=== PATIENT | male | born 1975 | race Caucasian/White ===

== ENCOUNTER 2021-02-28 06:24 | Emergency (ER) | payer OTHER, SELFPAY ==
--- NOTE | ~2021-02-28 | XR_ITS ---
EXAMINATION: XR chest 2V DATE: 02/28/2021 07:48 INDICATION: Chest pain. Shortness of breath. TECHNIQUE: Frontal and lateral views of the chest were obtained. COMPARISON: Chest 2 views 01/07/2018 FINDINGS: The chest demonstrates clear lungs without pneumonia, pleural effusion, or pneumothorax. Th e heart size is normal. IMPRESSION: 1. No acute cardiopulmonary disease. Reviewed, dictated and finalized at location A.
[2021-02-28 06:21] VITALS: PULSE 88; RESP 22; O2SAT 97
[2021-02-28 06:28] VITALS: BP 208/101; PULSE 86; RESP 17; O2SAT 96
--- NOTE | 2021-02-28 07:16 | ECG_ITS ---
Measurements Intervals [place] Rate: 77 P: 35 ID: [id number] QRS: 20 QRSD: 92 T: 35 QT: 348 QTc: 396 Interpretive Statements SINUS RHYTHM ST ELEVATION IN DIFFUSE LEADS- PROBABLY EARLY REPOLARIZATION BORDERLINE ECG Electronically Signed On 02-28-2021 7:19:01 CDT by Johny Scott D.O.
[2021-02-28 07:17] VITALS: BP 177/87; PULSE 73; RESP 14; O2SAT 99
[2021-02-28 07:37] LABS: Basophils Absolute Auto 0.1 K/mm3 (0.0-0.1); Basophils Percent Auto 0.7 % (0.2-1.2); Eosinophils Absolute Auto 0.2 K/mm3 (0-0.3); Eosinophils Percent Auto 2.5 % (0-4.4); Hematocrit 46.6 % (42.0-52.0); Hemoglobin 17.5 g/dL (14.0-18.0); Immature Granulocyte Absolute 0.05 K/mm3 (0.00-0.031); Immature Granulocyte Percent A 0.7 % (0-0.5); Lymphocytes Absolute Auto 1.37 K/mm3 (0.9-3.2); Lymphocytes Percent Auto 20.2 % (18.3-44.2); Mean Corpuscular HGB Conc 37.6 g/dl (32-36); Mean Corpuscular Volume 82.5 fl (80-100); Mean Platelet Volume 12.7 fl (7.4-10.4); Monocytes Absolute Auto 0.4 K/mm3 (0.1-0.6); Monocytes Percent Auto 5.7 % (2.6-8.5); Neutrophils Absolute Auto 4.8 K/mm3 (1.3-6.7); Neutrophils Percent Auto 70.2 % (45.5-73.1); Platelet Count Result 113 k/mm3 (150-375); Red Blood Count 5.65 M/mm3 (4.6-6.20); Red Cell Distribution Width 12.1 % (11.5-14.5); White Blood Count 6.8 K/mm3 (4.5-10.0)
[2021-02-28 07:45] LABS: INR 0.9; Prothrombin Time 12.4 Seconds (11.1-14.7)
[2021-02-28 07:46] LABS: Partial Thromboplastin Time 32.9 SECONDS (22.3-36.8)
[2021-02-28 07:58] LABS: Troponin I 0.017 ng/mL (0.000-0.034)
[2021-02-28 08:10] VITALS: BP 149/91; PULSE 77; RESP 16; O2SAT 98
--- NOTE | 2021-02-28 08:29 | ED.GENADULT ---
HPI - General Adult General Chief complaint: Extremity Problem,Nontraumatic Stated complaint: shoulder pain Time Seen by Provider: 02/28/21 07:05 History of Present Illness HPI narrative: Patient is a 45-year-old male who presents ER with chest pain and left arm pain. Patient woke from sleep with central chest pain he describes as pressure. It was associated with pain going down his left arm. His blood pressure was also in the 200s. Called 911. In route patient received nitro spray which she reports alleviated his pain. Patient has history of diabetes and hypertension and is a smoker. No previous coronary disease. Related Data Allergies Allergy/AdvReac Type Severity Reaction Status Date / Time acetaminophen Allergy Unknown Itching Verified 01/07/18 10:38 oxycodone Allergy Unknown Itching Verified 01/07/18 10:38 Review of Systems Review of Systems: All systems reviewed & are unremarkable except as noted in HPI and below Constitutional: Constitutional: Denies chills, Denies fever(s) and Denies weakness ENT: Denies nasal congestion and Denies sore throat Cardiovascular: Cardiovascular: Reports chest pain, Denies rapid heart rate and Reports radiating jaw, neck or arm pain Respiratory: Respiratory: Denies cough, Denies dyspnea and Denies wheezing Gastrointestinal: Gastrointestinal: Denies abdominal pain, Reports nausea and Denies vomiting PMFSH Past Medical History Medical History (Updated 02/28/21 @ 09:26 by Karri Hough MD) Diabetes Hypercholesterolemia Hypertension Surgical History Surgical History (Updated 02/28/21 @ 08:31 by Karri Hough MD) History of rotator cuff surgery Social History Social History (Updated 02/28/21 @ 08:31 by Karri Hough MD) Smoking status: Current every day smoker Tobacco type: cigarettes Exam Narrative: Exam Narrative: GENERAL: Well-appearing, well-nourished, and in no acute distress. HEAD: Normocephalic, atraumatic. CHEST: Clear to auscultation. No respiratory distress. HEART: Regular rate and rhythm. Normal peripheral pulses. ABDOMEN: Soft, nontender, nondistended. EXTREMITIES: Normal range of motion. No edema. SKIN: Warm, dry, no rash. NEURO: Alert and oriented x3. PSYCH: Normal mood and affect. Course Course Emergency Course: Patient has had multiple blood draws hemolyzed. He has no chest pain and he has become frustrated. He has decided he wants to leave AGAINST MEDICAL ADVICE and understands that he would be risking as well as permanent disability and worsening of condition should he do so. Family was present during this conversation. Vital Signs Vital signs: Vital Signs Pulse Rate 88 02/28/21 06:21 Respiratory Rate 22 H 02/28/21 06:21 Pulse Oximetry 97 02/28/21 06:21 Pulse Rate 81 02/28/21 09:10 Respiratory Rate 20 02/28/21 09:10 Blood Pressure 146/86 H 02/28/21 09:10 Pulse Oximetry 100 02/28/21 09:10 Medical Decision Making Vital Signs Vital Signs: Vital Signs Pulse Rate 88 02/28/21 06:21 Respiratory Rate 22 H 02/28/21 06:21 Pulse Oximetry 97 02/28/21 06:21 Pulse Rate 81 02/28/21 09:10 Respiratory Rate 20 02/28/21 09:10 Blood Pressure 146/86 H 02/28/21 09:10 Pulse Oximetry 100 02/28/21 09:10 Lab Data Result diagrams: 02/28/21 07:29 02/28/21 08:54 Labs: Lab Results 02/28/21 02/28/21 02/28/21 Range/Units 07:29 07:29 08:02 WBC 6.8 (4.5-10.0) K/mm3 RBC 5.65 (4.6-6.20) M/mm3 Hgb 17.5 (14.0-18.0) g/dL Hct 46.6 (42.0-52.0) % MCV 82.5 (80-100) fl MCH 31.0 (26-34) pg MCHC 37.6 H (32-36) g/dl RDW 12.1 (11.5-14.5) % Plt Count 113 L (150-375) k/mm3 MPV 12.7 H (7.4-10.4) fl Immature Gran % (Auto) 0.7 H (0-0.5) % Neut % (Auto) 70.2 (45.5-73.1) % Lymph % (Auto) 20.2 (18.3-44.2) % [place] % (Auto) 5.7 (2.6-8.5) % Eos % (Auto) 2.5 (0-4.4) % Baso % (Auto) 0.7 (0.2-
[2021-02-28 09:10] VITALS: BP 146/86; PULSE 81; RESP 20; O2SAT 100
--- NOTE | 2021-02-28 09:28 | PC.NURSE ---
Lab came to Pt. room to draw blood due to multiple hemolyzed specimens. Pt. refused third blood draw for lab work. Pt. wants to sign out against medical advice. ERP aware and will go talk to the patient.
[2021-02-28 09:29] VITALS: BP 135/94; PULSE 80; RESP 20; O2SAT 97
== END 2021-02-28 09:33 | disposition left against medical advice (07) ==
PROVIDERS: Emergency Provider Emergency Medicine; PCP Family Medicine
DX: R07.9 Chest pain, unspecified (principal); E11.9 Type 2 diabetes mellitus without complications; E78.00 Pure hypercholesterolemia, unspecified; I10 Essential (primary) hypertension; F17.210 Nicotine dependence, cigarettes, uncomplicated; R94.31 Abnormal electrocardiogram [ECG] [EKG]
CPT/HCPCS: 36415; 71046; 84484; 85025; 85610; 85730; 93005; 99284

== ENCOUNTER 2021-03-08 15:23 | Outpatient (CLI) | payer OTHER, SELFPAY ==
--- NOTE | 2021-03-08 | ECG_ITS ---
Measurements Intervals [place] Rate: 72 P: 23 [place]: 206 QRS: 16 QRSD: 96 T: 28 QT: 379 QTc: 416 Interpretive Statements SINUS RHYTHM EARLY PRECORDIAL R/S TRANSITION BORDERLINE ECG Electronically Signed On 03-08-2021 16:56:55 CDT by Johny Scott D.O.
== END 2021-03-08 15:24 | disposition home or self-care (01) ==
LOC: ANHCARD 15:25
PROVIDERS: PCP Physician Assistant; Visit Provider Physician Assistant
DX: R07.89 Other chest pain (principal)
CPT/HCPCS: 93005

== ENCOUNTER 2021-05-11 19:36 | Emergency (ER) | payer OTHER, SELFPAY ==
[2021-05-11] VITALS (8 sets, daily range): BP systolic 133–145; BP diastolic 60–96; PULSE 76–104; RESP 11–31; TEMP 36.9–37.4; O2SAT 90–100
--- NOTE | ~2021-05-11 | XR_ITS ---
XR chest 2V DATE: 05/11/2021 20:08 INDICATION: Shortness of breath, palpitations. Smoker. History of hypertension. TECHNIQUE: PA and lateral views COMPARISON: 02/28/2021 PA and lateral chest FINDINGS: Normal heart size. No hilar or mediastinal enlargement. No pulmonary infiltrate or consolid ation, pleural effusion or pulmonary vascular congestion or pneumothorax. Mild dextro scoliosis of the thoracic spine. IMPRESSION: No active cardiopulmonary disease Reviewed, dictated and finalized at location A.
[2021-05-11 20:36] LABS: Basophils Absolute Auto 0.1 K/mm3 (0.0-0.1); Basophils Percent Auto 0.7 % (0.2-1.2); Eosinophils Absolute Auto 0.3 K/mm3 (0-0.3); Eosinophils Percent Auto 3.7 % (0-4.4); Hematocrit 47.2 % (42.0-52.0); Hemoglobin 16.4 g/dL (14.0-18.0); Immature Granulocyte Absolute 0.01 K/mm3 (0.00-0.031); Immature Granulocyte Percent A 0.1 % (0-0.5); Lymphocytes Absolute Auto 1.44 K/mm3 (0.9-3.2); Lymphocytes Percent Auto 19.8 % (18.3-44.2); Mean Corpuscular HGB Conc 34.7 g/dl (32-36); Mean Corpuscular Hemoglobin 29.5 pg (26-34); Mean Platelet Volume 12.3 fl (7.4-10.4); Monocytes Absolute Auto 0.7 K/mm3 (0.1-0.6); Monocytes Percent Auto 9.6 % (2.6-8.5); Neutrophils Absolute Auto 4.8 K/mm3 (1.3-6.7); Neutrophils Percent Auto 66.1 % (45.5-73.1); Platelet Count Result 112 k/mm3 (150-375); Red Blood Count 5.55 M/mm3 (4.6-6.20); White Blood Count 7.3 K/mm3 (4.5-10.0)
[2021-05-11 20:45] LABS: Anion Gap 11 mmol/L (8-16); Blood Urea Nitrogen 14 mg/dL (9-20); Calcium 9.1 mg/dL (8.4-10.2); Carbon Dioxide 26 mmol/L (22-30); Chloride 101 mmol/L (98-107); Estimated CRCL calculation 158 ml/min; Estimated Glomerular Filt Rate > 60; Glucose 163 mg/dL (75-110); INR 0.9; Potassium 3.6 mmol/L (3.4-5.0); Prothrombin Time 12.9 Seconds (11.1-14.7); Sodium 138 mmol/L (137-145)
[2021-05-11 20:46] LABS: Partial Thromboplastin Time 24.2 SECONDS (22.3-36.8)
[2021-05-11 20:57] LABS: Troponin I < 0.012 ng/mL (0.000-0.034)
--- NOTE | 2021-05-11 22:08 | ECG_ITS ---
Measurements Intervals [place] Rate: 85 P: 36 [place]: 225 QRS: 17 QRSD: 95 T: 38 QT: 343 QTc: 409 Interpretive Statements SINUS RHYTHM WITH FIRST DEGREE AV BLOCK ABNORMAL ECG Electronically Signed On 05-12-2021 7:32:36 CDT by Johny Scott D.O.
[2021-05-11 23:22] LABS: Troponin I < 0.012 ng/mL (0.000-0.034)
--- NOTE | 2021-05-11 23:56 | ED.CHESTPAIN ---
HPI - Chest Pain General Chief Complaint: Chest Pain Stated Complaint: chest pain x 45, cardiac history-hang Time Seen by Provider: 05/11/21 22:44 Source: patient and family Mode of arrival: ambulatory Limitations: no limitations History of Present Illness HPI narrative: 45-year-old with history of hypertension, hypercholesteremia, diabetes here with complaints of midsternal chest pain that started few hours ago. Patient states that he has been having cold and cough symptoms for past few days. He states that his heart was pacing. He denies any shortness of breath or fever or chills at this time. complaint: chest discomfort Onset (ago): hour(s) (2) Timing of current episode: now resolved Onset: during rest Pain location: substernal Pain radiation: none Severity: moderate Treatment prior to arrival: none Risk Factors Coronary artery disease risk factors: diabetes, hyperlipidemia and hypertension Thoracic aortic dissection risk factors: none Related Data Allergies Allergy/AdvReac Type Severity Reaction Status Date / Time acetaminophen Allergy Unknown Itching Verified 01/07/18 10:38 oxycodone Allergy Unknown Itching Verified 01/07/18 10:38 Review of Systems Review of Systems: All systems reviewed & are unremarkable except as noted in HPI and below Constitutional: Constitutional: Reports no additional constitutional complaints Eyes: Eyes: Reports no additional eye complaints ENT: Reports system reviewed and no additional complaints, except as documented Cardiovascular: Cardiovascular: Reports as per HPI Respiratory: Respiratory: Reports as per HPI Gastrointestinal: Gastrointestinal: Reports no additional gastrointestinal complaints Genitourinary: Genitourinary: Reports no additional male genitourinary complaints Musculoskeletal: Musculoskeletal: Reports no additional musculoskeletal complaints PMFSH Past Medical History Medical History Diabetes Hypercholesterolemia Hypertension Surgical History Surgical History History of rotator cuff surgery Social History Social History Smoking status: Current every day smoker Tobacco type: cigarettes Gender identity (if verbalized by the patient): Male Exam Narrative: Exam Narrative: GENERAL: Well-appearing, well-nourished, and in no acute distress. HEAD: Normocephalic, atraumatic. EYES: PERRLA and EOMI.. NECK: Supple. CHEST: Clear to auscultation. No respiratory distress. HEART: Regular rate and rhythm. No murmur heard. Normal peripheral pulses. ABDOMEN: Soft, nontender, nondistended, normal active bowel sounds. EXTREMITIES: Normal range of motion. No edema. SKIN: Warm, dry, no rash. NEURO: No focal deficits. Alert and oriented x3. PSYCH: Normal mood and affect. Course Course Emergency Course: Patient has a normal sinus rhythm with a heart rate between 80s and 90s. He states that he is feeling his heart beating too fast I was monitoring his heart rate while he was having the symptoms his heart rate was in the 80s to 90s. I discussed labs, chest x-ray findings with the patient and family. This time his pain is more likely noncardiac. Advised him to continue his medication. Follow-up with his primary doctor. Vital Signs Vital signs: Vital Signs Temperature 36.9 C 05/11/21 20:16 Pulse Rate 95 05/11/21 20:16 Respiratory Rate 14 05/11/21 20:16 Blood Pressure 145/82 H 05/11/21 20:16 Pulse Oximetry 98 05/11/21 20:16 Temperature 37.4 C 05/11/21 21:59 Pulse Rate 95 05/11/21 23:45 Respiratory Rate 17 05/11/21 23:45 Blood Pressure 135/96 H 05/11/21 23:32 Pulse Oximetry 99 05/11/21 23:32 MDM - Chest Pain Lab Data Result diagrams: 05/11/21 20:25 05/11/21 20:25 Labs: Lab Results 05/11/21 05/11/21 05/11/21 Range/Units 20:25 20
[2021-05-12 00:16] VITALS: BP 138/89; PULSE 92; RESP 16; O2SAT 99
== END 2021-05-12 00:16 | disposition home or self-care (01) ==
PROVIDERS: Emergency Medicine; Emergency Provider Family Medicine; PCP Physician Assistant
DX: R07.89 Other chest pain (principal); I10 Essential (primary) hypertension; E78.00 Pure hypercholesterolemia, unspecified; E11.9 Type 2 diabetes mellitus without complications; F17.210 Nicotine dependence, cigarettes, uncomplicated; I44.0 Atrioventricular block, first degree
CPT/HCPCS: 36415; 71046; 80048; 84484; 85025; 85610; 85730; 93005; 99284

== ENCOUNTER 2021-07-03 08:54 | Emergency (ER) | payer OTHER, SELFPAY ==
[2021-07-03 09:09] VITALS: BP 149/93; PULSE 75; RESP 20; TEMP 36.7; O2SAT 98
--- NOTE | 2021-07-03 10:05 | ED.BACK ---
HPI - Back Pain/Injury General Chief Complaint: Back Pain/Injury Stated Complaint: Back Pain Time Seen by Provider: 07/03/21 09:52 Source: patient and RN notes reviewed Mode of arrival: ambulatory Limitations: no limitations History of Present Illness HPI Narrative: Patient presents today complaining of left lower back pain and left lower abdomen pain. States he felt a pull in his left lower abdomen and groin when he lifted a picnic table yesterday afternoon. As the day went on and into last night this pain radiated into his left back. He currently rates his pain 810 and has been taking ibuprofen without relief. Denies numbness or tingling in the legs, feet, or genitals. Denies any loss of bowel or bladder control. MD elicited complaint: back pain and back injury Related Data Home Medications Medication Instructions Recorded Confirmed amlodipine 07/03/21 aspirin 07/03/21 carvedilol 07/03/21 glipizide mg PO 07/03/21 hydrochlorothiazide 07/03/21 hydrochlorothiazide 07/03/21 metformin mg PO 07/03/21 Allergies Allergy/AdvReac Type Severity Reaction Status Date / Time acetaminophen Allergy Unknown Itching Verified 01/07/18 10:38 oxycodone Allergy Unknown Itching Verified 01/07/18 10:38 Review of Systems Review of Systems: CONSTITUTIONAL: Denies body aches, fever, chills, or sweats. EYES: Denies visual changes, redness, or discharge. ENT: Denies rhinorrhea, congestion, sore throat, or otalgia. CARDIOVASCULAR: Denies chest pain, palpitations, or edema. RESPIRATORY: Denies cough or dyspnea. GASTROINTESTINAL: Denies abdominal pain, nausea, vomiting, or diarrhea. GENITOURINARY: Denies dysuria or hematuria. SKIN: Denies rash, itching, or wounds. MUSCULOSKELETAL: Denies joint pain, or myalgia. + Back pain NEUROLOGIC: Denies headache, numbness, tingling, or weakness. PSYCH: Denies depression or anxiety. [facility] Past Medical History Medical History Diabetes Hypercholesterolemia Hypertension Surgical History Surgical History History of rotator cuff surgery Social History Social History Smoking status: Current every day smoker Tobacco type: cigarettes Gender identity (if verbalized by the patient): Male Comments At time of signature, I have reviewed and agree with nursing past medical, surgical, social and family history unless otherwise noted. Please see nursing chart for further information. There is no relevant family history pertinent to the presenting complaint Exam Narrative: GENERAL: Well-appearing, well-nourished, and in no acute distress. HEAD: Normocephalic, atraumatic. EYES: EOMI. No redness or drainage. Conjunctivae normal. ENT: Mucous membranes pink and moist. NECK: Normal AROM. CHEST: No respiratory distress. ABDOMEN: Soft, nondistended, normal active bowel sounds. Mild tenderness to the left lower quadrant that extends laterally. MUSCULOSKELETAL: No bony tenderness to the thoracic or lumbar spine. Patient localizes his back pain to the left lower lumbar, but this area is nontender to palpation. Distal sensation intact. Capillary refill normal. Pedal pulses normal. Posterior pulse equal and strong. EXTREMITIES: Normal range of motion. No edema. SKIN: Warm, dry, no rash. Capillary refill normal. Normal skin turgor. NEURO: No focal deficits. Alert and oriented x3. Gait steady. PSYCH: Normal affect. No signs of depression or anxiety. Course Vital Signs Vital signs: Vital Signs Temperature 98.1 F 07/03/21 09:09 Pulse Rate 75 07/03/21 09:09 Respiratory Rate 20 07/03/21 09:09 Blood Pressure 149/93 H 07/03/21 09:09 Pulse Oximetry 98 07/03/21 09:09 Temperature 98.1 F 07/03/21 09:09 Pulse Rate 75 07/03/21 09:09 Respiratory Rate 20 07/03/21 09:09 Blood Pressure
== END 2021-07-03 10:34 | disposition home or self-care (01) ==
PROVIDERS: Emergency Provider Nurse Practitioner; PCP Physician Assistant
DX: S39.012A Strain of muscle, fascia and tendon of lower back, initial encounter (principal); S39.011A Strain of muscle, fascia and tendon of abdomen, initial encounter; X50.0XXA Overexertion from strenuous movement or load, initial encounter; E11.9 Type 2 diabetes mellitus without complications; E78.00 Pure hypercholesterolemia, unspecified; I10 Essential (primary) hypertension; F17.210 Nicotine dependence, cigarettes, uncomplicated
CPT/HCPCS: 99213; G0463

== ENCOUNTER 2022-03-22 13:26 | Emergency (ER) | payer OTHER, SELFPAY ==
[2022-03-22 13:34] VITALS: BP 157/95; PULSE 93; RESP 16; TEMP 38; O2SAT 99
--- NOTE | 2022-03-22 13:34 | ED.ABDPAIN ---
HPI - Abdominal Pain General Chief Complaint: Abdominal Pain Stated Complaint: abd pain Time Seen by Provider: 03/22/22 13:37 Source: patient and RN notes reviewed Mode of arrival: ambulatory Limitations: no limitations History of Present Illness HPI narrative: 46-year-old male presented for complaint of multiple concerns including generalized abdominal pain, constipation, nausea, decreased appetite x2 weeks. He states he has occasional dizziness, sweating, fatigue, chest pain, palpitations. Pain is intermittent, sharp, stabbing. He states the pain was so severe last night and was associated with hard stomach his family advised him to call 911 but he declined stating he usually signed out AMA and didn't want to go. LBM 6 days. He took an enema last night and a laxative today without results. Endorses history of diabetes, hypertension, and dilated aorta, he states his PCP started him on Farxiga about 2 weeks ago, which he has attributed the decreased appetite and nausea. Patient smokes 1.5 PPD, occasional alcohol. He is not boosted for COVID, not vaccinated for flu. Related Data Home Medications Medication Instructions Recorded Confirmed amlodipine 07/03/21 aspirin 07/03/21 carvedilol 07/03/21 hydrochlorothiazide 07/03/21 metformin mg PO 07/03/21 dapagliflozin [Farxiga] mg 03/22/22 Allergies Allergy/AdvReac Type Severity Reaction Status Date / Time acetaminophen Allergy Unknown Itching Verified 03/22/22 13:30 oxycodone Allergy Unknown Itching Verified 03/22/22 13:30 Review of Systems Review of Systems: CONSTITUTIONAL: Denies body aches, fever, chills EYES: Denies visual changes ENT: Denies rhinorrhea, congestion CARDIOVASCULAR: endorses chest pain, palpitations RESPIRATORY: Denies cough GASTROINTESTINAL: Endorses abdominal pain, nausea, Denies hematochezia, melena, hematemesis, vomiting, diarrhea. GENITOURINARY: Denies dysuria, hematuria, or CVA tenderness. SKIN: Denies rash, itching, or wounds. MUSCULOSKELETAL: Denies back pain, joint pain, or myalgia. NEUROLOGIC: Denies headache, numbness, tingling, or weakness. PSYCH: Denies mood change All systems reviewed & are unremarkable except as noted in HPI and below PMFSH Past Medical History Medical History Diabetes Hypercholesterolemia Hypertension Surgical History Surgical History History of rotator cuff surgery Social History Social History Smoking status: Current every day smoker Tobacco type: cigarettes Gender identity (if verbalized by the patient): Male Comments At time of signature, I have reviewed and agree with nursing past medical, surgical, social and family history unless otherwise noted. Please see nursing chart for further information. There is no relevant family history pertinent to the presenting complaint Exam Narrative: GENERAL: ill-appearing, non-toxic, no acute distress. Appears older than stated age HEAD: Normocephalic, atraumatic. EYES: EOMI. Conjunctivae normal. ENT: Mucous membranes pink and moist. NECK: Normal AROM. Supple. No lymphadenopathy. CHEST: No respiratory distress. Clear to auscultation. HEART: Regular rate and rhythm. No murmur appreciated. Normal peripheral pulses. ABDOMEN: Tender abdomen generalized; No guarding, rebound tenderness, asymmetry; abd soft, nondistended, normal active bowel sounds. MUSCULOSKELETAL: No bony tenderness. EXTREMITIES: Normal range of motion. No edema. SKIN: Warm, dry, no rash. Capillary refill normal. Normal skin turgor. NEURO: No focal deficits. Alert and oriented x3. Gait steady. PSYCH: flat affect. Course Course Emergency Course: Patient is aware of diagnosis, understands and agrees to treatment plan. Anticipatory guidance given. Portions of this record may have been created with
[2022-03-22 13:43] VITALS: BP 157/95; PULSE 93; RESP 16; TEMP 38; O2SAT 99
--- NOTE | 2022-03-22 13:45 | ECG_ITS ---
Measurements Intervals [place] Rate: 93 P: 45 [place]: 184 QRS: 29 QRSD: 98 T: 44 QT: 340 QTc: 424 Interpretive Statements SINUS RHYTHM COMPARED TO ECG 05/11/2021 22:07:38 NO SIGNIFICANT CHANGES Electronically Signed On 03-22-2022 20:10:27 CDT by Sophia Enrique M.D.
== END 2022-03-22 13:58 | disposition short-term general hospital (02) ==
PROVIDERS: Emergency Provider Nurse Practitioner Family
DX: R10.84 Generalized abdominal pain (principal); F17.210 Nicotine dependence, cigarettes, uncomplicated
CPT/HCPCS: 93005; 99213; G0463

== ENCOUNTER 2022-05-01 21:47 | Emergency (ER) | payer OTHER, SELFPAY ==
[2022-05-01] VITALS (17 sets, daily range): BP systolic 135–164; BP diastolic 68–84; PULSE 58–94; RESP 12–22; TEMP 36.6; O2SAT 94–100
[2022-05-01 22:00] LABS: Basophils Percent Auto 0.1 % (0.2-1.2); Hematocrit 40.5 % (42.0-52.0); Hemoglobin 14.3 g/dL (14.0-18.0); Immature Granulocyte Absolute 0.16 K/mm3 (0.00-0.031); Immature Granulocyte Percent A 1.5 % (0-0.5); Immature Platelet Fraction Pct 9.4 % (0.9-11.2); Lymphocytes Percent Auto 7.5 % (18.3-44.2); Mean Corpuscular HGB Conc 35.3 g/dl (32-36); Mean Corpuscular Hemoglobin 29.2 pg (26-34); Mean Corpuscular Volume 82.7 fl (80-100); Mean Platelet Volume 12.1 fl (7.4-10.4); Monocytes Absolute Auto 0.5 K/mm3 (0.1-0.6); Monocytes Percent Auto 4.5 % (2.6-8.5); Neutrophils Absolute Auto 9.3 K/mm3 (1.3-6.7); Neutrophils Percent Auto 86.4 % (45.5-73.1); Platelet Count Result 136 k/mm3 (150-375); Red Cell Distribution Width 12.4 % (11.5-14.5); White Blood Count 10.7 K/mm3 (4.5-10.0)
[2022-05-01] MEDS: SODIUM CHLORIDE 0.9% IV 1,000 ML 999 ML IV CONT ×2 (22:09→23:44)
--- NOTE | 2022-05-01 22:14 | ED.RECABL ---
HPI - Recheck/Abnormal Lab/Rx General Chief Complaint: Recheck/Abnormal Lab/Rx Stated Complaint: AMS, ELEVATED GLUCOSE Time Seen by Provider: 05/01/22 21:58 Source: patient History of Present Illness HPI narrative: Patient presents with elevated sugars. Patient was recently admitted to [place] and discharged a few days ago. Patient reports has not been feeling well since that time. He was admitted for ulcerative colitis and was discharged home on some medications to include prednisone. Since his discharge again he has been feeling unwell. Today he is feeling lightheaded and he was lowered to the ground. Family took a blood sugar and her glucometer read high so they called EMS and patient was transported for further evaluation. EMS reports her glucometer also read high. Patient reports in general he does not not feel well he denies any focal areas of pain denies any nausea vomiting diarrhea. Related Data Home Medications Medication Instructions Recorded Confirmed amlodipine 5 mg tablet 5 mg PO DAILY 07/03/21 03/22/22 aspirin 81 mg tablet,delayed 81 mg PO DAILY 07/03/21 03/22/22 release carvedilol 12.5 mg tablet 12.5 mg PO DAILY 07/03/21 03/22/22 hydrochlorothiazide 12.5 mg capsule 12.5 mg PO DAILY 07/03/21 03/22/22 metformin 500 mg tablet,extended 500 mg PO BID 07/03/21 03/22/22 release 24 hr dapagliflozin 10 mg tablet 10 mg PO DAILY 03/22/22 03/22/22 (Farxiga) Allergies Allergy/AdvReac Type Severity Reaction Status Date / Time acetaminophen Allergy Unknown Itching Verified 03/22/22 13:30 oxycodone Allergy Unknown Itching Verified 03/22/22 13:30 Review of Systems Review of Systems: CONSTITUTIONAL: Denies fever, chills, or sweats. EYES: Denies visual changes, redness, or discharge. ENT: Denies rhinorrhea, congestion, sore throat, or otalgia. CARDIOVASCULAR: Denies chest pain, palpitations, or edema. RESPIRATORY: Denies cough or dyspnea. GASTROINTESTINAL: Denies abdominal pain, nausea, vomiting, or diarrhea. GENITOURINARY: Denies dysuria or hematuria. SKIN: Denies rash or itching. MUSCULOSKELETAL: Denies back pain, joint pain, or myalgia. NEUROLOGIC: Denies headache, numbness, dizziness, or focal weakness. PSYCHIATRIC: Denies anxiety or depression. All systems reviewed & are unremarkable except as noted in HPI and below PMFSH Past Medical History Medical History Diabetes Hypercholesterolemia Hypertension Surgical History Surgical History History of rotator cuff surgery Social History Social History Smoking status: Current every day smoker Tobacco type: cigarettes Gender identity (if verbalized by the patient): Male Exam Narrative: GENERAL: Well-appearing, well-nourished, and in no acute distress. HEAD: Normocephalic, atraumatic. EYES: PERRLA and EOMI. ENT: Nares clear, no rhinorrhea or epistaxis. Mucous membranes moist. NECK: Supple. No masses. No JVD CHEST: Clear to auscultation. No respiratory distress. No wheezes rales or rhonchi HEART: Regular rate and rhythm. No murmur heard. Normal peripheral pulses. ABDOMEN: Soft, nontender, nondistended, normal active bowel sounds. EXTREMITIES: Normal range of motion. No edema. SKIN: Warm, dry, no rash. NEURO: No focal deficits. Alert and oriented x3. PSYCH: Normal mood and affect. Course Reevaluation(s) Reevaluation #1: Patient is feeling much improved and would like to go home. Date: 05/01/22 Time: 23:36 Reevaluation #2: Patient continues report feeling improved and would like to be discharged as his sugar is improving. I did advise the patient I would like to continue to reduce his sugar while he is here in the emergency room he declined and feels like he manages his symptoms at home now and he has follow-up with his primary care doctor tomorrow. Date: 05/02/22 Time: 00
[2022-05-01 22:26] LABS: Appearance Urine Clear (Clear); Bilirubin Urine Negative (Negative); Blood Urine Negative (Negative); Color Urine Yellow (Yellow); Glucose Urine UA 3+ mg/dL (Negative); Ketones Urine 2+ mg/dL (Negative); Leukocyte Esterase Ur Negative LEU/UL (Negative); Nitrate Urine Negative (Negative); Protein Urine Negative (Negative); Specific Grav Ur 1.015 (1.001-1.035); Urobilinogen Urine 0.2 mg/dL (<2.0); pH Urine 6.5 (5.0-9.0)
[2022-05-01 22:30] LABS: WBC Urine 0-3 /hpf
[2022-05-01 22:34] LABS: Alanine Aminotransferase 20 U/L (6-50); Alkaline Phosphatase 132 U/L (38-126); Anion Gap 5 mmol/L (8-16); Aspartate Amino Transferase 17 U/L (17-59); Bilirubin,Total 0.5 mg/dL (0.2-1.3); Blood Urea Nitrogen 18 mg/dL (9-20); Carbon Dioxide 23 mmol/L (22-30); Chloride 97 mmol/L (98-107); Estimated CRCL calculation 162 ml/min; Estimated Glomerular Filt Rate > 60; Glucose 583 mg/dL (65-110); Magnesium 1.9 mg/dL (1.6-2.3); Phosphorus 3.4 mg/dL (2.5-4.5); Potassium 4.2 mmol/L (3.4-5.0); Sodium 125 mmol/L (137-145)
[2022-05-01 22:35] LABS: Add Urine Microscopic? YES
[2022-05-01 22:35] LABS: Beta-Hydroxybutyrate/Acetoacetate 0.97 mmol/L (0.02-0.27)
[2022-05-01] MEDS: INSULIN HUMAN REGULAR (*BKC) 100 UNITS/ML 11 UNITS IV PUSH (23:35)
[2022-05-01 23:39] LABS: Glucose Point of Care 455 mg/dl (65-105)
[2022-05-02] VITALS: O2SAT 97
[2022-05-02 00:02] VITALS: BP 147/66; O2SAT 97
[2022-05-02 00:15] VITALS: O2SAT 98
[2022-05-02 00:16] VITALS: BP 147/68
[2022-05-02 00:32] VITALS: BP 137/63
[2022-05-02 00:41] LABS: Glucose Point of Care 349 mg/dl (65-105)
== END 2022-05-02 01:13 | disposition home or self-care (01) ==
PROVIDERS: Emergency Provider Emergency Medicine; PCP Physician Assistant
DX: E11.65 Type 2 diabetes mellitus with hyperglycemia (principal); I10 Essential (primary) hypertension; E78.5 Hyperlipidemia, unspecified; Z79.84 Long term (current) use of oral hypoglycemic drugs
CPT/HCPCS: 36415; 80053; 81001; 82010; 82948; 83735; 84100; 85025; 85055; 96361; 96374; 99284; J1815; J7030

== ENCOUNTER 2022-11-10 14:28 | Outpatient (CLI) | payer BC, SELFPAY ==
[2022-11-10 14:46] LABS: Hematocrit 43.2 % (40.0-54.0); Hemoglobin 15.1 g/dL (14.0-18.0); Immature Platelet Fraction Pct 7.3 % (1.0-7.0); Mean Corpuscular Hemoglobin 28.8 pg (27.0-31.0); Mean Corpuscular Volume 82.4 fL (78.0-102.0); Mean Platelet Volume 11.6 fl (8.7-11.0); Platelet Count Result 115 K/mm3 (150-420); Red Blood Count 5.24 M/mm3 (4.70-6.10); Red Cell Distribution Width 12.5 % (11.6-14.4); White Blood Count 4.7 K/mm3 (4.8-10.8)
[2022-11-10 15:31] LABS: Alanine Aminotransferase 19 U/L (16-63); Albumin Level 3.5 g/dL (3.4-5.0); Alkaline Phosphatase 68 U/L (46-116); Anion Gap 8 mmol/L (8-16); Aspartate Amino Transferase 14 U/L (15-37); Bilirubin,Total 0.3 mg/dL (0.00-1.00); Blood Urea Nitrogen 13 mg/dL (7-18); Calcium 8.3 mg/dL (8.5-10.1); Carbon Dioxide 29 mmol/L (21-32); Chloride 107 mmol/L (98-108); Estimated Glomerular Filt Rate > 60; Glucose 187 mg/dL (70-99); Osmolality Calculated 303 mOsm/kg (285-295); Potassium 3.8 mmol/L (3.5-5.1); Sodium 144 mmol/L (136-145); Total Protein 6.5 g/dL (6.4-8.2)
[2022-11-10 15:32] LABS: CRP < 0.5 mg/dL (0.0-0.9)
[2022-11-10 15:59] LABS: Erythrocyte Sedimentation Rate 5 mm/hr (0-15)
== END 2022-11-10 14:29 | disposition home or self-care (01) ==
PROVIDERS: Visit Provider Internal Medicine Gastroenterology
DX: K51.90 Ulcerative colitis, unspecified, without complications (principal)
CPT/HCPCS: 36415; 80053; 85027; 85055; 85652; 86140

== ENCOUNTER 2023-05-17 15:30 | Outpatient (RCR) | payer BC, SELFPAY | END 2023-07-02 10:28 | disposition home or self-care (01) | LOC: ANHDMC 15:30 | PROVIDERS: PCP Physician Assistant; Visit Provider Physician Assistant | DX: E11.65 Type 2 diabetes mellitus with hyperglycemia (principal); Z71.89 Other specified counseling | CPT/HCPCS: G0108 ==

== ENCOUNTER 2023-05-29 09:01 | Emergency (ER) | payer OTHER, SELFPAY ==
[2023-05-29 09:01] VITALS: BP 189/96; PULSE 84; RESP 16; TEMP 36.7; O2SAT 98
[2023-05-29 09:12] VITALS: BP 189/96; PULSE 84; RESP 16; TEMP 36.7; O2SAT 98
--- NOTE | 2023-05-29 09:21 | ED.SKABFB ---
HPI - Skin/Abscess/Foreign Bdy General Chief complaint: Skin/Abscess/Foreign Body Stated complaint: wound on stomach Time Seen by Provider: 05/29/23 09:13 Source: patient Mode of arrival: ambulatory Limitations: no limitations History of Present Illness HPI narrative: this is 47-year-old male that with a history of diabetes that has an insulin pump that he uses on his right lower abdomen has an area of of erythema of about 4cm in diameter with no drainage it is warm and tender to touch no fever chills no shortness of breath. complaint: other Onset (ago): day(s) Severity: mild Related Data Home Medications Medication Instructions Recorded Confirmed aspirin 81 mg tablet,delayed 81 mg PO DAILY 07/03/21 05/29/23 release insulin glargine 100 unit/mL (3 20 unit subcut DAILY 07/07/22 05/29/23 mL) subcutaneous pen (Lantus Solostar U-100 Insulin) carvedilol 12.5 mg tablet 12.5 mg PO BID 08/17/22 05/29/23 insulin lispro 100 unit/mL 1 sliding scale dose subcut 08/17/22 05/29/23 subcutaneous pen USEASDIRECTD amlodipine 10 mg tablet 10 mg PO DAILY 11/09/22 05/29/23 losartan 25 mg tablet 25 mg PO DAILY 11/09/22 05/29/23 furosemide 20 mg tablet 20 mg PO DAILY 05/29/23 05/29/23 metformin 500 mg tablet,extended 500 mg PO BID 05/29/23 05/29/23 release 24 hr Allergies Allergy/AdvReac Type Severity Reaction Status Date / Time acetaminophen Allergy Unknown Itching Verified 05/29/23 09:10 oxycodone Allergy Unknown Itching Verified 05/29/23 09:10 Review of Systems Review of Systems: All systems reviewed & are unremarkable except as noted in HPI and below PMFSH Past Medical History Medical History Diabetes Hypercholesterolemia Hypertension Pancreatitis Ulcerative colitis Surgical History Surgical History History of rotator cuff surgery Social History Social History Smoking status: Current every day smoker Tobacco type: cigarettes Gender identity (if verbalized by the patient): Male Exam Const: General: healthy appearing Nutritional Appearance: well nourished Orientation/consciousness: patient oriented x3 Eyes: Conjunctivae: conjunctivae normal Neck: Neck: normal visual inspection Chest: Chest palpation & inspection: normal inspection of the chest Resp: Effort & Inspection: normal respiratory effort Auscultation: clear to auscultation bilaterally Cardio: Rate: regular rate Rhythm: regular rhythm GI: Auscultation: normal bowel sounds Skin: Wounds: wounds noted Other: Area of erythema warm and tender to touch 4cm in diameter right lower abdominal area Neuro: General: patient oriented x3 Extrem: General: normal to inspection Psych: Mental Status: mental status grossly normal Affect: normal affect Course Course Emergency Course: patient has a warm red area consistent with cellulitis probably from his insulin pump with no fever chills, patient has a blood pressure of 189/96 is currently on losartan 25mg daily and advised patient to increase his losartan to50mg daily. Will give the patient a dose of IM 1g ceftriaxone and will send antibiotics to his pharmacy. Vital Signs Vital signs: Vital Signs Temperature 36.7 C 05/29/23 09:01 Pulse Rate 84 05/29/23 09:01 Respiratory Rate 16 05/29/23 09:01 Blood Pressure 189/96 H 05/29/23 09:01 Pulse Oximetry 98 05/29/23 09:01 Oxygen Delivery Room Air 05/29/23 09:01 Temperature 36.7 C 05/29/23 09:12 Pulse Rate 84 05/29/23 09:12 Respiratory Rate 16 05/29/23 09:12 Blood Pressure 189/96 H 05/29/23 09:12 Pulse Oximetry 98 05/29/23 09:12 Oxygen Delivery Room Air 05/29/23 09:12 Critical Care Time Critical Care Time Critical Care Time: No Discharge Plan Discharge Clinical Impression: Cellulitis Patient Disposition:
[2023-05-29] MEDS: cefTRIAXone 1 GM, LIDOCAINE HCL 1% LOCAL INJ 2.1 ML IM (09:26)
== END 2023-05-29 09:32 | disposition home or self-care (01) ==
PROVIDERS: Emergency Provider Emergency Medicine; PCP Physician Assistant
DX: L03.311 Cellulitis of abdominal wall (principal); E11.9 Type 2 diabetes mellitus without complications; I10 Essential (primary) hypertension; F17.210 Nicotine dependence, cigarettes, uncomplicated; Z79.4 Long term (current) use of insulin; Z79.82 Long term (current) use of aspirin
CPT/HCPCS: 96372; 99283; J0696

== ENCOUNTER 2023-06-09 15:13 | Outpatient (CLI) | payer OTHER, SELFPAY ==
[2023-06-09 15:50] LABS: Hematocrit 42.4 % (40.0-54.0); Mean Corpuscular HGB Conc 35.4 g/dL (32.0-36.0); Mean Corpuscular Hemoglobin 29.6 pg (27.0-31.0); Mean Corpuscular Volume 83.8 fL (78.0-102.0); Mean Platelet Volume 12.2 fl (8.7-11.0); Platelet Count Result 123 K/mm3 (150-420); Red Blood Count 5.06 M/mm3 (4.70-6.10); Red Cell Distribution Width 12.6 % (11.6-14.4); White Blood Count 6.2 K/mm3 (4.8-10.8)
[2023-06-09 16:20] LABS: Alanine Aminotransferase 28 U/L (16-63); Albumin Level 3.7 g/dL (3.4-5.0); Alkaline Phosphatase 60 U/L (46-116); Anion Gap 10 mmol/L (8-16); Aspartate Amino Transferase 20 U/L (15-37); Bilirubin,Total 0.6 mg/dL (0.00-1.00); Blood Urea Nitrogen 13 mg/dL (7-18); Calcium 8.5 mg/dL (8.5-10.1); Carbon Dioxide 27 mmol/L (21-32); Chloride 104 mmol/L (98-108); Estimated Glomerular Filt Rate > 60; Glucose 208 mg/dL (70-99); Osmolality Calculated 298 mOsm/kg (285-295); Potassium 3.7 mmol/L (3.5-5.1); Sodium 141 mmol/L (136-145); Total Protein 6.8 g/dL (6.4-8.2)
[2023-06-09 16:57] LABS: CRP < 0.5 mg/dL (0.0-0.9)
[2023-06-09 17:00] LABS: Erythrocyte Sedimentation Rate 6 mm/hr (0-15)
== END 2023-06-09 15:14 | disposition home or self-care (01) ==
LOC: CHSLAB 15:17
PROVIDERS: Visit Provider Internal Medicine Gastroenterology
DX: K51.90 Ulcerative colitis, unspecified, without complications (principal)
CPT/HCPCS: 36415; 80053; 85027; 85652; 86140

== ENCOUNTER 2023-06-12 17:57 | Outpatient (CLI) | payer OTHER, SELFPAY ==
[2023-06-19 21:47] LABS: Calprotectin, Stool 94 mcg/g
== END 2023-06-12 17:58 | disposition home or self-care (01) ==
PROVIDERS: Visit Provider Internal Medicine Gastroenterology
DX: K51.90 Ulcerative colitis, unspecified, without complications (principal)
CPT/HCPCS: 83993

== ENCOUNTER 2023-06-13 07:12 | Outpatient (CLI) | payer OTHER, SELFPAY ==
[2023-06-13 08:14] LABS: Cholesterol 97 mg/dL (0-200); HDL Direct 43 mg/dL (40-60); LDL Cholesterol Calculated 23 mg/dL (<130); Triglycerides 153 mg/dL (0-150)
== END 2023-06-13 07:13 | disposition home or self-care (01) ==
LOC: CHSLAB 07:14
PROVIDERS: PCP Physician Assistant; Visit Provider Internal Medicine Cardiovascular Disease
DX: E11.69 Type 2 diabetes mellitus with other specified complication (principal); E78.5 Hyperlipidemia, unspecified
CPT/HCPCS: 36415; 80061

== ENCOUNTER 2023-06-26 07:35 | Outpatient (CLI) | payer OTHER, SELFPAY ==
[2023-06-26 08:04] LABS: Creatinine Urine 49.92 mg/dL (40-278); MALB Creatinine Ratio 37.2 mg/g (0-30); Microalbumin Urine Random 18.6 mg/L
[2023-06-26 09:27] LABS: Alanine Aminotransferase 33 U/L (16-63); Albumin Level 3.5 g/dL (3.4-5.0); Alkaline Phosphatase 85 U/L (46-116); Anion Gap 9 mmol/L (8-16); Aspartate Amino Transferase 14 U/L (15-37); Bilirubin,Total 0.6 mg/dL (0.00-1.00); Blood Urea Nitrogen 11 mg/dL (7-18); Carbon Dioxide 29 mmol/L (21-32); Chloride 101 mmol/L (98-108); Cholesterol 142 mg/dL (0-200); Estimated Glomerular Filt Rate > 60; Free T4 Free Thyroxine 0.96 ng/dL (0.76-1.46); Glucose 356 mg/dL (70-99); HDL Direct 35 mg/dL (40-60); LDL Cholesterol Calculated 11 mg/dL (<130); Osmolality Calculated 301 mOsm/kg (285-295); Potassium 4.2 mmol/L (3.5-5.1); Sodium 139 mmol/L (136-145); Total Protein 6.6 g/dL (6.4-8.2); Triglycerides 482 mg/dL (0-150); Vitamin B12 383 pg/mL (193-986)
[2023-06-26 10:35] LABS: LDL Cholesterol Direct 49 mg/dL (0-130)
[2023-06-28 18:03] LABS: Vitamin D 25 Hydroxy 19 ng/mL (30-100)
[2023-06-29 13:00] LABS: Glutamic acid decarboxylase AA <5 IU/mL (<5)
[2023-06-30 10:53] LABS: C-Peptide 1.91 ng/mL (0.80-3.85)
[2023-07-11 18:35] LABS: Islet Cell Antibody Screen NEGATIVE (NEGATIVE)
== END 2023-06-26 07:36 | disposition home or self-care (01) ==
LOC: CHSLAB 07:36
PROVIDERS: PCP Physician Assistant; Visit Provider Nurse Practitioner Family
DX: E11.9 Type 2 diabetes mellitus without complications (principal)
CPT/HCPCS: 36415; 80053; 80061; 82043; 82306; 82607; 83721; 84439; 84443; 84681; 86341

== ENCOUNTER 2023-07-17 15:33 | Outpatient (RCR) | payer OTHER, SELFPAY | END 2023-10-01 10:47 | disposition home or self-care (01) | LOC: ANHDMC 15:33 | PROVIDERS: PCP Physician Assistant; Visit Provider Physician Assistant | DX: E11.65 Type 2 diabetes mellitus with hyperglycemia (principal); Z71.89 Other specified counseling | CPT/HCPCS: G0108 ==

== ENCOUNTER 2023-08-20 01:00 | Day surgery (SDC) | payer OTHER, SELFPAY ==
[2023-08-02 15:05] VITALS: BMI 37.1
[2023-08-20 08:13] VITALS: BP 149/86; PULSE 64; RESP 20; TEMP 36.6; O2SAT 99
[2023-08-20] MEDS: LACTATED RINGERS 1,000 ML 150 ML IV CONT (08:23)
[2023-08-20 08:27] LABS: Glucose Point of Care 183 mg/dl (65-105)
--- NOTE | 2023-08-20 08:58 | PM.HPGS ---
History of Present Illness History of Present Illness Consent: Risks, benefits, and alternatives have been discussed and questions answered. Patient agrees to proceed with procedure. Chief complaint: Ulcerative colitis Narrative: Conor Aaron Sr. is a 47 year old male diagnosed with severe ulcerative [place] [address] Nuno then had flare-up in March 2022, used humira since 07/2022 but briefly because could not afford it, currently only on mesalamine. He thinks that is doing fairly well. Last colonoscopy 1 year ago Review of Systems Constitutional: Constitutional: Denies headache(s) and Denies weakness Eyes: Eyes: Denies blurry vision ENT: Reports Normal hearing present, Denies headache(s) and Denies neck pain Cardiovascular: Cardiovascular: Denies chest pain and Denies dyspnea Respiratory: Respiratory: Denies dyspnea Gastrointestinal: Gastrointestinal: Reports no additional gastrointestinal complaints Genitourinary: Genitourinary: Denies dysuria Musculoskeletal: Musculoskeletal: Denies neck pain Integumentary/Breasts: Skin/Breast: Denies dry skin Neurologic: Reports Normal hearing present, Denies headache(s) and Denies weakness Psychiatric: Psychiatric: Denies anxiety Endocrine: Endocrine: Denies change in body appearance Hematologic/Lymphatic: Hematologic/Lymphatic: Denies easy bleeding Allergic/Immunologic: Allergic/Immunologic: Denies urticaria PMFSH Past Medical History Medical History (Updated 07/23/23 @ 10:26 by Kaykay Bill APRN) Dilatation of aorta Hypercholesterolemia Hypertension Pancreatitis Thrombocytopenia Type 2 diabetes mellitus Ulcerative colitis Surgical History Surgical History History of rotator cuff surgery Family History Family History Mother Colon polyp Diabetes mellitus Hypertension Father Pancreatic cancer Social History Social History Smoking packs per day: 1 Smoking cigarettes per day: 20.0 Years smoked: 30 Smoking pack-years: 30.00 Smoking status: Current every day smoker Tobacco type: cigarettes Alcohol intake: current Drinks per week: 6 Alcohol use details: socially Substance use: current Substance use type: marijuana Last use: 2X monthly Lack of Transportation: No Lack of Food: Never True Current Housing: I Have Housing Concerned About Future Housing: No Difficulty Paying Gas/Electric Bills: No Difficulty Paying for Meds: YES Currently Unemployed: No Education: High School Diploma/GED Difficulty w/ Childcare or Family Care: No Living arrangements: with family Gender identity (if verbalized by the patient): Male Spiritual care concerns: No Meds Home Medications and Allergies Home Medications Medication Instructions Recorded Confirmed Type aspirin 81 mg tablet,delayed 81 mg PO DAILY 07/03/21 08/02/23 History release carvedilol 12.5 mg tablet 12.5 mg PO BID 08/17/22 08/02/23 History amlodipine 10 mg tablet 10 mg PO DAILY 11/09/22 08/02/23 History mesalamine 400 mg capsule (with 400 mg PO QID 1 month #120 ea 11/14/22 08/02/23 Rx delayed release tablets inside) furosemide 20 mg tablet 20 mg PO DAILY 05/29/23 08/02/23 History metformin 500 mg tablet,extended 500 mg PO BID 05/29/23 08/02/23 History release 24 hr evolocumab 420 mg/3.5 mL 420 mg (3.5 mL) subcut MONTHLY 06/20/23 08/02/23 Rx subcutaneous wearable injector #3.5 mL (Repatha Pushtronex) insulin aspart U-100 100 unit/mL 140 unit (1.4 mL) continuous 06/20/23 08/02/23 Rx subcutaneous solution (Novolog subcutaneous infusion DAILY #130 mL U-100 Insulin aspart) insulin pump cart,automated,BT #50 ea 06/20/23 07/23/23 Rx (Omnipod 5 G6 Pods (Gen 5) subcutaneous cartridge) losartan 25 mg tablet 100 mg PO DAILY 06/20/23 08/02/23 Histor
--- NOTE | 2023-08-20 09:00 | WPDANESEPPF ---
Anes - Initial Pre Proc Eval Procedure: Operation Date: 08/20/23 09:30 Proposed Procedures p Colonoscopy - Ian River MD Date/Time: 08/20/23 09:00 Surgeon: Ian River MD Pre Op Diagnosis: Ulcerative colitis Patient Data Age: 47 Gender: M Height: 1.85 m Weight: 122.3 kg Last Vital Signs Temp 97.9 F 08/20/23 08:13 Pulse 64 08/20/23 08:13 Resp 20 08/20/23 08:13 BP 149/86 H 08/20/23 08:13 Pulse Ox 99 08/20/23 08:13 O2 Del Method Room Air 08/20/23 08:13 Allergies Allergy/AdvReac Type Severity Reaction Status Date / Time fish oil Allergy Mild Vomiting Verified 08/20/23 08:10 [id number]-[id number] Reductase Allergy Mild Vomiting Verified 08/20/23 08:10 Inhibitor acetaminophen [From Percocet] AdvReac Unknown Itching Verified 08/20/23 08:10 oxycodone [From Percocet] AdvReac Unknown Itching Verified 08/20/23 08:10 Home Medications Medication Instructions Recorded Confirmed Type aspirin 81 mg tablet,delayed 81 mg PO DAILY 07/03/21 08/02/23 History release carvedilol 12.5 mg tablet 12.5 mg PO BID 08/17/22 08/02/23 History amlodipine 10 mg tablet 10 mg PO DAILY 11/09/22 08/02/23 History mesalamine 400 mg capsule (with 400 mg PO QID 1 month #120 ea 11/14/22 08/02/23 Rx delayed release tablets inside) furosemide 20 mg tablet 20 mg PO DAILY 05/29/23 08/02/23 History metformin 500 mg tablet,extended 500 mg PO BID 05/29/23 08/02/23 History release 24 hr evolocumab 420 mg/3.5 mL 420 mg (3.5 mL) subcut MONTHLY 06/20/23 08/02/23 Rx subcutaneous wearable injector #3.5 mL (Repatha Pushtronex) insulin aspart U-100 100 unit/mL 140 unit (1.4 mL) continuous 06/20/23 08/02/23 Rx subcutaneous solution (Novolog subcutaneous infusion DAILY #130 mL U-100 Insulin aspart) insulin pump cart,automated,BT #50 ea 06/20/23 07/23/23 Rx (Omnipod 5 G6 Pods (Gen 5) subcutaneous cartridge) losartan 25 mg tablet 100 mg PO DAILY 06/20/23 08/02/23 History blood-glucose sensor (Dexcom G6 #9 ea 06/26/23 07/23/23 Rx Sensor device) blood-glucose transmitter (Dexcom #1 ea 06/26/23 07/23/23 Rx G6 Transmitter device) dapagliflozin propanediol 10 mg 10 mg PO QAM 90 days #90 tabs 07/23/23 08/02/23 Rx tablet (Farxiga) ergocalciferol (vitamin D2) 1,250 1,250 mcg PO WEEKLY 14 weeks #14 07/23/23 08/02/23 Rx mcg (50,000 unit) capsule (Drisdol) caps hydralazine 50 mg tablet 50 mg PO TID 07/23/23 08/02/23 History Laboratory Tests 08/20/23 08:22 POC Capillary Glucose 183 H mg/dl (65-105) Patient hx anesthesia problems: none Family hx anesthesia problems: none Results Review: All pre-operative results and documents have been reviewed as part of the pre-operative evaluation. [facility] Past Medical History Medical History (Updated 07/23/23 @ 10:26 by Kaykay Bill APRN) Dilatation of aorta Hypercholesterolemia Hypertension Pancreatitis Thrombocytopenia Type 2 diabetes mellitus Ulcerative colitis Surgical History Surgical History History of rotator cuff surgery Family History Family History Mother Colon polyp Diabetes mellitus Hypertension Father Pancreatic cancer Social History Social History Smoking packs per day: 1 Smoking cigarettes per day: 20.0 Years smoked: 30 Smoking pack-years: 30.00 Smoking status: Current every day smoker Tobacco type: cigarettes Alcohol intake: current Drinks per week: 6 Alcohol use details: socially Substance use: current Substance use type: marijuana Last use: 2X monthly Lack of Transportation: No Lack of Food: Never True Current Housing: I Have Housing Concerned About Future Housing: No Difficulty Paying Gas/Electric Bills: No Difficulty Paying for Meds: YES Currently Unempl
[2023-08-20 09:24] VITALS: BP 118/75; PULSE 76; RESP 16; O2SAT 100
[2023-08-20 09:34] VITALS: BP 115/73; PULSE 66; RESP 16; O2SAT 98
[2023-08-20 09:44] VITALS: BP 129/83; PULSE 68; RESP 14; O2SAT 97
== END 2023-08-20 09:52 | disposition home or self-care (01) ==
PROVIDERS: PCP Physician Assistant; Visit Provider Internal Medicine Gastroenterology
PROC: 0DJD8ZZ Inspection of Lower Intestinal Tract, Via Natural or Artificial Opening Endoscopic (ICD-10-PCS; CPT 45378; principal; 2023-08-20 09:30)
DX: K51.00 Ulcerative (chronic) pancolitis without complications (principal); D69.6 Thrombocytopenia, unspecified; I10 Essential (primary) hypertension; E11.9 Type 2 diabetes mellitus without complications; E78.00 Pure hypercholesterolemia, unspecified; F17.210 Nicotine dependence, cigarettes, uncomplicated; F12.90 Cannabis use, unspecified, uncomplicated; E66.9 Obesity, unspecified; Z68.35 Body mass index [BMI] 35.0-35.9, adult; Z79.4 Long term (current) use of insulin; Z79.84 Long term (current) use of oral hypoglycemic drugs; Z79.82 Long term (current) use of aspirin
CPT/HCPCS: 45380; 82948; 88305; J2704; J7120

== ENCOUNTER 2023-09-25 17:35 | Emergency (ER) | payer OTHER, SELFPAY ==
[2023-09-25] VITALS (12 sets, daily range): BP systolic 124–174; BP diastolic 78–88; PULSE 70–85; RESP 18–20; TEMP 36.3–36.8; O2SAT 97–100
--- NOTE | ~2023-09-25 | CT_ITS ---
EXAMINATION: CTA chest DATE: 09/25/2023 19:02 CDT INDICATION: Chest pain TECHNIQUE: Computed tomographic angiography (CTA) of the chest was performed with 100 mL Omnipaque-35 0 intravenous contrast. The dose-length product was 1034.40 mGy-cm. Maximum intensity projection 3D-r econstructions of the aorta and other arteries were constructed by the technologist on a separate wor kstation. Automated exposure control and iterative reconstruction technique were employed. COMPARISON: None. FINDINGS: There is mediastinal lymphadenopathy. 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 Multiple ill-defi betty masses of the thyroid gland are noted. Heart size normal. No evidence for aortic aneurysm or diss ection. No significant pleural or pericardial effusion. Fatty infiltration of the liver. No endobronc hial lesions. No focal airspace consolidation. No pneumothorax. No focal airspace disease. No suspici ous pulmonary nodules or masses. Moderate thoracic spondylosis. IMPRESSION: 1. No significant vascular abnormality. 2: Mediastinal lymphadenopathy, likely reactive. 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 Consider follow-up thyroid ultr asound on a nonemergent basis. Reviewed, dictated and finalized at location A. IMPRESSION: 1. No significant vascular abnormality. 2: Mediastinal lymphadenopathy, likely reactive. 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 Consider follow-up thyroid ultrasound on a nonemergent basis.
--- NOTE | ~2023-09-25 | XR_ITS ---
EXAMINATION: XR chest 2V 09/25/2023 18:01 INDICATION: Chest pain PROCEDURE: 2 view chest COMPARISON: 05/11/2021 FINDINGS: The lungs are clear. The cardiomediastinal silhouette is within normal limits. There are no pleural effusions. There is no pneumothorax suspected. IMPRESSION: 1: NO ACUTE CARDIOPULMONARY DISEASE. Reviewed, dictated and finalized at location A.
--- NOTE | 2023-09-25 17:38 | ECG_ITS ---
Measurements Intervals [place] Rate: 67 P: 26 MS: 205 QRS: 27 QRSD: 96 T: 37 QT: 373 QTc: 396 Interpretive Statements SINUS RHYTHM CONSIDER V1 LEAD MISPLACEMENT BASELINE ARTIFACT- V1-V3 ATYPICAL ECG COMPARED TO ECG 03/22/2022 13:51:59 NO SIGNIFICANT CHANGES Electronically Signed On 09-26-2023 8:13:18 CDT by Johny Scott D.O.
--- NOTE | 2023-09-25 17:43 | ED.CHESTPAIN ---
HPI - Chest Pain General Chief Complaint: Chest Pain Stated Complaint: CHEST PAIN Time Seen by Provider: 09/25/23 17:38 Source: patient Mode of arrival: ambulatory Limitations: no limitations History of Present Illness HPI narrative: patient is a 47-year-old male with left-sided chest pain today. The pain was 4/10 and sharp. The pain is reproducible by touching on the chest and moving his left arm. Patient has known ascending and descending aneurysms of the aorta. He said his aneurysms are 4-5 cm. 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 The pain has subsided to a 1 or 2/10 without intervention. He had an event of AFib back in 2013 that lasted 12 hours and resolved on its own. He was on blood thinners but that has stopped after 1 year back in 2013. MD complaint: chest pain Pertinent past history: known aortic aneurysm Onset (ago): hour(s) (2) Timing of current episode: episodic Prior episodes: Yes Onset: during rest and during exertion Pain location: substernal and left chest Pain radiation: left arm Severity: mild Pain scale (0-10): 2 Quality: tightness and sharp Relieving factors: nothing Exacerbating factors: palpation and movement Treatment prior to arrival: none Risk Factors Coronary artery disease risk factors: diabetes, smoking history, hyperlipidemia and hypertension Thoracic aortic dissection risk factors: history of thoracic aortic aneurysm Related Data Home Medications Medication Instructions Recorded Confirmed aspirin 81 mg tablet,delayed 81 mg PO DAILY 07/03/21 09/25/23 release carvedilol 12.5 mg tablet 12.5 mg PO BID 08/17/22 09/25/23 amlodipine 10 mg tablet 10 mg PO DAILY 11/09/22 09/25/23 furosemide 20 mg tablet 20 mg PO DAILY 05/29/23 09/25/23 metformin 500 mg tablet,extended 500 mg PO BID 05/29/23 09/25/23 release 24 hr losartan 25 mg tablet 100 mg PO DAILY 06/20/23 09/25/23 hydralazine 50 mg tablet 50 mg PO TID 07/23/23 09/25/23 Allergies Allergy/AdvReac Type Severity Reaction Status Date / Time fish oil Allergy Mild Vomiting Verified 09/25/23 17:50 Gjtzhza-JDU-JmO Reductase Allergy Mild Vomiting Verified 09/25/23 17:50 Inhibitor acetaminophen [From Percocet] AdvReac Unknown Itching Verified 09/25/23 17:50 oxycodone [From Percocet] AdvReac Unknown Itching Verified 09/25/23 17:50 Review of Systems Review of Systems: All systems reviewed & are unremarkable except as noted in HPI and below Constitutional: Constitutional: Reports no additional constitutional complaints Eyes: Eyes: Reports no additional eye complaints ENT: Reports system reviewed and no additional complaints, except as documented Cardiovascular: Cardiovascular: Reports no additional cardiovascular complaints Respiratory: Respiratory: Reports no additional respiratory complaints Gastrointestinal: Gastrointestinal: Reports no additional gastrointestinal complaints Genitourinary: Genitourinary: Reports no additional male genitourinary complaints Musculoskeletal: Musculoskeletal: Reports no additional musculoskeletal complaints Integumentary/Breasts: Skin/Breast: Reports system reviewed and no additional complaints, except as docu Neurologic: Reports system reviewed and no additional complaints, except as documented Psychiatric: Psychiatric: Reports no additional psychiatric complaints Endocrine: Endocrine: Reports no additional endocrine complaints Hematologic/Lymphatic: Hematologic/Lymphatic: Reports no additional hematologic/lymphatic complaints Allergic/Immunologic: Allergic/Immunologic: Reports no additional allergic/immunologic complaints [facility] Past Medical History Medical History Dilatation of aorta Hypercholesterolemia Hypertension Pancreatitis Thrombocytopenia Type 2 diabetes mellitus Ulcerative colitis Surgical History Surgical History History of rotator cuff surgery Family History Family Histo
[2023-09-25 17:50] LABS: Basophils Absolute Auto 0.04 K/mm3 (0.00-0.10); Basophils Percent Auto 0.6 % (0.0-1.0); Eosinophils Absolute Auto 0.29 K/mm3 (0.02-0.50); Eosinophils Percent Auto 4.4 % (1.0-6.0); Hematocrit 44.1 % (40.0-54.0); Immature Granulocyte Absolute 0.02 K/mm3 (0.00-0.00); Immature Granulocyte Percent A 0.3 % (0.0-0.0); Lymphocytes Absolute Auto 1.75 K/mm3 (1.10-4.50); Lymphocytes Percent Auto 26.5 % (18.0-42.0); Mean Corpuscular Hemoglobin 28.6 pg (27.0-31.0); Mean Corpuscular Volume 84.2 fL (78.0-102.0); Mean Platelet Volume 12.1 fl (8.7-11.0); Monocytes Absolute Auto 0.55 K/mm3 (0.10-0.90); Monocytes Percent Auto 8.3 % (2.0-11.0); Neutrophils Percent Auto 59.9 % (50.0-70.0); Platelet Count Result 122 K/mm3 (150-420); Red Blood Count 5.24 M/mm3 (4.70-6.10); Red Cell Distribution Width 12.9 % (11.6-14.4); White Blood Count 6.6 K/mm3 (4.8-10.8)
[2023-09-25 18:05] LABS: D Dimer 0.19 mg/L (0.19-0.50); INR 0.9; Partial Thromboplastin Time 26.9 SEC (23.90-30.70); Prothrombin Time 10.4 Seconds (9.50-12.10)
[2023-09-25 18:12] LABS: Alanine Aminotransferase 23 U/L (16-63); Albumin Level 3.2 g/dL (3.4-5.0); Alkaline Phosphatase 69 U/L (46-116); Anion Gap 9 mmol/L (8-16); Aspartate Amino Transferase 13 U/L (15-37); Bilirubin,Total 0.3 mg/dL (0.00-1.00); Blood Urea Nitrogen 17 mg/dL (7-18); Calcium 8.6 mg/dL (8.5-10.1); Carbon Dioxide 27 mmol/L (21-32); Chloride 103 mmol/L (98-108); Estimated CRCL calculation 122 ml/min; Estimated Glomerular Filt Rate > 60; Glucose 191 mg/dL (70-99); Lipase 12 U/L (16-77); NT Pro B Type Natriuretic Pept 27 pg/mL (0-125); Osmolality Calculated 294 mOsm/kg (285-295); Potassium 3.9 mmol/L (3.5-5.1); Sodium 139 mmol/L (136-145); Total Protein 6.4 g/dL (6.4-8.2); Troponin I 5.3 ng/L (0.00-60.4)
--- NOTE | 2023-09-25 18:45 | PC.NURSE ---
PT HAS RETURNED FROM CT. EX AT BEDSIDE. PT IS TALKING ON CELL PHONE WITHOUT DISTRESS. PT REPORTS HE IS PAIN FREE AT THIS TIME. PT DENIES ANY NEEDS OR COMPLAINTS. WILL CONTINUE TO MONITOR. NAD NOTED.
[2023-09-25 18:50] LABS: Amphetamine Screen Urine Negative (Negative); Barbiturate Screen Urine Negative (Negative); Benzodiazepines Screen Urine Negative (Negative); Cannabinoid Screen Urine Negative (Negative); Cocaine Screen Urine Negative (Negative); Methadone Screen Urine Negative (Negative); Opiate Screen Urine Negative (Negative); Phencyclidine Screen Urine Negative (Negative)
[2023-09-25 21:05] LABS: Troponin I 6.2 ng/L (0.00-60.4)
== END 2023-09-25 21:41 | disposition home or self-care (01) ==
PROVIDERS: Emergency Provider Emergency Medicine; PCP Physician Assistant
DX: R07.89 Other chest pain (principal); I71.21 Aneurysm of the ascending aorta, without rupture; I10 Essential (primary) hypertension; E78.5 Hyperlipidemia, unspecified; E11.9 Type 2 diabetes mellitus without complications; F17.210 Nicotine dependence, cigarettes, uncomplicated; Z79.899 Other long term (current) drug therapy; Z79.82 Long term (current) use of aspirin; Z79.84 Long term (current) use of oral hypoglycemic drugs
CPT/HCPCS: 36415; 71046; 71275; 80053; 80307; 83690; 83880; 84484; 85025; 85380; 85610; 85730; 93005; 99283; Q9967

== ENCOUNTER 2023-10-03 12:14 | Outpatient (CLI) | payer SELFPAY ==
--- NOTE | ~2023-10-03 | US_ITS ---
EXAMINATION: US thyroid DATE: 10/03/2023 13:13 INDICATION: Nontoxic goiter. TECHNIQUE: Multiple ultrasound images of the thyroid were obtained. COMPARISON: Chest CT 09/25/23 FINDINGS: The right thyroid lobe measures 5.2 x 2.9 x 2.9 cm. The left thyroid lobe measures 5.3 x 2.5 x 2.7 c m. The thyroid demonstrates heterogeneous echogenicity. Vascularity is normal. In the left thyroid l obe, there is a 3.4 cm solid, hypoechoic, taller than wide nodule with ill-defined margin without ech ogenic foci (TI-RADS TR5). In the right thyroid lobe, there is a 2.7 cm solid, hypoechoic, wider than tall nodule with ill-defined margin without echogenic foci (TR4). IMPRESSION: 1. Multinodular goiter. Ultrasound-guided fine-needle aspiration of 2 nodules is recommended. Reviewed, dictated and finalized at location E. E INSTALLER FOREMAN IMPRESSION: 1. Multinodular goiter. Ultrasound-guided fine-needle aspiration of 2 nodules i s recommended.
== END 2023-10-03 12:15 | disposition home or self-care (01) ==
PROVIDERS: PCP Physician Assistant; Visit Provider Physician Assistant
DX: E04.2 Nontoxic multinodular goiter (principal)
CPT/HCPCS: 76536

== ENCOUNTER 2023-10-15 09:05 | Outpatient (CLI) | payer OTHER, SELFPAY ==
[2023-10-15 10:01] LABS: Free T3 2.48 pg/mL (2.18-3.98)
== END 2023-10-15 09:06 | disposition home or self-care (01) ==
LOC: CHSLAB 09:06
PROVIDERS: PCP Physician Assistant; Visit Provider Physician Assistant
DX: E04.9 Nontoxic goiter, unspecified (principal)
CPT/HCPCS: 36415; 84481

== ENCOUNTER 2023-11-05 10:29 | Outpatient (CLI) | payer SELFPAY ==
[2023-11-05 11:02] LABS: Hematocrit 46.4 % (40.0-54.0); Hemoglobin 16.1 g/dL (14.0-18.0)
[2023-11-05 11:18] LABS: Creatinine Urine 38.46 mg/dL (40-278); MALB Creatinine Ratio 33.8 mg/g (0-30); Microalbumin Urine Random < 13.0 mg/L
[2023-11-05 12:03] LABS: Erythrocyte Sedimentation Rate 7 mm/hr (0-15)
[2023-11-05 12:04] LABS: Alanine Aminotransferase 31 U/L (16-63); Albumin Level 3.8 g/dL (3.4-5.0); Alkaline Phosphatase 61 U/L (46-116); Anion Gap 7 mmol/L (8-16); Aspartate Amino Transferase 15 U/L (15-37); Bilirubin,Total 0.6 mg/dL (0.00-1.00); Blood Urea Nitrogen 15 mg/dL (7-18); Calcium 8.3 mg/dL (8.5-10.1); Carbon Dioxide 27 mmol/L (21-32); Chloride 101 mmol/L (98-108); Cholesterol 76 mg/dL (0-200); Estimated Glomerular Filt Rate > 60; Ferritin 98 ng/mL (26-388); Folic Acid 17.5 ng/mL (8.6->20); Free T4 Free Thyroxine 1.25 ng/dL (0.76-1.46); Glucose 178 mg/dL (70-99); HDL Direct 50 mg/dL (40-60); Iron 75 ug/dL (65-175); LDL Cholesterol Calculated 3 mg/dL (<130); Magnesium 1.9 mg/dL (1.8-2.4); Osmolality Calculated 284 mOsm/kg (285-295); Percent Iron Saturation 24 % (12-57); Potassium 4.1 mmol/L (3.5-5.1); Sodium 135 mmol/L (136-145); Thyroid Stimulating Hormone 0.64 uIU/mL (0.36-3.74); Total Protein 6.7 g/dL (6.4-8.2); Triglycerides 116 mg/dL (0-150); Vitamin B12 398 pg/mL (193-986)
[2023-11-08 03:45] LABS: Beta-Gamma Tocopherol 1.8 mg/L (<=4.3)
[2023-11-09 12:27] LABS: Vitamin D 25 Hydroxy 36 ng/mL (30-100)
== END 2023-11-05 10:30 | disposition home or self-care (01) ==
LOC: CHSLAB 10:32
PROVIDERS: Nurse Practitioner Family; PCP Physician Assistant; Visit Provider Internal Medicine Pulmonary Disease
DX: E55.9 Vitamin D deficiency, unspecified (principal); Z71.3 Dietary counseling and surveillance; E11.9 Type 2 diabetes mellitus without complications; E04.1 Nontoxic single thyroid nodule; G47.61 Periodic limb movement disorder
CPT/HCPCS: 36415; 80053; 80061; 82043; 82306; 82607; 82728; 82746; 83540; 83550; 83735; 84439; 84443; 84446; 85014; 85018; 85652

== ENCOUNTER 2023-12-14 12:22 | Outpatient (CLI) | payer OTHER, SELFPAY ==
--- NOTE | ~2023-12-14 | US_ITS ---
EXAMINATION: US FNA w image guidance, US FNA additional DATE: 12/14/2023 14:09 (accession [id number]), 12/14/2023 14:05 (accession [id number]) INDICATION: Bilateral thyroid nodules TECHNIQUE: A time-out was performed to verify the patient's name, date of , and procedure to be performed . The procedure and its benefits and risks were discussed with the patient. Risks specifically discus sed included bleeding and infection. The patient understood the risks and agreed to proceed. The neck was prepped and draped in the usual sterile manner. Attention was first turned to the left thyroid n odule. 3 mL 1% lidocaine was used for local anesthesia. 6 passes were made with a 25G needle into th e lesion. Appropriate needle location was documented with continuous sonographic guidance. Attention was then turned to the right thyroid nodule. An additional 3 mL 1% lidocaine was used for local anes thesia. 6 passes were made with a 25G needle into the lesion. Appropriate needle location was documen cristiano with continuous sonographic guidance. Sterile bandages were applied to both biopsy sites. There were no immediate complications. FINDINGS: Grayscale ultrasound images demonstrate biopsy needles advanced into a taller than wide 4.8 x 4.4 x 2 .9 cm solid left thyroid mass. Subsequent images demonstrate biopsy needles advanced into a 2.8 x 2.0 x 2.1 cm solid right thyroid mass. IMPRESSION: 1. Successful ultrasound-guided fine needle aspiration of the 4.8 cm solid TI RADS 5 left thyroid ma ss. 2. Successful ultrasound-guided fine-needle aspiration of the 2.8 cm TI RADS 4 solid right thyroid ma ss.. Reviewed, dictated and finalized at location A. RDS CONSULTANT IMPRESSION: 1. Successful ultrasound-guided fine needle aspiration of the 4.8 cm solid TI RADS 5 left thyroid mass. 2. Successful ultrasound-guided fine-needle aspiration of the 2.8 cm TI RADS 4 solid right thyroid mass..
== END 2023-12-14 12:23 | disposition home or self-care (01) ==
PROVIDERS: PCP Physician Assistant; Visit Provider Nurse Practitioner Family
DX: E04.2 Nontoxic multinodular goiter (principal)
CPT/HCPCS: 10005; 10006; 88172; 88173; 88305

== ENCOUNTER 2024-02-01 08:49 | Outpatient (NON) | payer OTHER, SELFPAY | END 2024-02-01 08:50 | disposition home or self-care (01) | PROVIDERS: Visit Provider Family Medicine | DX: D18.01 Hemangioma of skin and subcutaneous tissue (principal) | CPT/HCPCS: 88305 ==

== ENCOUNTER 2024-02-19 23:50 | Emergency (ER) | payer OTHER, SELFPAY ==
[2024-02-19 23:50] VITALS: BP 148/73; PULSE 95; RESP 16; TEMP 36.7; O2SAT 99
--- NOTE | 2024-02-19 23:58 | ECG_ITS ---
Measurements Intervals [place] Rate: 89 P: 21 MN: 193 QRS: 49 QRSD: 109 T: 72 QT: 379 QTc: 461 Interpretive Statements SINUS RHYTHM ANTERIOR INFARCT, AGE INDETERMINATE BORDERLINE ST-T WAVE ABNORMALITY- ANTEROLAT/HIGH LAT LEADS BASELINE ARTIFACT- II, III, AVR, AVF ABNORMAL ECG COMPARED TO ECG 09/25/2023 17:39:17 NO SIGNIFICANT CHANGES Electronically Signed On 02-20-2024 6:43:51 CDT by Johny Scott D.O.
[2024-02-20] VITALS (13 sets, daily range): BP systolic 104–161; BP diastolic 53–86; PULSE 78–97; RESP 14–24; O2SAT 95–99
[2024-02-20 00:02] LABS: Glucose Point of Care 79 mg/dl (65-105)
--- NOTE | 2024-02-20 00:17 | ED.PSYCH ---
HPI - Psych General Chief Complaint: Psychiatric Symptoms Stated Complaint: Suicidal ideations Time Seen by Provider: 02/19/24 23:58 Source: patient and EMS Mode of arrival: ambulatory Limitations: no limitations History of Present Illness HPI Narrative: Patient is a 48-year-old male with suicidal attempt this evening by taking short acting insulin with roughly 50 units but claims 200 units. Unclear situation of units of insulin taken. Patient was suicidal due to a relationship problem this evening. He left a suicide note. His intent was to from overdose of insulin. MD complaint: suicidal ideation and feels depressed Onset (ago): hour(s) (2) Duration: constant History of same: No Relieving factors: none Exacerbating factors: alcohol and other ( Relationship issues) Context: recent alcohol abuse Associated psychiatric symptoms: depression and suicidal ideation Associated symptoms: denies other symptoms Treatments prior to arrival: none If self harm: admits thoughts of self harm, has plan, has acted on plan and intentional overdose Related Data Home Medications Medication Instructions Recorded Confirmed aspirin 81 mg tablet,delayed 81 mg PO DAILY 07/03/21 02/20/24 release carvedilol 12.5 mg tablet 25 mg PO BID 08/17/22 02/20/24 amlodipine 10 mg tablet 10 mg PO DAILY 11/09/22 02/20/24 furosemide 20 mg tablet 20 mg PO DAILY 05/29/23 02/20/24 hydralazine 50 mg tablet 50 mg PO TID 07/23/23 02/20/24 Allergies Allergy/AdvReac Type Severity Reaction Status Date / Time fish oil Allergy Mild Vomiting Verified 01/31/24 07:28 [id number] Reductase Allergy Mild Vomiting Verified 01/31/24 07:28 Inhibitor acetaminophen [From Percocet] AdvReac Unknown Itching Verified 01/31/24 07:28 oxycodone [From Percocet] AdvReac Unknown Itching Verified 01/31/24 07:28 Review of Systems Review of Systems: All systems reviewed & are unremarkable except as noted in HPI and below Constitutional: Constitutional: Reports no additional constitutional complaints Eyes: Eyes: Reports no additional eye complaints ENT: Reports system reviewed and no additional complaints, except as documented Cardiovascular: Cardiovascular: Reports no additional cardiovascular complaints Respiratory: Respiratory: Reports no additional respiratory complaints Gastrointestinal: Gastrointestinal: Reports no additional gastrointestinal complaints Genitourinary: Genitourinary: Reports no additional male genitourinary complaints Musculoskeletal: Musculoskeletal: Reports no additional musculoskeletal complaints Integumentary/Breasts: Skin/Breast: Reports system reviewed and no additional complaints, except as docu Neurologic: Reports system reviewed and no additional complaints, except as documented Psychiatric: Psychiatric: Reports no additional psychiatric complaints Endocrine: Endocrine: Reports no additional endocrine complaints Hematologic/Lymphatic: Hematologic/Lymphatic: Reports no additional hematologic/lymphatic complaints Allergic/Immunologic: Allergic/Immunologic: Reports no additional allergic/immunologic complaints PMFSH Past Medical History Medical History Hypercholesterolemia Hypertension Pancreatitis Thrombocytopenia Type 2 diabetes mellitus Ulcerative colitis Surgical History Surgical History History of rotator cuff surgery Family History Family History Mother Colon polyp Diabetes mellitus Hypertension Father Pancreatic cancer Social History Social History Smoking packs per day: 1 Smoking cigarettes per day: 20.0 Years smoked: 30 Smoking pack-years: 30.00 Smoking status: Current every day smoker Tobacco type: cigarettes Alcohol intake: current Drinks per week: 6 Alcohol use deta
[2024-02-20 00:33] LABS: Basophils Absolute Auto 0.05 K/mm3 (0.00-0.10); Basophils Percent Auto 0.6 % (0.0-1.0); Eosinophils Absolute Auto 0.13 K/mm3 (0.02-0.50); Eosinophils Percent Auto 1.6 % (1.0-6.0); Hemoglobin 16.9 g/dL (14.0-18.0); Immature Granulocyte Absolute 0.02 K/mm3 (0.00-0.00); Immature Granulocyte Percent A 0.2 % (0.0-0.0); Lymphocytes Absolute Auto 1.41 K/mm3 (1.10-4.50); Lymphocytes Percent Auto 17.3 % (18.0-42.0); Mean Corpuscular HGB Conc 33.8 g/dL (32-36); Mean Corpuscular Hemoglobin 28.6 pg (27.0-31.0); Mean Corpuscular Volume 84.7 fL (78.0-102.0); Mean Platelet Volume 11.9 fl (8.7-11.0); Monocytes Absolute Auto 0.58 K/mm3 (0.10-0.90); Monocytes Percent Auto 7.1 % (2.0-11.0); Neutrophils Absolute Auto 5.96 K/mm3 (1.70-7.20); Neutrophils Percent Auto 73.2 % (50.0-70.0); Platelet Count Result 119 K/mm3 (150-420); Red Cell Distribution Width 12.4 % (11.6-14.4); White Blood Count 8.2 K/mm3 (4.8-10.8)
[2024-02-20] MEDS: DEXTROSE 10% 250 ML 50 ML IV CONT (00:34)
[2024-02-20 00:41] LABS: Acetone Negative (Negative)
[2024-02-20 00:52] LABS: Anion Gap 11 mmol/L (4-12); Aspartate Amino Transferase 5 U/L (15-37); Bilirubin,Total 0.4 mg/dL (0.00-1.00); Blood Urea Nitrogen 14 mg/dL (7-18); Calcium 8.9 mg/dL (8.5-10.1); Carbon Dioxide 27 mmol/L (21-32); Chloride 101 mmol/L (98-108); Estimated CRCL calculation 147 ml/min; Estimated Glomerular Filt Rate > 60; Glucose 71 mg/dL (70-99); Osmolality Calculated 286 mOsm/kg (285-295); Potassium 2.8 mmol/L (3.5-5.1); Sodium 139 mmol/L (136-145)
--- NOTE | 2024-02-20 00:52 | PC.NURSE ---
Addendum entered by Jarek Morrow RN 02/20/24 01:40: Pt home medications also placed in belongings bag Original Note: Upon arrival to the ED, pt changed and belongings secured. Pt refuses shirt and socks and is changed into hospital scrub pants. Belongings placed in locked room. Belongings include merlos slippers, cargo pants, black leather trimmer, flannel shirt, and black wallet.
[2024-02-20 00:53] LABS: Alanine Aminotransferase 17 U/L (16-63); Albumin Level 3.9 g/dL (3.4-5.0); Alkaline Phosphatase 61 U/L (46-116); Total Protein 7.3 g/dL (6.4-8.2)
[2024-02-20 00:54] LABS: Acetaminophen 0 ug/mL (10-30); Ethanol 154 mg/dL (0-6); Salicylate 0.9 mg/dL (2.8-20.0)
--- NOTE | 2024-02-20 00:56 | PC.NURSE ---
Pt presented to ED with a handwritten note stating I do not consent to a CPR DNR and was signed by the patient. Let it be noted that the pt is intoxicated, therefore MD unable to honor this as a valid advanced directive at this time.
--- NOTE | 2024-02-20 00:59 | PC.NURSE ---
0054 aware of pt blood sugar of [address] orders for glucagon
[2024-02-20 01:02] LABS: Glucose Point of Care 59 mg/dl (65-105)
[2024-02-20] MEDS: GLUCAGON FOR INJ 1 MG VIAL IV PUSH (01:03)
[2024-02-20] MEDS: POTASSIUM CHLORIDE 20 MEQ ER TABLET 40 MEQ PO (01:03)
--- NOTE | 2024-02-20 01:15 | PC.NURSE ---
Pt reporting to this RN that he took close to 200 units of his novalog
[2024-02-20 01:17] LABS: Glucose Point of Care 83 mg/dl (65-105)
[2024-02-20 01:18] LABS: Thyroid Stimulating Hormone 0.89 uIU/mL (0.36-3.74)
--- NOTE | 2024-02-20 01:39 | PC.NURSE ---
Pt tolerating PO well. Pt has eaten three bags of chips, one turkey sandwich, one cup of pudding, one cup of apple sauce, and one cup of cottage cheese and one regular coke without difficulty.
[2024-02-20 01:43] LABS: Appearance Urine Clear (Clear); Bilirubin Urine Negative (Negative); Blood Urine Negative (Negative); Color Urine Light Yellow (Yellow); Glucose Urine UA Negative (Negative); Ketones Urine Negative (Negative); Leukocyte Esterase Ur Negative LEU/UL (Negative); Nitrate Urine Negative (Negative); Protein Urine Negative (Negative); Specific Grav Ur <= 1.005 (1.010-1.020); Urobilinogen Urine 0.2 mg/dL (0.2-1.0)
[2024-02-20 01:46] LABS: Add Urine Microscopic? NO
[2024-02-20 01:57] LABS: Amphetamine Screen Urine Negative (Negative); Barbiturate Screen Urine Negative (Negative); Benzodiazepines Screen Urine Negative (Negative); Cannabinoid Screen Urine Negative (Negative); Cocaine Screen Urine Negative (Negative); Methadone Screen Urine Negative (Negative); Opiate Screen Urine Negative (Negative); Phencyclidine Screen Urine Negative (Negative)
--- NOTE | 2024-02-20 02:07 | PC.NURSE ---
Poison Control Center called and made aware of pt case. Spoke with Chris who states that the patient is past the peak of his Novalog, and that he will continue to experience effects for a total of 6 hours since injection. She recommends continued monitoring with regular accucheck as we try and ween the patient off of D10 in a couple of hours (depending on his blood glucose). She also recommends continued food as long as pt is able to tolerate PO.
[2024-02-20 02:35] LABS: Glucose Point of Care 193 mg/dl (65-105)
[2024-02-20 02:35] LABS: Glucose Point of Care 113 mg/dl (65-105)
--- NOTE | 2024-02-20 02:36 | PC.NURSE ---
Dr. Bowman aware of most recent accucheck of 193. Verbal orders received to drop his D10 to 25 ml/hr starting now.
[2024-02-20 03:34] LABS: Glucose Point of Care 132 mg/dl (65-105)
[2024-02-20 04:23] LABS: Glucose Point of Care 137 mg/dl (65-105)
== END 2024-02-20 04:31 | disposition short-term general hospital (02) ==
PROVIDERS: Emergency Provider Emergency Medicine
DX: T38.3X2A Poisoning by insulin and oral hypoglycemic [antidiabetic] drugs, intentional self-harm, initial encounter (principal); T14.91XA Suicide attempt, initial encounter; F10.929 Alcohol use, unspecified with intoxication, unspecified; D69.6 Thrombocytopenia, unspecified; E87.6 Hypokalemia; I10 Essential (primary) hypertension; E78.00 Pure hypercholesterolemia, unspecified; K51.90 Ulcerative colitis, unspecified, without complications; F17.210 Nicotine dependence, cigarettes, uncomplicated; F12.90 Cannabis use, unspecified, uncomplicated; Z79.82 Long term (current) use of aspirin; Z79.4 Long term (current) use of insulin; Z79.84 Long term (current) use of oral hypoglycemic drugs; Z79.899 Other long term (current) drug therapy
CPT/HCPCS: 80053; 80307; 81003; 82010; 82948; 84443; 84484; 85025; 93005; 96365; 96366; 96374; 99285; A9270; J1610

== ENCOUNTER 2024-02-20 05:19 | Observation (INO) | payer OTHER, SELFPAY ==
[2024-02-20] VITALS (13 sets, daily range): BP systolic 125–160; BP diastolic 69–90; PULSE 83–106; RESP 14–20; TEMP 36.4–36.8; O2SAT 97–99; BMI 33.1
--- NOTE | 2024-02-20 05:15 | ADMGEN ---
0515 This patient, Conor Aaron , was admitted to Intensive Care Unit-4. Patient/family oriented to hospital policies and general routines including ID bracelet, bed and alarms, visiting hours, pain management, procedures, bathroom and other care routines, personal items, smoking policy, room service/diet, and visiting hours. Information on how to activate the Rapid Response Team has been discussed. Patient/Family are encouraged to report perceived risks to care and to ask questions if they do not understand what they are told or what they should do.
--- NOTE | 2024-02-20 05:28 | PM.IMHP ---
H&P: HPI History of Present Illness Date/Time: 02/20/24 05:28 Chief Complaint: Intentional insulin overdose Narrative: 48-year-old male with past medical history of essential hypertension, insulin-dependent diabetes mellitus, hyperlipidemia, vitamin-D deficiency, obstructive sleep apnea noncompliant with CPAP and ulcerative colitis who presented to the ER at [facility] via EMS due to intentional insulin overdose. The patient reports that he and his girlfriend had been having some issues for the last several weeks. Last night he suddenly decided that he would just end it all by taking somewhere between 50 units and 160 units of NovoLog. He left a suicide note as he intended to from his insulin overdose. He denies having a prior history of anxiety, depression or suicidal ideation. He denies any attempt to hurt anyone else. He has never been hospitalized for depression. He reports that he has been compliant with all of his other medications. He did not have any associated nausea or vomiting. When he arrived to [facility] he was hypoglycemic with glucose of 59. He received IM glucagon and was placed on a D10 infusion. After couple of hours patient's glucoses were persistently above 150 in the patient's D10 was decreased to 25 mL an hour. On arrival to our facility patient's glucose was 150. At the outside ER the patient's potassium was noted to be 2.8. He received 40 mEq of potassium supplementation. While in the ER the outside hospital patient consumed 3 bags of chips a turkey sandwich 1 couple putting 1 cup of applesauce a cup of cottage cheese and regular Coke. He did not have any GI distress with eating. The patient is not very forthcoming with further details regarding his recent decisions. He arrived to the ER with a hand written note stating ?I do not consent to CPR DNR.? The patient was actively intoxicated on arrival to outside ER and his friend stated that he had drank an entire bottle of apple crown Brilliant. Patient alcohol level at the outside hospital was 154 had just after midnight. Review of his chart demonstrated patient had a recent hemoglobin A1c of 6.5%. Review of Systems Review of Systems: 12 systems were reviewed with pertinent positives and negatives per HPI. Except as documented in the HPI, all other systems were reviewed and are negative. He reports some mild erectile dysfunction. He denies any peripheral neuropathy, retinopathy or kidney disease. He is obese and does have obstructive sleep apnea but does not use a CPAP. [facility] Past Medical History Medical History (Updated 02/20/24 @ 06:26 by Erica Ricks DO) Dilatation of aorta Hypercholesterolemia Hypertension Pancreatitis Thrombocytopenia Chronic Type 2 diabetes mellitus Patient had islet cell antibody testing June 2023 that was negative, he had C-peptide that were within normal limits consistent with history of type 2 diabetes Ulcerative colitis Vitamin D deficiency Surgical History Surgical History (Updated 02/20/24 @ 06:10 by Erica Ricks DO) History of rotator cuff surgery Bilateral Family History Family History (Updated 02/20/24 @ 06:11 by Erica Ricks DO) Mother Colon polyp Diabetes mellitus Hypertension Father Pancreatic cancer at age 61 Sibling Obesity Pre-diabetes Social History Social History (Updated 02/20/24 @ 06:12 by Erica Ricks DO) Social History: Patient lives with his mother and sister. 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 He drinks 6-8 shots of [place] Brilliant Apple every weekend. He smokes marijuana on the weekends. He smoked up to 2 packs of cigarettes per day before cutting back and eventually quitting November 2023. He smoked for 30 years prior to quitting. Code status: Full code Surrogate decision maker: Mother Smoking packs per day: 1 Smoking cigarettes per day: 20.0 Years smoked: 30 Smoking pack-years:
[2024-02-20 05:32] LABS: Glucose Point of Care 150 mg/dl (65-105)
--- NOTE | 2024-02-20 05:39 | PC.NURSE ---
0538: Called placed to patients' mother, Ruthie, per patient request. Patient would like to staff to inform mother that he has arrived at [facility]. Mother did not bean picker the phone. RN left message for her to call ICU.
[2024-02-20 06:02] LABS: Anion Gap 8 mmol/L (4-12); Blood Urea Nitrogen 15 mg/dL (9-20); Calcium 9.1 mg/dL (8.4-10.2); Carbon Dioxide 26 mmol/L (22-30); Chloride 105 mmol/L (98-107); Estimated CRCL calculation 173 ml/min; Estimated Glomerular Filt Rate > 60; Glucose 156 mg/dL (65-110); Magnesium 2.2 mg/dL (1.6-2.3); Phosphorus 2.6 mg/dL (2.5-4.5); Potassium 3.5 mmol/L (3.4-5.0); Sodium 139 mmol/L (137-145)
--- NOTE | 2024-02-20 06:31 | PC.NURSE ---
Update given to poison control. Case closed per Chris. Case # [id number]
[2024-02-20 07:18] LABS: MRSA (PCR) NOT DETECTED (NOT DETECTE)
[2024-02-20 07:48] LABS: Glucose Point of Care 201 mg/dl (65-105)
--- NOTE | 2024-02-20 07:59 | WPDCNINT ---
Assessment and Plan Assessment and plan (1) Intentional overdose of insulin: Code(s): T38.3X2A - Poisoning by insulin and oral hypoglycemic [antidiabetic] drugs, intentional self-harm, initial encounter Status: Acute Assessment and Plan: 02/18: [place] [facility] [place] [facility] was intentional insulin overdose, NovoLog, 50-200 units, unclear about the amount he he injected. He had a suicide note and intent to himself. -at the outside hospital patient was given glucagon and statin D10 infusion with improvement in his blood sugars -patient was transferred to [facility] ICU for further management, upon arrival to the [facility] ICU D10 was discontinued has a blood sugars were greater than 100. Poison Control was notified, they stated that he has passed his half life of his short-acting insulin, needs to be observed for 6 hours. -currently off D10 infusion since the time he arrived to the ICU -blood sugar this morning 201 -will start Accu-Cheks q.4 hours, if blood sugars remained stable and elevated will add sliding scale insulin (2) Suicidal behavior: Qualifiers: Attempted self-injury: with attempted self-injury Qualified Code(s): T14.91XA - Suicide attempt, initial encounter Code(s): R45.89 - Other symptoms and signs involving emotional state Status: Acute Assessment and Plan: Patient presents with short-acting insulin overdose to relationship problem, he and his girlfriend having some issues for the last several weeks. Left a suicide note has intent to from insulin overdose. -will continue suicide precautions -will have care coordination and crisis management evaluate the patient -patient is currently medically stable (3) Hypertension: Code(s): I10 - Essential (primary) hypertension Status: Acute Assessment and Plan: Blood pressures have been stable, continue hydralazine, carvedilol and amlodipine (4) Hyperlipidemia LDL goal <70: Code(s): E78.5 - Hyperlipidemia, unspecified Status: Acute Assessment and Plan: Patient is on Repatha as he is intolerant to statins for primary care note in the chart (5) Type 2 diabetes mellitus: Code(s): E11.9 - Type 2 diabetes mellitus without complications Status: Acute Assessment and Plan: Patient is on metformin, NovoLog at home -continue Accu-Cheks for now, the blood sugars are high will start sliding scale insulin and metformin (6) Thrombocytopenia: Code(s): D69.6 - Thrombocytopenia, unspecified Status: Acute Assessment and Plan: Chronic thrombocytopenia (7) Acute hypokalemia: Code(s): E87.6 - Hypokalemia Status: Acute Assessment and Plan: Hypokalemia is resolved, likely related to insulin overdose Plan DVT prophylaxis: Lovenox Stress ulcer prophylaxis: Not indicated Nutrition: Diabetic diet Code Status: Full code Critical Care Time Spent: 44 minutes Due to a high probability of clinically significant, life threatening deterioration, the patient required my highest level of preparedness to intervene emergently and I personally spent this critical care time directly and personally managing the patient. This critical care time included obtaining a history; examining the patient; pulse oximetry; ordering and review of studies; arranging urgent treatment with development of a management plan; evaluation of patient's response to treatment; frequent reassessment; and discussions with other providers. It was exclusive of separately billable procedures and treating other patients and teaching time. Please see Assessment and Plan section and the rest of the note for further information on patient assessment and treatment This dictation may have been done utilizing a voice recognition system. Attempts have been made to correct errors. However, there may be uncorrected grammatical, spelling, and recognitions errors pr
[2024-02-20] MEDS: hydrALAZINE HCL 50 MG TABLET PO ×3 (08:09→17:02)
[2024-02-20] MEDS: ASPIRIN 81 MG ENTERIC TABLET PO (08:09)
[2024-02-20] MEDS: amLODIPine BESYLATE 5 MG TABLET 10 MG PO (08:10)
[2024-02-20] MEDS: carvediloL 12.5 MG TABLET 25 MG PO ×2 (08:10→20:19)
[2024-02-20] MEDS: ENOXAPARIN 40 MG/0.4 ML SYRINGE SUB-Q (08:10)
[2024-02-20 11:02] LABS: SARS-CoV-2 RNA PCR Negative (Negative)
[2024-02-20 11:46] LABS: Glucose Point of Care 288 mg/dl (65-105)
[2024-02-20] MEDS: INSULIN ASPART (*BKC) 100 UNITS/ML SUB-Q ×2 (12:08→17:02)
[2024-02-20 12:13] LABS: Ethanol < 10 mg/dL (<10)
[2024-02-20 16:58] LABS: Glucose Point of Care 255 mg/dl (65-105)
--- NOTE | 2024-02-20 18:02 | PC.NURSE ---
Crisis intervention arrived to talk with the patient at bedside.
--- NOTE | 2024-02-20 19:40 | PC.NURSE ---
1915: Patient belongings, including cell phone, sent home with patients' mother per his request. 1938: RAFAEL Camp from [facility] called to inform this RN their adult psychiatric unit is currently full. They will call back with an update on 02/19.
--- NOTE | 2024-02-20 19:51 | PM.IMPN ---
Progress Note: A&P Assessment and Plan (1) Intentional overdose of insulin: Code(s): T38.3X2A - Poisoning by insulin and oral hypoglycemic [antidiabetic] drugs, intentional self-harm, initial encounter Status: Acute (2) Suicide attempt: Code(s): T14.91XA - Suicide attempt, initial encounter Status: Acute (3) Diabetes mellitus type 1: Qualifiers: Diabetes mellitus complication status: with other specified complication Qualified Code(s): E10.69 - Type 1 diabetes mellitus with other specified complication Code(s): E10.9 - Type 1 diabetes mellitus without complications Status: Acute (4) Suicidal behavior: Qualifiers: Attempted self-injury: with attempted self-injury Qualified Code(s): T14.91XA - Suicide attempt, initial encounter Code(s): R45.89 - Other symptoms and signs involving emotional state Status: Acute (5) Acute hypokalemia: Code(s): E87.6 - Hypokalemia Status: Acute (6) Hypertension: Code(s): I10 - Essential (primary) hypertension Status: Acute Time Spent With Patient Time: Patient admitted in ICU for hypoglycemia call by intentional insulin overdose with suicidal attempt Patient evaluated and cleared by clean up supervisor after discharge 3 management Patient's blood sugar and potassium levels are in the bed I patient is stable from medical standpoint to be discharged Crisis intervention for evaluation regarding inpatient psych evaluation Crisis intervention accepted the patient to inpatient psych I entered inpatient certification for involuntary psych admission DC planning to inpatient psych facility in a.m. when accepted ? Patient seen and examined at bedside during my morning rounds ? Collaborated with patient's nurse at the bedside in detail and addressed all concerns ? Labs, electrolytes, radiology, investigations and test results reviewed ? Consult/Nursing/Ancilliary notes on the chart reviewed and appreciated ? Spoke with patient/family at the bedside and answered all the questions that they had Repeat labs in a.m. Electrolyte replacement as per protocol. Patient will be monitored very closely on the floor. Further recommendations as per the hospital course. Subjective Date/time seen: 02/20/24 19:51 Interval history: Patient admitted with attempted suicide with insulin overdose. Medically stabilized and transferred out of ICU. Patient non-suicidal at this time. Ordered crisis intervention. Inpatient certification filled for involuntary admission to inpatient psych facility Review of Systems Review of Systems: 14 systems were reviewed with pertinent positives and negatives per HPI. Except as documented in the HPI/progress notes, all other systems were reviewed and are negative. All systems reviewed & are unremarkable except as noted in HPI and below Exam Narrative: PHYSICAL EXAMINATION: Vital signs: Please see the chart General physical exam: Obese patient sitting at bedside, alert awake oriented x3, pleasant and cooperative with the exam Head/eyes: Atraumatic, EOMI, PERRLA ENT: Moist mucous membranes, nasal passages clear Neck: Supple, full range of motion, trachea midline CVS: S1 + S2, regular rate and rhythm, no murmurs Respiratory: Bilaterally fair air entry in both lung serrano, mild B/L crackles, symmetric chest expansion, no distress Abdomen: Soft, non-tender, bowel sounds +ve, no organomegaly Extremities: No clubbing, no cyanosis, no edema, no calf tenderness Musculoskeletal: Moves all, adequate range of motion, no muscle spasms Skin: Warm, dry, no jaundice, no cyanosis Neurological: Awake, alert, oriented x 3, cranial nerves II-XII intact, no focal neurological deficits Psychiatric: Normal mood, non suicidal Objective Data Vital Signs Vital Signs: Vital Signs - 24 hr 02/20/24 05:43 02/20/24 05:48 02/20/24 05:55 Temperature 36.4 C Pulse Rate 91 Respiratory Rate 20 Blood P
--- NOTE | 2024-02-20 19:57 | PC.NURSE ---
1955: Linda from [facility] called to inform us they are out of network for the patients' insurance. If the patient were to go there it would have to be self paid at $1500/day. RN discussed with patient and he declined to do so.
[2024-02-20] MEDS: IBUPROFEN 400 MG TABLET PO (20:18)
[2024-02-20] MEDS: POTASSIUM CHLORIDE 20 MEQ ER TABLET 40 MEQ PO (20:28)
[2024-02-20 20:57] LABS: Glucose Point of Care 215 mg/dl (65-105)
--- NOTE | 2024-02-20 22:37 | PC.NURSE ---
2237: Jeanette from [facility] in [place] called to obtain more information on patient. Jeanette stated she will be calling back this evening to let us know if he was accepted.
--- NOTE | 2024-02-20 23:18 | PC.NURSE ---
2303: Jeanette at [facility] called to inform RN that patient has been accepted at their facility. Jeanette asked RN if the patient was going voluntary. RN stated the social group worker told her he was but there was involuntary paperwork if it became necessary. RN asked Jeanette to hold and looked through the patients' paper chart to ensure consent was there. RN did not find a consent. RN asked Jeanette if she could call her back. Jeanette said yes and provided the following number [phone]. 2316: RN called the number on patients' crisis paperwork [phone]) and spoke with Cherelle at [facility]. Cherelle said she could likely fax us a voluntary consent form. RN asked Cherelle if we were legally qualified to fill out the paperwork. Cherelle stated she was going to talk to a coworker and call this RN back.
--- NOTE | 2024-02-20 23:42 | PC.NURSE ---
2342: Lakisha Everett from [facility] called to clarify the paperwork issue regarding the patients' missing voluntary paperwork. After discussing, Lakisha stated she was going to contact her superior and call back.
--- NOTE | 2024-02-20 23:52 | PC.NURSE ---
Patients' nicotine pouches locked in patient cabinet. Patient aware.
--- NOTE | 2024-02-21 01:38 | PC.NURSE ---
0037: Umm from [facility] transfer center called RN for update. RN informed her that we were still awaiting a call from [facility] regarding the situation. Umm can be contacted at .
--- NOTE | 2024-02-21 01:41 | PC.NURSE ---
0135: While checking the tube station an Application for Voluntary Admission was found. Cynthia Zhu RN called the ED and asked if it came from them. The ED transmitter engineer in charge, Cherelle,stated that Lakisha parnell [facility] called them and asked her to send the form up to us so they could work on placement in the morning. Lakisha did not contact ICU staff regarding this situation.
--- NOTE | 2024-02-21 02:11 | PC.NURSE ---
0208 received follow-up call from Umm from [facility] transfer center, updated caller of plan to work on voluntary placement in the am of 02/21/24 once the application for voluntary admission is completed.
[2024-02-21 03:55] LABS: Basophils Percent Auto 0.8 % (0.2-1.2); Eosinophils Absolute Auto 0.1 K/mm3 (0-0.3); Eosinophils Percent Auto 2.7 % (0-4.4); Hematocrit 43.8 % (42.0-52.0); Hemoglobin 14.8 g/dL (14.0-18.0); Immature Granulocyte Absolute 0.01 K/mm3 (0.00-0.031); Immature Granulocyte Percent A 0.2 % (0-0.5); Immature Platelet Fraction Pct 10.4 % (0.9-11.2); Lymphocytes Absolute Auto 1.42 K/mm3 (0.9-3.2); Lymphocytes Percent Auto 26.9 % (18.3-44.2); Mean Corpuscular HGB Conc 33.8 g/dl (32-36); Mean Corpuscular Hemoglobin 29.3 pg (26-34); Mean Corpuscular Volume 86.7 fl (80-100); Mean Platelet Volume 12.3 fl (7.4-10.4); Monocytes Absolute Auto 0.4 K/mm3 (0.1-0.6); Neutrophils Absolute Auto 3.3 K/mm3 (1.3-6.7); Neutrophils Percent Auto 61.4 % (45.5-73.1); Platelet Count Result 89 k/mm3 (150-375); Red Blood Count 5.05 M/mm3 (4.6-6.20); Red Cell Distribution Width 12.9 % (11.5-14.5); White Blood Count 5.3 K/mm3 (4.5-10.0)
[2024-02-21 04:00] VITALS: BP 142/86; PULSE 61; PULSE 84; RESP 15; TEMP 36.6; O2SAT 98
[2024-02-21 04:07] LABS: Anion Gap 4 mmol/L (4-12); Blood Urea Nitrogen 15 mg/dL (9-20); Calcium 8.6 mg/dL (8.4-10.2); Carbon Dioxide 25 mmol/L (22-30); Chloride 107 mmol/L (98-107); Estimated CRCL calculation 174 ml/min; Estimated Glomerular Filt Rate > 60; Glucose 216 mg/dL (65-110); Potassium 4.1 mmol/L (3.4-5.0); Sodium 136 mmol/L (137-145)
[2024-02-21 08:00] VITALS: BP 130/74; PULSE 70; PULSE 81; RESP 18; TEMP 36.6; O2SAT 94
[2024-02-21 08:01] LABS: Glucose Point of Care 248 mg/dl (65-105)
[2024-02-21] MEDS: hydrALAZINE HCL 50 MG TABLET PO (08:43)
[2024-02-21 08:44] VITALS: PULSE 66
[2024-02-21] MEDS: amLODIPine BESYLATE 5 MG TABLET 10 MG PO (08:44)
[2024-02-21] MEDS: carvediloL 12.5 MG TABLET 25 MG PO (08:44)
[2024-02-21] MEDS: ASPIRIN 81 MG ENTERIC TABLET PO (08:44)
[2024-02-21] MEDS: ENOXAPARIN 40 MG/0.4 ML SYRINGE SUB-Q (08:45)
[2024-02-21] MEDS: INSULIN ASPART (*BKC) 100 UNITS/ML SUB-Q ×2 (08:45→11:58)
--- NOTE | 2024-02-21 10:10 | PC.NURSE ---
spoke with [facility], they have a bed for the pt, bed 1022, case management is aware and will begin voluntary paperwork, fax to [phone] attn millie, pt has no needs at this time, sitter by bedside
[2024-02-21 11:46] LABS: Glucose Point of Care 283 mg/dl (65-105)
--- NOTE | 2024-02-21 11:55 | PC.NURSE ---
spoke with mother of pt, she is aware of pt transfer to [facility] and bed number, [facility] has asked that we not send the pt's nicotine patches from home with him, mother requests that we throw them away
[2024-02-21 12:00] VITALS: PULSE 75
--- NOTE | 2024-02-21 13:33 | PM.TDS ---
Transfer Discharge Sum: Prov Provider Date of admission: 02/20/24 05:19 Primary care physician: Olivier Boyce DO Admitting clinician: Erica Ricks DO Attending physician on admission: Erica Ricks Consults: Dr. Erica Ricks Attending physician on discharge: Omari Pearson Discharging clinician: Omari Pearson Anticipated date of transfer: 02/21/24 Receiving physician/facility: Dr. Castorena ... [facility] ... [facility] ... [facility]. DS: Admitting Diagnosis Discharge Date 02/21/2024: Admitting Diagnosis (1) Intentional overdose of insulin: ?Code(s): T38.3X2A - Poisoning by insulin and oral hypoglycemic [antidiabetic] drugs, intentional self-harm, initial encounter ?Status:?Acute (2) Suicidal behavior: ?Qualifiers: ?Attempted self-injury:?with attempted self-injury? 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 Status: Acute (3) Acute hypokalemia: Code(s): E87.6 - Hypokalemia Status: Acute (4) Thyroid nodule: Code(s): E04.1 - Nontoxic single thyroid nodule Status: Acute (5) Hypertension: Code(s): I10 - Essential (primary) hypertension Status: Acute (6) Hyperlipidemia LDL goal <70: Code(s): E78.5 - Hyperlipidemia, unspecified Status: Acute (7) Dietary counseling and surveillance: Code(s): Z71.3 - Dietary counseling and surveillance Status: Acute (8) Type 2 diabetes mellitus: Code(s): E11.9 - Type 2 diabetes mellitus without complications Status: Acute (9) Thrombocytopenia: Code(s): D69.6 - Thrombocytopenia, unspecified Status: Acute (10) Ulcerative colitis: Code(s): K51.90 - Ulcerative colitis, unspecified, without complications Status: Acute Transfer Discharge Sum: Med Medications Active and Home Medications: Home Medications aspirin 81 mg tablet,delayed release 81 mg PO DAILY 07/03/21 [History Confirmed 02/20/24] carvedilol 12.5 mg tablet 25 mg PO BID 08/17/22 [History Confirmed 02/20/24] amlodipine 10 mg tablet 10 mg PO DAILY 11/09/22 [History Confirmed 02/20/24] furosemide 20 mg tablet 20 mg PO DAILY 05/29/23 [History Confirmed 02/20/24] insulin aspart U-100 100 unit/mL subcutaneous solution (Novolog U-100 Insulin aspart) 140 unit (1.4 mL) continuous subcutaneous infusion DAILY #130 mL 06/20/23 [Rx Confirmed 02/20/24] blood-glucose sensor (Dexcom G6 Sensor device) #9 ea 06/26/23 [Rx Confirmed 02/20/24] blood-glucose transmitter (Dexcom G6 Transmitter device) #1 ea 06/26/23 [Rx Confirmed 02/20/24] hydralazine 50 mg tablet 50 mg PO TID 07/23/23 [History Confirmed 02/20/24] insulin pump cart,automated,BT (Omnipod 5 G6 Pods (Gen 5) subcutaneous cartridge) #50 ea 10/29/23 [Rx Confirmed 02/20/24] pen needle, diabetic 32 gauge x 5/32 (BD Ultra-Fine Ambika Pen Needle) #100 ea 11/06/23 [Rx Confirmed 02/20/24] metformin 500 mg tablet,extended release 24 hr
--- NOTE | 2024-02-21 13:44 | PC.NURSE ---
pt tranfered to [facility], transfered via w/c with Sabiha at this time.
== END 2024-02-21 13:40 | disposition short-term general hospital (02) ==
PROVIDERS: Internal Medicine; Admitting Provider Internal Medicine; PCP Family Medicine; Visit Provider Family Medicine
DX: T38.3X2A Poisoning by insulin and oral hypoglycemic [antidiabetic] drugs, intentional self-harm, initial encounter (principal); T14.91XA Suicide attempt, initial encounter; Y92.9 Unspecified place or not applicable; I10 Essential (primary) hypertension; E11.9 Type 2 diabetes mellitus without complications; E87.6 Hypokalemia; E78.5 Hyperlipidemia, unspecified; E55.9 Vitamin D deficiency, unspecified; D69.6 Thrombocytopenia, unspecified; G47.33 Obstructive sleep apnea (adult) (pediatric); Z11.52 Encounter for screening for COVID-19; K51.90 Ulcerative colitis, unspecified, without complications; Z66 Do not resuscitate; Z87.891 Personal history of nicotine dependence; F10.929 Alcohol use, unspecified with intoxication, unspecified; Y90.0 Blood alcohol level of less than 20 mg/100 ml; F12.90 Cannabis use, unspecified, uncomplicated; Z79.82 Long term (current) use of aspirin; Z79.4 Long term (current) use of insulin; Z79.84 Long term (current) use of oral hypoglycemic drugs; Z96.41 Presence of insulin pump (external) (internal); Z79.899 Other long term (current) drug therapy
CPT/HCPCS: 36415; 80048; 80307; 82948; 83735; 84100; 85025; 85055; 87635; 87641; 96372; A9270; G0378; J1650; J1815

== ENCOUNTER 2024-03-24 09:25 | Emergency (ER) | payer OTHER, SELFPAY ==
--- NOTE | ~2024-03-24 | XR_ITS ---
XR shoulder LT min 2V 03/24/2024 10:02 Indication: Status post recent fall. Left shoulder pain with limited range of motion. Procedure: 4 views left shoulder Comparison: No prior studies for comparison. Findings: There are changes of left clavicular osteotomy. There are also changes of humeral head repa ir with 2 screws. Mild osteoarthritis of the glenohumeral joint. No acute fracture or traumatic malal ignment. No soft tissue abnormality. Impression: 1: No acute fracture. Reviewed, dictated and finalized at location B. Impression: 1: No acute fracture.
[2024-03-24 09:25] VITALS: BP 175/95; PULSE 75; RESP 18; TEMP 36.3; O2SAT 98
--- NOTE | 2024-03-24 09:36 | ED.UPPEXIN ---
HPI - Extremity Injury (Upper) General Chief Complaint: Extremity Injury, Upper Stated Complaint: fall, left arm and shoulder pain Time Seen by Provider: 03/24/24 09:33 History of Present Illness HPI narrative: Pt was pushing a large garbage can and it caught a lip on the curb and he lost his balance and fell on an outstretched left hand. Pt complains of pain in left shoulder and clavicle. Pt denies LOC or other injury. Related Data Home Medications Medication Instructions Recorded Confirmed aspirin 81 mg tablet,delayed 81 mg PO DAILY 07/03/21 03/24/24 release carvedilol 12.5 mg tablet 25 mg PO BID 08/17/22 03/24/24 hydralazine 50 mg tablet 50 mg PO TID 07/23/23 03/24/24 mesalamine 400 mg capsule (with 400 mg PO QID 03/24/24 03/24/24 delayed release tablets inside) Allergies Allergy/AdvReac Type Severity Reaction Status Date / Time fish oil Allergy Mild Vomiting Verified 03/24/24 09:38 [id number]-USY-[id number] Reductase Allergy Mild Vomiting Verified 03/24/24 09:38 Inhibitor oxycodone [From Percocet] AdvReac Unknown Itching Verified 03/24/24 09:38 Review of Systems Review of Systems: All systems reviewed & are unremarkable except as noted in HPI and below PMFSH Past Medical History Medical History (Updated 03/24/24 @ 10:19 by Real Leblanc III, DO) Dilatation of aorta Hypercholesterolemia Hypertension Pancreatitis Thrombocytopenia Chronic Type 2 diabetes mellitus Patient had islet cell antibody testing June 2023 that was negative, he had C-peptide that were within normal limits consistent with history of type 2 diabetes Ulcerative colitis Vitamin D deficiency Surgical History Surgical History (Updated 02/20/24 @ 06:10 by Erica Ricks DO) History of rotator cuff surgery Bilateral Family History Family History (Updated 02/20/24 @ 06:11 by Erica Ricks DO) Mother Colon polyp Diabetes mellitus Hypertension Father Pancreatic cancer at age 61 Sibling Obesity Pre-diabetes Social History Social History (Updated 02/20/24 @ 06:12 by Erica Ricks DO) Social History: Patient lives with his mother and sister. 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 He drinks 6-8 shots of [place] [employer] [employer] every weekend. He smokes marijuana on the weekends. He smoked up to 2 packs of cigarettes per day before cutting back and eventually quitting November 2023. He smoked for 30 years prior to quitting. Code status: Full code Surrogate decision maker: Mother Smoking packs per day: 1 Smoking cigarettes per day: 20.0 Years smoked: 30 Smoking pack-years: 30.00 Smoking status: Former smoker Tobacco type: cigarettes Alcohol intake: current Drinks per week: 6 Alcohol use details: socially Substance use: current Substance use type: marijuana Last use: 2X monthly Lack of Transportation: No Lack of Food: Never True Current Housing: I Have Housing Concerned About Future Housing: No Difficulty Paying Gas/Electric Bills: No Difficulty Paying for Meds: YES Currently Unemployed: No Education: High School Diploma/GED Difficulty w/ Childcare or Family Care: No Living arrangements: with family Gender identity (if verbalized by the patient): Male Spiritual care concerns: No Exam Const: General: healthy appearing Nutritional Appearance: well nourished Orientation/consciousness: patient oriented x3 Limitations: no limitations Neck: Neck: normal visual inspection, no lymphadenopathy and no meningeal signs Chest: Chest palpation & inspection: normal inspection of the chest Resp: Effort & Inspection: normal respiratory effort Auscultation: clear to auscultation bilaterally Cardio: Rate: regular rate Rhythm: regular rhythm GI: GI Palp: Yes Soft to palpation Auscultation: normal bowel sounds Skin: General skin exam: normal color Rashes: no rashes Wounds: no wounds Neuro: General: patient
[2024-03-24] MEDS: KETOROLAC 30 MG/ML VIAL (*BKC) IM (10:00)
== END 2024-03-24 10:30 | disposition home or self-care (01) ==
PROVIDERS: Emergency Provider Emergency Medicine; PCP Family Medicine
DX: S43.402A Unspecified sprain of left shoulder joint, initial encounter (principal); W19.XXXA Unspecified fall, initial encounter; E78.00 Pure hypercholesterolemia, unspecified; I10 Essential (primary) hypertension; E11.9 Type 2 diabetes mellitus without complications; E55.9 Vitamin D deficiency, unspecified; Z87.891 Personal history of nicotine dependence
CPT/HCPCS: 73030; 96372; 99283; A4565; J1885

== ENCOUNTER 2024-04-07 13:06 | Outpatient (RCR) | payer OTHER, SELFPAY ==
[2024-04-07 13:03] VITALS: BP_SYST 145
--- NOTE | 2024-04-07 14:10 | OPREHPOC ---
Outpatient Therapy Plan of Care This is a Multidisciplinary Plan of Care that may contain components documented by all disciplines (PT, OT, and ST.) PT Problem 1 PT Problem #1 Knowledge Deficit PT Goal 1 Goal patient to demonstrate independence with HEP Target Visit 6 PT Problem 2 PT Problem #2 Pain PT Goal 1 Goal 1. Patient to report highest pain at 2/10 2. Patient to report ability to sleep with no disturbance due to L shoulder pain Target Visit 12 PT Problem 3 PT Problem #3 Impaired Range of Motion PT Goal 1 Goal 1. Patient to demonstrate 160 deg of passive L shoulder flexion 2. Patient to demonstrate 90 deg of active R shoulder flexion Target Visit 10 PT Goal 2 Goal 1. Patient to demonstrate 160 deg of active R shoulder flexion 2. Patient to demonstrate 80 deg of R shoulder ER Target Visit 12 PT Problem 4 PT Problem #4 Impaired Strength PT Goal 1 Goal Patient to demonstrate 5/5 strength of the L shoulder to return to work duties at PLOF Target Visit 12 PT Problem 5 PT Problem #5 Impaired Functional Mobil PT Goal 1 Goal 1. Patient to demonstrate less than 20% impairment on QuickDash 2. Patient to demonstrate ability to press 15# overhead 3. Patient to demonstrate ability to lift 30# from floor to shoulder Target Visit 12
--- NOTE | 2024-04-07 14:10 | PTOPEVAL1 ---
Assessment and note entered by Magda Proctor DPT Evaluation Information Assessment Status Evaluation Diagnosis L shoulder pain Onset 03/24/24 Subjective Information Patient reports he tripped and fell over a concrete pad and reached out to catch himself with the L arm and had instant pain that radiated down to the hand. He reports he reported injury to a public policy manager and went to the ER. x-rays were negative and he is getting an MRI on 04/09/24. since fall he has been in a sling. he has restrictions of no lifting over 5#, no climbing and in sling. 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 he is working light duty currently. he reports full duty requires lifting/ pushing/pulling of 50#. currently he is having pain with dressing, bathing, sleeping. Reported Pain Level Pain Score 2: Self Report Assessment PT Clinical Summary Mr. Aaron is a 48 year old male who presents to PT with L shoulder pain s/p fall at work. He demonstrate decreased active ROM, decreased L shoulder strength with increased pain limiting his ability to reach over head, dress, bathe, lift, push/pull and carry. He would benefit from skilled PT to address impairments and return to OF. Plan of Care Interventions Electrical Stimulation,Hot Pack/Cold Pack,Manual Therapy,Neuro Re-education,Patient/Caregiver Educati,Therapeutic Activities,Therapeutic Exercise PT Services Indicated Yes Treatment Frequency and 2x weekly for 12 visits Duration These treatments will address the objective and functional deficits as defined above. The patient will be advanced safely and appropriately in order for the patient to progress towards his/her prior level of function. Additional exercises will be introduced and as well as a comprehensive home exercise program upon discharge, if needed, ?to ensure carryover of functional gains achieved in the clinic. This treatment plan has been reviewed and agreement upon by the patient.
--- NOTE | 2024-04-17 16:36 | PCPTNOTE ---
On 04/17/24, the license pending LADLE POURER, [Aleyda Sifuentes], provided care and completed [employer] documentation on this patient. I have reviewed the student's documentation and agree with the findings.
--- NOTE | 2024-04-22 17:19 | PCPTNOTE ---
I reviewed the License Pending Therapist's documentation and agree with the findings.
--- NOTE | 2024-04-24 16:53 | PCPTNOTE ---
I reviewed the License Pending Therapist's documentation and agree with the findings.
--- NOTE | 2024-04-28 16:37 | PCPTNOTE ---
On 04/28/24, the license pending LIBRARIAN ASSISTANT, [Aleyda Sifuentes], provided care and completed [facility] documentation on this patient. I have reviewed the license pending LIBRARIAN ASSISTANT's documentation and agree with the findings.
--- NOTE | 2024-04-30 17:06 | PCPTNOTE ---
I reviewed the License Pending Therapist's documentation and agree with the findings.
--- NOTE | 2024-05-05 17:20 | PCPTNOTE ---
On 05/05/24, the student, LOCO Hillman, provided care and completed [facility] documentation on this patient. I have reviewed the student's documentation and agree with the findings. Dylan Oglesby, MPT
--- NOTE | 2024-05-09 14:39 | PCPTNOTE ---
on 05/07/24, license pending RESTORATIVE ART EMBALMER Aleyda Sifuentes performed treatment and documentation on this patient. I am signing to state agreement with her findings.
--- NOTE | 2024-05-09 14:40 | OPREHPOC ---
Outpatient Therapy Plan of Care This is a Multidisciplinary Plan of Care that may contain components documented by all disciplines (PT, OT, and ST.) PT Problem 1 PT Problem #1 Knowledge Deficit PT Goal 1 Goal patient to demonstrate independence with HEP Target Visit 6 Progress Met PT Problem 2 PT Problem #2 Pain PT Goal 1 Goal 1. Patient to report highest pain at 2/10 2. Patient to report ability to sleep with no disturbance due to L shoulder pain Target Visit 12 Progress Not Met PT Problem 3 PT Problem #3 Impaired Range of Motion PT Goal 1 Goal 1. Patient to demonstrate 160 deg of passive L shoulder flexion 2. Patient to demonstrate 90 deg of active R shoulder flexion Target Visit 10 Progress Not Met PT Goal 2 Goal 1. Patient to demonstrate 160 deg of active R shoulder flexion 2. Patient to demonstrate 80 deg of R shoulder ER Target Visit 12 Progress Not Met PT Problem 4 PT Problem #4 Impaired Strength PT Goal 1 Goal Patient to demonstrate 5/5 strength of the L shoulder to return to work duties at PLOF Target Visit 12 Progress Not Met PT Problem 5 PT Problem #5 Impaired Functional Mobil PT Goal 1 Goal 1. Patient to demonstrate less than 20% impairment on QuickDash 2. Patient to demonstrate ability to press 15# overhead 3. Patient to demonstrate ability to lift 30# from floor to shoulder Target Visit 12 Progress Not Met
--- NOTE | 2024-05-09 14:40 | PTOPPROGNS ---
Assessment and note entered by JT File, PT Evaluation Information Assessment Status Progress Diagnosis L shoulder pain Onset 03/24/24 Subjective Information patient reports his L shoulder hurts a lot still . he reports it pops all throughout the day. he is still wearing a sling through the day due to his pain. Assessment PT Clinical Summary mr. zavala presents to skilled PT for his 10th skilled PT visit today. he presents with continued significant pain in the L shoulder. he also continues to lack adequate active and passive L shoulder rom. he has met goal for HEP performance, but no other goals yet as of this date. continued skilled PT is indicated to improve his objective/ functional deficits and achieve goals to return to his prior level functional activity performance/ quality of life. an MRI would be beneficial to rule out surgical needs for the L shoulder. Plan of Care Interventions Electrical Stimulation,Hot Pack/Cold Pack,Manual Therapy,Neuro Re-education,Patient/Caregiver Educati,Therapeutic Activities,Therapeutic Exercise PT Services Indicated Yes Treatment Frequency and continue skilled PT per initial evaluation/POC for Duration 2 more visits These treatments will address the objective and functional deficits as defined above. The patient will be advanced safely and appropriately in order for the patient to progress towards his/her prior level of function. Additional exercises will be introduced and as well as a comprehensive home exercise program upon discharge, if needed, ?to ensure carryover of functional gains achieved in the clinic. This treatment plan has been reviewed and agreement upon by the patient.
--- NOTE | 2024-07-22 08:22 | PCPTNOTE ---
patient discharged due to lack of progress and recommendation for follow up testing
== END 2024-05-07 15:45 | disposition home or self-care (01) ==
LOC: CHSPT 13:06
PROVIDERS: PCP Family Medicine; Visit Provider Family Medicine
DX: M75.102 Unspecified rotator cuff tear or rupture of left shoulder, not specified as traumatic (principal)
CPT/HCPCS: 97014; 97110; 97161; G0283

== ENCOUNTER 2024-04-09 10:46 | Outpatient (CLI) | payer OTHER, SELFPAY ==
[2024-04-09 11:26] LABS: Hematocrit 46.1 % (40.0-54.0); Hemoglobin 16.1 g/dL (14.0-18.0); Mean Corpuscular HGB Conc 34.9 g/dL (32-36); Mean Corpuscular Hemoglobin 29.1 pg (27.0-31.0); Mean Corpuscular Volume 83.4 fL (78.0-102.0); Platelet Count Result 119 K/mm3 (150-420); Red Blood Count 5.53 M/mm3 (4.70-6.10); Red Cell Distribution Width 12.4 % (11.6-14.4); White Blood Count 7.9 K/mm3 (4.8-10.8)
[2024-04-09 11:57] LABS: Alanine Aminotransferase 18 U/L (16-63); Albumin Level 3.7 g/dL (3.4-5.0); Alkaline Phosphatase 81 U/L (46-116); Anion Gap 10 mmol/L (4-12); Aspartate Amino Transferase 16 U/L (15-37); Bilirubin,Total 0.6 mg/dL (0.00-1.00); Blood Urea Nitrogen 18 mg/dL (7-18); Calcium 8.7 mg/dL (8.5-10.1); Carbon Dioxide 27 mmol/L (21-32); Chloride 102 mmol/L (98-108); Estimated Glomerular Filt Rate > 60; Glucose 264 mg/dL (70-99); Osmolality Calculated 298 mOsm/kg (285-295); Potassium 4.1 mmol/L (3.5-5.1); Sodium 139 mmol/L (136-145); Total Protein 6.6 g/dL (6.4-8.2)
[2024-04-09 12:01] LABS: CRP < 0.5 mg/dL (0.0-0.9)
[2024-04-09 13:39] LABS: Erythrocyte Sedimentation Rate 6 mm/hr (0-15)
== END 2024-04-09 10:47 | disposition home or self-care (01) ==
PROVIDERS: PCP Family Medicine; Visit Provider Internal Medicine Gastroenterology
DX: D69.6 Thrombocytopenia, unspecified (principal); K51.90 Ulcerative colitis, unspecified, without complications
CPT/HCPCS: 36415; 80053; 85027; 85652; 86140

== ENCOUNTER 2024-05-27 09:31 | Outpatient (CLI) | payer OTHER, SELFPAY ==
[2024-06-04 01:09] LABS: Calprotectin, Stool 197 mcg/g
== END 2024-05-27 09:32 | disposition home or self-care (01) ==
PROVIDERS: PCP Family Medicine; Visit Provider Internal Medicine Gastroenterology
DX: D69.6 Thrombocytopenia, unspecified (principal); K51.90 Ulcerative colitis, unspecified, without complications
CPT/HCPCS: 83993

== ENCOUNTER 2024-06-10 08:51 | Outpatient (CLI) | payer OTHER, SELFPAY ==
--- NOTE | ~2024-06-10 | XR_ITS ---
EXAMINATION: XR lg joint inject/asp w image DATE: 06/10/2024 09:56 INDICATION: Unspecified disorder of synovium and tendon TECHNIQUE: A time-out was performed to verify the patient's name, date of , and procedure to b e performed. The procedure including the risks, benefits, and alternatives was discussed with the pat ient. Risks discussed included bleeding and infection. The patient understood the risks and agreed to proceed. The skin overlying the left glenohumeral joint was prepped and draped in usual sterile fas hion. Anesthetic was administered with 1% lidocaine subcutaneously. A 22 G needle was advanced unde r fluoroscopic guidance into the joint. Injection of 1 mL of Omnipaque 240 confirmed intra-articular position of the needle. Subsequently, injectate consisting of 3 mL of a 2:1 mixture of 0.5% bupivac luisa: 80 mg/mL Depo-Medrol for a total dosage of 80 mg Depo-Medrol was instilled. Washout of contrast was seen confirming intra-articular administration. The needle was removed and the entry site was cl eaned and dressed. There were no immediate complications. Fluoroscopy exposure time was 0.1 minutes. The total number of images was 2. FINDINGS: Real-time fluoroscopy demonstrates the needle in the left glenohumeral joint. Patient's latia n prior to procedure:03/05. Patient's pain following the procedure: 12/05. IMPRESSION: 1. Successful left glenohumeral joint injection of local anesthetic and steroid with decrease in the patient's presenting pain. Reviewed, dictated and finalized at location A.
== END 2024-06-10 08:52 | disposition home or self-care (01) ==
PROVIDERS: PCP Family Medicine; Visit Provider Orthopaedic Surgery
DX: M67.912 Unspecified disorder of synovium and tendon, left shoulder (principal); M75.102 Unspecified rotator cuff tear or rupture of left shoulder, not specified as traumatic
CPT/HCPCS: 20610; 77002; J1010; Q9966

== ENCOUNTER 2024-06-17 13:47 | Outpatient (CLI) | payer OTHER, SELFPAY ==
[2024-06-18 12:07] LABS: Hepatitis B Surface Antibody NON-REACTIVE (NON-REACTIVE); Hepatitis B Surface Antigen NON-REACTIVE (NON-REACTIVE)
[2024-06-18 13:23] LABS: Hepatitis B Core Ab Total NON-REACTIVE (NON-REACTIVE)
[2024-06-19 12:37] LABS: NIL 0.01 IU/mL; Quantiferon TB Plus, 1T NEGATIVE (NEGATIVE)
== END 2024-06-17 13:48 | disposition home or self-care (01) ==
LOC: CHSLAB 13:48
PROVIDERS: PCP Family Medicine; Visit Provider Internal Medicine Gastroenterology
DX: K51.90 Ulcerative colitis, unspecified, without complications (principal)
CPT/HCPCS: 36415; 86480; 86704; 86706; 87340

== ENCOUNTER 2024-07-10 13:00 | Outpatient (CLI) | payer OTHER, SELFPAY ==
[2024-07-10 13:25] LABS: Basophils Absolute Auto 0.05 K/mm3 (0.00-0.10); Eosinophils Absolute Auto 0.34 K/mm3 (0.02-0.50); Eosinophils Percent Auto 7.1 % (1.0-6.0); Hematocrit 44.1 % (40.0-54.0); Hemoglobin 15.3 g/dL (14.0-18.0); Immature Granulocyte Absolute 0.01 K/mm3 (0.00-0.00); Immature Granulocyte Percent A 0.2 % (0.0-0.0); Immature Platelet Fraction Pct 6.7 % (1.0-7.0); Mean Corpuscular HGB Conc 34.7 g/dL (32-36); Mean Corpuscular Hemoglobin 29.6 pg (27.0-31.0); Mean Corpuscular Volume 85.3 fL (78.0-102.0); Mean Platelet Volume 11.5 fl (8.7-11.0); Monocytes Absolute Auto 0.34 K/mm3 (0.10-0.90); Monocytes Percent Auto 7.1 % (2.0-11.0); Neutrophils Absolute Auto 2.68 K/mm3 (1.70-7.20); Neutrophils Percent Auto 55.6 % (50.0-70.0); Platelet Count Result 106 K/mm3 (150-420); Red Blood Count 5.17 M/mm3 (4.70-6.10); Red Cell Distribution Width 12.3 % (11.6-14.4); White Blood Count 4.8 K/mm3 (4.8-10.8)
[2024-07-10 14:25] LABS: Alanine Aminotransferase 27 U/L (16-63); Albumin Level 3.5 g/dL (3.4-5.0); Alkaline Phosphatase 77 U/L (46-116); Anion Gap 8 mmol/L (4-12); Aspartate Amino Transferase 12 U/L (15-37); Bilirubin,Total 0.4 mg/dL (0.00-1.00); Blood Urea Nitrogen 13 mg/dL (7-18); Calcium 8.5 mg/dL (8.5-10.1); Carbon Dioxide 27 mmol/L (21-32); Chloride 100 mmol/L (98-108); Estimated Glomerular Filt Rate > 60; Ferritin 106 ng/mL (26-388); Folic Acid 15.9 ng/mL (8.6->20); Glucose 309 mg/dL (70-99); Iron 95 ug/dL (65-175); Osmolality Calculated 292 mOsm/kg (285-295); Percent Iron Saturation 33 % (12-57); Potassium 4.1 mmol/L (3.5-5.1); Sodium 135 mmol/L (136-145); Total Protein 6.4 g/dL (6.4-8.2); Vitamin B12 478 pg/mL (193-986)
[2024-07-14 12:44] LABS: Methylmalonic Acid 154 nmol/L (55-335)
[2024-07-17 11:45] LABS: Reference Lab Test Name PLT AB DIRECT IGG
== END 2024-07-10 13:01 | disposition home or self-care (01) ==
LOC: CHSLAB 13:02
PROVIDERS: PCP Family Medicine; Visit Provider Internal Medicine Hematology & Oncology
DX: D64.9 Anemia, unspecified (principal)
CPT/HCPCS: 36415; 80053; 82607; 82728; 82746; 83540; 83550; 83921; 84238; 85025; 85055; 86023

== ENCOUNTER 2024-07-22 12:20 | Emergency (ER) | payer OTHER, SELFPAY ==
[2024-07-22 12:20] VITALS: BP 157/104; PULSE 83; RESP 18; TEMP 37.1; O2SAT 98
--- NOTE | 2024-07-22 12:23 | ED.ALLEREA ---
HPI - Allergic Reaction General Chief complaint: Allergic Reaction Stated complaint: multiple stings Time Seen by Provider: 07/22/24 12:22 Source: patient Mode of arrival: ambulatory Limitations: no limitations History of Present Illness HPI narrative: Patient is a 48-year-old male with multiple wasp stings around his body and more so on the right side of the body including his face. This happened 3 hours ago. He is having slight swelling of his right eyelid region and his right ear. Mouth area is normal. MD complaint: allergic reaction Onset (ago): hour(s) (3) Exposure: insect bite (wasps) Symptoms: rash, itching and facial swelling Severity: moderate Treatment prior to arrival: other (allergy tablet 10mg dose (claritin generic?)) Previous Allergic Reaction History: none Related Data Home Medications Medication Instructions Recorded Confirmed hydralazine 50 mg tablet 50 mg PO TID 07/23/23 07/22/24 mesalamine 400 mg capsule (with 400 mg PO QID 07/09/24 07/22/24 delayed release tablets inside) Allergies Allergy/AdvReac Type Severity Reaction Status Date / Time fish oil Allergy Mild Vomiting Verified 07/22/24 12:25 Criisoi-BPC-WuF Reductase Allergy Mild Vomiting Verified 07/22/24 12:25 Inhibitor oxycodone [From Percocet] AdvReac Unknown Itching Verified 07/22/24 12:25 Review of Systems Review of Systems: All systems reviewed & are unremarkable except as noted in HPI and below Constitutional: Constitutional: Reports no additional constitutional complaints Eyes: Eyes: Reports no additional eye complaints ENT: Reports system reviewed and no additional complaints, except as documented Cardiovascular: Cardiovascular: Reports no additional cardiovascular complaints Respiratory: Respiratory: Reports no additional respiratory complaints Gastrointestinal: Gastrointestinal: Reports no additional gastrointestinal complaints Genitourinary: Genitourinary: Reports no additional male genitourinary complaints Musculoskeletal: Musculoskeletal: Reports no additional musculoskeletal complaints Integumentary/Breasts: Skin/Breast: Reports system reviewed and no additional complaints, except as docu Neurologic: Reports system reviewed and no additional complaints, except as documented Psychiatric: Psychiatric: Reports no additional psychiatric complaints Endocrine: Endocrine: Reports no additional endocrine complaints Hematologic/Lymphatic: Hematologic/Lymphatic: Reports no additional hematologic/lymphatic complaints Allergic/Immunologic: Allergic/Immunologic: Reports no additional allergic/immunologic complaints [facility] Past Medical History Medical History Depression Dilatation of aorta Hypercholesterolemia Hypertension Pancreatitis Thrombocytopenia Chronic Type 2 diabetes mellitus Patient had islet cell antibody testing June 2023 that was negative, he had C-peptide that were within normal limits consistent with history of type 2 diabetes Ulcerative colitis Vitamin D deficiency Surgical History Surgical History History of rotator cuff surgery Bilateral Family History Family History Mother Colon polyp Diabetes mellitus Hypertension Father Pancreatic cancer at age 61 Sibling Obesity Pre-diabetes Social History Social History Social History: Patient lives with his mother and sister. 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 He drinks 6-8 shots of [place] Apple every weekend. He smokes marijuana on the weekends. He smoked up to 2 packs of cigarettes per day before cutting back and eventually quitting November 2023. He smoked for 30 years prior to quitting. Code status: Full code Surrogate decision maker: Mother
[2024-07-22 12:31] VITALS: BP 165/94
[2024-07-22] MEDS: diphenhydrAMINE HCl INJ 50 MG/ML VIAL IM (12:33)
[2024-07-22] MEDS: methylPREDNISolone SOD SUCC 125 MG VIAL IM (12:33)
[2024-07-22 13:20] VITALS: BP 145/90; PULSE 72; RESP 18; O2SAT 99
== END 2024-07-22 13:20 | disposition home or self-care (01) ==
LOC: CHSED 13:14
PROVIDERS: Emergency Provider Emergency Medicine; PCP Family Medicine
DX: T63.461A Toxic effect of venom of wasps, accidental (unintentional), initial encounter (principal); T78.40XA Allergy, unspecified, initial encounter; I10 Essential (primary) hypertension; E11.9 Type 2 diabetes mellitus without complications; Z87.891 Personal history of nicotine dependence; Z79.899 Other long term (current) drug therapy
CPT/HCPCS: 96372; 99284; J1200; J2919

== ENCOUNTER 2024-07-25 07:59 | Outpatient (CLI) | payer OTHER, SELFPAY ==
--- NOTE | ~2024-07-25 | US_ITS ---
Abdominal Sonogram: Real-time sonographic imaging of the abdomen was performed. Clinical History: Secondary thrombocytopenia Findings: The liver appears normal with no evidence of mass lesion or bile duct dilatation. Main por bushra vein demonstrates normal direction of flow. The spleen is normal in size without evidence of foca l lesion. The gallbladder is well distended, and appears normal with no evidence of gallstone or wal l thickening. The common bile duct measures 4 mm. The visualized pancreas, aorta, and IVC are unrema rkable. The right kidney measures 12.8 cm in length and the left kidney measures 13.3 cm. There is no hydronephrosis or renal calculus. Impression: Unremarkable abdominal ultrasound. Reviewed, dictated and finalized at location . Impression: Unremarkable abdominal ultrasound.
== END 2024-07-25 08:00 | disposition home or self-care (01) ==
LOC: ANHIMG 08:04
PROVIDERS: PCP Family Medicine; Visit Provider Internal Medicine Hematology & Oncology
DX: D69.59 Other secondary thrombocytopenia (principal)
CPT/HCPCS: 76700

== ENCOUNTER 2024-08-29 10:22 | Outpatient (CLI) | payer OTHER, SELFPAY ==
[2024-08-29 10:50] LABS: Basophils Absolute Auto 0.05 K/mm3 (0.00-0.10); Basophils Percent Auto 0.9 % (0.0-1.0); Eosinophils Absolute Auto 0.24 K/mm3 (0.02-0.50); Eosinophils Percent Auto 4.4 % (1.0-6.0); Hematocrit 46.5 % (40.0-54.0); Hemoglobin 16.5 g/dL (14.0-18.0); Immature Granulocyte Absolute 0.01 K/mm3 (0.00-0.00); Immature Granulocyte Percent A 0.2 % (0.0-0.0); Immature Platelet Fraction Pct 7.6 % (1.0-7.0); Lymphocytes Absolute Auto 1.32 K/mm3 (1.10-4.50); Mean Corpuscular HGB Conc 35.5 g/dL (32-36); Mean Corpuscular Hemoglobin 29.7 pg (27.0-31.0); Mean Corpuscular Volume 83.8 fL (78.0-102.0); Mean Platelet Volume 11.8 fl (8.7-11.0); Monocytes Absolute Auto 0.41 K/mm3 (0.10-0.90); Monocytes Percent Auto 7.4 % (2.0-11.0); Neutrophils Absolute Auto 3.48 K/mm3 (1.70-7.20); Neutrophils Percent Auto 63.1 % (50.0-70.0); Platelet Count Result 122 K/mm3 (150-420); Red Blood Count 5.55 M/mm3 (4.70-6.10); Red Cell Distribution Width 12.5 % (11.6-14.4); White Blood Count 5.5 K/mm3 (4.8-10.8)
[2024-08-29 11:17] LABS: Alanine Aminotransferase 26 U/L (16-63); Albumin Level 3.8 g/dL (3.4-5.0); Alkaline Phosphatase 81 U/L (46-116); Anion Gap 6 mmol/L (4-12); Aspartate Amino Transferase 14 U/L (15-37); Bilirubin,Total 0.6 mg/dL (0.00-1.00); Blood Urea Nitrogen 16 mg/dL (7-18); Calcium 8.9 mg/dL (8.5-10.1); Carbon Dioxide 29 mmol/L (21-32); Chloride 101 mmol/L (98-108); Estimated Glomerular Filt Rate > 60; Glucose 293 mg/dL (70-99); Osmolality Calculated 294 mOsm/kg (285-295); Potassium 4.4 mmol/L (3.5-5.1); Sodium 136 mmol/L (136-145); Total Protein 6.7 g/dL (6.4-8.2)
== END 2024-08-29 10:23 | disposition home or self-care (01) ==
PROVIDERS: PCP Family Medicine; Visit Provider Family Medicine
DX: I10 Essential (primary) hypertension (principal)
CPT/HCPCS: 36415; 80053; 85025; 85055

== ENCOUNTER 2024-12-16 13:09 | Outpatient (CLI) | payer OTHER, SELFPAY ==
--- NOTE | ~2024-12-16 | CT_ITS ---
EXAMINATION: CT sinus wo con DATE: 12/16/2024 13:26 INDICATION: Chronic sinusitis, unspecified. TECHNIQUE: Computed tomography (CT) of the paranasal sinuses was performed without intravenous contra st. Iterative reconstruction technique was employed. The dose-length product was 272.65 mGy-cm. COMPARISON: None FINDINGS: There is mild mucosal thickening in the frontal recesses, ethmoid sinuses, maxillary sinuse s, and left sphenoid sinus. There is rightward deviation of the nasal septum. There is charleen bullosa involving the bilateral middle turbinates. There are bilateral Aubree cells. The ostiomeatal units a re patent. IMPRESSION: 1. Mild mucosal thickening in the paranasal sinuses. 2. Rightward deviation of the nasal septum. Reviewed, dictated and finalized at location B. [employer]ACH[employer]
--- OUTSIDE RECORDS SUMMARY | 2024-12-18 18:27 | XMS_ITS | Data Portability ---
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 Name Role Phone RAMA RIVERO Home Health Rn LIZZY VICENTE Primary Care Provider KAVON ESPINOZA Referring Provider Assessment Encounter Date Assessment Date Assessment LastModified by Organization Details LastModified Time 09/13/2023 09/13/2023 Assessment: Moderate OSAHS, AHI = 23 PLMD Hypoventilation Plan: The following were reviewed and explained to the patient: primary care/referral note [facility] home sleep study 08/16/23 AHI = 23 General information on sleep disordered breathing, evaluation of sleep disordered breathing, treatment with PAP therapy, and living with PAP therapy were covered. PSG is medically necessary to determine the management of sleep apnea. We discussed with the patient the impact of weight on: Sleep disordered breathing Hypertension Hyperlipidemia DM STU We discussed with the patient the benefit of PAP therapy on: Rhinitis Sleep disordered breathing Atrial fibrillation Hypertension DM STU Educated the patient on sleep hygiene measures. Relaxing rituals to rest easy, understanding foods with positive and negative impact on sleep, creating a peaceful sleep environment, timing of exercise, using herbal sleep aids, and practicing sleep-friendly meditation were covered. To determine how much sleep is needed, the patient will assess where he falls on the spectrum, examine what lifestyle factors such as work schedules and stress are affecting the quality and quantity of sleep. In general, adults need 7-9 hours of sleep. Educated the patient regarding foods that promote sleep. These include but are not limited to cherries, bananas, toast, oatmeal, and warm milk. Educated the patient regarding foods and drinks to avoid before bedtime. These include but are not limited to aged cheese, chocolate, spicy foods, tomato-based sauces, soy, ginseng tea and processed meat. Advocated influenza vaccination annually and pneumonia vaccination JANES. Advocated weight loss through diet and exercise. Patient's ideal body weight according to height and gender is up to 200 lbs. Encouraged patient to adjust caloric intake to maintain/achieve ideal body weight, emphasizing on fruits, vegetables, whole grains, and fat-free or low-fat products. These include lean meats, poultry, fish, beans, eggs, and nuts and foods that are low in saturated fats, trans-fats, cholesterol, salt (sodium), and glycemic index. Stressed the importance of regular exercise up to the patient's capacity limits. In this case, we recommend 20 min daily walking, 2 days a week of resistance training. Patient to monitor BP daily and bring records to PCP for further management. Follow-up: 1 week after titration sleep study Not available 09/13/2023 09:56:10 11/05/2023 11/05/2023 Assessment: Moderate OSAHS, AHI = 23 PLMD Plan: The following were reviewed and explained to the patient: [facility] home sleep study 08/16/23 AHI = [address] [facility] titration sleep study 10/05/23 ResMed medium AirFit F20 full face mask @ 15 cmH2O, PLMI = 12 Non-pharmacologic therapy options for periodic limb movement disorder include avoidance of aggravating drugs and substances, mental alerting activities, short daily hemodialysis for patients in renal failure, exercise, leg massage, stretching calf muscles, use of a weighted blanket and applied heat. Patient will cut down on alcohol consumption, nicotine use and caffeine intake. We will check BUN, Creatinine, Vitamin E, Vitamin B12, RBC folate, Iron, TIBC, Ferritin, ESR, Magnesium, Hgb and Hct levels. Educated the patient on problems and solutions associated with positive airway pressure (PAP) use. Difficulty tolerating pressure, mask leaks, intolerance of interface, nasal congestion, claustrophobic response, dry mouth, and unintentional mask removal during sleep were covered. Patient has some difficulty tolerating pressure. Patient is advised to practice wearing PAP daily while awake, lower pressure with or without sleeping on sides, activate PAP ramp feature, have blower checked to make sure pressure is set as prescribed and return to sleep center for consideration of auto-adjusting PAP therapy. Patient will dial down on heated humidification to reduce condensation. Patient will use hose cover or tubing wrap if problem persists. Prescription for tubing wrap or hose cover given. ResMed Air Sense 11 auto set unit with heated humidifier, supplies, ResMed medium AirFit F20 full face mask @ 15 cmH2O ordered. Further titration will be based on clinical response. Provided the patient with a list of local home care stores where positive airway pressure (PAP) units, accoutrement, and services are available. Home care store selection is based on patient's insurance carrier. Patient will setup an appointment with [facility] for supplies and pressure adjustments. A major predictor of success with use of PAP is follow-up with both the respiratory supplier and the treating physician. The respiratory supplier optimally will follow-up within two weeks after starting use while the treating physician optimally will follow-up within 90 days after starting therapy to assess adherence and effectiveness of treatment. The download results can show the treating physician information about adherence to treatment, residual AHI while on treatment and presence of large mask leakage. This information is especially helpful if the patient has residual sleepiness despite treatment. General information on sleep disordered breathing, evaluation of sleep disordered breathing, treatment with PAP therapy, and living with PAP therapy were covered. We discussed with the patient the impact of weight on: Sleep disordered breathing Hypertension Hyperlipidemia DM STU We discussed with the patient the benefit of PAP therapy on: Rhinitis Sleep disordered breathing Atrial fibrillation Hypertension DM STU Educated the patient on sleep hygiene measures. Relaxing rituals to rest easy, understanding foods with positive and negative impact on sleep, creating a peaceful sleep environment, timing of exercise, using herbal sleep aids, and practicing sleep-friendly meditation were covered. To determine how much sleep is needed, the patient will assess where he falls on the spectrum, examine what lifestyle factors such as work schedules and stress are affecting the quality and quantity of sleep. In general, adults need 7-9 hours of sleep. Educated the patient regarding foods that promote sleep. These include but are not limited to cherries, bananas, toast, oatmeal, and warm milk. Educated the patient regarding foods and drinks to avoid before bedtime. These include but are not limited to aged cheese, chocolate, spicy foods, tomato-based sauces, soy, ginseng tea and processed meat. Advocated influenza vaccination annually and pneumonia vaccination JANES. Advocated weight loss through diet and exercise. Patient's ideal body weight according to height and gender is up to 200 lbs. Encouraged patient to adjust caloric intake to maintain/achieve ideal body weight, emphasizing on fruits, vegetables, whole grains, and fat-free or low-fat products. These include lean meats, poultry, fish, beans, eggs, and nuts and foods that are low in saturated fats, trans-fats, cholesterol, salt (sodium), and glycemic index. Stressed the importance of regular exercise up to the patient's capacity limits. In this case, we recommend 20 min daily walking, 2 days a week of resistance training. Patient to monitor BP daily and bring records to PCP for further management. Follow-up: 3 weeks Not available 11/05/2023 09:50:22 Plan of Treatment Reminders Order Date Submit Date Provider Last Modified By Organization Details Last Modified Time Details Appointments None recorded. Lab cortisol, am, serum 2022 023 Ma[facility], [address] [place], [address], 3 11:57:34 dexamethaso ne, serum 2022 023 Maile [facility], [address] [place], [address], 3 11:57:34 lipid panel, serum 2022 023 NATO [facility]ile [facility], [address] [place], [address], 3 11:11:05 TSH + free T4, serum 2022 023 [email or web address] [facility], [address] [place], [address], 3 11:57:34 HbA1c (hemoglobin A1c), blood 2022 023 [email or web address] Maile [facility], [address] [place], [address], 3 11:57:33 CMP, serum or plasma 2022 023 [facility], [address] [place], [address], 3 11:11:04 microalbumi n/creatinin e, mass ratio, urine 2022 023 Ma[facility], [address] [place], [address], 3 11:57:34 C-peptide, serum 2022 023 [facility], [address] [place], [address], 3 08:14:55 iron + TIBC + ferritin, serum 2022 023 [email or web address] 25 [facility], [address] [place], [address], 4 14:28:02 folate, RBC 2022 023 [email or web address] 25 [facility], [address] [place], [address], 4 14:28:02 vitamin B12, serum 2022 023 [email or web address] 25 [facility], [address] [place], [address], 4 14:28:02 ESR (erythrocyt e sedimentati on rate), blood 2022 023 [email or web address] 25 [facility], [address] [place], [address], 4 14:28:02 hemoglobin + hematocrit, blood 2022 023 [email or web address] 25 [facility], [address] [place], [address], 4 14:28:02 bun (blood urea nitrogen), serum or plasma [address] [facility], [address] [place], [address], 4 14:28:02 creatinine, serum or plasma [address] [facility], [address] [place], [address], 4 14:28:03 magnesium, serum or plasma [address] [facility], [address] [place], [address], 4 14:28:03 vitamin E, serum 2022 023 [facility], [address] [place], [address], 3 10:36:41 Referral None recorded. Procedures None recorded. Surgeries None recorded. Imaging polysomnogr am, titration study - no auth required 2022 023 [facility], [address] [place], [address], 3 11:56:23 Medication Orders dexamethaso ne 1 mg tablet 2022 023 [email or web address] [facility], [facility] [address] [place], [id number], 3 18:21:19 metformin ER 500 mg tablet,exte nded release 24 hr 2022 023 [facility], [address] [place], [place], [id number], 3 11:55:02 Patient TargetsNo targets recorded. Patient InstructionsNo instructions recorded. Reason for Referral None Reported. Results Created Date Observation Date Name Description Value Unit Range Abnormal Flag Note LastModifiedBy Organization Detail LastModifiedTime 09/12/2008/16/2023 home sleep study No observ ation record ed. BARCODE Not Available 2022 19:05:49 10/23/2010/05/2023 polys omnog wilfredo, titra tion study No observ ation record ed. BARCODE [facility] [place] [address] [place], [address], 10/23/2023 11:56:23 Result Notes None recorded. Problems Name Problem SNOMED Code Status Onset Date Resolution Date Notes Provider Name and Address Organization Details Recorded Time Disorder of rotator cuff 207358101 Active Not Available [facility] 3 16:27:13 Latent autoimmune diabetes mellitus in adult 237514767 Active 2021 Not Available [facility] 3 16:27:13 Essential hypertension 79579150 Active 2021 Not Available [facility] 3 16:27:14 Dyslipidemia 524522046 Active 2022 Melvi Pierson MD [address], [place], [address] , [facility] 3 11:52:59 Obstructive sleep apnea syndrome 57060224 Active 2022 Lamberto Mei MD [address], [place], [address] , [facility] 3 09:37:08 Periodic limb movement disorder 182678488 Active 2022 Lamberto Mei MD [address], [place], [address] , [facility] 3 09:20:39 Notes:Medical History: Nicot ine use Rhinitis Obesity with mod OSAHS, AHI = 23, 08/16/23, on CPAP c/o IVRC Paroxysmal atrial fibrillation 2013 Hypertension Hyperlipidemia T2DM STU PLMD Tinea cruris Procedure History: Right rotator cuff surgery 2018 Left rotator cuff surgery 2019 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 Procedures Surgical History Date Name Laterality Status Provider Name and Address Organization Details Recorded Time Rotator cuff surgery completed Not Available [facility] 01/24/2023 16:26:42 Imaging Results Imaging Date Name Status LastModified by Organiz ation Details LastModified Time 08/16/2023 home sleep study completed BARCODE Information not available 09/12/2023 19:05:49 10/05/2023 polysomnogram, titration study completed BARCODE [facility] [place] [address] [place], [address], 10/23/2023 11:56:23 Procedure Notes None recorded. Medical Equipment None Reported. Allergies Allergen ID Allergen Name Allergen Category Reaction Reaction Severity Criticality Documentation Date Start Date Code Code System Note Provider Name and Address Organization Details Recorded Time 10064 acetamino phen / oxycodone medicatio n itching Not available Not available 09/11/2023 32328 3 RxNorm Lamberto Mei MD [address] [facility] [address], [place], [address] , [facility] [employer] 18:23:59 Medications Name Sig Start Date Stop Date Status Note LastModified by Organization Details LastModified Time losartan 50 mg tablet TAKE 2 TABLETS BY MOUTH ONCE DAILY active Not Available Not Available No t Available BD Alcohol Swabs 09/11 completed Not Available Not Available Not Available carvedilol 25 mg tablet TAKE 1 TABLET BY MOUTH TWICE DAILY WITH MEALS active Not Available Not Available No t Available glipizide ER 10 mg tablet, extended release 24 hr TAKE 2 TABLETS BY MOUTH ONCE DAILY WITH BREAKFAST 06/15 completed Not Available Not Available Not Available prednisone 20 mg tablet TAKE 2 TABLETS BY MOUTH ONCE DAULY FOR 7 DAYS, THEN TAKE 1.5 TABLETS ONCE DAILY FOR 7 DAYS AND THEN TAKE 1 TABLET ONCE DAILY FOR 7 DAYS AND THEN TAKE HALF TABLET BY MOUTH ONCE DAILY FOR 30 DAYS 10/16 completed Not Available Not Available Not Available metronidazo le 250 mg tablet TAKE 1 TABLET BY MOUTH THREE TIMES DAILY FOR 10 DAYS 02/12 completed Not Available Not Available Not Available Lantus U-100 Insulin 100 unit/mL subcutaneou s solution Inject 30 units twice a day by subcutane ous route. 03/19 completed Not Available Not Available Not Available amlodipine 5 mg tablet TAKE 1 TABLET BY MOUTH ONCE DAILY 09/11 completed Not Available Not Available Not Available ciprofloxac in 500 mg tablet TAKE 1 TABLET BY MOUTH TWICE DAILY FOR 10 DAYS 10/16 completed Not Available Not Available Not Available sulfamethox azole 800 mg-trimetho prim 160 mg tablet TK 2 TS PO BID 06/15 completed Not Available Not Available Not Available hydrocodone 10 mg-acetamin ophen 325 mg tablet TAKE 1 TABLET BY MOUTH EVERY 6 HOURS NEEDED 10/16 completed Not Available Not Available Not Available aspirin 81 mg tablet,khai yed release TAKE 1 TABLET BY MOUTH ONCE DAILY active Not Available Not Available No t Available tramadol 50 mg tablet TK 1 T PO Q 4 TO 6 H PRN P 06/15 completed Not Available Not Available Not Available triamcinolo ne acetonide 0.1 % topical cream 06/15 completed Not Available Not Available Not Available simvastatin 40 mg tablet 06/15 completed Not Available Not Available Not Available insulin syringe U-100 with needle 0.5 mL 30 gauge x 04/10 completed Not Available Not Available Not Available dexamethaso ne 1 mg tablet take dexa tablet at 10 pm night before 8 am cortisol 09/11 completed Not Available Not Available Not Available amlodipine 10 mg tablet TAKE 1 TABLET BY MOUTH ONCE DAILY active Not Available Not Available No t Available hydrocodone 7.5 mg-acetamin ophen 325 mg tablet 10/16 completed Not Available Not Available Not Available metformin 1,000 mg tablet TAKE 1 TABLET BY MOUTH TWICE DAILY 02/12 completed Not Available Not Available Not Available losartan 25 mg tablet Take 1 tablet every day by oral route for 90 days. 02/12 completed Not Available Not Available Not Available metoprolol tartrate 50 mg tablet 06/15 completed Not Available Not Available Not Available hydrochloro thiazide 12.5 mg capsule TAKE 1 CAPSULE BY MOUTH ONCE DAILY IN THE MORNING 10/16 completed Not Available Not Available Not Available folic acid 1 mg tablet TAKE 1 TABLET BY MOUTH ONCE DAILY 02/12 completed Not Available Not Available Not Available furosemide 20 mg tablet active Not Available Not Available Not Available Novolog U-100 Insulin aspart 100 unit/mL subcutaneou s solution INJECT UP TO 140 UNITS UNDER THE SKIN EVERY DAY TO be used with omnipod active Not Available Not Available No t Available budesonide DR - ER 3 mg capsule,del ayed,extend ed release TAKE 3 CAPSULES BY MOUTH ONCE DAILY 02/12 completed Not Available Not Available Not Available morphine 15 mg immediate release tablet TAKE 1 TABLET BY MOUTH EVERY 6 HOURS NEEDED - MAX 3 TABS PER DAY 02/12 completed Not Available Not Available Not Available losartan 100 mg tablet TAKE 1 TABLET BY MOUTH ONCE DAILY 10/16 completed Not Available Not Available Not Available metformin ER 500 mg tablet,exte nded release 24 hr TAKE 1 TABLET BY MOUTH TWICE DAILY WITH MORNING MEAL AND WITH EVENING MEAL active Not Available Not Available No t Available clotrimazol e 1 % topical cream 06/15 completed Not Available Not Available Not Available naproxen 500 mg tablet TK 1 T PO BID PRN 06/15 completed Not Available Not Available Not Available amoxicillin 500 mg-rashmi m clavulanate 125 mg tablet 02/12 completed Not Available Not Available Not Available olmesartan 40 mg tablet TAKE 1 TABLET BY MOUTH ONCE DAILY NEED APPOINTME NT FOR REFILLS 10/16 completed Not Available Not Available Not Available insulin lispro (U-100) 100 unit/mL subcutaneou s pen INJECT UP TO 30 UNITS SUBCUTANE OUSLY WITH MEALS THREE TIMES DAILY 03/19 completed Not Available Not Available Not Available metaxalone 800 mg tablet TK 1 T PO TID PRN 06/15 completed Not Available Not Available Not Available Novolog FlexPen U-100 Insulin aspart 100 unit/mL (3 mL) subcutaneou s INJECT UP TO 30 UNITS THREE TIMES DAILY WITH MEALS active Not Available Not Available No t Available mesalamine ER 500 mg capsule,ext ended release TAKE 2 CAPSULES BY MOUTH 4 TIMES DAILY 10/16 completed Not Available Not Available Not Available hydrochloro thiazide 12.5 mg tablet TAKE 1 TABLET BY MOUTH ONCE DAILY active Not Available Not Available No t Available Humira Pen Crohn's-Ulc Colitis-Hid Sup Starter 40 mg/0.8 mL subcut kit USE ON DAY ONE OF TREATMENT USE 160 MG INJECTION , ON DAY 15 USE 80 MG INJECTION , THEN USE 40 MG EVERY 2 WEEKS FOLLOWING 02/12 completed Not Available Not Available Not Available Lantus Solostar U-100 Insulin 100 unit/mL (3 mL) subcutaneou s pen Inject 30 units twice a day by subcutane ous route as directed for 30 days. active Not Available Not Available No t Available Truetest Test Strips 06/15 completed Not Available Not Available Not Available Trueresult Blood Glucose System kit 06/15 completed Not Available Not Available Not Available mesalamine 800 mg tablet,khai yed release Take 2 tablets 3 times a day by oral route. 10/16 completed Not Available Not Available Not Available TRUEplus Lancets 33 gauge 06/15 completed Not Available Not Available Not Available Farxiga 10 mg tablet TAKE 1 TABLET BY MOUTH ONCE DAILY 10/16 completed Not Available Not Available Not Available Trulicity 0.75 mg/0.5 mL subcutaneou s pen injector INJECT 1 SUBCUTANE OUSLY ONCE A WEEK 10/16 completed Not Available Not Available Not Available mesalamine 400 mg capsule (with delayed release tablets inside) TAKE 1 CAPSULE BY MOUTH 4 TIMES DAILY active Not Available Not Available No t Available Repatha Pushtronex 420 mg/3.5 mL subcutaneou s wearable injector INJECT 420 MG UNDER THE SKIN EVERY 30 DAYS active Not Available Not Available No t Available Dexcom G6 Sensor device USE DIRECTED. CHANGE EVERY 10 DAYS 09/11 completed Not Available Not Available Not Available Dexcom G6 Associate Partner USE DIRECTED 09/11 completed Not Available Not Available Not Available Dexcom G6 Transmitter device USE DIRECTED CHANGE EVERY 90 DAYS 09/11 completed Not Available Not Available Not Available Omnipod 5 G6 Pods (Gen 5) subcutaneou s cartridge CHANGE POD EVERY 2 DAYS 09/11 completed Not Available Not Available Not Available Omnipod 5 G6 Intro Kit (Gen 5) subcutaneou s cartridge with controller USE DIRECTED PER POD CHANGE OF EVERY 2 DAYS 09/11 completed Not Available Not Available Not Available Vitals Date Recorded Body mass index (BMI) Body height Oxygen saturation Oxygen saturation in Arterial blood by Pulse oximetry Heart rate Body temperature Body weight Systolic blood pressure Diastolic blood pressure Provider Name and Address Organization Details Last Updated DateTime 2 32.6 kg/m2 185.42 cm 98 % 98 % 80 /min 97.9 [degF] 042705. 03 g 160 mm[Hg] 95 mm[Hg] Not Available [facility] 3 16:26:47 Date Recorded Body height Body mass index (BMI) Body weight Body temperature Heart rate Systolic blood pressure Diastolic blood pressure Provider Name and Address Organization Details Last Updated DateTime 3 185.42 cm 35.1 kg/m2 445012. 57 g 97.6 [degF] 87 /min 140 mm[Hg] 86 mm[Hg] Haley Hodges CMA [facility] 3 11:39:42 Date Recorded Body height Body temperature Provider Marizol alberto and Address Organization Details Last Updated DateTime 04/05/2023 185.42 cm 97.6 [degF] SELAM Cruz [employer] 04/05/2023 15:38:25 Date Recorded Body height Body mass index (BMI) Body weight Body temperature Heart rate Oxygen saturation Oxygen saturation in Arterial blood by Pulse oximetry Provider Name and Address Organization Details Last Updated DateTime 3 185.42 cm 36.7 kg/m2 707545. 68 g 97.3 [degF] 69 /min 98 % 98 % Joyce Huff RN [facility] 3 09:38:56 Date Recorded Heart rate Respiratory rate Systolic blood pressure Diastolic blood pressure Provider Name and Address Organization Details Last Updated DateTime 09/13/2023 69 /min 15 /min 132 mm[Hg] 88 mm[Hg] Lamberto velazquez MD [address] [place] [address], [address] , [place] [employer] [facility] [employer] 09/13/2023 09:41:57 Date Recorded Body height Body mass index (BMI) Body weight Body temperature Heart rate Oxygen saturation Oxygen saturation in Arterial blood by Pulse oximetry Systolic blood pressure Diastolic blood pressure Provider Name and Address Organization Details Last Updated DateTime 3 185.42 cm 36.8 kg/m2 371764. 27 g 98.3 [degF] 78 /min 97 % 97 % 126 mm[Hg] 84 mm[Hg] Heidi Gutierrez MA [employer] 09:37:52 Date Recorded Heart rate Respiratory rate Provider Marizol dominguez and Address Organization Details Last Updated DateTime 11/05/2023 78 /min 15 /min Lamberto Mei MD [address] [facility] [address], [place], [address], [place] [facility] [employer] 11/05/2023 10:00:33 Social History Question Answer Notes LastModified by Organizat ion Details LastModified Time Tobacco Smoking Status Current Every Day Smoker Not Available [facility] 01/24/2023 16:26:37 What Is Your Level Of Alcohol Consumption? Occasional [id number] Information not available 01/24/2023 What Is Your Level Of Caffeine Consumption? Moderate [id number] Information not available 01/24/2023 Are You Currently Employed? Yes [id number] Information not available 09/13/2023 Do You Have An Electrostatic Air Filter? 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 No [email or web address] Information not available 09/13/2023 What Is Your Relationship Status? [id number] Information not available 01/24/2023 Do You Have Smoke And Carbon Monoxide Detectors In Your Home? Yes [email or web address] Information not available 09/13/2023 At What Age Did You Start Smoking Tobacco? 20 [id number] Information not available 01/24/2023 Are You Passively Exposed To Smoke? Yes [email or web address] Information no t available 09/13/2023 How Much Tobacco Do You Smoke? 1 PPD [id number] Information not available 01/24/2023 Do You Use Any Illicit Or Recreational Drugs? No [id number] Information not available 01/24/2023 Sex: Male Functional Status None recorded. Mental Status None recorded. Family History Relationship Description Onset Age of this Age Resolved Age Notes LastModified by Organization Details LastModified Time Mother Diabetes mellitus [id number] Not available 01/24/2023 16:26:43 Daughter Diabetes mellitus [id number] Not available 01/24/2023 16:26:43 Son Diabetes mellitus [id number] Not available 01/24/2023 16:26:43 Maternal Grandmother Congestive heart failure [email or web address] Not available 2022 09:48:41 Paternal Grandfather Malignant tumor of lung [email or web address] Not available 2022 09:48:57 Father Malignant tumor of pancreas [email or web address] Not available 2022 09:49:24 Medical History Condition Response HEART DISEASE/HEART PROBLEMS Y DIABETES, TYPE Y EYE PROBLEMS Y GI PROBLEMS Y HAVE YOU BEEN HOSPITALIZED OR SEEN IN [facility] ER IN THE PAST YEAR ? Y HYPERTENSION Y Past Encounters Encounter ID Performer Location Encounter Start Date Encounter Closed Date Diagnosis/Indication Diagnosis SNOMED-CT Code Diagnosis ICD10 Code Diagnosis Note [id number] _NATO_M IGRATION_ DEFAULT_1 _1 , 06/15/2022 00:00:00 06/15/2022 15:55:00 [id number] _NATO_M IGRATION_ DEFAULT_1 _1 , 07/13/2022 00:00:00 07/13/2022 11:20:17 [id number] [facility] [address] [place] [address] 10/16/2022 00:00:00 10/16/2022 10:13:16 [id number] Melvi Pierson MD [facility] [place] [facility] [address] [place] [id number] 02/12/2023 11:32:29 02/12/2023 12:45:07 Latent autoimmune diabetes mellitus in adult [id number] E13.9 a1c 9% - will provide a sample of tresiba as he has run out of lantus for now- advised to start at 40 units once daily at bedtime and patient advised to titrate up by 6 units every 4 days until fasting glucose is running 90-120 mg/dL consistent ly. He was advised to follow a 1:5 carb ratio for his meals if she is eating a starchy carb diet in addition to correction of 2U:50>150 mg/dl on premeal FS prior to meals. He has hx of pancreatit is and feels the farxiga threw him into pancreatit is last march 2022- no GLP1 agonist therapy should be used- did not tolerate trulicity Will trial on low dose metformin ER 500 mg twice daily with meals. Will send for cpeptide to assess endogenous insulin function. We have reached out to omnipod to discuss pump start-this is to be scheduled. Dyslipidemia 027733404 E 78.5 Continue on statin therapy. Weight gain [id number] R63. 5 Will send for low dose dexa suppressio n testing to screen for hypercorti solic state. Spent up to 28 minutes preparing to see the patient (eg, review of tests), obtaining and/or reviewing separately obtained history, performing a medically appropriat e examinatio n and evaluation , counseling and educating the patient, ordering medication s, tests, along with documentin g clinical informatio n in the electronic health record, independen tly interpreti ng results and communicat ing results to the patient. RTC in 3 months. Patient was provided a handwritte n lab order which contains our fax number. If he chooses to go outside of the [facility] system to obtain labwork he was advised to provide our fax number and my informatio n to the lab he will be obtaining labwork from in order to have his labs properly forwarded over for me to review so there is no loss of follow up due to use of outside network. He was also advised to contact our clinic informing us that he has completed his labwork so we are aware we will need to reach out to the appropriat e laboratory to request his results be forwarded to us so I might have the ability to review and make further medical decision making in his case. He voiced understand ing. [id number] Melvi Pierson MD [facility] [address] [place] [address] 04/05/2023 15:30:59 04/05/2023 16:13:16 Latent autoimmune diabetes mellitus in adult 601768920 E13.9 Continue on low dose metformin ER 500 mg twice daily with meals. Will change insulin pump to sleep wake cycle.incr ease to 12 am to 630 am at 1.8 u/hr630 am to 10 pm at 1.6 u/hr10 pm to midnight at 1.8 u/hr Drop carb ratio down to 1:5 and correction of 50 mg/dL F/U in April - patient aware to reach out if any further concerns or patterns of dysregulat ion. [id number] Lamberto Mei MD [facility] [address] [place] [phone] 09/13/2023 09:18:26 09/13/2023 10:11:52 Obstructive sleep apnea syndrome [id number] G47.33 G47.30 G47.61 G47.36 [id number] Lamberto Mei MD [facility] [address] [address] 11/05/2023 09:08:00 11/06/2023 09:07:35 Periodic limb movement disorder [id number] G47.61 D50.8 E83.42 Obstructiv e sleep apnea syndrome [id number] G47.33 Health Concerns Section Related Observation LastModified by Organization Detai ls LastModified Time None Recorded Concern Status LastModified by Organization Details LastModified Time None Recorded Advance Directives Directive None Recorded Payers Encounter Date Sequence Insurance Name Policy Number Policy Payton Covered Member ID Payton Member ID Guarantor Name 02/12/2023 1 [place] [id number] Conor Aaron [id number] Conor Aaron Sr 04/05/2023 1 [employer] [id number] Conor Aaron [id number] Conor Aaron Sr 09/13/2023 1 [employer] (PPO) Conor Aaron [id number] Conor Aaron Sr 11/05/2023 1 [employer] (PPO) Conor Aaron [id number] Conor Aaron Sr Notes Date Note Type Note Provider Name and Address Organization Details Recorded Time 02/12/2023 text/html 47 yo male comes in for follow up in management of poorly controlled CINTIA IB (A1C of 9.3%) and dyslipidemia. To note he has weight gain. last seen in Sep at that time we had patient split lantus to 28 units in a.m. and 35 units in p.m. and titrate by 3 units every 3 days to maintain FBG 90-130. We had him continue lispro with meals 4 units or 1:15 carb ratio with meals plus correction 2u:50>150. he did trial trulicity and did not tolerate well. He is currently taking novolog 30 units before all meals-he is not taking lantus due to high costs. patient has his omnipod system at home and waiting to get this placed. He felt even when taking the lantus which he was taking 28 units in morning and 34 units at bedtime - felt it didn't help. sugars are running over 200 mg/DL consistentlydenies hypoglycemia He was sick last March 2022 he lost 90 pounds and was dx with pancreatitis at that time and colitis. He is not able to tolerate GLP1 agonist therapies. He had to go on steroids for nursing home for management of colitis. labs from 12/13/22:microalbumin 117 ug/mg Melvi Pierson MD [address], [place], [phone], [employer] [facility] 02/12/2023 12:43:26 04/05/2023 text/html 47 yo comes in t sasha for insulin pump adjustment in management of poorly controlled CINTIA. he is on omnipod 5 and at one set setting with evidence of postprandial hyperglycemia and truer pinion and wheel hyperglycemia. Current settings:1:10 carb ratio1.6 u/hr with correction of 50 Melvi Pierson MD [address], [place], [address], [employer] [place] 04/05/2023 22:15:09 09/13/2023 text/html Primary care/Ref erring provider: DELIA Mijares; Etienne Pfeiffer MD During the [facility] home sleep study on 08/16/23, AHI = 23. At home, the patient sleeps from 9 pm to 6 am and wakes up with an alarm. Snoring: heavy, since .Snorting: yesChoking: noCoughing: noGasping: yesGagging: yesSighing: yesWitnessed apnea: yesTwitching or jerking of leg(s), arm(s), body, head: yesTeeth grinding: noTeeth clenching: noSleeptalking: yesSleepwalking: noSleep crying: noBedwetting: noTongue/lip/gum/cheek biting: noSleeping with open mouth: yesSleep paralysis: noHypnagogic hallucinations: noHypnopompic hallucinations: noVivid dreams: noDifficulty with sleep onset: noDifficulty with sleep maintenance: yesSleep interruptions: nocturia x 6Patient wakes up with: fatigue, xerostomia, disorientation, cognitive impairmentDaytime cataplexy: noMorning hypersomnolence: yesAfternoon hypersomnolence: yesCaffeine sources in diet: coffee 16 oz per day Associated medical and psychiatric conditions:Congestive heart failure: noCoronary artery disease: noMyocardial infarction: noHypertension: yesStroke: noBronchial asthma: noChronic obstructive pulmonary disease: noDepression: noBipolar disorder: noAnxiety: noPanic disorder: noPosttraumatic stress disorder: noAttention deficit and hyperactivity disorder: noObsessive Compulsive disorder: noSchizophrenia: noSchizoaffective disorder: noPersonality disorder: noChronic analgesic use: noChronic sedative/hypnotic use: no EPWORTH SLEEPINESS SCALE (ESS) CHANCE OF DOZING SCORE0 = would never doze1 = slight chance of dozing2 = moderate chance of dozing3 = high chance of dozing SITUATION AND CHANCE OF DOZINGSitting and reading - 2Watching television - 2Sitting inactive in a public place (e.g. a theater or meeting) - 3As a passenger in a car for an hour without a break - 3Lying down to rest in the afternoon when circumstances permit - 2Sitting and talking to someone - 1Sitting quietly after lunch without alcohol - 2In a car, while stopped for a few minutes in the traffic - 2TOTAL SCORE 17Subjectively, patient has a high chance of dozing. Lamberto Mei MD [address] [place] [address], [phone], [facility] [employer] [facility] [employer] 09/13/2023 10:02:20 11/05/2023 text/html Primary care/Ref erring provider: DELIA Mijares; Etienne Pfeiffer MD During the [facility] home sleep study on 08/16/23, AHI = 23. During the [facility] titration sleep study on 10/05/23, PLMI = 12. The patient uses a ResMed AirSense 11 autoset unit with heated humidification. The patient does not need the ramp to start low and go up slowly on the pressure. There is no xerostomia in a.m. There is no hose/mask condensation with water. The patient wears a [employer]Med medium AirFit F20 full face mask without chin strap. There is no claustrophobia, no nostril/nose bridge irritation, no facial rash, no facial numbness, no nosebleeding. The patient feels more refreshed upon waking and daytime alertness is improved. Energy levels are sustained for the remainder of the day. At home, the patient sleeps from 9 pm to 6 am and wakes up with an alarm. Snoring: heavy, since .Snorting: yesChoking: noCoughing: noGasping: yesGagging: yesSighing: yesWitnessed apnea: yesTwitching or jerking of leg(s), arm(s), body, head: yesTeeth grinding: noTeeth clenching: noSleeptalking: yesSleepwalking: noSleep crying: noBedwetting: noTongue/lip/gum/cheek biting: noSleeping with open mouth: yesSleep paralysis: noHypnagogic hallucinations: noHypnopompic hallucinations: noVivid dreams: noDifficulty with sleep onset: noDifficulty with sleep maintenance: yesSleep interruptions: nocturia x 6Patient wakes up with: fatigue, xerostomia, disorientation, cognitive impairmentDaytime cataplexy: noMorning hypersomnolence: yesAfternoon hypersomnolence: yesCaffeine sources in diet: coffee 16 oz per day Associated medical and psychiatric conditions:Congestive heart failure: noCoronary artery disease: noMyocardial infarction: noHypertension: yesStroke: noBronchial asthma: noChronic obstructive pulmonary disease: noDepression: noBipolar disorder: noAnxiety: noPanic disorder: noPosttraumatic stress disorder: noAttention deficit and hyperactivity disorder: noObsessive Compulsive disorder: noSchizophrenia: noSchizoaffective disorder: noPersonality disorder: noChronic analgesic use: noChronic sedative/hypnotic use: no EPWORTH SLEEPINESS SCALE (ESS) CHANCE OF DOZING SCORE0 = would never doze1 = slight chance of dozing2 = moderate chance of dozing3 = high chance of dozing SITUATION AND CHANCE OF DOZINGSitting and reading - 2Watching television - 2Sitting inactive in a public place (e.g. a theater or meeting) - 2As a passenger in a car for an hour without a break - 3Lying down to rest in the afternoon when circumstances permit - 2Sitting and talking to someone - 2Sitting quietly after lunch without alcohol - 2In a car, while stopped for a few minutes in the traffic - 3TOTAL SCORE 18Subjectively, patient has a high chance of dozing. Lamberto Mei MD [address] [place] [address], [place], [address], [facility] [employer] 11/05/2023 10:02:29
== END 2024-12-16 13:10 | disposition home or self-care (01) ==
LOC: CHSIMG 13:09
PROVIDERS: PCP Family Medicine; Visit Provider Family Medicine
DX: J32.9 Chronic sinusitis, unspecified (principal); J34.2 Deviated nasal septum
CPT/HCPCS: 70486

== ENCOUNTER 2025-01-06 15:00 | Outpatient (RCR) | payer OTHER, SELFPAY ==
--- NOTE | 2025-01-06 15:45 | OPREHPOC ---
Outpatient Therapy Plan of Care This is a Multidisciplinary Plan of Care that may contain components documented by all disciplines (PT, OT, and ST.) PT Problem 1 PT Problem #1 Knowledge Deficit PT Goal 1 Goal / Goal Update 1. independent and compliant with HEP Target Visit 6 PT Problem 2 PT Problem #2 Pain PT Goal 1 Goal / Goal Update 1. no pain in the L shoulder in the last week Target Visit 12 PT Problem 3 PT Problem #3 Impaired Strength PT Goal 1 Goal / Goal Update 1. 5/5 L elbow strength 2. 5/5 L shoulder strength Target Visit 12 PT Problem 4 PT Problem #4 Impaired Functional Mobility PT Goal 1 Goal / Goal Update 1. quick dash to display 10% or less functional deficits 2. patient to lift 50lbs from floor to waist with no pain 3. patient to carry 30lb DB's in each hand for 200ft with no increased pain Target Visit 12
--- NOTE | 2025-01-06 15:45 | PTOPEVAL1 ---
Assessment and note entered by JT File, PT Evaluation Information Assessment Status Evaluation Diagnosis L biceps repair, L RTC tendonitis, L biceps tendonitis ICD-10 Condition Codes (PT) Pain in left shoulder M25.512,Encounter for other orthopedic aftercare Z47.89 Onset 09/01/24 Subjective Information patient has a biceps repair on 09/01/24 to the L shoulder. he was in therapy for rehab afterwards, but paused to have any MRI of the L shoulder in fear of a possible re-tear. he has confirmation now that it was just inflammation that was causing his continued pain in the L shoulder. he had an injection to the L shoulder last week. the shoulder feels better now, but he was told to return to PT. he reports it is still weak, and lifting weights is difficult. 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 patient reports the most weight he will have to lift on any given day at work is 100lbs in a team lift. Reported Pain Level Pain Score 2: Self Report Assessment PT Clinical Summary mr. zavala is a 49 yo man how presents to skilled PT for rehab from an injury at work, and then a re-injury to the L shoulder during rehab. he is cleared to progress strengthening with a 5lb restriction at this time. continued skilled PT is indicated to improve his objective/functional deficits to return to his prior level work performance and quality. Plan of Care Interventions Electrical Stimulation,Hot Pack/Cold Pack,Manual Therapy,Neuro Re-education,Patient/Caregiver Education,Therapeutic Activities,Therapeutic Exercise PT Services Indicated Yes Treatment Frequency and 3x weekly for 12 visits Duration These treatments will address the objective and functional deficits as defined above. The patient will be advanced safely and appropriately in order for the patient to progress towards his/her prior level of function. Additional exercises will be introduced and as well as a comprehensive home exercise program upon discharge, if needed, ?to ensure carryover of functional gains achieved in the clinic. This treatment plan has been reviewed and agreement upon by the patient.
--- NOTE | 2025-01-12 16:42 | PCPTNOTE ---
I reviewed the License Pending Therapist's documentation and agree with the findings.
--- NOTE | 2025-01-30 15:47 | PCPTNOTE ---
No call no show. Called and left voicemail for pt.
--- NOTE | 2025-02-03 15:03 | OPREHPOC ---
Outpatient Therapy Plan of Care This is a Multidisciplinary Plan of Care that may contain components documented by all disciplines (PT, OT, and ST.) PT Problem 1 PT Problem #1 Knowledge Deficit PT Goal 1 Goal / Goal Update 1. independent and compliant with HEP Target Visit 6 Progress Met PT Problem 2 PT Problem #2 Pain PT Goal 1 Goal / Goal Update 1. no pain in the L shoulder in the last week Target Visit 12 Progress Met PT Problem 3 PT Problem #3 Impaired Strength PT Goal 1 Goal / Goal Update 1. 5/5 L elbow strength -met 2. 5/5 L shoulder strength -met on 2, partially met on other 2 (4+/5 flexion and abduction) Target Visit 12 Progress Partially Met PT Problem 4 PT Problem #4 Impaired Functional Mobility PT Goal 1 Goal / Goal Update 1. quick dash to display 10% or less functional deficits -progress towards (15.9%) 2. patient to lift 50lbs from floor to waist with no pain -met 3. patient to carry 30lb DB's in each hand for 200ft with no increased pain -met Target Visit 12 Progress Partially Met
--- NOTE | 2025-02-03 15:04 | PTOPDC ---
Assessment and note entered by Anaid Collins, PT Evaluation Information Assessment Status Progress Diagnosis L biceps repair, L RTC tendonitis, L biceps tendonitis ICD-10 Condition Codes (PT) Pain in left shoulder M25.512,Encounter for other orthopedic aftercare Z47.89 Onset 09/01/24 Subjective Information Conor reports his left shoulder is doing well. He does not have pain except occasional soreness and has been able to perform daily and job tasks without difficulty. He had an exam with another surgeon today for a second opinion and that doctor said his shoulder is fine. He will see the surgeon who performed his surgery on 02/12/25 and Conor anticipates being released. Reported Pain Level Pain Score 0: Self Report Assessment PT Clinical Summary Conor Aaron has completed 30 skilled PT visits since undergoing left shoulder surgery on 09/01/24 . He is reporting no limitations with the left shoulder and he has been able to perform all daily and job tasks without pain. He objectively demonstrates improved left shoulder strength, improved left shoulder ROM, and improved functional abilities. He met 4 out of 6 PT goals and made adequate progress on the remaining 2 goals. He will be discharged to an independent home exercise program. Plan of Care PT Services Indicated No
== END 2025-02-03 15:42 | disposition home or self-care (01) ==
LOC: CHSPT 15:00
DX: M75.102 Unspecified rotator cuff tear or rupture of left shoulder, not specified as traumatic (principal); M75.22 Bicipital tendinitis, left shoulder; M75.52 Bursitis of left shoulder; M75.82 Other shoulder lesions, left shoulder
CPT/HCPCS: 97110; 97112; 97140; 97150; 97161; 97530; 97750

== ENCOUNTER 2025-04-10 14:57 | Outpatient (CLI) | payer OTHER, SELFPAY ==
--- OUTSIDE RECORDS SUMMARY | 2025-04-10 15:13 | XMS_ITS | Clinical Summary ---
[facility] Address [address] [place] [address] Care Team Providers Care Structural Iron Erector Name Role Phone Unavailable Primary Care Provider Unavailabl e Allergies Active Allergy Reactions Criticality Noted Date Comments Parmelia Perlata Itching Low 07/10/2024 Rzvinvy-Ufu-Srx Reductase Inhibitors Nausea and Vomiting High 05/04/2021 Unclassified Drug Itching Low 07/10/2024 Perlaacet Medications amLODIPine (NORVASC) 10 mg tablet Take 10 mg by mouth daily. 4 Active carvediloL (COREG) 25 mg tablet Take 25 mg by mouth. Active insulin aspart U-100 (NovoLOG Flexpen U-100 Insulin) 100 unit/mL pen syringe Inject 0-12 Units by subcutaneous injection. 3 Active mesalamine (DELZICOL) 400 mg capsule (with del rel tablets) Take 400 mg by mouth 4 times daily. 3 Active hydrALAZINE (APRESOLINE) 50 mg tablet Take 50 mg by mouth 4 times daily. Active metFORMIN (GLUCOPHAGE XR) 500 mg Extended Release 24 hour tablet Take 500 mg by mouth daily. Active Active Problems No known active problems Encounters Date Type Department Care Team Description 03/10/2025 External Device Data [facility] ABSTRACTION Provider, Abstract 02/04/2025 External Device Data [facility] ABSTRACTION Provider, Abstract 02/03/2025 External Device Data [facility] ABSTRACTION Provider, Abstract 01/31/2025 External Device Data [facility] ABSTRACTION Provider, Abstract 01/31/2025 External Device Data [facility] ABSTRACTION Provider, Abstract 01/20/2025 External Device Data [facility] ABSTRACTION Provider, Abstract from Last 3 Months Family History Medical History Relation Name Comments Diabetes Child 1 Diabetes Child 2 Diabetes Child 3 Pancreatic Cancer Father Brain Cancer Maternal Grandfather Diabetes Mother No Known Problems Sister Relation Name Status Comments Child 1 Alive Child 2 Alive Child 3 Alive Father Maternal Grandfather Mother Sister Social History Tobacco Use Types Packs/Day Years Used Date Smoking Tobacco: Former Cigarettes 2 25 Q uit: 12/27/2023 Alcohol Use Standard Drinks/Week Comments Yes 0 (1 standard drink = 0.6 oz pur e alcohol) socially Sex and Gender Information Value Date Recorded Sex Assigned at Not on file Legal Sex Male 11:33 AM CDT Gender Identity Not on file Sexual Orientation Not on file Last Filed Vital Signs Vital Sign Reading Time Taken Comments Blood Pressure 139/78 07/10/2024 10:40 AM CDT Pulse 79 07/10/2024 10:40 AM CDT Temperature 36.8 C (98.2 F) 07/10/2024 10:40 AM CDT Respiratory Rate 16 07/10/2024 10:40 AM CDT Oxygen Saturation 97% 07/10/2024 10:40 AM CDT Inhaled Oxygen Concentration - - Weight 113.9 kg (251 lb) 07/10/2024 10:40 AM CDT Height 185.4 cm (6' 1 ) 07/10/2024 10:40 AM CDT Body Mass Index 33.12 07/10/2024 10:40 AM CDT Plan of Treatment Health Maintenance Due Date Last Done Comments DIABETES ANNUAL FOOT EXAM 1995 DIABETES ANNUAL RETINAL EXAM 1995 DIABETES MICROALBUMIN ANNUAL SCREEN 1995 LDL CHOLESTEROL ANNUAL 1995 HEPATITIS B VACCINES (1 of 3 - 19+ 3-dose series) 1996 COLORECTAL SCREENING 2022 Colorectal Cancer Screening 2022 FIT-DNA Q 3 years 2022 FIT/FOBT Q 1 year 2022 Flex Sig/CT Colonography Q 5 years 2022 INFLUENZA VACCINE (#1) 2024 DTAP/TDAP/TD VACCINES (3 - Td or Tdap) 06/28/2024, 06/28/2014 COVID-19 Vaccine ( - 2023- season) 07/27/202412/2020, 12/29/2020 DIABETES HBA1C Q 6 MONTHS 08/24/2024 02/22/2024 Abdominal Aortic Aneurysm (AAA) Screening Completed 07/25/2024 Procedures Procedure Name Priority Date/Time Associated Diagnosis Comments US ABDOMEN COMPLETE Routine 07/25/2024 1:09 PM CDT from Last 3 Months or Most Recently Relevant to Health Maintenance Results * US ABDOMEN COMPLETE (07/25/2024 1:09 PM CDT) Anatomical Region Laterality Modality Abdomen Ultrasound us Darío Dickerson MD US ORDERABLES Final Result from Last 3 Months or Most Recently Relevant to Health Maintenance Insurance [employer]
--- OUTSIDE RECORDS SUMMARY | 2025-04-10 15:13 | XMS_ITS | CONTINUITY OF CARE DOCUMENT ---
Author Name kwame, kwame Address Unknown Organization [facility] Address [address] [place] [address] Phone [phone] Care Team Providers Care Hot Packer Name Role Phone Etienne Pfeiffer MD Unavailable [phone] AC FLORES Unavailable MARGARITA ARTI DAVIDSH Unavailable [phone] PROBLEMS Condition Status Date Provider Notes Diabetes mellitus active Velasquez Efren Obesity active Velasquez Efren Tobacco abuse active Velasquez Efren Snoring active Velasquez Efren Hyperlipidemia active Velasquez Efren Hypertension active Velasquez Efren Aortic root dilatation active Velasquez Rojas ri Hx of atrial fibrillation (Afib) active Frantz Hinojosainari Cardiology examination active Velasquez Rojas ri ENCOUNTERS Date Type Provider Location Encounter Diag nosis 08/13 - 08/15 In-person encounter Office Visit Etienne Pfeiffer MD [facility] Office 08/15 - 08/15 In-person encounter Office Visit Etienne Pfeiffer MD [place] [facility] 07/16 - 07/16 In-person encounter Office Visit Etienne Pfeiffer MD [place] [facility] Cardiology examinationHx of atrial fibri llation (Afib)Aortic root dilatationHypertensionHyperlipidemiaSnoringTobacco abuseObesityDiabetes mellitus VITAL SIGNS Date Observation Value Provider Body Mass Index (Ratio) 33.77 kg/m2 Henrry yoder Emani blood pressure, cuff size regular Cesar damon Shearer blood pressure, diastolic 84 mm[Hg] Cesar damon Shearer blood pressure, systolic 136 mm[Hg] Luis sotomayor Shearer oxygen saturation, oximetry 97 % Stacey Shearer pulse rate 80 /min Stacey Shearer weight E&M 249 [lb_av] Stacey [place] respiratory rate E&M 12 /min Stacey [place] height E&M 72 [in_i] Stacey [place] Body Mass Index (Ratio) 37.70 kg/m2 Sandra es Efren blood pressure, cuff size large [facility] blood pressure, diastolic 83 mm[Hg] Nj et blood pressure, systolic 152 mm[Hg] [facility] pulse rate 70 /min Yadiel respiratory rate E&M 12 /min Yadiel oxygen saturation, oximetry 96 % Yadiel weight E&M 278 [lb_av] Yadiel height E&M 72 [in_i] [facility] Body Mass Index (Ratio) 38.24 kg/m2 Sandra es Efren respiratory rate E&M 17 /min Carmen lopez blood pressure, diastolic 93 mm[Hg] Bela Faustin blood pressure, systolic 165 mm[Hg] Catrina Faustin pulse rate 82 /min Carmen Faustin oxygen saturation, oximetry 98 % Carmen Faustin weight E&M 282 [lb_av] Carmen Faustin height E&M 72 [in_i] Carmen Faustin blood pressure, cuff size regular Bela Faustin ALLERGIES Allergy Name Onset Date Reaction Criticality Status STATINS nausea nausea High Criticality activ e HISTORY OF MEDICATION USE Medication Status Instructions Dates Provider Indications Com ments hydralazine 50 mg tablet active TRANSFERRED: 10/29/24 -READ RX NOTE (ALT-N)- TAKE ONE TABLET BY MOUTH THREE TIMES A DAY 3 Brittany Lenard hydralazine 50 mg tablet completed Take 1 tablet by mouth three times a day 3 - 3 Brittany Weinberg Farxiga 10 mg tablet completed TAKE 1 TABLET BY MOUTH ONCE A DAY - 8 Stacey [place] hydralazine 50 mg tablet completed Take 1 tablet by mouth three times a day 1 - 8 Stacey Shearer Omnipod 5 G6 Intro Kit (Gen 5) cartridge completed USE DIRECTED PER POD CHANGE OF EVERY 2 DAYS - 8 Stacey Shearer Novolog U-100 Insulin aspart 100 unit/mL solution active INJECT UP TO 140 UNITS UNDER THE SKIN EVERY DAY TO be used with omnipod Etienne Pfeiffer MD metformin 500 mg tablet active Take 1 tablet by mouth twice a day one tablet daily Etienne Pfeiffer MD aspirin 81 mg tablet,delayed release (DR/EC) completed TAKE 1 TABLET BY MOUTH ONCE DAILY - 8 Stacey Shearer mesalamine 400 mg capsule (with del rel tablets) active TAKE 1 CAPSULE BY MOUTH 4 TIMES DAILY Etienne Pfeiffer MD furosemide 20 mg tablet completed TAKE 1 TABLET BY MOUTH DAILY - 8 Stacey Shearer amlodipine 10 mg tablet active TAKE 1 TABLET BY MOUTH ONCE DAILY Etienne Pfeiffer MD losartan 50 mg tablet active TAKE 1 TABLET BY MOUTH TWICE DAILY Etienne Pfeiffer MD carvedilol 25 mg tablet active TAKE 1 TABLET BY MOUTH TWICE A DAY Etienne Pfeiffer MD Repathroland Pushtronex 420 mg/3.5 mL wearable injector completed INJECT 420 MG UNDER THE SKIN EVERY 30 DAYS - 8 Stacey Shearer SOCIAL HISTORY Date Observation Value Provider number of grandchildren Etienne Joaquin drug use, illicit, d rug of choice marijuana Juliano Joaquin drug use yes Juliano Joaquin alcohol use no Juliano Joaquin smoking history, tot al pack/day 1.5 Juliano Joaquin cigarette use yes Juliano Joaquin smoking status Current every da y smoker Juliano Joaquin drug use, illicit, d rug of choice marijuana Anaid Ventimiglia [facility] drug use yes Anaid Ventimig anyi [facility] alcohol use no Anaid Ventimig anyi [facility] smoking status Current every da y smoker Anaid Ventimiglia [facility] social history reviewed E&M revi ewed - no changes required Etienne Pfeiffer MD smoking history, tot al pack/day 1.5 Carmen Faustin cigarette use yes Carmen Faustin smoking status Current every da y smoker Carmen Ramin INSURANCE PROVIDERS Payer name Policy type / Coverage type [place] [employer] party ID [employer] 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 Anaid Ventimiglia [facility] [id number],S,cessation enc ouraged. Anaid Ventimiglia [facility] [id number],S,H e follows with endo. now on [place] will monitor Anaid Ventimiglia [facility] [id number],S,Planned for I Hs Anaid Ventimiglia [facility] [id number],C,R emains on Repatha. LDL 23 on last labs W ill monitor H is updated medication list for this problem includes: Repatha Pushtronex 420 Mg/3.5 Ml Wearable Injector (Evolocumab) ..... Inject 420 mg under the skin every 30 days Anaid Ventimiglia [facility] [id number],C,A scending aorta moderately dilated at 4.8 cm will monitor closely E ncouraged blood pressure control. Tobacco cessation and weight loss Anaidian Rodriguez [facility] [id number],S,B P 152/83 R eports controlled at home W ill arrange RPM G oal is BP <130/80 H is updated medication list for this problem includes: Hydralazine 50 Mg Tablet (Hydralazine) ..... Take 1 tablet by mouth three times a day Aspirin 81 Mg Tablet,delayed Release (dr/ec) (Aspirin) ..... Take 1 tablet by mouth once daily Furosemide 20 Mg Tablet (Furosemide) ..... Take 1 tablet by mouth daily Amlodipine 10 Mg Tablet (Amlodipine) ..... Take 1 tablet by mouth once daily Losartan 50 Mg Tablet (Losartan) ..... Take 1 tablet by mouth twice daily Carvedilol 25 Mg Tablet (Carvedilol) ..... Take 1 tablet by mouth twice a day Anaidian Contrerasmihir [facility] [id number],S, H is updated medication list for this problem includes: Repatha Pushtronex 420 Mg/3.5 Ml Wearable Injector (Evolocumab) ..... Inject 420 mg under the skin every 30 days O rders: 9 9205 HIGH 60-74 min (CPT-89217) S lee Study Home (CPT-34524) C omplete Echo (CPT-90878) R enal Artery Duplex (CPT-97388) Etienne Pfeiffer MD [id number],S,P t has hx of dilated ascending aorta, HTN, multiple risk factors, no CP or SOB, we will add hydralazine 50mg three times a day, obtain echo, renal artery duplex, home sleep study. Pt advised to stop smoking. His updated medication list for this problem includes: Novolog U-100 Insulin Aspart 100 Unit/ml Solution (Insulin aspart u-100) ..... Inject up to 140 units under the skin every day to be used with omnipod Metformin 500 Mg Tablet (Metformin) ..... Take 1 tablet by mouth twice a day one tablet daily Aspirin 81 Mg Tablet,delayed Release (dr/ec) (Aspirin) ..... Take 1 tablet by mouth once daily Losartan 50 Mg Tablet (Losartan) ..... Take 1 tablet by mouth twice daily Etienne Pfeiffer MD [id number],S,P t has hx of dilated ascending aorta, HTN, multiple risk factors, no CP or SOB, we will add hydralazine 50mg three times a day, obtain echo, renal artery duplex, home sleep study. Pt advised to stop smoking Etienne Pfeiffer MD [id number],S,T he Patient was reencouraged to stop smoking. Etienne Pfeiffer MD [id number],S, B P today: 165/93 His updated medication list for this problem includes: Hydralazine 50 Mg Tablet (Hydralazine) ..... Take 1 tablet by mouth three times a day Aspirin 81 Mg Tablet,delayed Release (dr/ec) (Aspirin) ..... Take 1 tablet by mouth once daily Furosemide 20 Mg Tablet (Furosemide) ..... Take 1 tablet by mouth daily Amlodipine 10 Mg Tablet (Amlodipine) ..... Take 1 tablet by mouth once daily Losartan 50 Mg Tablet (Losartan) ..... Take 1 tablet by mouth twice daily Carvedilol 25 Mg Tablet (Carvedilol) ..... Take 1 tablet by mouth twice a day Etienne Pfeiffer MD [id number],S,Will obtain h ome sleep test Etienne Pfeiffer MD Cardiology: Echo jefry wed no significant changes. Reviewed echo today. Juliano Joaquin Cardiology:The Patie nt was reencouraged to stop smoking. Juliano Joaquin Cardiology:BP is sta ble, continue current meds. B P today: 136/84 P rior BP: 152/83 (08/15/2023) The following medications were removed from the medication list: Hydralazine 50 Mg Tablet (Hydralazine) ..... Take 1 tablet by mouth three times a day Aspirin 81 Mg Tablet,delayed Release (dr/ec) (Aspirin) ..... Take 1 tablet by mouth once daily Furosemide 20 Mg Tablet (Furosemide) ..... Take 1 tablet by mouth daily His updated medication list for this problem includes: Amlodipine 10 Mg Tablet (Amlodipine) ..... Take 1 tablet by mouth once daily Losartan 50 Mg Tablet (Losartan) ..... Take 1 tablet by mouth twice daily Carvedilol 25 Mg Tablet (Carvedilol) ..... Take 1 tablet by mouth twice a day Juliano Joaquin Cardiology:weight loss encourage d. Anaid Rodriguez [facility] Cardiology:cessation encouraged. [facility]aid [facility] Cardiology:He follow s with endo. [facility] will monitor Anaid Rodriguez [facility] Cardiology:Planned for [facility] Abby watkins [facility] Cardiology:Remains o n Repatha. LDL 23 on last labs W ill monitor H is updated medication list for this problem includes: Repatha Pushtronex 420 Mg/3.5 Ml Wearable Injector (Evolocumab) ..... Inject 420 mg under the skin every 30 days [facility] Cardiology:Ascending aorta moderately dilated at 4.8 cm will monitor closely E ncouraged blood pressure control. Tobacco cessation and weight loss [facility] Cardiology:BP 152/83 R eports controlled at home W ill arrange RPM G oal is BP <130/80 H is updated medication list for this problem includes: Hydralazine 50 Mg Tablet (Hydralazine) ..... Take 1 tablet by mouth three times a day Aspirin 81 Mg Tablet,delayed Release (dr/ec) (Aspirin) ..... Take 1 tablet by mouth once daily Furosemide 20 Mg Tablet (Furosemide) ..... Take 1 tablet by mouth daily Amlodipine 10 Mg Tablet (Amlodipine) ..... Take 1 tablet by mouth once daily Losartan 50 Mg Tablet (Losartan) ..... Take 1 tablet by mouth twice daily Carvedilol 25 Mg Tablet (Carvedilol) ..... Take 1 tablet by mouth twice a day [place] Benmihir [facility] Cardiology: H is updated medication list for this problem includes: Repatha Pushtronex 420 Mg/3.5 Ml Wearable Injector (Evolocumab) ..... Inject 420 mg under the skin every 30 days Orders: 9 9205 HIGH 60-74 min (CPT-71108) S leep Study Home (CPT-48851) C omplete Echo (CPT-77194) R enal Artery Duplex (CPT-50096) Etienne Pfeiffer MD Cardiology:Pt has hx of dilated ascending aorta, HTN, multiple risk factors, no CP or SOB, we will add hydralazine 50mg three times a day, obtain echo, renal artery duplex, home sleep study. Pt advised to stop smoking. His updated medication list for this problem includes: Novolog U-100 Insulin Aspart 100 Unit/ml Solution (Insulin aspart u-100) ..... Inject up to 140 units under the skin every day to be used with omnipod Metformin 500 Mg Tablet (Metformin) ..... Take 1 tablet by mouth twice a day one tablet daily Aspirin 81 Mg Tablet,delayed Release (dr/ec) (Aspirin) ..... Take 1 tablet by mouth once daily Losartan 50 Mg Tablet (Losartan) ..... Take 1 tablet by mouth twice daily Etienne Pfeiffer MD Cardiology:Pt has hx of dilated ascending aorta, HTN, multiple risk factors, no CP or SOB, we will add hydralazine 50mg three times a day, obtain echo, renal artery duplex, home sleep study. Pt advised to stop smoking Etienne Pfeiffer MD Cardiology:The Patie nt was reencouraged to stop smoking. Etienne Pfeiffer MD Cardiology: B P today: 165/93 His updated medication list for this problem includes: Hydralazine 50 Mg Tablet (Hydralazine) ..... Take 1 tablet by mouth three times a day Aspirin 81 Mg Tablet,delayed Release (dr/ec) (Aspirin) ..... Take 1 tablet by mouth once daily Furosemide 20 Mg Tablet (Furosemide) ..... Take 1 tablet by mouth daily Amlodipine 10 Mg Tablet (Amlodipine) ..... Take 1 tablet by mouth once daily Losartan 50 Mg Tablet (Losartan) ..... Take 1 tablet by mouth twice daily Carvedilol 25 Mg Tablet (Carvedilol) ..... Take 1 tablet by mouth twice a day Etienne Pfeiffer MD Cardiology:Will obtain home slee p test Etienne Pfeiffer MD Date Name Complete Echo RPM (remote patient monitoring) Complete Echo Renal Artery Duplex Complete Echo Sleep Study Home HISTORY OF PROCEDURES Procedure Date Procedure Name Provider Procedure Notes S tatus Complex e/m visit add on Etienne Pfeiffer MD completed EKG Etienne Pfeiffer MD completed EKG Etienne Pfeiffer MD completed
--- OUTSIDE RECORDS SUMMARY | 2025-04-10 15:14 | XMS_ITS | Clinical Summary ---
Author Organization [email or web address] Address [address] [place] [address] Care Team Providers Care Ground Services Instructor Name Role Phone Unavailable Primary Care Provider Unavailabl e Source Comments [email or web address],non-owned Affiliates and Associated Physician Practices is amultiple site organization consisting of ambulatory clinics and hospital sitesin [place], [place], [place] and [place]. This disclosure is being madepursuant to the Care Everywhere program and may not contain all information available regarding this patient. Last updated 18.[email or web address] Allergies Active Allergy Reactions Criticality Noted Date Comments Oxycodone-Acetaminophen Itching Low 07/02/2017 Rktqjd-Aeqab-Csiqbw-Fa-Fishoil Vomiting Medium 02/20 Hmg-Coa-R Inhibitors Vomiting 02/21/2024 Medications * This document contains information received from the source organization and may not represent a complete record from that organization. * Be aware that medications may not be up to date on this document. Alwaysverify current medications with the patient. carvedilol (COREG) 25 MG tabletIndicati ons:Hypertensi on Take 25 mg by mouth 2 times daily with morning and evening meal Active aspirin EC (ECOTRIN) 81 MG tabletIndicati ons:Thromboemb olic Disease Take 81 mg by mouth once daily Active insulin glargine (Lantus/Semgle e) 100 units/mL penIndications :Type 2 Diabetes Mellitus Inject 20 (twenty) Units subcutaneously at bedtime 15 mL 1 2 Active budesonide (ENTOCORT EC) 3 MG capsuleIndicat ions:Ulcerativ e Colitis Take 3 (three) capsules by mouth once daily 90 capsule 2 Active metFORMIN ER 24hr (GLUCOPHAGE XR) 500 MG tabletIndicati ons:Type 2 Diabetes Mellitus Take 500 mg by mouth 2 times daily 1 Active amLODIPine (Norvasc) 10 MG tabletIndicati ons:Hypertensi on Take 1 (one) tablet by mouth once daily Active losartan (Cozaar) 50 MG tabletIndicati ons:Hypertensi on Take 1 (one) tablet by mouth 2 times daily Active furosemide (Lasix) 20 MG tabletIndicati ons:Hypertensi on Take 1 (one) tablet by mouth once daily Active vitamin D, ergocalciferol , (Drisdol) 1.25 MG (48164 UT) capsuleIndicat ions:Vitamin D Deficiency Take 1 (one) capsule by mouth every 30 days Active mesalamine CR (Pentasa) 500 MG capsuleIndicat ions:Ulcerativ e Colitis Take 1 (one) capsule by mouth 4 times daily for 30 days Reasons: Ulcerated Colon 120 capsule 4 Active escitalopram (Lexapro) 10 MG tabletIndicati ons:Major Depressive Disorder Take 1 (one) tablet by mouth once daily for 30 days Reasons: Major Depressive Disorder 30 tablet 4 Active insulin aspart (NovoLOG) penIndications :Type 2 Diabetes Mellitus Inject 0 (zero) Units to 12 (twelve) Units subcutaneously 3 times daily with meals for 30 days Reasons: Type 2 Diabetes 10.8 mL 4 Active Active Problems Problem Noted Date Diagnosed Date Severe episode of recurrent major depressive disorder, without psychotic features 02/23/2024 Suicidal ideation 02/21/2024 Diabetic acidosis without coma 06/04/2022 Ulcerative colitis with complication 06/04/2022 Chronic pancreatitis 04/26/2022 Abdominal pain, generalized 04/26/2022 Hypokalemia 04/26/2022 Pancolitis 04/26/2022 Weight loss 04/26/2022 Hyperglycemia 04/26/2022 Acute pancreatitis 03/25/2022 Abdominal pain, epigastric 03/25/2022 Nausea without vomiting 03/25/2022 DM (diabetes mellitus), type 2 03/25/2022 Thrombocytopenia, secondary 03/25/2022 HTN (hypertension) 03/25/2022 Aortic aneurysm 03/25/2022 Immunizations Immunization Administration Dates Next Due Covkari Fabiana primary monovalent 12+ yr 0.5mL ,12/29/2020 DTaP VACCINE IM (6wk-6yrs) 06/28/2014 PNEUMOCOCCAL PPV VACCINE 12/17/2019 TDAP, HISTORIC VACCINE 06/28/2014 Family History Medical History Relation Name Comments Cancer - Pancreatic Father Diabetes - Type 2 Mother Hypertension Mother Diabetes - Type 2 Other Relation Name Status Comments Father Mother Other Social History Tobacco Use Types Packs/Day Years Used Date Smoking Tobacco: Former Cigarettes 1.5 20 Tobacco Cessation:Counseling Given: Not Answered Comments:Zyn can a day 3 mg pouches Alcohol Use Standard Drinks/Week Comments Yes 0 (1 standard drink = 0.6 oz pur e alcohol) 6-7 cocktails few times a year AUDIT-C Answer Date Recorded Q1: How often do you have a drink containing alc ohol? 2-4 times a month 02/21/2024 Q2: How many drinks containi ng alcohol do you have on a typical day when you are drinking? 5 or 6 02/21/2024 Q3: How often do you have si x or more drinks on one occasion? Weekly 02/21/2024 Overall Financial Resource Strain (CARDIA) Answe r Date Recorded How hard is it for you to pa y for the very basics like food, housing, medical care, and heating? Somewhat hard 02/21/2024 [facility] [place] of Occupat ional Health - Occupational Stress Questionnaire Answer Date Recorded Do you feel stress - tense, restless, nervous, or anxious, or unable to sleep at night because your mind is troubled all the time - these days? To some extent 02/21/2024 Hunger Vital Sign Answer Date Recorded Within the past 12 months, y ou worried that your food would run out before you got the money to buy more. Sometimes true Within the past 12 months, t he food you bought just didn't last and you didn't have money to get more. Sometimes true PRAPARE - Transportation Answer Date Re corded In the past 12 months, has l ack of transportation kept you from medical appointments or from getting medications? No 01/25 In the past 12 months, has l ack of transportation kept you from meetings, work, or from getting things needed for daily living? No 02/21/2024 Housing Stability Vital Sign Answer Ronak e Recorded In the last 12 months, was t here a time when you were not able to pay the mortgage or rent on time? Yes 02/21/2024 In the last 12 months, how many places have you lived? 1 02/21/2024 In the last 12 months, was t here a time when you did not have a steady place to sleep or slept in a mcc (including now)? No 02/21/2024 Sex and Gender Information Value Date Recorded Sex Assigned at Not on file Legal Sex Male 12:01 PM CDT Gender Identity Not on file Sexual Orientation Not on file Last Filed Vital Signs Vital Sign Reading Time Taken Comments Blood Pressure 121/75 02/24/2024 7:26 PM CDT Pulse 65 02/24/2024 7:26 PM CDT Temperature 36.7 C (98.1 F) 02/24/2024 7:26 PM CDT Respiratory Rate 16 02/24/2024 7:26 PM CDT Oxygen Saturation 99% 02/24/2024 7:26 PM CDT Inhaled Oxygen Concentration - - Weight 110 kg (242 lb 8.1 oz) 02/21/2024 3:19 PM CDT Height 185.4 cm (6' 0.99 ) 02/21/2024 3:19 PM CD T Body Mass Index 32 02/21/2024 3:19 PM CDT Plan of Treatment Health Maintenance Due Date Last Done Comments COLOGUARD (AGES 45-75) - COLON CA SCREENING 1977 COLON MONITORING 1977 COLONOSCOPY - COLON CA SCREENING 1977 CT COLONOGRAPHY - COLON CA SCREENING 1977 Colorectal Cancer Screening 1977 FIT - COLON CA SCREENING 1977 FLEX SIG - COLON CA SCREENING 1977 HIV SCREENING 1992 HEPATITIS C SCREENING 10/08/1995 HEPATITIS B VACCINE (1 of 3 - 19+ 3-dose series) 1996 DIABETES-STATIN 2017 PNEUMOCOCCAL VACCINE (2 of 2 - PCV) 12/17/2020 12/17/2019 DIABETES RETINOPATHY SCREENING 03/25/2022 DIABETES-FOOT EXAM WITH MONOFILAMENT 03/25/2022 DTAP/TDAP/TD VACCINES (3 - Td or Tdap) 06/28/2024 06/28/2014, 06/28/2014 COVID-19 VACCINE (3 - season) 2024 01/25/2021, 12/29/2020 DIABETES-HGB A1C 08/24/2024 02/22/2024, 08/2022, 03/26/2022 DEPRESSION SCREENING 11/26/2024 DIABETES - URINE PROTEIN SCREENING 11/26/2024 DIABETES-SERUM CREATININE 02/24/20252023, 02/24/2024, 02/23/2024, Additional history exists INFLUENZA VACCINE (Season Ended) 2025 ZOSTER VACCINE (1 of 2) 2027 HIB VACCINE Aged Out No longer eligi ble based on patient's age to complete this topic HPV VACCINE Aged Out No longer eligi ble based on patient's age to complete this topic MENINGOCOCCAL (Group B) VACCINE SHARED DECISION-MAKING Aged Out No longer eligible based on patient's age to complete this topic MENINGOCOCCAL GROUPS A/C/Y/W VACCINE Aged Out No longer eligible based on patient's age to complete this topic Procedures Procedure Name Priority Date/Time Associated Diagnosis Comments BASIC METABOLIC PANEL (CALCIUM TOTAL) AM Draw 02/25/2024 6:15 AM CDT HEMOGLOBIN A1C Routine 02/22/2024 6:10 AM CDT from Last 3 Months or Most Recently Relevant to Health Maintenance Results * (ABNORMAL) BASIC METABOLIC PANEL (CALCIUM TOTAL) (02/25/2024 6:15 AM CDT) [facility] Glucose 209(H) 70 - 125 mg/dL 02/25/2024 6:37 AM CDT [facility] Sodium 139 136 - 145 mmol/L 02/25/2024 6:37 AM CDT [facility] Potassium 3.7 3.4 - 5.1 mmol/L 02/25/2024 6:37 AM CDT [facility] Chloride 106 98 - 107 mmol/L 02/25/2024 6:37 AM CDT [facility] CO2 27 22 - 29 mmol/L 02/25/2024 6:37 AM CDT [facility] Calcium 8.83 8.4 - 10.2 mg/dL 02/25/2024 6:37 AM CDT [facility] Anion Gap 6 6 - 16 mmol/L 02/25/2024 6:37 AM CDT [facility] BUN 11.6 8.4 - 25.7 mg/dL 02/25/2024 6:37 AM CDT [facility] Creatinine 0.58(L) 0.72 - 1.25 mg/dL 02/25/2024 6:37 AM CDT [facility] eGFR >90 >90 mL/min/1.7 3m2 02/25/2024 6:37 AM CDT [facility] Comment:The GFR result was c alculated using the updated CKD-EPI Creatinine Equation (2020). Blood BLOOD SPECIMEN / Unknown Lab Venipuncture / Unknown 02/25/2024 6:15 AM CDT 02/25/2024 6:15 AM CDT Chi Le SOCIAL WORKER-CERTIFIED ADAPTED PHYSICAL EDUCATOR LAB - CHEMISTRY OR DERABLES Final Result Performing Organization Address City/State/[facility] Co de Phone Number [facility] [address] * (ABNORMAL) HEMOGLOBIN A1C (02/22/2024 6:10 AM CDT) [facility] Hemoglobin A1c 7.0(H) 4.2 - 5.6 % 02/22/2024 7:19 AM CDT [facility] Estimated Average Glucose 154 mg/dL 02/22/2024 7:19 AM CDT [facility] Blood BLOOD SPECIMEN / Unknown Lab Venipuncture / Unknown 02/22/2024 6:10 AM CDT 02/22/2024 6:17 AM CDT Narrative [facility] - 02/22/2024 7:19 AM CDT HbA1c Interpretation: Normal: < 5.7% Pre-diabetes: 5.7-6.4% Diabetes: Equal to or greater than 6.5% Test results diagnostic of diabetes should be repeated for confirmation. Treatment target values recommended by ADA and other clinical organizations should be used to evaluate metabolic control in patients. This test should not replace glucose testing for patients with Type 1 diabetes, pediatric patients, or women. Falsely low HbA1c results may be observed in patients with clinical conditions that shorten erythrocyte life span or decrease mean erythrocyte age such as the presence of unstable hemoglobin variants, elevated hemoglobin F level or other causes of hemolytic anemia. HbA1c may not accurately reflect glycemic control when clinical conditions that affect erythrocyte survival are present. Severe Iron deficiency anemia may yield falsely high results. Hemoglobin A1c assay should not be used to diagnose or monitor diabetes in patients with malignancy, recent blood transfusion, chronic kidney or liver disease. This method may yield falsely low results when hemoglobin (HbF) exceeds 5% in the specimen. The [employer] Alinity assay for the measurement of HbA1c is a National Glycohemoglobin Standardization Program (NGSP) certified method. Chi Le SOCIAL WORKER-[facility] - CHEMISTRY OR DERABLES Final Result Performing Organization Address City/State/[facility] Co de Phone Number [facility] [address] from Last 3 Months or Most Recently Relevant to Health Maintenance Insurance MEDICAID - [place] [employer]IVATE [employer] MD AMI [id number] Advance Directives * Full Code (Latest Code Status on File) Date Activated Date Inactivated Comments 02/21/2024 3:16 PM 02/25/2024 4:30 PM * Full Code Date Activated Date Inactivated Comments 06/04/2022 4:03 AM 06/06/2022 1:46 PM * Full Code Date Activated Date Inactivated Comments 04/26/2022 9:37 AM 04/28/2022 11:58 AM * Full Code Date Activated Date Inactivated Comments 03/25/2022 2:52 AM 03/27/2022 2:31 PM
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
--- NOTE | 2025-04-10 15:17 | ECG_ITS ---
Test Date: 2025-04-10 15:30:04 Measurements Intervals Dresher Rate: 79 P: 61 MD: 191 QRS: 56 QRSD: 97 T: 59 QT: 375 QTc: 431 Interpretive Statements SINUS RHYTHM SEPTAL MYOCARDIAL INFARCTION , OF INDETERMINATE AGE [40+ ms Q WAVE IN V1/V2] ABNORMAL ECG No previous ECG available for comparison Electronically Signed On 04-11-2025 07:53:14 CDT by Otto Peng M.D.
--- OUTSIDE RECORDS SUMMARY | 2025-04-10 15:17 | XMS_ITS | Continuity of Care Document ---
Author Organization [facility] Address [address] [place] [address] Phone Care Team Providers Care Log Rafter Name Role Phone Bob North MD Unavailable Unavailable Procedures Procedure Date INITIAL HOSPITAL CARE LVL 2 SUBSEQUENT HOSPITAL VISIT, EXPANDED INITIAL INPT/OBS HOSPITAL CARE LVL 2 May INPATIENT CONSULT, LEVEL 3 Advance Directives Directive Yes / No Effective Date File Name No Information Encounters Encounter Description Practice Location Reason(s) For Visit Diagnoses Date Provider Providers Copied on Encounter INITIAL HOSPITAL CARE LVL 2 [facility], [address], [place], [place], [id number], [place] tel:[phone] [facility] No Information Mary Anne Rojas. [address] [place], [place], [id number], [place]. tel:[phone] Referring Provider: Joshua Richardson, [address] , [place], [address]. tel:[phone] Family History Family Member Type Diagnosis Age At Onset No Information Payers Payer name Insurance type Covered green party ID Authoriza tion(s) [employer] [id number] Social History Type Description Quantity Date Captured Comments Sex Male Smoking Status No Information Chief Complaint And Reason For Visit No Information Reason For Referral Reason For Referral No Information History Of Present Illness Encounter Date Complaint History Of Prese nt Illness No Information Functional Status Date Functional Assessmen t No Information Instructions Date Instruction Additional Infor mation No Information Assessments Type Assessment Date No Information Patient Care Teams Name Effective Dates (start - stop) Status Members No Information
--- OUTSIDE RECORDS SUMMARY | 2025-04-10 15:17 | XMS_ITS | Clinical Summary ---
Author Organization [facility] Address [address] [place] [address] Care Team Providers Care [employer] Sales Representative Name Role Phone Olivier Boyce DO Primary Care Provider Allergies Active Allergy Reactions Criticality Noted Date Comments [place]-3 Fatty Acids Nausea & Vomiting Low 4 Oxycodone Itching Low 09/01/2024 Ldhmuxo-Lvj-Wqu Reductase Inhibitors Nausea & Vomiting High 05/04/2021 Medications carvediloL (COREG) 25 mg tabletIndication s:Hypertension associated with diabetes (HCC) Take 1 tablet (25 mg total) by mouth 2 (two) times a day with meals 60 tablet 11 1 Active Additional Information Patient taking differently:25 mg oral 2 times daily with meals (bkfst, dinner),Indications: hypertension, Informant: Self, Reported on 08/15/2024 metFORMIN XR (GLUCOPHAGE XR) 500 mg 24 hr tabletIndication s:type 2 diabetes mellitus Take 1 tablet (500 mg total) by mouth 2 (two) times a day 1 Active NovoLOG 100 unit/mL (3 mL) pen for injectionIndicat ions:type 2 diabetes mellitus Inject 20-30 Units under the skin 3 (three) times a day with meals SLIDING SCALE - counts carbs and blood sugar 3 Active mesalamine (DELZICOL) 400 mg capsule (with del rel tablets)Indicati ons:Ulcerative Colitis Take 1 capsule (400 mg total) by mouth 4 (four) times a day 3 Active amLODIPine (NORVASC) 10 mg tablet TAKE ONE TABLET BY MOUTH DAILY 30 tablet 11 4 Active Additional Information Patient taking differently:10 mg oralEvery morning, Indications: hypertension, Informant: Self, Reported on 08/15/2024 hydrALAZINE (APRESOLINE) 50 mg tabletIndication s:hypertension Take 1 tablet (50 mg total) by mouth 2 (two) times a day Active HYDROcodone-acet aminophen (NORCO) 5-325 mg per tabletIndication s:Biceps tendinitis of left upper extremity Take 1 tablet by mouth every 12 (twelve) hours 20 tablet 4 Active meloxicam (MOBIC) 15 mg tabletIndication s:Left shoulder pain, unspecified chronicity Take 1 tablet (15 mg total) by mouth daily 30 tablet 5 Active Active Problems Problem Noted Date Diagnosed Date Encounter for preoperative assessment 09/01/2024 Tear of left rotator cuff 08/13/2024 Biceps tendinitis of left upper extremity 2023 RAJAN (obstructive sleep apnea) 05/04/2021 Thoracic aortic aneurysm without rupture 021 History of atrial fibrillation 03/10/2021 Atypical chest pain 03/10/2021 Tobacco abuse 03/10/2021 Hyperlipidemia associated with type 2 diabetes m ellitus 03/10/2021 Hypertension associated with diabetes 03/10/2021 Resolved Problems Problem Noted Date Diagnosed Date Resolved Date Snoring 03/10/2021 05/04/2021 Encounters Date Type Department Care Team Description 02/12/2025 9:10 AM CDT Office Visit [facility] Orthopaedic Surgery [address] [place] [address] Carlos Hart MD Biceps tendinitis of left shoulder (Primary Dx) from Last 3 Months Surgical History Surgery Date Site/Laterality Comments ROTATOR CUFF REPAIR 11/26/2011 - 11/25/2012 Left ROTATOR CUFF REPAIR 11/26/2010 - 11/25/2011 Right COLONOSCOPY Multiple-- Last 2022 Medical History Medical History Date Comments Hx Other Medical Arrhythmias a. fib Hypertension Dxd Adiposity Obesity Diabetes mellitus (HCC) Ulcerative colitis (HCC) UC dxd 2018-- Currently treated with mesalamine with minor flare X 1 monthly, Last major flare 2021 Sleep apnea Not using CPAP m achine Obesity Family History Medical History Relation Name Comments Pancreatic cancer Father Diabetes Mother Hypertension Mother Hypertension; Anesthesia problems Neg Hx Relation Name Status Comments Father (Age 63) Mother Alive Social History Tobacco Use Types Packs/Day Years Used Date Smoking Tobacco: Former Cigarettes 0.5 14.1 1 995 - 12/2023 Passive Smoke Exposure: Past Smokeless Tobacco: Never Tobacco Cessation:Counseling Given: Not Answered Alcohol Use Standard Drinks/Week Comments No 0 (1 standard drink = 0.6 oz pur e alcohol) AUDIT-C Answer Date Recorded Q1: How often do you have a drink containing alc ohol? 2-4 times a month 09/01/2024 Q2: How many drinks containi ng alcohol do you have on a typical day when you are drinking? 3 or 4 09/01/2024 Q3: How often do you have si x or more drinks on one occasion? Never 09/01/2024 Personal Safety Answer Date Recorded Have you ever been in or are you currently in a harmful physical or emotional relationship or is someone making you feel afraid or unsafe? Denies 09/01/2024 Sex and Gender Information Value Date Recorded Sex Assigned at Not on file Legal Sex Male 2:36 AM [employer] Gender Identity Not on file Sexual Orientation Not on file Obstetrics History Last Filed Vital Signs Vital Sign Reading Time Taken Comments Blood Pressure 132/77 09/01/2024 12:30 PM CDT Pulse 71 09/01/2024 12:30 PM CDT Temperature 36.7 C (98.1 F) 09/01/2024 11:48 AM CDT Respiratory Rate 12 09/01/2024 12:30 PM CDT Oxygen Saturation 95% 09/01/2024 12:30 PM CDT Inhaled Oxygen Concentration - - Weight 113.4 kg (250 lb) 08/15/2024 4:15 PM CDT Height 185.4 cm (6' 1 ) 08/15/2024 4:15 PM CDT Body Mass Index 32.98 08/15/2024 4:15 PM CDT Plan of Treatment Health Maintenance Due Date Last Done Comments Albumin Creatinine Ratio, Urine 1977 Colon Cancer Screening-Colonoscopy 1977 Depression Screening 1977 Hepatitis C Screening 1977 Dilated Eye Exam 1977 Foot Exam 1977 Hepatitis B Screening 1995 Regular Well Visit/Exam 18-64 1995 Pneumococcal vaccine <65 (2 of 2 - PCV) 12/17/2020 12/17/2019 eGFR 03/11/2022 03/11/2021 Lipid Panel 06/13/2024 06/13/2023, 02/26, 05/04/2021 DTaP/Tdap/Td Vaccine (3 - Td or Tdap) 06/28/202401/2014, 06/28/2014 Covid-19 Vaccine ( - season) 07/27/202412/2020, 12/29/2020 Hemoglobin A1C 08/24/2024 02/22/2024, 05/26, 03/26/2022 Influenza Vaccine (Season Ended) 2025 Medical Devices Implanted Type Area Assistant Professor Of Drama Device Identifier Shelf Expiration Date Model / Serial / Lot [employer] Fiberloop 3.2mm Drill Pin Needle Shoehorn Cannula Kit Suture [id number]-2290 - [id number] Implanted:Qty : 1 on 09/01/2024 by Carlos Hart MD at [facility] Left: Shoulder [employer] [id number] 04/25/2029 AR-2290 / / [id number] Procedures Procedure Name Priority Date/Time Associated Diagnosis Comments LIPID PANEL Routine 06/13/2023 Hyperlipidemia associated with type 2 diabetes mellitus (HCC) EGFR Routine 03/11/2021 1:20 PM CDT Hyperlipidemia associated with type 2 diabetes mellitus (HCC) Atypical chest pain from Last 3 Months or Most Recently Relevant to Health Maintenance Results * Lipid panel (06/13/2023) SCRIBED Cholesterol, Total 97 <200 EXTERNAL LAB SCRIBED HDL 43 >40 EXTERNAL LAB SCRIBED LDL 23 <100 EXTERNAL LAB SCRIBED Triglycerides 153 <150 EXTERNAL LAB Blood 06/13/2023 us Otto Peng MD LAB BLOOD ORDERABLES Janina l Result EXTERNAL LAB * eGFR (03/11/2021 1:20 PM CDT) eGFR 129 mL/min/1.7 3 m2 MARIO OLMEDO Comment: Interpretive Data Reference Interval Normal >/= 90 mL/min/1.73m2 Mildly decreased* 60 - 89 mL/min/1.73m2 Mildly to moderately decreased 45 - 59 mL/min/1.73m2 Moderately to severely decreased 30 - 44 mL/min/1.73m2 Severely decreased 15 - 29 mL/min/1.73m2 Kidney Failure < 15 mL/min/1.73m2 *Relative to young adult level Estimated glomerular filtration rate is determined by the CKD-EPI equation recommended by the National Kidney Foundation (KDIGO 2012 Clinical Practice Guideline for the Evaluation and Management of Chronic Kidney Disease. Kidney Intnl Suppl Nov 2012;3:1). The CKD-EPI equation should not be used for patients with unstable renal function and has not been validated in children and those over 70. Current interpretive data was last reviewed 2020 Blood specimen (specimen) 03/11/2021 1:20 PM CDT 03/11/2021 1:20 PM CDT Otto Peng MD LAB BLOOD ORDERABLES Janina l Result Performing Organization Address City[facility] Co de Phone Number MARIO [phone] [place] [address] from Last 3 Months or Most Recently Relevant to Health Maintenance Insurance [employer] Care Teams [employer] Sales Representative Relationship Specialty Start Date End Date Olivier Boyce DO [address] [place] [address] PCP - General Family Medicine 08/07/24
--- OUTSIDE RECORDS SUMMARY | 2025-04-10 15:17 | XMS_ITS | Data Portability ---
Author Organization ABHI Vicki HERRERA Address [address] [facility] [place] [address] Care Team Providers Care Apprentice Electrician Name Role Phone FRANKLIN CHILEL Orthopedic Surgeon MAILE CASEY Primary Care Provider Assessment Encounter Date Assessment Date Assessment LastModified by Organization Details LastModified Time 03/28/2023 03/28/2023 Patient examined and evaluated. Discussed etiology of condition. Discussed surgical and conservative treatment with patient in detail. DIABETIC FOOT EXAM AND DISCUSSION Discussed diabetic footcare and shoegear with patient in detail. Discussed lotion to tops and bottom of feet. Avoiding webspaces. Keeping webspaces clean and dry. Discussed wearing hard sole shoes even when in the house. Discussed wearing socks. Discussed diabetic neuropathy causes. Discussed the importance of glycemic control with the patient in great detail. ONYCHOMYCOSIS Nails 1-5 b/l debrided in length and thickness by 25% without incident. Patient states that the nails were painful prior to debridement admits relief now. Patient states that they are unable to trim nails on own Discussed vinegar/ water soaks for toenail fungus. Vics to nails. Discuss oral as well as topical medications Discussed nail removal in the future with phenol Follow-up with patient in 9 weeks for nails. Sooner should any issues arise [id number] [email or web address] Not available 03/28/2023 16:49:32 Plan of Treatment Reminders Order Date Submit Date Provider Last Modified By Organization Details Last Modified Time Details Appointments None recorded . Lab HbA1c (hemoglo bin A1c), blood 2022 023 In-Office Order, Internal Use Only DO Not Attach Compendium DO Not Attach Compendium, Do Not Delete/merge, [id number] 09:51:02 HbA1c (hemoglo bin A1c), blood 2022 023 In-Office Order, Internal Use Only DO Not Attach Compendium DO Not Attach Compendium, Do Not Delete/merge, [id number] 09:01:46 BNP (B-type natriure tic peptide) , serum or plasma 2022 023 [facility], [address], [address], [place], [address], 3 20:10:01 lipid panel, serum 2022 023 [facility], [address], [address], [place], [address], 3 19:08:51 TSH + free T4, serum 2022 023 [facility], [address], [address], [place], [address], 3 20:10:02 cortisol , am, serum 2022 023 [facility], [address], [address], [place], [address], 3 20:10:00 dexameth asone, serum 2022 023 [facility], [address], [address], [place], [address], 3 20:10:03 HbA1c (hemoglo bin A1c), blood 2022 023 [facility], [address], [address], [place], [address], 3 20:10:04 CMP, serum or plasma 2022 023 [facility], [address], [address], [place], [address], 3 19:08:51 microalb umin/cre atinine, mass ratio, urine 2022 023 [facility], [address], [place], [address], 3 20:10:01 C-peptid e, serum 2022 023 [facility], [address], [place], [address], 3 20:10:04 HbA1c (hemoglo bin A1c), blood 2022 023 In-Office Order, Internal Use Only DO Not Attach Compendium DO Not Attach Compendium, Do Not Delete/merge, [id number] 3 09:22:46 HbA1c (hemoglo bin A1c), blood 2022 023 In-Office Order, Internal Use Only DO Not Attach Compendium DO Not Attach Compendium, Do Not Delete/merge, [id number] 3 09:33:45 CMP, serum or plasma 2022 023 [facility], [address], [address], [place], [address], 3 20:08:18 lipid panel, serum 2022 023 [facility], [address], [address], [place], [address], 3 20:08:18 microalb umin/cre atinine, mass ratio, urine 2022 023 [facility], [address] [facility], [address], [place], [address], 3 10:37:10 Referral sleep medicine referral 2022 023 [facility], [address] [place], [address], 4 15:06:[address] referral 2022 023 josé [email or web address] Sonia [facility], [address] [place], [address], 3 12:05:13 Procedures None recorded . Surgeries None recorded . Imaging None recorded . Medication Orders furosemi de 20 mg tablet 2022 023 [facility], [address] [place], [address], 3 09:53:06 hydrochl orothiaz adilene 12.5 mg tablet 2022 023 [email or web address], [address] [place], [address], 3 11:51:54 Patient TargetsNo targets recorded. Patient Instructions Encounter Date Encounter Id Patient Instructions Last Modified By Organization Details Last Modified Time 12/13/2022 [id number] A healthy lifestyle: care instructions Not available 12/13/2022 09:33:45 Quitting Tobacco: Care Instructions Not available 12/13/2022 09:33:45 diabetic eye exam* [email or web address] Not available 03/05/2023 09:40:03 03/08/2023 [id number] A healthy lifestyle: care instructions Not available 03/23/2023 14:43:14 Quitting Tobacco: Care Instructions Not available 03/08/2023 09:25:15 IRVIN Roach Discussed with REBECCA Pham Not available 03/08/2023 09:27:30 06/07/2023 [id number] A healthy lifestyle: care instructions [email or web address] Not available 06/07/2023 09:01:45 Quitting Tobacco: Care Instructions [email or web address] Not available 06/07/2023 09:01:45 IRVIN Wolf Discussed with REBECCA Pham Not available 06/07/2023 09:16:01 09/11/2023 [id number] Quitting Tobacco: Care Instructions brent Not available 09/11/2023 09:51:02 A healthy lifestyle: care instructions [email or web address] Not available 09/11/2023 09:51:02 Sanjuana BRYAN Discussed with Ama [email or web address] Not available 09/11/2023 09:50:31 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 for Referral 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 Referring Physician: Maile [facility], Encounter Date: 12/13/2022 Sleep Medicine Referral for Obstructive sleep apnea syndrome Referring Physician: [facility], Encounter Date: 09/11/2023 Results Created Date Observation Date Name Description Value Unit Range Abnormal Flag Note LastModifiedBy Organization Detail LastModifiedTime 12/13/1912/13/2022 LIPID PANEL cholesterol, total 183.6 mg/dL 140.0- 200.0 Not Available [facility] [address] [place], [address], 12/13/2022 20:08:17 12/13/1912/13/2022 LIPID PANEL triglyceride s 97 mg/dL <=150 Not Available [facility] [address] [place], [address], 12/13/2022 20:08:17 12/13/19 23 12/13/2022 LIPID PANEL HDL cholesterol 49.7 mg/dL 40.0-1 00.0 Not Available [facility] [address] [place] [address], [address], 12/13/2022 20:08:17 12/13/19 23 12/13/2022 LIPID PANEL VLDL cholesterol schuyler 19.40 mg/dL 5.00-4 0.00 Not Available [facility] [address] [place], [address], 12/13/2022 20:08:17 12/13/19 23 12/13/2022 LIPID PANEL LDL chol calc (rust) 116.2 Not Available [facility] [address] [place] [address], [address], 12/13/2022 20:08:17 12/13/19 23 12/13/2022 COMP. METAB OLIC PANEL (14) glucose 294 mg/dL 65-99 above high normal ANION GP 13.0 mmol/ L N OSMOL 287.0 mOsM/ L N REFER ENCE RANGE : 275.0 -301. 0 Not Available [facility] [address] [place] [address], [address], 12/13/2022 20:08:18 12/13/19 23 12/13/2022 COMP. METAB OLIC PANEL (14) BUN 13 mg/dL 8-26 Not Available [facility] [address] [place], [address], 12/13/2022 20:08:18 12/13/19 23 12/13/2022 COMP. METAB OLIC PANEL (14) creatinine 0.60 mg/dL 0.50-1 .40 Not Available [facility] [address] [place], [address], 12/13/2022 20:08:18 12/13/19 23 12/13/2022 COMP. METAB OLIC PANEL (14) eGFR 121 mL/mi n/1.7 3 >=60 Not Available [facility] [address] [place] [address], [address], 12/13/2022 20:08:18 12/13/19 23 12/13/2022 COMP. METAB OLIC PANEL (14) BUN/creatini ne ratio 21.7 Not Available [facility] [address] [place], [address], 12/13/2022 20:08:18 12/13/19 23 12/13/2022 COMP. METAB OLIC PANEL (14) sodium 138.0 mmol/ L 136.0- 144.0 Not Available [facility] [address] [place], [address], 12/13/2022 20:08:18 12/13/19 23 12/13/2022 COMP. METAB OLIC PANEL (14) potassium 4.4 mmol/ L 3.5-5. 3 Not Available [facility] [address] [place], [address], 12/13/2022 20:08:18 12/13/19 23 12/13/2022 COMP. METAB OLIC PANEL (14) chloride 102 mmol/ l 101-11 1 Not Available [facility] [address] [place], [address], 12/13/2022 20:08:18 12/13/19 23 12/13/2022 COMP. METAB OLIC PANEL (14) carbon dioxide, total 27.7 mmol/ L 21.0-3 2.0 Not Available [facility] [address] [place], [address], 12/13/2022 20:08:18 12/13/19 23 12/13/2022 COMP. METAB OLIC PANEL (14) calcium 9.6 mg/dL 8.2-10 .0 Not Available [facility] [address] [place], [address], 12/13/2022 20:08:18 12/13/19 23 12/13/2022 COMP. METAB OLIC PANEL (14) protein, total 7.0 g/dL 6.7-8. 2 Not Available [facility] [address] [place], [address], 12/13/2022 20:08:18 12/13/19 23 12/13/2022 COMP. METAB OLIC PANEL (14) albumin 4.5 g/dL 3.5-5. 5 Not Available [facility] [address] [place], [address], 12/13/2022 20:08:18 12/13/19 23 12/13/2022 COMP. METAB OLIC PANEL (14) globulin, total 2.5 g/dL 1.5-4. 5 Not Available [facility] [address] [place] [address], [address], 12/13/2022 20:08:18 12/13/19 23 12/13/2022 COMP. METAB OLIC PANEL (14) A/G ratio 1.8 Not Available [facility] [address] [place], [address], 12/13/2022 20:08:18 12/13/19 23 12/13/2022 COMP. METAB OLIC PANEL (14) bilirubin, total 0.8 mg/dL 0.0-1. 2 Not Available [facility] [address] [place], [address], 12/13/2022 20:08:18 12/13/19 23 12/13/2022 COMP. METAB OLIC PANEL (14) alkaline phosphatase 80.6 IU/L 42.0-1 21.0 Not Available [facility] [address] [place], [address], 12/13/2022 20:08:18 12/13/19 23 12/13/2022 COMP. METAB OLIC PANEL (14) AST (SGOT) 14.0 U/L 10.0-4 2.0 Not Available [facility] [address] [place], [address], 12/13/2022 20:08:18 12/13/19 23 12/13/2022 COMP. METAB OLIC PANEL (14) ALT (SGPT) 13.7 U/L 10.0-6 0.0 Not Available [facility] [address] [place], [address], 12/13/2022 20:08:18 12/13/19 23 12/14/2022 ALBUM IN/CR EAT RATIO , RANDO M UR creatinine, urine 42.4 mg/dL notest ab. Not Available [facility] ([facility]) [address] [place], [address], 12/14/2022 10:37:10 12/13/19 23 12/14/2022 ALBUM IN/CR EAT RATIO , RANDO M UR albumin, urine 49.8 ug/mL notest ab. Not Available [facility] ([facility]) [address] [place], [address], 12/14/2022 10:37:10 12/13/19 23 12/14/2022 ALBUM IN/CR EAT RATIO , RANDO M UR alb/creat ratio 117 mg/g_ creat 0-29 above high normal Pauly l: 0 - 29 Moder ately incre ased: 30 - 300 Sever jonh incre ased: >300 Not Available [facility] ([facility]) [address] [place], [address], 12/14/2022 10:37:10 12/13/19 23 12/13/2022 HbA1c (hemo globi n A1c), blood HbA1c 8.7 % Not Available In-Office Order Internal Use Only DO Not Attach Compendium DO Not Attach Compendium, Do Not Delete/merge, [id number] 12/13/2022 09:05:57 03/08/20 23 03/09/2023 LIPID PANEL cholesterol, total 98.7 mg/dL 140.0- 200.0 below low normal Not Available [facility] [address] [place], [address], 03/09/2023 19:08:50 03/08/20 23 03/09/2023 LIPID PANEL triglyceride s 122 mg/dL <=150 Not Available [facility] [address] [place], [address], 03/09/2023 19:08:50 03/08/20 23 03/09/2023 LIPID PANEL HDL cholesterol 55.1 mg/dL 40.0-1 00.0 Not Available [facility] [address] [place], [address], 03/09/2023 19:08:50 03/08/20 23 03/09/2023 LIPID PANEL VLDL cholesterol schuyler 24.40 mg/dL 5.00-4 0.00 Not Available [facility] [address] [place], [address], 03/09/2023 19:08:50 03/08/20 23 03/09/2023 LIPID PANEL LDL chol calc (rust) 22.1 Not Available [facility] [address] [place], [address], 03/09/2023 19:08:50 03/08/20 23 03/09/2023 COMP. METAB OLIC PANEL (14) glucose 300 mg/dL 65-99 above high normal ANION GP 25.0 mmol/ L N OSMOL 288.0 mOsM/ L N REFER ENCE RANGE : 275.0 -301. 0 Not Available [facility] [address] [place], [address], 03/09/2023 19:08:51 03/08/2003/09/2023 COMP. METAB OLIC PANEL (14) BUN 16 mg/dL 8-26 Not Available [facility] [address] [place], [address], 03/09/2023 19:08:51 03/08/20 23 03/09/2023 COMP. METAB OLIC PANEL (14) creatinine 0.66 mg/dL 0.50-1 .40 Not Available [facility] [address] [place], [address], 03/09/2023 19:08:51 03/08/20 23 03/09/2023 COMP. METAB OLIC PANEL (14) eGFR 118 mL/mi n/1.7 3 >=60 Not Available [facility] [address] [place] [address], [address], 03/09/2023 19:08:51 03/08/20 23 03/09/2023 COMP. METAB OLIC PANEL (14) BUN/creatini ne ratio 24.0 Not Available [facility] [address] [place], [address], 03/09/2023 19:08:51 03/08/20 23 03/09/2023 COMP. METAB OLIC PANEL (14) sodium 138.0 mmol/ L 136.0- 144.0 Not Available [facility] [address] [place], [address], 03/09/2023 19:08:51 03/08/20 23 03/09/2023 COMP. METAB OLIC PANEL (14) potassium 4.7 mmol/ L 3.5-5. 3 Not Available [facility] [address] [place] [address], [address], 03/09/2023 19:08:51 03/08/20 23 03/09/2023 COMP. METAB OLIC PANEL (14) chloride 99 mmol/ l 101-11 1 below low normal Not Available [facility] [address] [place] [address], [address], 03/09/2023 19:08:51 03/08/20 23 03/09/2023 COMP. METAB OLIC PANEL (14) carbon dioxide, total 17.5 mmol/ L 21.0-3 2.0 below low normal Not Available [facility] [address] [place], [address], 03/09/2023 19:08:51 03/08/20 23 03/09/2023 COMP. METAB OLIC PANEL (14) calcium 9.5 mg/dL 8.2-10 .0 Not Available [facility] [address] [place], [address], 03/09/2023 19:08:51 03/08/20 23 03/09/2023 COMP. METAB OLIC PANEL (14) protein, total 6.5 g/dL 6.7-8. 2 below low normal Not Available [facility] [address] [place], [address], 03/09/2023 19:08:51 03/08/20 23 03/09/2023 COMP. METAB OLIC PANEL (14) albumin 4.4 g/dL 3.5-5. 5 Not Available [facility] [address] [place], [address], 03/09/2023 19:08:51 03/08/20 23 03/09/2023 COMP. METAB OLIC PANEL (14) globulin, total 2.1 g/dL 1.5-4. 5 Not Available [facility] [address] [place], [address], 03/09/2023 19:08:51 03/08/20 23 03/09/2023 COMP. METAB OLIC PANEL (14) A/G ratio 2.0 Not Available [facility] [address] [place], [address], 03/09/2023 19:08:51 03/08/20 23 03/09/2023 COMP. METAB OLIC PANEL (14) bilirubin, total 0.6 mg/dL 0.0-1. 2 Not Available [facility] [address] [place], [address], 03/09/2023 19:08:51 03/08/20 23 03/09/2023 COMP. METAB OLIC PANEL (14) alkaline phosphatase 77.4 IU/L 42.0-1 21.0 Not Available [facility] [address] [place], [address], 03/09/2023 19:08:51 03/08/20 23 03/09/2023 COMP. METAB OLIC PANEL (14) AST (SGOT) 15.4 U/L 10.0-4 2.0 Not Available [facility] [address] [place], [address], 03/09/2023 19:08:51 03/08/20 23 03/09/2023 COMP. METAB OLIC PANEL (14) ALT (SGPT) 15.3 U/L 10.0-6 0.0 Not Available [facility] [address] [place], [address], 03/09/2023 19:08:51 03/08/20 23 03/09/2023 CORTI AMANDEEP - AM cortisol - AM 1.2 ug/dL 6.2-19 .4 below low normal Not Available [facility] ([facility]) [address] [place], [address], 03/15/2023 20:10:00 03/08/20 23 03/09/2023 ALBUM IN/CR EAT RATIO , RANDO M UR creatinine, urine 42.2 mg/dL notest ab. Not Available [facility] ([facility]) [address] [place], [address], 03/15/2023 20:10:01 03/08/20 23 03/09/2023 ALBUM IN/CR EAT RATIO , RANDO M UR albumin, urine 12.5 ug/mL notest ab. Not Available [facility] ([facility]) [address] [place], [address], 03/15/2023 20:10:01 03/08/20 23 03/09/2023 ALBUM IN/CR EAT RATIO , RANDO M UR alb/creat ratio 30 mg/g_ creat 0-29 above high normal Pauly l: 0 - 29 Moder ately incre ased: 30 - 300 Sever jonh incre ased: >300 Not Available [facility] ([facility]) [address] [facility], [place], [address], 03/15/2023 20:10:01 03/08/20 23 03/09/2023 B-TYP E NATRI URETI C PEPTI DE B-type natriuretic peptide 8.1 pg/mL 0.0-10 0.0 Sieme ns [facility] XP metho dolog y Not Available [facility] ([facility]) [address] [facility], [place], [address], 03/15/2023 20:10:01 03/08/20 23 03/09/2023 TSH+F REE T4 TSH 0.390 uIU/m L 0.450- 4.500 below low normal Not Available [facility] ([facility]) [address] [facility], [place], [address], 03/15/2023 20:10:02 03/08/2003/09/2023 TSH+F REE T4 T4,free(dire ct) 1.38 NG/dL 0.82-1 .77 Not Available [facility] ([facility]) [address] [place], [address], 03/15/2023 20:10:02 03/08/20 23 03/15/2023 DEXAM ETHAS ONE, SERUM dexamethason e, serum 265 NG/dL This test was devel oped and its perfo rmanc e miguel cteri stics deter mined by [facility]. It has not been clear ed or appro kayden by the Food and Drug Admin istra tion. Refer ence Range : Adult s basel ine: <30 8:00 AM follo wing 1 mg dexam ethas one previ ous eveni n - 295 8:00 AM follo wing 8 mg dexam ethas one (4 x 2 mg doses ) previ ous day: 1600 - 2850 Not Available [facility] ([facility]) [address] [facility], [place], [address], 03/15/2023 20:10:03 03/08/20 23 03/09/2023 HEMOG LOBIN A1C hemoglobin A1C 8.8 % 4.8-5. 6 above high normal Predi abete s: 5.7 - 6.4 Diabe ling: >6.4 Glyce michelle contr ol for adult s with diabe ling: <7.0 Not Available [facility] ([facility]) [address] [facility], [place], [address], 03/15/2023 20:10:04 03/08/20 23 03/09/2023 C-PEP TIDE, SERUM C-peptide, serum 1.1 NG/mL 1.1-4. 4 C-Pep tide refer ence inter devin is for fasti ng patie nts. Not Available [facility] ([facility]) [address] [facility], [place], [address], 03/15/2023 20:10:04 03/08/20 23 03/09/2023 DIABE LING PATIE NT EDUCA TION pdf . Not Available [facility] ([facility]) [address] [facility], [place], [address], 03/15/2023 20:10:03 03/08/20 23 03/08/2023 HbA1c (hemo globi n A1c), blood HbA1c 8.6% Not Available In-Office Order Internal Use Only DO Not Attach Compendium DO Not Attach Compendium, Do Not Delete/merge, [id number] 03/08/2023 09:17:05 06/07/20 23 06/07/2023 HbA1c (hemo globi n A1c), blood HbA1c 7.9% Not Available In-Office Order Internal Use Only DO Not Attach Compendium DO Not Attach Compendium, Do Not Delete/merge, [id number] 06/07/2023 09:01:36 09/11/20 23 09/11/2023 HbA1c (hemo globi n A1c), blood HbA1c 7.0% Not Available In-Office Order Internal Use Only DO Not Attach Compendium DO Not Attach Compendium, Do Not Delete/merge, [id number] 09/11/2023 09:50:18 02/22/20 24 02/22/2024 Hemog lobin A1c/H emogl obin. total in Blood hemoglobin A1C/hemoglob in.total in blood 7 % low: 4.2%hi gh: 5.6% high Hemog lobin A1c 7.0 (H) 4.2 - 5.6 % 02/21 7:19 AM CDT [facility] Not Available Not Available 03/09/2025 11:59:18 02/22/20 24 02/22/2024 Hemog lobin A1c/H emogl obin. total in Blood glucose mean value [mass/volume ] in blood estimated from glycated hemoglobin 154 mg/dL Estim ated [place] ge Gluco se 154 mg/dL 02/21 7:19 AM CDT [facility] Not Available Not Available 03/09/2025 11:59:18 02/22/20 24 02/22/2024 Hemog lobin A1c/H emogl obin. total in Blood Unknown Analyte HbA1c Interp retati on: Normal : < 5.7% Pre-di abetes : 5.7-6. 4% Diabet es: Equal to or greate r than 6.5% Test result s diagno stic of diabet es should be repeat ed for confir mation . Treatm ent target values recomm ended by ADA and other clinic al organi zation s should be used to evalua te metabo lic contro l in patien ts. This test should not replac e glucos e testin g for patien ts with Type 1 diabet es, pediat bert patien ts, or pregna nt women. Falsel y low HbA1c result s may be observ ed in patien ts with clinic al condit ions that shorte n erythr ocyte life span or decrea se mean erythr ocyte age such as the presen ce of unstab le hemogl obin varian ts, elevat ed hemogl obin F level or other causes of hemoly tic anemia . HbA1c may not accura tely reflec t glycem ic contro l when clinic al condit ions that affect erythr ocyte surviv al are presen t. Severe Iron defici ency anemia may yield falsel y high result s. Hemogl obin A1c assay should not be used to diagno se or monito r diabet es in patien ts with malign litzy, recent blood transf usion, chroni c kidney or liver diseas e. This method may yield falsel y low result s when hemogl obin (HbF) exceed s 5% in the specim en. The [employer] y assay for the measur ement of HbA1c is a Nation al Glycoh emoglo bin Standa rdizat ion Progra m (NGSP) certif ied method . HbA1c Inter preta tion: Pauly l: < 5.7% Pre-d iabet es: 5.7-6 .4% Diabe ling: Equal to or great er than 6.5% Test resul ts diagn ostic of diabe ling shoul d be repea cristiano for confi rmati on. Treat ment targe t value s recom ellen d by ADA and other clini schuyler organ izati ons shoul d be used to evalu ate metab olic contr ol in patie nts. This test shoul d not repla ce gluco se testi ng for patie nts with Type 1 diabe ling, pedia tric patie nts, or pregn ant women . False ly low HbA1c resul ts may be obser kayden in patie nts with clini schuyler condi tions that short en eryth rocyt e life span or decre ase mean eryth rocyt e age such as the prese nce of unsta ble hemog lobin varia nts, eleva cristiano hemog lobin F level or other cause s of hemol ytic anemi a. HbA1c may not accur ately refle ct glyce michelle contr ol when clini schuyler condi tions that affec t eryth rocyt e survi devin are prese nt. Sever e Iron defic iency anemi a may yield false ly high resul ts. Hemog lobin A1c assay shoul d not be used to diagn ose or monit or diabe ling in patie nts with malig weston , recen t blood trans fusio n, chron ic kidne y or liver disea se. This metho d may yield false ly low resul ts when hemog lobin (HbF) excee ds 5% in the speci men. The Abbot t Nohemi ty assay for the measu remen t of HbA1c is a Lindy spain Glyco hemog lobin Stand danial ation Progr am (NGSP ) certi fied metho d. Not Available Not Available 03/09/2025 11:59:18 02/22/20 24 02/22/2024 Hemog lobin A1c/H emogl obin. total in Blood interpretati on and review of laboratory results Abnorm al Not Available Not Available 11:59:18 02/25/20 24 02/25/2024 Basic metab olic 1999 panel - Serum or Plasm a glucose [mass/volume ] in serum or plasma 209 mg/dL low: 70mg/d Lhigh: 125mg/ dL high Gluco se 209 (H) 70 - 125 mg/dL 02/24 6:37 AM CDT [facility] Not Available Not Available 03/09/2025 11:59:18 02/25/20 24 02/25/2024 Basic metab olic 1999 panel - Serum or Plasm a sodium [moles/volum e] in serum or plasma 139 mmol/ L low: 136mmo l/Lhig h: 145mmo l/L Sodiu m 139 136 - 145 mmol/ L 02/24 6:37 AM CDT [facility] Not Available Not Available 03/09/2025 11:59:18 02/25/20 24 02/25/2024 Basic metab olic 1999 panel - Serum or Plasm a potassium [moles/volum e] in serum or plasma 3.7 mmol/ L low: 3.4mmo l/Lhig h: 5.1mmo l/L Potas sium 3.7 3.4 - 5.1 mmol/ L 02/24 6:37 AM CDT [facility] Not Available Not Available 03/09/2025 11:59:18 02/25/20 24 02/25/2024 Basic metab olic 2000 panel - Serum or Plasm a chloride [moles/volum e] in serum or plasma 106 mmol/ L low: 98mmol /Lhigh : 107mmo l/L Chlor adilene 106 98 - 107 mmol/ L 02/24 6:37 AM CDT [facility] Not Available Not Available 03/09/2025 11:59:18 02/25/20 24 02/25/2024 Basic metab olic 1999 panel - Serum or Plasm a carbon dioxide, total [moles/volum e] in serum or plasma 27 mmol/ L low: 22mmol /Lhigh : 29mmol /L CO2 27 22 - 29 mmol/ L 02/24 6:37 AM CDT [facility] Not Available Not Available 03/09/2025 11:59:18 02/25/20 24 02/25/2024 Basic metab olic 1999 panel - Serum or Plasm a calcium [mass/volume ] in serum or plasma 8.83 mg/dL low: 8.4mg/ dLhigh : 10.2mg /dL Calci um 8.83 8.4 - 10.2 mg/dL 02/24 6:37 AM CDT [facility] Not Available Not Available 03/09/2025 11:59:18 02/25/20 24 02/25/2024 Basic SheZoom olic 1999 panel - Serum or Plasm a anion gap in blood by calculation 6 mmol/ L low: 6mmol/ Lhigh: 16mmol /L Anion Gap 6 6 - 16 mmol/ L 02/24 6:37 AM CDT [facility] Not Available Not Available 03/09/2025 11:59:18 02/25/20 24 02/25/2024 Basic metab olic 1999 panel - Serum or Plasm a urea nitrogen [mass/volume ] in serum or plasma 11.6 mg/dL low: 8.4mg/ dLhigh : 25.7mg /dL BUN 11.6 8.4 - 25.7 mg/dL 02/24 6:37 AM CDT [facility] Not Available Not Available 03/09/2025 11:59:18 02/25/20 24 02/25/2024 Basic SheZoom olic 1999 panel - Serum or Plasm a creatinine [mass/volume ] in serum or plasma 0.58 mg/dL low: 0.72mg /dLhig h: 1.25mg /dL low Creat inine 0.58 (L) 0.72 - 1.25 mg/dL 02/24 6:37 AM CDT [facility] Not Available Not Available 03/09/2025 11:59:18 02/25/20 24 02/25/2024 Basic metab olic 2000 panel - Serum or Plasm a glomerular filtration rate [volume rate/area] in serum, plasma or blood by creatinine-b ased formula (CKD-epi)/1. 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 Apprentice Electrician Name Role Phone Olivier Boyce DO Primary Care Provider Encounters Date Type Department Care Team Description 02/12/2025 9:10 AM CDT Office Visit [facility] Orthopaedic Surgery [address] [place] [address] Carlos Hart MD Biceps tendinitis of left shoulder (Primary Dx) from Last 3 Months Allergies Active Allergy Reactions Criticality Noted Date Comments Ang[place]-3 Fatty Acids Nausea & Vomiting Low 4 Oxycodone Itching Low 09/01/2024 Cadqdsa-Puf-Lka Reductase Inhibitors Nausea & Vomiting High 05/04/2021 [...] Diagnosed Date Resolved Date Snoring 03/10/2021 05/04/2021 Social History Tobacco Use Types Packs/Day Years [...] on file 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 Gender Identity Not on file Sexual Orientation [...] 08/15/2024 4:15 PM CDT Plan of Treatment Not on file Medical Devices Implanted Type Area Kick Boxer Device Identifier Shelf Expiration Date Model / Serial / Lot [employer] Fiberloop 3.2mm Drill Pin Needle Shoehorn Cannula Kit Suture Ar-2290 - [id number] Implanted:Qty : 1 on 09/01/2024 by Carlos Hart MD at [facility] Left: Shoulder [employer] [id number] 04/25/2029 AR-2290 / / [id number] Procedures Procedure Name Priority Date/Time Associated Diagnosis [...] 1:20 PM CDT 03/11/2021 1:20 PM CDT us Otto Peng MD LAB BLOOD ORDERAB[place] [address] [address] Department [place] [address] from Last 3 Months or Most Recently Relevant to Health Maintenance Insurance [employer]ENSATION GENERIC Care Teams 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
[2025-04-10 15:30] LABS: Hematocrit 45.3 % (40.0-54.0); Hemoglobin 15.9 g/dL (14.0-18.0)
[2025-04-10 15:45] LABS: INR 0.9; Partial Thromboplastin Time 25.2 Sec (23.9-30.70); Prothrombin Time 10.2 Seconds (9.50-12.1)
[2025-04-10 15:50] LABS: Anion Gap 6 mmol/L (4-12); Blood Urea Nitrogen 19 mg/dL (9-20); Calcium 8.7 mg/dL (8.4-10.2); Carbon Dioxide 27 mmol/L (22-30); Chloride 104 mmol/L (98-107); Estimated Glomerular Filt Rate > 60; Glucose 237 mg/dL (65-110); Osmolality Calculated 294 mOsm/kg (285-295); Potassium 4.2 mmol/L (3.4-5.0); Sodium 137 mmol/L (137-145)
== END 2025-04-10 14:58 | disposition home or self-care (01) ==
PROVIDERS: PCP Family Medicine; Visit Provider Anesthesiology
DX: Z01.818 Encounter for other preprocedural examination (principal); E11.9 Type 2 diabetes mellitus without complications; D69.6 Thrombocytopenia, unspecified; I10 Essential (primary) hypertension; E78.5 Hyperlipidemia, unspecified; I21.9 Acute myocardial infarction, unspecified; R94.31 Abnormal electrocardiogram [ECG] [EKG]
CPT/HCPCS: 36415; 80048; 85014; 85018; 85610; 85730; 93005

== ENCOUNTER 2025-04-13 00:36 | Day surgery (SDC) | payer OTHER, SELFPAY ==
[2025-04-10 14:09] VITALS: BMI 32.3
--- NOTE | 2025-04-10 14:23 | PC.NURSE ---
Report to the Outpatient Waiting Room, entrance under the green pavilion located off [facility], at time ___0645am____ on date ___04/13/25____. Planned Procedure Time: __0845am . Time changes happen often and if your time is changed the preop area will call you the afternoon before. - You and your visitor will be asked to self-screen and do not enter if you have any COVID symptoms. Please call surgeon if you need to reschedule. - A mask is optional within the hospital at this time. Patients may have clear liquids (water, carbonated beverages, clear teas, apple juice) until 3 hours prior to surgery with a maximum of 20 ounces. - No food from midnight until time of surgery and no smoking, or chewing tobacco (or any form of nicotine). No chewing gum, candy or mints. (05:45am) Take only the following medications with a SIP of water on the morning of surgery: ____Coreg, Amlodipine and Hydralizine DO NOT STOP ANY OF YOUR OTHER PRESCRIPTION MEDICATIONS PRIOR TO SURGERY EXCEPT THE FOLLOWING Medications to discontinue per physician ____None Date to take last dose____None Please no make-up, nail amharic, hairspray, perfume, deodorant, or body powder the day of surgery. No jewelry (including any body piercings) or valuables the day of surgery, leave them at home. Please take a shower or bath the night before, or the morning of, surgery with an antibacterial soap. Wear comfortable, loose fitting clothing. - Jewelry must be removed prior to entering the operating room. Rings and piercings that are not removed may be cut off. - The hospital will not accept responsibility for valuables. - Please leave all valuables, including medications, at home the day of surgery. If you are going home after surgery, a licensed owner operator tanker truck driver must drive you home. - NO public transportation without another adult if you receive anesthesia. - We recommend that an adult stay with you for 24 hours following discharge. - We also recommend that you do not drive, make important decision, drink alcoholic beverages, or take any drugs that were not prescribed by your health care provider for at least 24 hours after your discharge time. Follow any additional instructions given to you from your surgeon. Telephone instructions given to ____Patient and asked if any additional questions and then verbalized understanding. Patient advised to call surgeon office or pre surgery nurse liaison [phone] if any additional questions.
[2025-04-13] VITALS (8 sets, daily range): BP systolic 125–157; BP diastolic 75–92; PULSE 66–73; RESP 16–26; TEMP 36.1–36.7; O2SAT 97–100
--- OUTSIDE RECORDS SUMMARY | 2025-04-13 00:43 | XMS_ITS | CONTINUITY OF CARE DOCUMENT ---
Author Name kwame, kwame Address Unknown Organization [facility] Address [address] [place] [address] Phone [phone] Care Team Providers Care Record Tabulating Clerk Name Role Phone Etienne Pfeiffer MD Unavailable [phone] AC FLORES Unavailable [phone] MARGARITA CHET Unavailable PROBLEMS Condition Status Date Provider Notes Cardiology examination active Velasquez Hinojosaina ri Hx of atrial fibrillation (Afib) active Frantz singh Efren Aortic root dilatation active Velasquez Rojas ri Hypertension active Velasquez Efren Hyperlipidemia active Velasquez Efren Snoring active Velasquez Efren Tobacco abuse active Velasquez Efren Obesity active Velasquez Efren Diabetes mellitus active Velasquez Efren ENCOUNTERS Date Type Provider Location Encounter Diag nosis 08/13 - 08/15 In-person encounter Office Visit Etienne Pfeiffer MD [facility] 08/15 - 08/15 In-person encounter Office Visit Etienne Pfeiffer MD [facility] 07/16 - 07/16 In-person encounter Office Visit Etienne Pfeiffer MD [facility] Cardiology examinationHx of atrial fibri llation [...] Stacey Shearer weight E&M 249 [lb_av] Stacey Brighton respiratory rate E&M 12 /min Stacey Brighton height E&M 72 [in_i] Stacey Brighton Body Mass Index (Ratio) 37.70 kg/m2 Sandra es Efren blood pressure, cuff size large [facility] blood pressure, diastolic 83 mm[Hg] Nj et blood pressure, systolic 152 mm[Hg] [facility] pulse rate 70 /min Yadiel respiratory rate E&M 12 /min Yadiel oxygen saturation, oximetry 96 % Yadiel weight E&M 278 [lb_av] Yadiel height E&M 72 [in_i] [facility] Body Mass Index (Ratio) 38.24 kg/m2 [...] three times a day 3 - 3 Birttany Weinberg Farxiga 10 mg tablet completed TAKE [...] d rug of choice marijuana Anaid Ventimiglia [facility] drug use yes Anaid Ventimig anyi [facility] alcohol use no Anaid Ventimig anyi [facility] smoking status Current every da y smoker Anaid Ventimiglia [facility] social history reviewed E&M revi ewed - no changes required Etienne Pfeiffer MD smoking history, tot al pack/day 1.5 Carmen Faustin cigarette use yes Carmen Faustin smoking status Current every da y smoker Carmen Ramin INSURANCE PROVIDERS Payer name Policy type / Coverage type Koloa red constitution party ID [employer] Commercial insuranc e [email or web address] [id number] ADVANCE DIRECTIVES Name Date DISCUSSED - NO DECISION MADE TREATMENT PLAN Date Name Performer [id number],S,weight loss e ncouraged. Anaid Ventimiglia [facility] [id number],S,cessation enc ouraged. Anaid Ventimiglia [facility] [id number],S,H e follows with endo. now on [place] will monitor Anaid Ventimiglia [facility] [id number],S,Planned for I Hs Anaid Ventimiglia [facility] [id number],C,R emains on Repatha. LDL 23 on last labs W ill monitor H is updated medication list for this problem includes: Repatha Pushtronex 420 Mg/3.5 Ml Wearable Injector (Evolocumab) ..... Inject 420 mg under the skin every 30 days Anaid Ventimiglia [facility] [id number],C,A scending aorta moderately dilated at 4.8 cm will monitor closely E ncouraged blood pressure control. Tobacco cessation and weight loss Anaidian Rodriguez [facility] [id number],S,B P 152/83 R eports controlled at home [...] by mouth twice a day Anaidian Contrerasmihir [facility] [id number],S, H is updated medication list for this problem includes: Repatha Pushtronex 420 Mg/3.5 Ml Wearable Injector (Evolocumab) ..... Inject 420 mg under the skin every 30 days O rders: 9 9205 HIGH 60-74 min (CPT-73851) S lee Study Home (CPT-24218) C omplete Echo (CPT-16783) R enal Artery Duplex (CPT-26774) Etienne Pfeiffer MD [id number],S,P t has hx of dilated ascending aorta, [...] by mouth twice daily Etienne Pfeiffer MD [id number],S,P t has hx of dilated ascending aorta, HTN, multiple risk factors, no CP or SOB, we will add hydralazine 50mg three times a day, obtain echo, renal artery duplex, home sleep study. Pt advised to stop smoking Etienne Pfeiffer MD [id number],S,T he Patient was reencouraged to stop smoking. Etienne Pfeiffer MD [id number],S, B P today: 165/93 His updated medication [...] mouth twice a day Etienne Pfeiffer MD [id number],S,Will obtain h ome sleep test Etienne Pfeiffer [...] Joaquin Cardiology:weight loss encourage d. Anaid Rodriguez [facility] Cardiology:cessation encouraged. Anaid [facility] Cardiology:He follow s with endo. now on [facility] will monitor Anaid Rodriguez [facility] Cardiology:Planned for [facility] Abby watkins [facility] Cardiology:Remains o n Repatha. LDL 23 on last labs W ill monitor H is updated medication list for this problem includes: Repatha Pushtronex 420 Mg/3.5 Ml Wearable Injector (Evolocumab) ..... Inject 420 mg under the skin every 30 days [facility] Cardiology:Ascending aorta moderately dilated at 4.8 cm will monitor closely E ncouraged blood pressure control. Tobacco cessation and weight loss [facility] Cardiology:BP 152/83 R eports controlled at home [...] 1 tablet by mouth twice a day Victoria Benmihir [facility] Cardiology: H is updated medication list for this problem includes: Repatha Pushtronex 420 Mg/3.5 Ml Wearable Injector (Evolocumab) ..... Inject 420 mg under the skin every 30 days Orders: 9 9205 HIGH 60-74 min (CPT-99535) S leep Study Home (CPT-68541) C omplete Echo (CPT-54203) R enal Artery Duplex (CPT-68063) Etienne Pfeiffer MD Cardiology:Pt has hx of [...]
--- OUTSIDE RECORDS SUMMARY | 2025-04-13 00:43 | XMS_ITS | Continuity of Care Document ---
Author Organization [facility] Address [address] [place] [address] Phone Care Team Providers Care Buildings Painter Name Role Phone Bob North MD Unavailable Unavailable Procedures Procedure Date INITIAL HOSPITAL CARE LVL 2 SUBSEQUENT HOSPITAL VISIT, EXPANDED INITIAL INPT/OBS HOSPITAL CARE LVL 2 May INPATIENT CONSULT, LEVEL 3 Advance Directives Directive Yes / No Effective Date File Name No Information Encounters Encounter Description Practice Location Reason(s) For Visit Diagnoses Date Provider Providers Copied on Encounter INITIAL HOSPITAL CARE LVL 2 [facility], [address], [place], [place], [id number], [place] tel:[phone] [facility] No Information Mary Anne Rojas. [address], [place], [id number], [place]. tel:[phone] Referring Provider: Joshua Richardson, [address] , [place], [address]. tel:[phone] Family History Family Member Type Diagnosis Age At Onset No Information Payers Payer name Insurance type Covered libertarian ID Authoriza tion(s) [employer] [employer] [id number] Social History Type Description Quantity Date Captured [...]
--- OUTSIDE RECORDS SUMMARY | 2025-04-13 00:43 | XMS_ITS | Clinical Summary ---
Author Organization [facility] Address [address] [place] [address] Care Team Providers Care Hims Manager Name Role Phone Unavailable Primary Care Provider Unavailabl e Source Comments [facility],non-owned Affiliates and Associated Physician Practices is amultiple site organization consisting of ambulatory clinics and hospital sitesin [place], [place], [place] and [place]. This disclosure is being madepursuant to the Care Everywhere program and may not contain all information available regarding this patient. Last updated 18.[facility] Allergies Active Allergy Reactions Criticality Noted Date Comments Oxycodone-Acetaminophen Itching Low 07/02/2017 Nmykll-Aduqs-Bupytq-Fa-Fishoil Vomiting Medium 02/20 Hmg-Coa-R Inhibitors Vomiting 02/21/2024 [...] vitamin D, ergocalciferol , (Drisdol) 1.25 MG (12683 UT) capsuleIndicat ions:Vitamin D Deficiency Take 1 [...] medical care, and heating? Somewhat hard 02/21/2024 [facility] [place] [facility] Occupat ional [facility] - Occupational Stress [...] place to sleep or slept in a alf (including now)? No 02/21/2024 Sex and Gender [...] PANEL (CALCIUM TOTAL) (02/25/2024 6:15 AM CDT) [facility] Glucose 209(H) 70 - 125 mg/dL 02/25/2024 6:37 AM CDT [facility] Sodium 139 136 - 145 mmol/L 02/25/2024 6:37 AM CDT [facility] Potassium 3.7 3.4 - 5.1 mmol/L 02/25/2024 6:37 AM CDT [facility] Chloride 106 98 - 107 mmol/L 02/25/2024 6:37 AM CDT [facility] CO2 27 22 - 29 mmol/L 02/25/2024 6:37 AM CDT [facility] Calcium 8.83 8.4 - 10.2 mg/dL 02/25/2024 6:37 AM CDT [facility] Anion Gap 6 6 - 16 mmol/L 02/25/2024 6:37 AM CDT [facility] BUN 11.6 8.4 - 25.7 mg/dL 02/25/2024 6:37 AM CDT [facility] Creatinine 0.58(L) 0.72 - 1.25 mg/dL 02/25/2024 6:37 AM CDT [facility] eGFR >90 >90 mL/min/1.7 3m2 02/25/2024 6:37 AM CDT [facility] Comment:The GFR result was c alculated using the updated CKD-EPI Creatinine Equation (2020). Blood BLOOD SPECIMEN / Unknown Lab Venipuncture / Unknown 02/25/2024 6:15 AM CDT 02/25/2024 6:15 AM CDT Chi Le ADVERTISING MANAGER-BAR HELPER LAB - CHEMISTRY OR DERABLES Final Result Performing Organization Address City/State/[facility] Co de Phone Number [facility] [address] * (ABNORMAL) HEMOGLOBIN A1C (02/22/2024 6:10 AM CDT) [facility] Hemoglobin A1c 7.0(H) 4.2 - 5.6 % 02/22/2024 7:19 AM CDT [facility] Estimated Average Glucose 154 mg/dL 02/22/2024 7:19 AM CDT [facility] Blood BLOOD SPECIMEN / Unknown Lab Venipuncture / Unknown 02/22/2024 6:10 AM CDT 02/22/2024 6:17 AM CDT Narrative [facility] - 02/22/2024 7:19 AM CDT [...] Standardization Program (NGSP) certified method. Chi Le ADVERTISING MANAGER-[facility] LAB - CHEMISTRY OR DERABLES Final Result Performing Organization Address City/State/[facility] Co de Phone Number [facility] [address] from Last 3 Months or Most Recently Relevant to Health Maintenance Insurance MEDICAID - [place] PRIVATE [employer] [place] [id number] Advance Directives * Full Code (Latest Code [...]
--- OUTSIDE RECORDS SUMMARY | 2025-04-13 00:43 | XMS_ITS | Clinical Summary ---
[facility] Address [address] [place] [address] Care Team Providers Care Layout Man Name Role Phone Unavailable Primary Care Provider Unavailabl e Allergies Active Allergy Reactions Criticality Noted Date Comments Parmelia Perlata Itching Low 07/10/2024 Tyfsvwj-Sty-Tgi Reductase Inhibitors Nausea and Vomiting High 05/04/2021 [...]
--- OUTSIDE RECORDS SUMMARY | 2025-04-13 00:44 | XMS_ITS | Data Portability ---
Author Organization [place] [facility], Main Office Address [address] [place] [address] Care Team Providers Care Military Science Teacher Name Role Phone RAMA RIVERO Hydraulic Plumber Helper [phone] LIZZY VICENTE Primary Care Provider KAVON ESPINOZA Referring Provider [phone] Assessment Encounter Date Assessment Date Assessment LastModified by Organization Details LastModified Time 09/13/2023 09/13/2023 Assessment: Moderate OSAHS, AHI = 23 PLMD Hypoventilation Plan: The following were reviewed and explained to the patient: primary care/referral note [facility] home sleep study 08/16/23 AHI = 23 [...] were reviewed and explained to the patient: [facility] home sleep study 08/16/23 AHI = 23 [facility] titration sleep study 10/05/23 ResMed medium AirFit [...] carrier. Patient will setup an appointment with [facility] for supplies and pressure adjustments. A major [...] + ferritin, serum 2022 023 [email or web address] [facility], [address] [place], [address], 4 14:28:02 folate, RBC 2022 023 [email or web address] [facility], [address] [place], [address], 4 14:28:02 vitamin B12, serum 2022 023 [email or web address] 25 [facility], [address] [place], [address], 4 14:28:02 ESR (erythrocyt e sedimentati on rate), blood 2022 023 [email or web address] 25 [facility], [address] [place], [address], 4 14:28:02 hemoglobin + hematocrit, blood 2022 023 [email or web address] [facility], [address] [place], [address], 4 14:28:02 bun (blood urea nitrogen), serum or plasma 2022 023 [email or web address] 25 [facility], [address] [place], [address], 4 14:28:02 creatinine, serum or plasma 2022 023 [email or web address] 25 [facility], [address] [place], [address], 4 14:28:03 magnesium, serum or plasma 2022 023 [email or web address] 25 [facility], [address] [place], [address], 4 14:28:03 vitamin E, serum 2022 023 [facility], [address] [place], [address], 3 10:36:41 cortisol, am, serum 2022 023 [email or web address] [facility], [address] [place], [address], 3 11:57:34 dexamethaso ne, serum 2022 023 [email or web address] [facility], [address] [place], [address], 3 11:57:34 lipid panel, serum 2022 023 [facility], [address] [place], [address], 3 11:11:05 TSH + free T4, serum 2022 023 [email or web address] [facility], [address] [place], [address], 3 11:57:34 HbA1c (hemoglobin A1c), blood 2022 023 [email or web address] [facility], [address] [place], [address], 3 11:57:33 CMP, serum or plasma 2022 023 [facility], [address] [place], [address], 3 11:11:04 microalbumi n/creatinin e, mass ratio, urine 2022 023 [email or web address] [facility], [address] [place], [address], 3 11:57:34 C-peptide, serum 2022 023 [facility], [address] [place], [address], 3 08:14:55 Referral None recorded. Procedures None recorded. Surgeries None recorded. Imaging polysomnogr am, titration study - no auth required 2022 023 [facility] [place], [address] [place], [address], 3 11:56:23 Medication Orders dexamethaso ne 1 mg tablet 2022 023 [email or web address] [facility], [facility], [address], 3 18:21:19 metformin ER 500 mg tablet,exte nded release 24 hr 2022 023 [facility], [address] [place], [address], 3 11:55:02 Patient TargetsNo targets recorded. Patient InstructionsNo instructions recorded. Reason for Referral None Reported. Results Created Date Observation Date Name Description Value Unit Range Abnormal Flag Note LastModifiedBy Organization Detail LastModifiedTime 09/12/2008/16/2023 home sleep study No observ ation record ed. BARCODE Not Available 2022 19:05:49 10/23/2010/05/2023 polys omnog wilfredo, titra tion study No observ ation record ed. BARCODE [facility] [place] [address] [place], [address], 10/23/2023 11:56:23 Result Notes None recorded. Problems Name Problem SNOMED Code Status Onset Date Resolution Date Notes Provider Name and Address Organization Details Recorded Time Disorder of rotator cuff 252929489 Active Not Available [facility] 3 16:27:13 Latent autoimmune diabetes mellitus in adult 555124895 Active 2021 Not Available [facility] 3 16:27:13 Essential hypertension 86955435 Active 2021 Not Available [facility] 3 16:27:14 Dyslipidemia 448806862 Active 2022 Melvi Pierson MD [address] [employer], [address], [place], [address] , [employer] 3 11:52:59 Obstructive sleep apnea syndrome 39704052 Active 2022 Lamberto Mei MD [address] [employer], [address], [place], [address] , [employer] 3 09:37:08 Periodic limb movement disorder 893755615 Active 2022 Lamberto Mei MD [address] [facility], [address], [place], [address] , [employer] 3 09:20:39 Notes:Medical History: Nicot ine use Rhinitis Obesity with mod OSAHS, AHI = 23, 08/16/23, on CPAP c/o IVRC Paroxysmal atrial fibrillation 2014 Hypertension Hyperlipidemia T2DM STU PLMD Tinea cruris Procedure History: Right rotator cuff surgery 2018 Left rotator cuff surgery 2019 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 Procedures Surgical History Date Name Laterality Status Provider Name and Address Organization Details Recorded Time Rotator cuff surgery completed Not Available [facility] 01/24/2023 16:26:42 Imaging Results Imaging Date Name Status LastModified by Organiz ation Details LastModified Time 08/16/2023 home sleep study completed [facility] Information not available 09/12/2023 19:05:49 10/05/2023 polysomnogram, titration study completed [facility] [address] [place], [address], 10/23/2023 11:56:23 Procedure Notes None recorded. Medical Equipment None Reported. Allergies Allergen ID Allergen Name Allergen Category Reaction Reaction Severity Criticality Documentation Date Start Date Code Code System Note Provider Name and Address Organization Details Recorded Time 70322 acetamino phen / oxycodone medicatio n itching Not available Not available 09/11/2023 28679 3 RxNorm Lamberto Mei MD [address] [facility], [facility] [address], [place], [address] , [facility] [place] [facility] 18:23:59 Medications Name Sig Start Date Stop [...] Available Not Available Not Available Dexcom G6 Sawmill Manager USE DIRECTED 09/11 completed Not Available Not [...] % 98 % 80 /min 97.9 [degF] 174277. 03 g 160 mm[Hg] 95 mm[Hg] Not Available [employer] 3 16:26:47 Date Recorded Body height Body mass index (BMI) Body weight Body temperature Heart rate Systolic blood pressure Diastolic blood pressure Provider Name and Address Organization Details Last Updated DateTime 3 185.42 cm 35.1 kg/m2 379321. 57 g 97.6 [degF] 87 /min 140 mm[Hg] 86 mm[Hg] Haley Hodges CMA [employer] 3 11:39:42 Date Recorded Body height Body temperature Provider N alberto and Address Organization Details Last Updated DateTime 04/05/2023 185.42 cm 97.6 [degF] SELAM Cruz [place] [employer] 04/05/2023 15:38:25 Date Recorded Body height Body mass index (BMI) Body weight Body temperature Heart rate Oxygen saturation Oxygen saturation in Arterial blood by Pulse oximetry Provider Name and Address Organization Details Last Updated DateTime 3 185.42 cm 36.7 kg/m2 369901. 68 g 97.3 [degF] 69 /min 98 % 98 % Joyce Huff RN [place] [employer] 3 09:38:56 Date Recorded Heart rate Respiratory rate Systolic blood pressure Diastolic blood pressure Provider Name and Address Organization Details Last Updated DateTime 09/13/2023 69 /min 15 /min 132 mm[Hg] 88 mm[Hg] Lamberto velazquez MD [address] [place] [address], [address] , [place] [employer] 09/13/2023 09:41:57 Date Recorded Body height Body mass index (BMI) Body weight Body temperature Heart rate Oxygen saturation Oxygen saturation in Arterial blood by Pulse oximetry Systolic blood pressure Diastolic blood pressure Provider Name and Address Organization Details Last Updated DateTime 3 185.42 cm 36.8 kg/m2 648774. 27 g 98.3 [degF] 78 /min 97 % 97 % 126 mm[Hg] 84 mm[Hg] Heidi Gutierrez MA [place] [employer] 09:37:52 Date Recorded Heart rate Respiratory rate Provider Marizol dominguez and Address Organization Details Last Updated DateTime 11/05/2023 78 /min 15 /min Lamberto Mei MD [address], [facility] [address], [place], [address], [place] [facility] [place] [employer] [facility] 11/05/2023 10:00:33 Social History Question Answer Notes LastModified by Organizat ion Details LastModified Time Tobacco Smoking Status Current Every Day Smoker Not Available [facility] 01/24/2023 16:26:37 What Is Your Level Of Caffeine Consumption? Moderate [id number] Information not available 01/24/2023 Do You Have An Electrostatic Air Filter? Yes [email or web address] Information not available 09/13/2023 Do You Have Moisture Problems In Your Home? No [email or web address] Information not available 09/13/2023 What Is Your Relationship Status? [id number] Information not available 01/24/2023 Do You Have Smoke And Carbon Monoxide Detectors In Your Home? Yes [email or web address] Information not available 09/13/2023 At What Age Did You Start Smoking Tobacco? 22 [id number] Information not available 01/24/2023 Are You Passively Exposed To Smoke? Yes [email or web address] Information no t available 09/13/2023 How Much Tobacco Do You Smoke? 1 PPD [id number] Information not available 01/24/2023 Sex: Male Functional Status Question Answer Note LastModified by Organizat ion Details LastModified Time Do you use any illicit or recreational drugs? No [id number] Information not available 01/24/2023 What is your level of alcohol consumption? Occasional [id number] Information not available 01/24/2023 Are you currently employed? 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 Family History Relationship Description Onset Age of this Age Resolved Age Notes LastModified by Organization Details LastModified Time Mother Diabetes mellitus [id number] Not available 01/24/2023 16:26:43 Daughter Diabetes mellitus [id number] Not available 01/24/2023 16:26:43 Son Diabetes mellitus [id number] [id number] Not available 01/24/2023 16:26:43 Maternal Grandmother Congestive heart failure [email or web address] Not available 2022 09:48:41 Paternal Grandfather Malignant neoplasm of lung [email or web address] Not available 2022 09:48:57 Father Malignant tumor of pancreas [email or web address] Not available 2022 09:49:24 Medical History Condition Response EYE PROBLEMS Y HAVE YOU BEEN HOSPITALIZED OR SEEN IN [facility] ER IN THE PAST YEAR ? Y DIABETES, TYPE Y GI PROBLEMS Y HEART DISEASE/HEART PROBLEMS Y HYPERTENSION Y Past Encounters Encounter ID Performer Location Encounter Start Date Encounter Closed Date Diagnosis/Indication Diagnosis SNOMED-CT Code Diagnosis ICD10 Code Diagnosis Note [id number] [facility] _ATHENA_M IGRATION_ DEFAULT_1 _1 , 06/15/2022 00:00:00 06/15/2022 15:55:00 [id number] [facility] _ATHENA_M IGRATION_ DEFAULT_1 _1 , 07/13/2022 00:00:00 07/13/2022 11:20:17 [id number] [facility] [address] [place] [address] 10/16/2022 00:00:00 10/16/2022 10:13:16 [id number] Melvi Pierson MD [facility] [address] [place] [address] 02/12/2023 11:32:29 02/12/2023 12:45:07 Latent autoimmune diabetes mellitus in adult 906362969 E13.9 a1c 9% - will provide a [...] pump start-this is to be scheduled. Dyslipidemia 326462525 E 78.5 Continue on statin therapy. Weight gain 2799431 R63. 5 Will send for low dose [...] he chooses to go outside of the [facility] system to obtain labwork he was [...] completed his labwork so we are aware [id number]|2025-04-13 00:44:00|2025-04-13 00:44:00|XMS_ITS|BKG DADEWAYNEON|External Medical Summaries|[id number]|" Data Portability Created on: April 13, 2025 Conor Aaron .[id number] : 1975 Sex: Male Author Organization Vicki LAM Address [address] [facility] [place] [address] Care Team Providers Care Military Science Teacher Name Role Phone FRANKLIN CHILEL Orthopedic Surgeon MAILE CASEY Primary Care Provider [phone] Assessment Encounter Date Assessment Date Assessment LastModified [...] for nails. Sooner should any issues arise [address], [id number] [email or web address] Not available 03/28/2023 16:49:32 Plan of Treatment Reminders Order Date Submit Date Provider Last Modified By Organization Details Last Modified Time Details Appointments None recorded . Lab HbA1c (hemoglo bin A1c), blood 2022 023 In-Office Order, Internal Use Only DO Not Attach Compendium DO Not Attach Compendium, Do Not Delete/merge, [id number] 3 09:51:02 HbA1c (hemoglo bin A1c), blood 2022 023 In-Office Order, Internal Use Only DO Not Attach Compendium DO Not Attach Compendium, Do Not Delete/merge, [id number] 3 09:01:46 BNP (B-type natriure tic peptide) , serum or plasma 2022 023 [facility], [address], [address], [place], [address], 20:10:01 lipid panel, serum 2022 023 [facility], [address], [address], [place], [address], 19:08:51 TSH + free T4, serum 2022 023 [facility], [address] [facility] [address], [address], [place], [address], 20:10:02 cortisol , am, serum 2022 023 [facility], [facility] [address], [address], [place], [address], 20:10:00 dexameth asone, serum 2022 023 NATO [facility]UNO[facility], [facility] [address], [address], [place], [address], 20:10:03 HbA1c (hemoglo bin A1c), blood 2022 023 [facility], [facility] [address], [address], [place], [address], 20:10:04 CMP, serum or plasma 2022 023 [facility], [facility], [address], [place], [address], 19:08:51 microalb umin/cre atinine, mass ratio, urine 2022 023 [facility], [address] [place], [place] [address], [address], [place], [address], 3 20:10:01 C-peptid e, serum 2022 023 NATO SYED, [address], [address], [place], [address], 3 20:10:04 HbA1c (hemoglo bin A1c), blood 2022 023 In-Office Order, Internal Use Only DO Not Attach Compendium DO Not Attach Compendium, Do Not Delete/merge, [id number] 3 09:22:46 HbA1c (hemoglo bin A1c), blood 2022 023 In-Office Order, Internal Use Only DO Not Attach Compendium DO Not Attach Compendium, Do Not Delete/merge, [id number] 3 09:33:45 CMP, serum or plasma 2022 023 [facility], [address], [address], [place], [address], 3 20:08:18 lipid panel, serum 2022 023 [facility], [address], [address], [place], [address], 3 20:08:18 microalb umin/cre atinine, mass ratio, urine 2022 023 [facility], [address], [address], [place], [address], 3 10:37:10 Referral sleep medicine referral 2022 023 [facility] [place], [address] [place] [address], [address], 4 15:06:[address] referral 2022 023 bernardo Garcia DPM, [address] [facility], [place], [address], 12:05:13 Procedures None recorded . Surgeries None recorded . Imaging None recorded . Medication Orders furosemi de 20 mg tablet 2022 023 [facility], [facility], [address], 3 09:53:06 hydrochl orothiaz adilene 12.5 mg tablet 2022 023 [email or web address], [address] [place], [address], 11:51:54 Patient TargetsNo targets recorded. Patient Instructions Encounter Date Encounter Id Patient Instructions Last Modified By Organization Details Last Modified Time 12/13/2022 [id number] A healthy lifestyle: care instructions Not available 12/13/2022 09:33:45 Quitting Tobacco: Care Instructions Not available 12/13/2022 09:33:45 diabetic eye exam* [email or web address] Not available 03/05/2023 09:40:03 03/08/2023 [id number] A healthy lifestyle: care instructions Not available 03/23/2023 14:43:14 Quitting Tobacco: Care Instructions Not available 03/08/2023 09:25:15 IRVIN Roach Discussed with REBECCA Pham Not available 03/08/2023 09:27:30 06/07/2023 [id number] A healthy lifestyle: care instructions Not available 06/07/2023 09:01:45 Quitting Tobacco: Care Instructions Not available 06/07/2023 09:01:45 IRVIN Wolf Discussed with REBECCA Pham Not available 06/07/2023 09:16:01 09/11/2023 [id number] Quitting Tobacco: Care Instructions Not available 09/11/2023 09:51:02 A healthy lifestyle: care instructions Not available 09/11/2023 09:51:02 Sanjuana BRYAN Discussed with Ama Casey PA-C Not available 09/11/2023 09:50:31 Reason for Referral Environmental Science Program Director 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 Referring Physician: Maile Casey, Core Feeder, Encounter Date: 12/13/2022 Sleep Medicine Referral for Obstructive sleep apnea syndrome Referring Physician: Maile Casey Core Feeder, Encounter Date: 09/11/2023 Results Created Date Observation Date Name Description Value Unit Range Abnormal Flag Note LastModifiedBy Organization Detail LastModifiedTime 12/13/1912/13/2022 LIPID PANEL cholesterol, total 183.6 mg/dL 140.0- 200.0 Not Available [facility] [address] [place], [address], 12/13/2022 20:08:17 12/13/1912/13/2022 LIPID PANEL triglyceride s 97 mg/dL <=150 Not Available [facility] [address] [place], [address], 12/13/2022 20:08:17 12/13/19 23 12/13/2022 LIPID PANEL HDL cholesterol 49.7 mg/dL 40.0-1 00.0 Not Available [facility] [address] [place], [address], 12/13/2022 20:08:17 12/13/19 23 12/13/2022 LIPID PANEL VLDL cholesterol schuyler 19.40 mg/dL 5.00-4 0.00 Not Available [facility] [address] [place], [address], 12/13/2022 20:08:17 12/13/19 23 12/13/2022 LIPID PANEL LDL chol calc ([facility]) 116.2 Not Available [facility] [address] [place], [address], 12/13/2022 20:08:17 12/13/19 23 12/13/2022 COMP. METAB OLIC PANEL (14) glucose 294 mg/dL 65-99 above high normal ANION GP 13.0 mmol/ L N OSMOL 287.0 mOsM/ L N REFER ENCE RANGE : 275.0 -301. 0 Not Available [facility] [address] [place] [address], [address], 12/13/2022 20:08:18 12/13/19 23 12/13/2022 COMP. METAB OLIC PANEL (14) BUN 13 mg/dL 8-26 Not Available [facility] [address] [place] [address], [address], 12/13/2022 20:08:18 12/13/19 23 12/13/2022 COMP. METAB OLIC PANEL (14) creatinine 0.60 mg/dL 0.50-1 .40 Not Available [facility] [address] [place], [address], 12/13/2022 20:08:18 12/13/19 23 12/13/2022 COMP. METAB OLIC PANEL (14) eGFR 121 mL/mi n/1.7 3 >=60 Not Available [facility] [address] [place] [address], [address], 12/13/2022 20:08:18 12/13/19 23 12/13/2022 COMP. METAB OLIC PANEL (14) BUN/creatini ne ratio 21.7 Not Available [facility] [address] [place], [address], 12/13/2022 20:08:18 12/13/19 23 12/13/2022 COMP. METAB OLIC PANEL (14) sodium 138.0 mmol/ L 136.0- 144.0 Not Available [facility] [address] [place], [address], 12/13/2022 20:08:18 12/13/19 23 12/13/2022 COMP. METAB OLIC PANEL (14) potassium 4.4 mmol/ L 3.5-5. 3 Not Available [facility] [address] [place], [address], 12/13/2022 20:08:18 12/13/19 23 12/13/2022 COMP. METAB OLIC PANEL (14) chloride 102 mmol/ l 101-11 1 Not Available [facility] [address] [place], [address], 12/13/2022 20:08:18 12/13/19 23 12/13/2022 COMP. METAB OLIC PANEL (14) carbon dioxide, total 27.7 mmol/ L 21.0-3 2.0 Not Available [facility] [address] [place], [address], 12/13/2022 20:08:18 12/13/19 23 12/13/2022 COMP. METAB OLIC PANEL (14) calcium 9.6 mg/dL 8.2-10 .0 Not Available [facility] [address] [place], [address], 12/13/2022 20:08:18 12/13/19 23 12/13/2022 COMP. METAB OLIC PANEL (14) protein, total 7.0 g/dL 6.7-8. 2 Not Available [facility] [address] [place], [address], 12/13/2022 20:08:18 12/13/19 23 12/13/2022 COMP. METAB OLIC PANEL (14) albumin 4.5 g/dL 3.5-5. 5 Not Available [facility] [address] [place], [address], 12/13/2022 20:08:18 12/13/19 23 12/13/2022 COMP. METAB OLIC PANEL (14) globulin, total 2.5 g/dL 1.5-4. 5 Not Available [facility] [address] [place] [address], [address], 12/13/2022 20:08:18 12/13/19 23 12/13/2022 COMP. METAB OLIC PANEL (14) A/G ratio 1.8 Not Available [facility] [address] [place] [address], [address], 12/13/2022 20:08:18 12/13/19 23 12/13/2022 COMP. METAB OLIC PANEL (14) bilirubin, total 0.8 mg/dL 0.0-1. 2 Not Available [facility] [address] [place] [address], [address], 12/13/2022 20:08:18 12/13/19 23 12/13/2022 COMP. METAB OLIC PANEL (14) alkaline phosphatase 80.6 IU/L 42.0-1 21.0 Not Available [facility] [address] [place] [address], [address], 12/13/2022 20:08:18 12/13/19 23 12/13/2022 COMP. METAB OLIC PANEL (14) AST (SGOT) 14.0 U/L 10.0-4 2.0 Not Available [facility] [address] [place] [address], [address], 12/13/2022 20:08:18 12/13/19 23 12/13/2022 COMP. METAB OLIC PANEL (14) ALT (SGPT) 13.7 U/L 10.0-6 0.0 Not Available [facility] [address] [place] [address], [address], 12/13/2022 20:08:18 12/13/19 23 12/14/2022 ALBUM IN/CR EAT RATIO , RANDO M UR creatinine, urine 42.4 mg/dL notest ab. Not Available [facility] ([facility]) [address] [facility], [place], [address], 12/14/2022 10:37:10 12/13/19 23 12/14/2022 ALBUM IN/CR EAT RATIO , RANDO M UR albumin, urine 49.8 ug/mL notest ab. Not Available [facility] ([facility]) [address] [facility], [place], [address], 12/14/2022 10:37:10 12/13/19 23 12/14/2022 ALBUM IN/CR EAT RATIO , RANDO M UR alb/creat ratio 117 mg/g_ creat 0-29 above high normal Pauly l: 0 - 29 Moder ately incre ased: 30 - 300 Sever jonh incre ased: >300 Not Available [facility] ([facility]) [address] [facility], [place], [address], 12/14/2022 10:37:10 12/13/19 23 12/13/2022 HbA1c (hemo globi n A1c), blood HbA1c 8.7 % Not Available In-Office Order Internal Use Only DO Not Attach Compendium DO Not Attach Compendium, Do Not Delete/merge, [id number] 12/13/2022 09:05:57 03/08/20 23 03/09/2023 LIPID PANEL cholesterol, total 98.7 mg/dL 140.0- 200.0 below low normal Not Available [facility] [address] [place], [address], 03/09/2023 19:08:50 03/08/20 23 03/09/2023 LIPID PANEL triglyceride s 122 mg/dL <=150 Not Available [facility] [address] [place], [address], 03/09/2023 19:08:50 03/08/20 23 03/09/2023 LIPID PANEL HDL cholesterol 55.1 mg/dL 40.0-1 00.0 Not Available [facility] [address] [place], [address], 03/09/2023 19:08:50 03/08/20 23 03/09/2023 LIPID PANEL VLDL cholesterol schuyler 24.40 mg/dL 5.00-4 0.00 Not Available [facility] [address] [place], [address], 03/09/2023 19:08:50 03/08/20 23 03/09/2023 LIPID PANEL LDL chol calc ([facility]) 22.1 Not Available [facility] [address] [place], [address], 03/09/2023 19:08:50 03/08/20 23 03/09/2023 COMP. METAB OLIC PANEL (14) glucose 300 mg/dL 65-99 above high normal ANION GP 25.0 mmol/ L N OSMOL 288.0 mOsM/ L N REFER ENCE RANGE : 275.0 -301. 0 Not Available [facility] [address] [place], [address], 03/09/2023 19:08:51 03/08/20 23 03/09/2023 COMP. METAB OLIC PANEL (14) BUN 16 mg/dL 8-26 Not Available [facility] Department [address] [place], [address], 03/09/2023 19:08:51 03/08/20 23 03/09/2023 COMP. METAB OLIC PANEL (14) creatinine 0.66 mg/dL 0.50-1 .40 Not Available [facility] Department [address] [place], [address], 03/09/2023 19:08:51 03/08/20 23 03/09/2023 COMP. METAB OLIC PANEL (14) eGFR 118 mL/mi n/1.7 3 >=60 Not Available [facility] Department [address] [place], [address], 03/09/2023 19:08:51 03/08/20 23 03/09/2023 COMP. METAB OLIC PANEL (14) BUN/creatini ne ratio 24.0 Not Available [facility] Department [address] [place], [address], 03/09/2023 19:08:51 03/08/20 23 03/09/2023 COMP. METAB OLIC PANEL (14) sodium 138.0 mmol/ L 136.0- 144.0 Not Available [facility] Department [address] [place], [address], 03/09/2023 19:08:51 03/08/20 23 03/09/2023 COMP. METAB OLIC PANEL (14) potassium 4.7 mmol/ L 3.5-5. 3 Not Available [facility] Department [address] [place], [address], 03/09/2023 19:08:51 03/08/20 23 03/09/2023 COMP. METAB OLIC PANEL (14) chloride 99 mmol/ l 101-11 1 below low normal Not Available [facility] Department [address] [place], [address], 03/09/2023 19:08:51 03/08/20 23 03/09/2023 COMP. METAB OLIC PANEL (14) carbon dioxide, total 17.5 mmol/ L 21.0-3 2.0 below low normal Not Available [facility] Department [address] [place], [address], 03/09/2023 19:08:51 03/08/20 23 03/09/2023 COMP. METAB OLIC PANEL (14) calcium 9.5 mg/dL 8.2-10 .0 Not Available [facility] Department [address] [place], [address], 03/09/2023 19:08:51 03/08/20 23 03/09/2023 COMP. METAB OLIC PANEL (14) protein, total 6.5 g/dL 6.7-8. 2 below low normal Not Available [facility] Department [address] [place], [address], 03/09/2023 19:08:51 03/08/20 23 03/09/2023 COMP. METAB OLIC PANEL (14) albumin 4.4 g/dL 3.5-5. 5 Not Available [facility] Department [address] [place], [address], 03/09/2023 19:08:51 03/08/20 23 03/09/2023 COMP. METAB OLIC PANEL (14) globulin, total 2.1 g/dL 1.5-4. 5 Not Available [facility] Department [address] [place], [address], 03/09/2023 19:08:51 03/08/20 23 03/09/2023 COMP. METAB OLIC PANEL (14) A/G ratio 2.0 Not Available [facility] Department [address] [place], [address], 03/09/2023 19:08:51 03/08/20 23 03/09/2023 COMP. METAB OLIC PANEL (14) bilirubin, total 0.6 mg/dL 0.0-1. 2 Not Available [facility] Department [address] [place], [address], 03/09/2023 19:08:51 03/08/20 23 03/09/2023 COMP. METAB OLIC PANEL (14) alkaline phosphatase 77.4 IU/L 42.0-1 21.0 Not Available [facility] Department [address] [place], [address], 03/09/2023 19:08:51 03/08/20 23 03/09/2023 COMP. METAB OLIC PANEL (14) AST (SGOT) 15.4 U/L 10.0-4 2.0 Not Available [facility] Department [address] [place] [address], [address], 03/09/2023 19:08:51 03/08/20 23 03/09/2023 COMP. METAB OLIC PANEL (14) ALT (SGPT) 15.3 U/L 10.0-6 0.0 Not Available [facility] Department [address], [place], [address], 03/09/2023 19:08:51 03/08/20 23 03/09/2023 CORTI AMANDEEP - AM cortisol - AM 1.2 ug/dL 6.2-19 .4 below low normal Not Available [facility] ([facility]) [address] [place], [address], 03/15/2023 20:10:00 03/08/20 23 03/09/2023 ALBUM IN/CR EAT RATIO , RANDO M UR creatinine, urine 42.2 mg/dL notest ab. Not Available [facility] ([facility]) [address] [place], [address], 03/15/2023 20:10:01 03/08/20 23 03/09/2023 ALBUM IN/CR EAT RATIO , RANDO M UR albumin, urine 12.5 ug/mL notest ab. Not Available [facility] ([facility]) [address] [place], [address], 03/15/2023 20:10:01 03/08/20 23 03/09/2023 ALBUM IN/CR EAT RATIO , RANDO M UR alb/creat ratio 30 mg/g_ creat 0-29 above high normal Pauly l: 0 - 29 Moder ately incre ased: 30 - 300 Sever jonh incre ased: >300 Not Available [facility] ([facility]) [address] [place], [address], 03/15/2023 20:10:01 03/08/20 23 03/09/2023 B-TYP E NATRI URETI C PEPTI DE B-type natriuretic peptide 8.1 pg/mL 0.0-10 0.0 Sieme ns ADVIA Cent[facility] XP metho dolog y Not Available [facility] ([facility]) [address] [place], [address], 03/15/2023 20:10:01 03/08/20 23 03/09/2023 TSH+F REE T4 TSH 0.390 uIU/m L 0.450- 4.500 below low normal Not Available [facility] ([facility]) [address] [place], [address], 03/15/2023 20:10:02 03/08/2003/09/2023 TSH+F REE T4 T4,free(dire ct) 1.38 NG/dL 0.82-1 .77 Not Available [facility] ([facility]) [address] [place], [address], 03/15/2023 20:10:02 03/08/20 23 03/15/2023 DEXAM ETHAS ONE, SERUM dexamethason e, serum 265 NG/dL This test was devel gauraved and its perfo rmanc e miguel cteri [...] - 2850 Not Available [facility] ([facility]) [address] [facility], [place], [address], 03/15/2023 20:10:03 03/08/2003/09/2023 HEMOG LOBIN A1C hemoglobin A1C 8.8 % 4.8-5. 6 above high normal Predi abete s: 5.7 - 6.4 Diabe ling: >6.4 Glyce michelle contr ol for adult s with diabe ling: <7.0 Not Available [facility] ([facility]) [address] [facility], [place], [address], 03/15/2023 20:10:04 03/08/20 23 03/09/2023 C-PEP TIDE, SERUM C-peptide, serum 1.1 NG/mL 1.1-4. 4 C-Pep tide refer ence inter devin is for fasti ng patie nts. Not Available [facility] ([facility]) [address] [facility], [place], [address], 03/15/2023 20:10:04 03/08/20 23 03/09/2023 DIABE LING PATIE NT EDUCA TION pdf . Not Available [facility] ([facility]) [address] [facility], [place], [address], 03/15/2023 20:10:03 03/08/20 23 03/08/2023 HbA1c (hemo globi n A1c), blood HbA1c 8.6% Not Available In-Office Order Internal Use Only DO Not Attach Compendium DO Not Attach Compendium, Do Not Delete/merge, [id number] 03/08/2023 09:17:05 06/07/20 23 06/07/2023 HbA1c (hemo globi n A1c), blood HbA1c 7.9% Not Available In-Office Order Internal Use Only DO Not Attach Compendium DO Not Attach Compendium, Do Not Delete/merge, [id number] 06/07/2023 09:01:36 09/11/20 23 09/11/2023 HbA1c (hemo globi n A1c), blood HbA1c 7.0% Not Available In-Office Order Internal Use Only DO Not Attach Compendium DO Not Attach Compendium, Do Not Delete/merge, [id number] 09/11/2023 09:50:18 02/22/20 24 02/22/2024 Hemog lobin A1c/H emogl obin. total in Blood hemoglobin A1C/hemoglob in.total in blood 7 % low: 4.2%hi gh: 5.6% high Hemog lobin A1c 7.0 (H) 4.2 - 5.6 % 02/21 7:19 AM CDT [facility] Not Available Not Available 03/09/2025 11:59:18 02/22/20 24 02/22/2024 Hemog lobin A1c/H emogl obin. total in Blood glucose mean value [mass/volume ] in blood estimated from glycated hemoglobin 154 mg/dL Estim ated Jasper ge Gluco se 154 mg/dL 02/21 7:19 AM CDT [facility] Not Available Not [...] s 5% in the specim en. The Maloney Alinit y assay for the measur ement [...] in the speci men. The Abbot t Alini ty assay for the measu remen t of HbA1c is a Natio nal Glyco hemog lobin Stand ardiz ation Progr am (NGSP ) certi fied [...] - 125 mg/dL 02/24 6:37 AM CDT [facility] Not Available Not Available 03/09/2025 11:59:18 02/25/20 24 02/25/2024 Basic metab olic 1999 panel - Serum or Plasm a sodium [moles/volum e] in serum or plasma 139 mmol/ L low: 136mmo l/Lhig h: 145mmo l/L Sodiu m 139 136 - 145 mmol/ L 02/24 6:37 AM CDT [facility] Not Available Not Available 03/09/2025 11:59:18 02/25/20 24 02/25/2024 Basic metab olic 1999 panel - Serum or Plasm a potassium [moles/volum e] in serum or plasma 3.7 mmol/ L low: 3.4mmo l/Lhig h: 5.1mmo l/L Potas sium 3.7 3.4 - 5.1 mmol/ L 02/24 6:37 AM CDT [facility] Not Available Not Available 03/09/2025 11:59:18 02/25/20 24 02/25/2024 Basic metab olic 1999 panel - Serum or Plasm a chloride [moles/volum e] in serum or plasma 106 mmol/ L low: 98mmol /Lhigh : 107mmo l/L Chlor adilene 106 98 - 107 mmol/ L 02/24 6:37 AM CDT [facility] Not Available Not Available 03/09/2025 11:59:18 02/25/20 24 02/25/2024 Basic metab olic 1999 panel - Serum or Plasm a carbon dioxide, total [moles/volum e] in serum or plasma 27 mmol/ L low: 22mmol /Lhigh : 29mmol /L CO2 27 22 - 29 mmol/ L 02/24 6:37 AM CDT [facility] Not Available Not Available 03/09/2025 11:59:18 02/25/20 24 02/25/2024 Basic [employer] olic 1999 panel - Serum or Plasm a calcium [mass/volume ] in serum or plasma 8.83 mg/dL low: 8.4mg/ dLhigh : 10.2mg /dL Calci um 8.83 8.4 - 10.2 mg/dL 02/24 6:37 AM CDT [facility] Not Available Not Available 03/09/2025 11:59:18 02/25/20 24 02/25/2024 Basic [employer] olic 1999 panel - Serum or Plasm a anion gap in blood by calculation 6 mmol/ L low: 6mmol/ Lhigh: 16mmol /L Anion Gap 6 6 - 16 mmol/ L 02/24 6:37 AM CDT [facility] Not Available Not Available 03/09/2025 11:59:18 02/25/20 24 02/25/2024 Basic PinkUP olic [employer] panel - Serum or Plasm a urea nitrogen [mass/volume ] in serum or plasma 11.6 mg/dL low: 8.4mg/ dLhigh : 25.7mg /dL BUN 11.6 8.4 - 25.7 mg/dL 02/24 6:37 AM CDT [facility] Not Available Not Available 03/09/2025 11:59:18 02/25/20 24 02/25/2024 [employer] 1999 panel - Serum or Plasm a creatinine [mass/volume ] in serum or plasma 0.58 mg/dL low: 0.72mg /dLhig h: 1.25mg /dL low Creat inine 0.58 (L) 0.72 - 1.25 mg/dL 02/24 6:37 AM T [facility] Not Available Not Available 03/09/2025 11:59:18 02/25/20 24 02/25/2024 [employer] panel - Serum or Plasm a glomerular filtration rate [volume rate/area] in serum, plasma or blood by creatinine-b ased formula (CKD-epi)/1. 73 sq M text: >90 mL/min /1.73m 2 eGFR >90 >90 mL/mi n/1.7 3m2 02/24 6:37 AM CDT [facility] Not Available Not Available 03/09/2025 11:59:18 02/25/20 24 02/25/2024 Basic metab olic 2000 panel - Serum or Plasm a
--- OUTSIDE RECORDS SUMMARY | 2025-04-13 00:44 | XMS_ITS | Clinical Summary ---
Author Organization [facility] Address [address] [place] [address] Care Team Providers Care Counselor Education Professor Name Role Phone Olivier Boyce DO Primary Care Provider Allergies Active Allergy Reactions Criticality Noted Date Comments [place]-3 Fatty Acids Nausea & Vomiting Low 4 Oxycodone Itching Low 09/01/2024 Wyusdwx-Nez-Har Reductase Inhibitors Nausea & Vomiting High 05/04/2021 [...] Description 02/12/2025 9:10 AM CDT Office Visit [facility] Orthopaedic Surgery [address] [facility] 1[address] [place] [address] Carlos Hart MD Biceps tendinitis of left [...] on file 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 Gender Identity Not on file Sexual Orientation [...] Ended) 2025 Medical Devices Implanted Type Area Records Management Assistant Device Identifier Shelf Expiration Date Model / Serial / Lot [employer] Fiberloop 3.2mm Drill Pin Needle Shoehorn Cannula Kit Suture Ar-2290 - [id number] Implanted:Qty : 1 on 09/01/2024 by Carlos Hart MD at [facility] Left: Shoulder [employer] [id number] 04/25/2029 AR-2290 / / [id number] Procedures Procedure Name Priority Date/Time Associated Diagnosis [...] ORDERABLES Janina l Result Performing Organization Address City/[facility] Co de Phone Number MARIO [address] [place] [address] from Last 3 Months or Most Recently Relevant to Health Maintenance Insurance [employer] GENERIC Care Teams Counselor Education Professor Relationship Specialty Start Date End Date Olivier Boyce DO [address] [place] [address] PCP - General Family Medicine 08/07/24
--- OUTSIDE RECORDS SUMMARY | 2025-04-13 00:44 | XMS_ITS | Continuity of Care Document ---
Author Organization [facility] Address [address] [place] [address] Phone Care Team Providers Care Industrial Designer Name Role Phone Dylan Kramer MD Unavailable Unavailable Procedures Procedure Date X-ray exam shoulder complete, minimum 2 views Independent Medical Examination GERARDO Pre Payment Advance Directives Directive Yes / No Effective Date File Name No Information Encounters Encounter Description Practice Location Reason(s) For Visit Diagnoses Date Provider Providers Copied on Encounter Independent Medical Examination GERARDO [facility], [address], [id number], tel:[phone] [facility] Pain in left shoulder 5 Nia Richardson. [address] [facility], [place] [address], [place], [place], [id number] , [place]. tel: [phone] [facility], [address], [id number], tel:[phone] [facility] No Information 5 Nia Richardson. [address] [facility], [address], [id number] , [place]. tel: [phone] Family History Family Member Type Diagnosis Age At Onset No Information Payers Payer name Insurance type Covered libertarian ID Authorclayton omalley(s) [facility] [id number] Social History Type Description Quantity Date Captured Comments Alcohol Use Details Unknown Caffeine Use Details Unknown Tobacco Use Status No Information Mar-11-2025 Smoking Status No Information Sex Male Chief [...]
--- OUTSIDE RECORDS SUMMARY | 2025-04-13 00:44 | XMS_ITS | Referral Summary ---
Author Organization [facility] Address [address] [place] [address] Care Team Providers Care Hand Mold Maker Name Role Phone Olivier Boyce DO Primary Care Provider Encounters Date Type Department Care Team Description 02/12/2025 9:10 AM CDT Office Visit [facility] Orthopaedic Surgery [address] [facility] 1st Floor [address] [place] [address] Carlos Hart MD Biceps tendinitis of left shoulder (Primary Dx) from Last 3 Months Allergies Active Allergy Reactions Criticality Noted Date Comments [place]-3 Fatty Acids Nausea & Vomiting Low 4 Oxycodone Itching Low 09/01/2024 Iinuenf-Rho-Piw Reductase Inhibitors Nausea & Vomiting High 05/04/2021 [...] on file 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 Gender Identity Not on file Sexual Orientation [...] on file Medical Devices Implanted Type Area Toll Repairer Central Office Device Identifier Shelf Expiration Date Model / Serial / Lot [employer] Fiberloop 3.2mm Drill Pin Needle Shoehorn Cannula Kit Suture Ar-2290 - [id number] Implanted:Qty : 1 on 09/01/2024 by Carlos Hart MD at [facility] Left: Shoulder [employer] [id number] 04/25/2029 AR-2290 / / [id number] Procedures Procedure Name Priority Date/Time Associated Diagnosis [...] Triglycerides 153 <150 EXTERNAL LAB Blood 06/13/2023 Otto Peng MD LAB BLOOD ORDERABLES Janina [...] MD LAB BLOOD ORDERABLES Janina l Result MARIO [id number] Department [place] [address] from Last 3 Months or Most Recently Relevant to Health Maintenance Insurance [employer] [facility] WORKERS COMPENSATION GENERIC Care Teams Hand Mold Maker Relationship Specialty Start Date End Date Olivier Boyce DO [address] [place] [address] PCP - General Family Medicine 08/07/24
--- NOTE | 2025-04-13 07:09 | WPDHPUPDATE1 ---
History and Physical Update Update Date/Time: 04/13/25 07:09 History and Physical has been reviewed, including an updated exam of the patient. There are NO changes in the patient's condition. Risks, benefits, and alternatives have been discussed and questions answered. Patient agrees to proceed with procedure.
--- NOTE | 2025-04-13 07:50 | P.OP_ITS ---
Procedure Note - Detailed Date of Procedure 04/13/25 Pre-op Diagnosis chronic sinusitis, deviated septum Post-op Diagnosis Same Procedure Performed Bilateral frontal sinusotomy, total ethmoidectomy, sphenoidotomy, maxillary antrostomy, septoplasty, bilateral inferior turbinoplasty, image guided surgery Surgeon Jorge Jones MD Anesthesia General Indications deviated septum, chronic sinusitis Findings Right septal deviation, evans splints, bilateral nasopore placed Description of Procedure On the date of procedure the patient was met in the preoperative area and risk and benefits of the procedure reviewed with the patient as documented in the H&P and they elected to proceed with surgery. Patient was brought back to the operating room by the anesthesia team and underwent general endotracheal anesthesia. Once an adequate plane of anesthesia was obtained a timeout was performed to assure the patient identification the patient here to be performed were correct. They were.The patient was then prepped and draped in the normal fashion for endoscopic sinus surgery. The diffusion image guidance system was calibrated and used for the entire case. Afrin-soaked pledgets were placed in the nasal cavities bilaterally. The entire case was performed under endoscopic visualization. Nasal endoscopy was performed at the beginning of the case. 1% lidocaine with 1:100,000 epinephrine was then injected into the root of the middle turbinate and lateral nasal wall. The left side was narrowed due to septal deviation. Thus, septoplasty was required. A left hemitransfixion incision was made in the left caudal septum and a mucoperichondrial flap was elevated in the usual fashion. The flap was elevated under endoscopic visualization and the remainder of the case was performed with endoscopic assistance. Using a D-knife, an incision was made through the cartilaginous septum with care to preserve the appropriate caudal and dorsal “L-strut” of cartilage. The cartilage was then disarticulated from the bony-cartilaginous junction and the deviated cartilage was removed. Further deviated bone and cartilage was removed from the maxillary crest and posterior bony septum with care to avoid injury to the mucoper ichondrial flap using a combination of dissection and Sera forceps. Once this was completed, the hemitransfixion incision was closed using simple interrupted 4-0 chromic suture. A quilting stitch to reapproximate the mucoperichondrial flaps was then placed using 4-0 plain gut suture on a Rober needle. Attention was then directed towards the right side. The middle turbinate was medialized and the osteomeatal complex was identified with a jeff probe. Charleen bullosa resected with microdebrider and forceps. Using a 90 degree backbiter, the uncinate process was reflected anteriorly and removed using a combination of sharp and powered dissection. The maxillary antrostomy was then created and widened by identifying the natural ostia and opening the sinus with straight kathleen-cut forceps, backbiter, and microdebrider. Continuing with the microdebrider, the anterior ethmoid bulla was opened. Careful dissection was carried out posteriorly, through the basal lamella and posterior ethmoid cells until the sphenoid rostrum was identified. A Alma suction bluntly identified the sphenoid os and the opening was widened with microdebrider and mushroom punch to 5mm. Using an image guided curved suction as well as J-curette, the posterior most ethmoid cell was identified and the ethmoids were bluntly fractured and dissected from posterior to anterior along the base of the skull. The remaining bone fragments were removed with appropriate curved instruments and microdebrider. Lastly, image guided frontal suction and sinus seeker were used to identify the frontal sinus and enter it. Next, the left maxillary antrostomy, ethmoidectomy and sphenoidotomy and charleen bullosectomy were carried out in identical fashion. Next, the left frontal sinus was identified and entered using image guided suction, seeker and frontal sinus angled biting instruments. No clinical evidence of CSF throughout the case. With all sinuses opened and clear, nasopore packing was placed in the ethmoid acvities bilaterally. Hemostasis was ensured. Lastly, the bilateral inferior turbinates were reduced submucosally using 2mm microdebrider and then outfractured with a sayer elevator. This significantly opened the airway. Evans splints were then placed to secure the septum in the midline. At this point, the procedure was concluded. Care the patient was transferred back to the anesthesia team and the patient was awoke in the operating room and transferred back to the PACU in stable condition. Jorge Jones M.D. Estimated Blood Loss 50 Drains No Packing Yes (evans splints, nasopore) Pathology None sent Complications No immediate complications Condition Stable Disposition PACU
[2025-04-13 08:07] LABS: Glucose Point of Care 324 mg/dl (65-105)
--- NOTE | 2025-04-13 08:12 | WPDANESEPPF ---
Anes - Initial Pre Proc Eval Procedure: Operation Date: 04/13/25 08:45 Proposed Procedures p Fusion Guided Bilateral Frontal Sinusotomy, Bilateral Ethmoidectomy, Bilateral Sphenoidotomy, Bilateral Maxillary Antrostomy, Bilateral Turbinate Reduction, Bilateral Amanda Bullosa Resection, - Jorge Jones MD s Septoplasty - Jorge Jones MD Date/Time: 04/13/25 08:12 Surgeon: Jorge Jones MD Pre Op Diagnosis: chronic sinusitis, deviated septum Patient Data Age: 49 Gender: M Height: 1.85 m Weight: 111 kg Allergies Allergy/AdvReac Type Severity Reaction Status Date / Time fish oil Allergy Mild Vomiting Verified 04/10/25 14:07 Xtdfzoe-OPD-JpG Reductase Allergy Mild Vomiting Verified 04/10/25 14:07 Inhibitor oxycodone (From Percocet) AdvReac Unknown Itching Verified 04/10/25 14:07 Home Medications Medication Instructions Recorded Confirmed Type hydralazine 50 mg tablet 50 mg PO TID 07/23/23 04/10/25 History pen needle, diabetic 32 gauge x #100 ea 11/06/23 04/10/25 Rx 5/32 (BD Ultra-Fine Ambika Pen Needle) insulin glargine 100 unit/mL (3 10 unit (0.1 mL) subcut QPM #15 mL 11/13/24 04/10/25 Rx mL) subcutaneous pen (Lantus Solostar U-100 Insulin) insulin lispro 100 unit/mL See Rx Instructions .Route 11/13/24 04/10/25 Rx subcutaneous pen .COMPLEX #15 mL amlodipine 10 mg tablet 10 mg PO DAILY #90 tabs 11/25/24 04/10/25 Rx metformin 500 mg tablet,extended See Rx Instructions .Route 11/25/24 04/10/25 Rx release 24 hr .COMPLEX #180 tabs etrasimod 2 mg tablet (Velsipity) 2 mg PO DAILY 01/15/25 04/10/25 History carvedilol 25 mg tablet See Rx Instructions .Route 03/31/25 04/10/25 Rx .COMPLEX #60 tabs Laboratory Tests 04/13/25 08:04 POC Capillary Glucose 324 H mg/dl (65-105) Patient hx anesthesia problems: none Family hx anesthesia problems: none Results Review: All pre-operative results and documents have been reviewed as part of the pre-operative evaluation. [facility] Past Medical History Medical History Depression Vitamin D deficiency Dilatation of aorta Type 2 diabetes mellitus Patient had islet cell antibody testing June 2023 that was negative, he had C-peptide that were within normal limits consistent with history of type 2 diabetes Thrombocytopenia Chronic Pancreatitis Ulcerative colitis Hypercholesterolemia Hypertension Surgical History Surgical History History of rotator cuff surgery Bilateral Family History Family History Mother Colon polyp Diabetes mellitus Hypertension Father Pancreatic cancer at age 61 Sibling Obesity Pre-diabetes Social History Social History Social History: Patient lives with his mother and sister. 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 He drinks 6-8 shots of [place] every weekend. He smokes marijuana on the weekends. He smoked up to 2 packs of cigarettes per day before cutting back and eventually quitting November 2023. He smoked for 30 years prior to quitting. Code status: Full code Surrogate decision maker: Mother Smoking packs per day: 2 Smoking cigarettes per day: 40.0 Years smoked: 25 Smoking pack-years: 50.00 Smoking status: Former smoker Tobacco type: cigarettes Second hand tobacco smoke exposure: Yes Smoking end date: 12/27/23 Alcohol intake: current Drinks per week: 1 Alcohol use details: few per month Substance use: current Substance use type: marijuana Other substance usage details: gummies few times a month Last use: 2X monthly Do You Feel Safe in your Home?: Yes Lack of Transportation: No Lack of Food: Never True Current Housing: I Have Housing Concerned About Future Housing: No Difficulty Paying Gas/Electric Bills: No Difficulty Paying for Meds: No Currently Unemployed: No Education: High School Diploma/GED Difficulty w/ Childcare or Family Care: No Living arrangements: with family Occupation/Education: occupation Additional occupation/education comments: [employer] Gender identity (if verbalized by the patient): Male Spiritual care concerns: No Anes - Eval Final PreProcedure Day of Procedure 04/13/25 08:12 Patient weight: obese Heart: regular rate and rhythm Lungs: decreased breath sounds Airway: Mallampati scale class II Neurological: alert and oriented Last oral intake: >/= 8 hours ASA classification: III Emergent: no Anesthetic plan: proceed Anesthesia type and monitoring: general ETT and standard monitoring Results Review: All pre-operative results and documents have been reviewed as part of the pre-operative evaluation. Informed Consent: The patient's anesthetic plan and its attendant risks and benefits were discussed with the patient/family/POA. Questions were solicited and answers provided to the satisfaction of the patient/family/POA.
[2025-04-13] MEDS: LACTATED RINGERS 1,000 ML 30 ML IV CONT ×2 (08:20→10:00)
[2025-04-13] MEDS: INSULIN HUMAN REGULAR (*BKC) 100 UNITS/ML 10 UNITS SUB-Q ×2 (08:20→10:17)
[2025-04-13] MEDS: ACETAMINOPHEN 500 MG TABLET 1000 MG PO (08:20)
[2025-04-13] MEDS: OXYMETAZOLINE HCL 0.05% NAS 15 ML BTL (*BKC) 1 SPRAY NASAL (08:20)
[2025-04-13] MEDS: ceFAZolin 2 GM/D5W 50 ML 2 GM/50 ML BAG IVPB (08:29)
[2025-04-13] MEDS: LIDO 1%/EPINEPHRINE 1:100,000 50 ML VIAL INFILTRATE (08:45)
[2025-04-13] MEDS: MUPIROCIN 2% OINT 22 GM TUBE 1 APPLIC TOPICAL (09:32)
[2025-04-13 10:09] LABS: Glucose Point of Care 350 mg/dl (65-105)
--- NOTE | 2025-04-13 10:24 | SUR.PHASEI ---
1007 DR. BRAN NOTIFIED RE: BLOOD SUGAR 350; ORDERED 10 UNITS REGULAR INSULIN SQ.
[2025-04-13] MEDS: fentaNYL CITRATE INJ (*CRX) 100 MCG/2 ML VIAL 25 MCG IV PUSH ×2 (10:27→10:43)
[2025-04-13 10:55] LABS: Glucose Point of Care 398 mg/dl (65-105)
--- NOTE | 2025-04-13 10:55 | SUR.PHASEI ---
DR. BRAN NOTIFIED RE: REPEAT BLOOD SUGAR 398. DR. BRAN GAVE NO FURTHER ORDERS; STATED HE HAD TOLD PATIENT TO FOLLOW UP WITH HIS PRIVATE DOCTOR.
--- NOTE | 2025-04-13 11:18 | SUR.PHASEII ---
MD Crow contacted - pt requesting pain pill prior to discharge. Pt states he tolerates hydrocodone well. States oxycodone makes him itchy. Pt had 1000mg of acetaminophen in pre op. New orders for RN to give PO tramadol 100mg once.
[2025-04-13] MEDS: traMADol HCL (*CRX) 50 MG TABLET 100 MG PO (11:28)
== END 2025-04-13 11:54 | disposition home or self-care (01) ==
PROVIDERS: PCP Family Medicine; Visit Provider Otolaryngology
PROC: (CPT 31276; principal; 2025-04-13 08:45)
PROC: (CPT 30520; 2025-04-13 08:45)
DX: J32.4 Chronic pansinusitis (principal); J34.2 Deviated nasal septum; J34.89 Other specified disorders of nose and nasal sinuses; E11.9 Type 2 diabetes mellitus without complications; I10 Essential (primary) hypertension; E78.00 Pure hypercholesterolemia, unspecified; E55.9 Vitamin D deficiency, unspecified; D69.6 Thrombocytopenia, unspecified; F32.A Depression, unspecified; J30.2 Other seasonal allergic rhinitis; F12.90 Cannabis use, unspecified, uncomplicated; E66.9 Obesity, unspecified; Z68.33 Body mass index [BMI] 33.0-33.9, adult; Z79.4 Long term (current) use of insulin; Z79.84 Long term (current) use of oral hypoglycemic drugs; Z98.890 Other specified postprocedural states; Z87.891 Personal history of nicotine dependence; Z83.719 Family history of colon polyps, unspecified; Z80.0 Family history of malignant neoplasm of digestive organs
CPT/HCPCS: 31276; 31257; 31256; 30520; 30140; 61782; 82948; A9270; J0330; J0690; J1100; J1815; J2003; J2004; J2250; J2405; J2704; J3010; J7050; J7120

== ENCOUNTER 2025-04-28 23:34 | Emergency (ER) | payer OTHER, SELFPAY ==
--- NOTE | ~2025-04-28 | XR_ITS ---
XR chest 1V portable Ordering provider: Alex Bowman MD History: 49 years Male with . cp . Comparison: September 25, 2023 FINDINGS: MEDIASTINUM: The cardiac silhouette is not enlarged. LUNGS: No infiltrates, effusions or pneumothorax. OTHER: No free air under the diaphragm. Degenerative changes of the spine. IMPRESSION: No acute cardiopulmonary pathology. Reviewed, dictated and finalized at location A.
[2025-04-28 23:35] VITALS: PULSE 71
--- NOTE | 2025-04-28 23:37 | ECG_ITS ---
Test Date: 2025-04-28 23:39:27 Measurements Intervals [place] Rate: 73 P: 34 IN: 224 QRS: 31 QRSD: 104 T: 44 QT: 372 QTc: 411 Interpretive Statements SINUS RHYTHM WITH FIRST DEGREE AV BLOCK INCOMPLETE RIGHT BUNDLE BRANCH BLOCK ST ELEVATION IN DIFFUSE LEADS- PROBABLY EARLY REPOLARIZATION BASELINE WANDER- II, III, AVR, AVL, AVF, V4 BORDERLINE ECG Compared to ECG 04/10/2025 15:30:04 First degree AV block now present Electronically Signed On 04-29-2025 07:09:33 CDT by Johny Scott D.O.
--- NOTE | 2025-04-28 23:38 | ED.CHESTPAIN ---
HPI - Chest Pain General Chief Complaint: Chest Pain Stated Complaint: Chest Pain's Time Seen by Provider: 04/28/25 23:36 Source: patient and family Mode of arrival: ambulatory Limitations: no limitations History of Present Illness HPI narrative: Patient is a 49-year-old male with chest pain this evening. He has been having chest pain on and off past 3 days. He has a history of chest pain. He said he has a history of aneurysms but there is no findings on his prior CTA of the chest over the past few years. MD complaint: chest pain Pertinent past history: other ( Hypertension, diabetes type 2) Onset (ago): day(s) ( 3) Timing of current episode: episodic Prior episodes: Yes Onset: during rest and during exertion Pain location: substernal and left chest Pain radiation: neck ( left side) Severity: moderate Pain scale (0-10): 5 Quality: heaviness Relieving factors: nitroglycerin Exacerbating factors: nothing Context: other ( patient having progressively on and off chest pain for the past 3 days.) Associated symptoms: other ( None) Treatment prior to arrival: none Risk Factors Coronary artery disease risk factors: diabetes and hypertension Thoracic aortic dissection risk factors: none and history of thoracic aortic aneurysm ( patient claims history of this finding however CTA of the chest is negative for this finding 2022) Related Data Home Medications ?Medication ?Instructions ?Recorded ?Confirmed ?Last Taken ?Type hydralazine 50 mg tablet 50 mg PO TID 07/23/23 04/13/25 04/13/25 History etrasimod 2 mg tablet (Velsipity) 2 mg PO DAILY 01/15/25 04/10/25 Unknown History Allergies Allergy/AdvReac Type Severity Reaction Status Date / Time fish oil Allergy Mild Vomiting Verified 04/28/25 23:55 Qxkpotc-MVO-FkP Reductase Allergy Mild Vomiting Verified 04/28/25 23:55 Inhibitor oxycodone (From Percocet) AdvReac Unknown Itching Verified 04/28/25 23:55 Review of Systems Review of Systems: All systems reviewed & are unremarkable except as noted in HPI and below Constitutional: Constitutional: Reports no additional constitutional complaints Eyes: Eyes: Reports no additional eye complaints ENT: Reports system reviewed and no additional complaints, except as documented Cardiovascular: Cardiovascular: Reports no additional cardiovascular complaints Respiratory: Respiratory: Reports no additional respiratory complaints Gastrointestinal: Gastrointestinal: Reports no additional gastrointestinal complaints Genitourinary: Genitourinary: Reports no additional male genitourinary complaints Musculoskeletal: Musculoskeletal: Reports no additional musculoskeletal complaints Integumentary/Breasts: Skin/Breast: Reports system reviewed and no additional complaints, except as docu Neurologic: Reports system reviewed and no additional complaints, except as documented Psychiatric: Psychiatric: Reports no additional psychiatric complaints Endocrine: Endocrine: Reports no additional endocrine complaints Hematologic/Lymphatic: Hematologic/Lymphatic: Reports no additional hematologic/lymphatic complaints Allergic/Immunologic: Allergic/Immunologic: Reports no additional allergic/immunologic complaints PMFSH Past Medical History Medical History Depression Vitamin D deficiency Dilatation of aorta Type 2 diabetes mellitus Patient had islet cell antibody testing June 2023 that was negative, he had C-peptide that were within normal limits consistent with history of type 2 diabetes Thrombocytopenia Chronic Pancreatitis Ulcerative colitis Hypercholesterolemia Hypertension Surgical History Surgical History History of rotator cuff surgery Bilateral Family History Family History Mother Colon polyp Diabetes mellitus Hypertension Father Pancreatic cancer at age 61 Sibling Obesity Pre-diabetes Social History Social History Social History: Patient lives with his mother and sister. He works at a [place] [employer] in the [employer] department. He drinks 6-8 shots of [place] every weekend. He smokes marijuana on the weekends. He smoked up to 2 packs of cigarettes per day before cutting back and eventually quitting November 2023. He smoked for 30 years prior to quitting. Code status: Full code Surrogate decision maker: Mother Smoking packs per day: 2 Smoking cigarettes per day: 40.0 Years smoked: 25 Smoking pack-years: 50.00 Smoking status: Former smoker Tobacco type: cigarettes Second hand tobacco smoke exposure: Yes Smoking end date: 12/27/23 Alcohol intake: current Drinks per week: 1 Alcohol use details: few per month Substance use: current Substance use type: marijuana Other substance usage details: gummies few times a month Last use: 2X monthly Do You Feel Safe in your Home?: Yes Lack of Transportation: No Lack of Food: Never True Current Housing: I Have Housing Concerned About Future Housing: No Difficulty Paying Gas/Electric Bills: No Difficulty Paying for Meds: No Currently Unemployed: No Education: High School Diploma/GED Difficulty w/ Childcare or Family Care: No Living arrangements: with family Occupation/Education: occupation 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[employer] Gender identity (if verbalized by the patient): Male Spiritual care concerns: No Exam Const: General: healthy appearing Nutritional Appearance: well nourished Orientation/consciousness: patient oriented x3 HENMT: Head: normal to inspection Ears: external ears normal Face/Nose/Sinus: Normal external nose present Eyes: Conjunctivae: conjunctivae normal Pupils: Equal, round and reactive pupils present EOM: EOMs intact bilaterally Neck: Neck: normal visual inspection Chest: Chest palpation & inspection: normal inspection of the chest Resp: Effort & Inspection: normal respiratory effort and not labored Auscultation: clear to auscultation bilaterally and no crackles Cardio: Rate: regular rate Rhythm: regular rhythm Heart sounds: no murmurs GI: Inspection: non-distended GI Palp: Yes Soft to palpation and No Tenderness to palpation present (GI) Auscultation: normal bowel sounds : General: Yes bladder normal to palpation Back/Spine/Pelvis: Back: no CVA tenderness Skin: General skin exam: normal color Rashes: no rashes Wounds: no wounds Neuro: General: patient oriented x3 Cranial nerves: Yes Nystagmus not present Speech: normal speech Extrem: General: normal to inspection Psych: Mental Status: mental status grossly normal Affect: normal affect Attitude: cooperative Course Vital Signs Vital signs: Vital Signs Pulse Rate 71 04/28/25 23:35 Temperature 36.6 C 04/28/25 23:45 Pulse Rate 67 04/29/25 01:31 Respiratory Rate 13 04/29/25 01:31 Blood Pressure 127/76 04/29/25 01:30 Pulse Oximetry 99 04/29/25 01:31 Oxygen Delivery Room Air 04/29/25 01:30 MDM - Chest Pain MDM Narrative Medical decision making narrative: patient is a 49-year-old male with chest pain. We will do a cardiac workup at this time. I have reviewed prior records and there is no findings of aneurysms on his CTA chest 2022. patient said he sees the multimedia project manager yearly and gets an ultrasound to look at his 2 aneurysms. At this time is chest pain has resolved. He said he is under lot of stress and having anxiety lately too. Workup this evening was negative. He will call his multimedia project manager for follow-up ultrasound as planned which is due in the next few months according to patient. Stress test multiple times in the past few years have been negative. Lab Data Attestation: I reviewed the patient's lab results. 04/28/25 23:42 04/28/25 23:42 Labs: Lab Results 04/28/25 04/29/25 Range/Units 23:42 01:47 WBC 4.4 L (4.8-10.8) K/mm3 RBC 5.28 (4.70-6.10) M/mm3 Hgb 15.4 (14.0-18.0) g/dL Hct 44.4 (40.0-54.0) % MCV 84.1 (78.0-102.0) fL MCH 29.2 (27.0-31.0) pg MCHC 34.7 (32-36) g/dL RDW 12.4 (11.6-14.4) % Plt Count 122 L (150-420) K/mm3 MPV 11.9 H (8.7-11.0) fl Immature Gran % (Auto) 0.2 H (0.0-0.0) % Neut % (Auto) 68.6 (50.0-70.0) % Lymph % (Auto) 17.7 L (18.0-42.0) % Winn % (Auto) 8.7 (2.0-11.0) % Eos % (Auto) 4.1 (1.0-6.0) % Baso % (Auto) 0.7 (0.0-1.0) % Lymph # (Auto) 0.77 L (1.10-4.50) K/mm3 Winn # (Auto) 0.38 (0.10-0.90) K/mm3 Eos # (Auto) 0.18 (0.02-0.50) K/mm3 Baso # (Auto) 0.03 (0.00-0.10) K/mm3 Abs Immat Gran (auto) 0.01 H (0.00-0.00) K/mm3 Absolute Neuts (auto) 2.98 (1.70-7.20) K/mm3 Absolute Nucleated RBC 0.00 (0.00-0.00) K/mm3 Nucleated RBC % 0.0 (0-0.0) % PT 9.8 (9.50-12.1) Seconds INR 0.9 APTT 26.2 (23.9-30.70) Sec D-Dimer 0.26 (0.19-0.50) mg/L Sodium 133 L (137-145) mmol/L Potassium 4.2 (3.4-5.0) mmol/L Chloride 101 (98-107) mmol/L Carbon Dioxide 23 (22-30) mmol/L Anion Gap 9 (4-12) mmol/L BUN 14 D (9-20) mg/dL Creatinine 0.51 L (0.7-1.3) mg/dL Estim Creat Clear Calc 202 ml/min Estimated GFR > 60 (59 - ) Glucose 336 H (65-110) mg/dL Calculated Osmolality 289 (285-295) mOsm/kg Calcium 8.4 (8.4-10.2) mg/dL Magnesium 1.7 (1.6-2.3) mg/dL Total Bilirubin 0.6 (0.2-1.3) mg/dL AST 23 (17-59) U/L ALT 26 (6-50) U/L Alkaline Phosphatase 78 (38-126) U/L Troponin I < 0.012 < 0.012 (0.000-0.034) ng/mL NT-Pro-B Natriuret Pep < 20 (19.9-100) pg/mL Total Protein 6.4 (6.3-8.2) g/dL Albumin 4.0 (3.5-5.1) g/dL Lipase 29 (23-300) U/L Imaging Data Attestation: I personally reviewed and interpreted this imaging study as follows: Radiologist's impression: chest x-ray is negative for acute process ECG Data EKG #1: Attestation: I personally reviewed and interpreted this ECG as follows: ECG completion date: 04/29/25 ECG completion time: 01:26 Interpretation: EKG has early repolarization seen; no reciprocal changes EKG Interpretation: normal rate, sinus rhythm, no ectopy, non-specific ST changes, normal QRS, normal QT and NL axis EKG #2: Attestation: I personally reviewed and interpreted this ECG as follows: ECG completion date: 04/29/25 ECG completion time: 02:17 Interpretation: early repolarization seen without reciprocal changes EKG Interpretation: normal rate, sinus rhythm, no ectopy, non-specific ST changes, normal QRS, normal QT and NL axis Discharge Plan Discharge Clinical Impression: Atypical chest pain Patient Disposition: Home Condition: Stable Instructions: Chest Pain (ED) Additional Instructions: Please follow-up with the primary doctor in the next week. Please follow-up with cardiology as planned to repeat ultrasound of your aorta for your yearly test. Come back to the ER with recurrent chest pain. Please discuss with the multimedia project manager to repeat stress testing as an outpatient. Make sure to touch base with your agricultural research engineer about better glucose control. Patient Language: [place]ral[place] Prescriptions: No Action hydralazine 50 mg tablet 50 mg PO TID Velsipity 2 mg tablet 2 mg PO DAILY insulin glargine [Lantus Solostar U-100 Insulin] 100 unit/mL (3 mL) insulin pen 10 unit subcut QPM Qty: 15 11RF insulin lispro 100 unit/mL insulin pen See Rx Instructions .ROUTE .COMPLEX Qty: 15 12RF Dose Instruction: INJECT 6-8 UNITS THREE TIMES A DAY BEFORE MEALS LAST 63 DAYS* Rx Instructions: INJECT 20-30 UNITS THREE TIMES A DAY BEFORE MEALS LAST 63 DAYS* hydrocodone-acetaminophen 5-325 mg tablet 1 tablet PO Q4H PRN (Reason: pain) Qty: 20 0RF (DME) pen needle, diabetic [BD Ultra-Fine Ambika Pen Needle] 32 gauge x 5/32 needle See Rx Instructions .Route Qty: 100 5RF Rx Instructions: Use to inject insuln 4 times a day amlodipine 10 mg tablet 10 mg PO DAILY Qty: 90 3RF metformin 500 mg tablet extended release 24 hr See Rx Instructions .ROUTE .COMPLEX Qty: 180 3RF Dose Instruction: TAKE ONE TABLET BY MOUTH TWICE A DAY Rx Instructions: TAKE ONE TABLET BY MOUTH TWICE A DAY carvedilol 25 mg tablet See Rx Instructions .ROUTE .COMPLEX Qty: 60 0RF Dose Instruction: TAKE ONE TABLET BY MOUTH TWICE A DAY Rx Instructions: TAKE ONE TABLET BY MOUTH TWICE A DAY Follow-up/Referrals: Olivier Boyce DO [Primary Care Provider] - Time of Disposition: 02:51
[2025-04-28 23:45] VITALS: BP 183/91; PULSE 75; RESP 16; TEMP 36.6; O2SAT 99
[2025-04-28 23:47] LABS: Basophils Absolute Auto 0.03 K/mm3 (0.00-0.10); Basophils Percent Auto 0.7 % (0.0-1.0); Eosinophils Absolute Auto 0.18 K/mm3 (0.02-0.50); Eosinophils Percent Auto 4.1 % (1.0-6.0); Hematocrit 44.4 % (40.0-54.0); Hemoglobin 15.4 g/dL (14.0-18.0); Immature Granulocyte Absolute 0.01 K/mm3 (0.00-0.00); Immature Granulocyte Percent A 0.2 % (0.0-0.0); Lymphocytes Absolute Auto 0.77 K/mm3 (1.10-4.50); Lymphocytes Percent Auto 17.7 % (18.0-42.0); Mean Corpuscular HGB Conc 34.7 g/dL (32-36); Mean Corpuscular Hemoglobin 29.2 pg (27.0-31.0); Mean Corpuscular Volume 84.1 fL (78.0-102.0); Mean Platelet Volume 11.9 fl (8.7-11.0); Monocytes Absolute Auto 0.38 K/mm3 (0.10-0.90); Monocytes Percent Auto 8.7 % (2.0-11.0); Neutrophils Absolute Auto 2.98 K/mm3 (1.70-7.20); Neutrophils Percent Auto 68.6 % (50.0-70.0); Platelet Count Result 122 K/mm3 (150-420); Red Blood Count 5.28 M/mm3 (4.70-6.10); Red Cell Distribution Width 12.4 % (11.6-14.4); White Blood Count 4.4 K/mm3 (4.8-10.8)
[2025-04-28 23:54] VITALS: PULSE 73; RESP 16; O2SAT 100
[2025-04-28 23:56] LABS: Lipase 29 U/L (23-300); Magnesium 1.7 mg/dL (1.6-2.3)
[2025-04-29] VITALS (23 sets, daily range): BP systolic 126–169; BP diastolic 76–95; PULSE 64–73; RESP 10–22; TEMP 36.3; O2SAT 94–100
[2025-04-29] LABS: D Dimer 0.26 mg/L (0.19-0.50); INR 0.9; Partial Thromboplastin Time 26.2 Sec (23.9-30.70); Prothrombin Time 9.8 Seconds (9.50-12.1)
[2025-04-29] MEDS: ASPIRIN 81 MG CHEWABLE TABLET 324 MG PO
[2025-04-29] MEDS: NITROGLYCERIN SL 0.4 MG TABLET SUBLINGUAL (00:01)
[2025-04-29 00:02] LABS: Alanine Aminotransferase 26 U/L (6-50); Alkaline Phosphatase 78 U/L (38-126); Anion Gap 9 mmol/L (4-12); Aspartate Amino Transferase 23 U/L (17-59); Bilirubin,Total 0.6 mg/dL (0.2-1.3); Blood Urea Nitrogen 14 mg/dL (9-20); Calcium 8.4 mg/dL (8.4-10.2); Carbon Dioxide 23 mmol/L (22-30); Chloride 101 mmol/L (98-107); Estimated CRCL calculation 202 ml/min; Estimated Glomerular Filt Rate > 60; Glucose 336 mg/dL (65-110); Osmolality Calculated 289 mOsm/kg (285-295); Potassium 4.2 mmol/L (3.4-5.0); Sodium 133 mmol/L (137-145); Total Protein 6.4 g/dL (6.3-8.2)
[2025-04-29 00:09] LABS: Troponin I < 0.012 ng/mL (0.000-0.034)
[2025-04-29 00:11] LABS: NT Pro B Type Natriuretic Pept < 20 pg/mL (19.9-100)
--- NOTE | 2025-04-29 00:11 | PC.NURSE ---
patient checked, reports CP has improved post medical claims assistant. patient refuses more Nitro at this time states in the past when he has had nitro he gets headaches from it.
--- NOTE | 2025-04-29 01:45 | ECG_ITS ---
Test Date: 2025-04-29 02:00:42 Measurements Intervals [place] Rate: 64 P: 24 ME: 227 QRS: 14 QRSD: 104 T: 37 QT: 395 QTc: 408 Interpretive Statements SINUS RHYTHM WITH FIRST DEGREE AV BLOCK INCOMPLETE RIGHT BUNDLE BRANCH BLOCK ST ELEVATION IN DIFFUSE LEADS- PROBABLY EARLY REPOLARIZATION BORDERLINE ECG Compared to ECG 04/10/2025 15:30:04 First degree AV block now present Electronically Signed On 04-29-2025 06:31:27 CDT by Johny Scott D.O.
--- NOTE | 2025-04-29 01:46 | PC.NURSE ---
cream separator operator at bedside for repeat lab draw.
[2025-04-29 02:15] LABS: Troponin I < 0.012 ng/mL (0.000-0.034)
--- NOTE | 2025-04-29 02:41 | PC.NURSE ---
JEFERSON Bowman at patient bedside for patient update of results and plan of care.
== END 2025-04-29 03:05 | disposition home or self-care (01) ==
LOC: CHSED 04-29 01:40
PROVIDERS: Emergency Provider Emergency Medicine; PCP Family Medicine
DX: R07.89 Other chest pain (principal); I10 Essential (primary) hypertension; E11.9 Type 2 diabetes mellitus without complications; Z87.891 Personal history of nicotine dependence
CPT/HCPCS: 36415; 71045; 80053; 83690; 83735; 83880; 84484; 85025; 85380; 85610; 85730; 93005; 99284; A9270

== ENCOUNTER 2025-05-27 15:39 | Outpatient (CLI) | payer OTHER, SELFPAY ==
--- OUTSIDE RECORDS SUMMARY | 2025-05-27 15:43 | XMS_ITS | Clinical Summary ---
[facility] Address [address] [place] [address] Care Team Providers Care Medicaid Eligibility Specialist Name Role Phone Unavailable Primary Care Provider Unavailabl e Allergies Active Allergy Reactions Criticality Noted Date Comments Parmelia Perlata Itching Low 07/10/2024 Stdjgsx-Iej-Tsb Reductase Inhibitors Nausea and Vomiting High 05/04/2021 [...] Encounters Date Type Department Care Team Description 04/28/2025 External Device Data [facility] Provider, Abstract 04/16/2025 External Device Data [facility] Provider, Abstract 04/15/2025 External Device Data [facility] Provider, Abstract 04/14/2025 External Device Data [facility] Provider, Abstract 03/10/2025 External Device Data [facility] Provider, [...] 10:40 AM CDT Height 185.4 cm (6' 1) 07/10/2024 10:40 AM CDT Body Mass Index [...] Td or Tdap) 06/28/2024, 06/28/2014 COVID-19 Vaccine (2023- season) 07/27/202412/2020, 12/29/2020 DIABETES HBA1C Q 6 [...] Relevant to Health Maintenance Insurance PLANNED ADMINISTRATORS [facility]
[2025-05-27 15:56] LABS: Hematocrit 46.1 % (40.0-54.0); Hemoglobin 15.8 g/dL (14.0-18.0); Mean Corpuscular HGB Conc 34.3 g/dL (32-36); Mean Corpuscular Hemoglobin 29.3 pg (27.0-31.0); Mean Corpuscular Volume 85.4 fL (78.0-102.0); Platelet Count Result 167 K/mm3 (150-420); Red Blood Count 5.40 M/mm3 (4.70-6.10); White Blood Count 9.0 K/mm3 (4.8-10.8)
[2025-05-27 17:21] LABS: Alanine Aminotransferase 22 U/L (6-50); Albumin Level 4.2 g/dL (3.5-5.1); Alkaline Phosphatase 59 U/L (38-126); Anion Gap 4 mmol/L (4-12); Aspartate Amino Transferase 22 U/L (17-59); Bilirubin,Total 0.7 mg/dL (0.2-1.3); Blood Urea Nitrogen 18 mg/dL (9-20); CRP. < 0.5 mg/dL (<1.0); Calcium 9.1 mg/dL (8.4-10.2); Carbon Dioxide 26 mmol/L (22-30); Chloride 109 mmol/L (98-107); Estimated Glomerular Filt Rate > 60; Glucose 95 mg/dL (65-110); Osmolality Calculated 289 mOsm/kg (285-295); Potassium 4.3 mmol/L (3.4-5.0); Sodium 139 mmol/L (137-145); Total Protein 6.6 g/dL (6.3-8.2)
== END 2025-05-27 15:40 | disposition home or self-care (01) ==
PROVIDERS: PCP Family Medicine; Visit Provider Internal Medicine Gastroenterology
DX: K51.90 Ulcerative colitis, unspecified, without complications (principal)
CPT/HCPCS: 36415; 80053; 85027; 85652; 86140

== ENCOUNTER 2025-05-28 09:40 | Outpatient (CLI) | payer OTHER, SELFPAY ==
--- OUTSIDE RECORDS SUMMARY | 2025-05-28 09:43 | XMS_ITS | Clinical Summary ---
[facility] Address [address] [place] [address] Care Team Providers Care Education Administrator Name Role Phone Unavailable Primary Care Provider Unavailabl e Allergies Active Allergy Reactions Criticality Noted Date Comments Parmelia Perlata Itching Low 07/10/2024 Bfgyndy-Vas-Vcn Reductase Inhibitors Nausea and Vomiting High 05/04/2021 [...] Relevant to Health Maintenance Insurance PLANNED ADMINISTRATORS [facility]
== END 2025-05-28 09:41 | disposition home or self-care (01) ==
LOC: CHSLAB 09:41
PROVIDERS: PCP Family Medicine; Visit Provider Internal Medicine Gastroenterology
DX: K51.90 Ulcerative colitis, unspecified, without complications (principal)
CPT/HCPCS: 83993

== ENCOUNTER → 2025-07-07 12:02 | Outpatient (REF) | payer OTHER, SELFPAY ==
--- NOTE | 2025-07-07 12:02 | S_PTH ---
PATIENT: Conor Aaron Sr. LOC: [facility] U#:[id number] AGE/SX: 50/M ROOM: RE07/07/[address]: Kenny Deng MD : [id number] BED: DIS: SPEC #: [id number] RECD: 07/07/25 12:14 STATUS: FRANCIA REQ #: [id number] ANGELA: 07/07/25 12:[address]: Kenny Deng DEPT: [facility] Surgical RECD BY: Trenton Jackson ENTERED: 07/07/25 12:14 SP TYPE: Surgical OTHR DR: Olivier Boyce DO Tissues: A - LESION Procedures: Gross and Microscopic Level 4 P16
--- OUTSIDE RECORDS SUMMARY | 2025-07-07 12:34 | XMS_ITS | Clinical Summary ---
[facility] Address [address] [place] [address] Care Team Providers Care Geography Faculty Member Name Role Phone Unavailable Primary Care Provider Unavailabl e Allergies Active Allergy Reactions Criticality Noted Date Comments Parmelia Perlata Itching Low 07/10/2024 Bdeffvg-Qux-Jhx Reductase Inhibitors Nausea and Vomiting High 05/04/2021 [...] Flex Sig/CT Colonography Q 5 years 2022 DTAP/TDAP/TD VACCINES (3 - Td or Tdap) 06/28/2024, 06/28/2014 COVID-19 Vaccine ( season) 07/27/202412/2020, 12/29/2020 DIABETES HBA1C Q 6 MONTHS 08/24/2024 02/22/2024 INFLUENZA VACCINE (#1) 2025 Abdominal Aortic Aneurysm (AAA) Screening Completed 07/25/2024 [...] Most Recently Relevant to Health Maintenance Insurance [place] [address] ADMINISTRATORS [facility]
--- OUTSIDE RECORDS SUMMARY | 2025-07-07 12:34 | XMS_ITS | Clinical Summary ---
Author Organization [facility] Address [address] [place] [address] Care Team Providers Care Stem Threshing Machine Operator Name Role Phone Olivier Boyce DO Primary Care Provider Allergies Active Allergy Reactions Criticality Noted Date Comments Pullman-3 Fatty Acids Nausea & Vomiting Low 4 Oxycodone Itching Low 09/01/2024 Vhoyyws-Ner-Lbh Reductase Inhibitors Nausea & Vomiting High 05/04/2021 [...] Diagnosed Date Resolved Date Snoring 03/10/2021 05/04/2021 Surgical History Surgery Date Site/Laterality Comments ROTATOR CUFF REPAIR 11/26/2011 - 11/25/2012 Left ROTATOR CUFF REPAIR 11/26/2010 - 11/25/2011 Right COLONOSCOPY Multiple-- Last 2022 Medical History Medical History Date Comments Hx Other Medical Arrhythmias a. fib Hypertension Dxd Adiposity Obesity Diabetes mellitus (HCC) Ulcerative colitis UC dxd 2019-- Currently treated with mesalamine with minor flare [...] on file Legal Sex Male 2:36 AM SUPPLY TECH Gender Identity Not on file Sexual Orientation [...] 4:15 PM CDT Height 185.4 cm (6' 1) 08/15/2024 4:15 PM CDT Body Mass Index [...] or Tdap) 06/28/202401/2014, 06/28/2014 Covid-19 Vaccine ( season) 07/27/202412/2020, 12/29/2020 Hemoglobin A1C 08/24/2024 02/22/2024, 05/26, 03/26/2022 Influenza Vaccine (#1) 2025 Medical Devices Implanted Type Area Recruiting Consultant Device Identifier Shelf Expiration Date Model / Serial / Lot [employer] Fiberloop 3.2mm Drill Pin Needle Shoehorn Cannula Kit Suture Ar-2290 - [id number] Implanted:Qty : 1 on 09/01/2024 by Carlos Hart MD at [facility] Left: Shoulder [employer] [id number] 04/25/2029 AR-2290 / / [id number] Procedures Procedure Name Priority Date/Time Associated Diagnosis Comments LIPID PANEL Routine 06/13/2023 Hyperlipidemia associated with type 2 diabetes mellitus (HCC) EGFR Routine 03/11/2021 1:20 PM CDT Hyperlipidemia associated with type 2 diabetes mellitus (HCC) Atypical chest pain from Last 3 Months or Most Recently Relevant to Health Maintenance Results * Lipid panel (06/13/2023) Pathologist [facility] SCRIBED Cholesterol, Total 97 <200 EXTERNAL LAB SCRIBED HDL 43 >40 EXTERNAL LAB SCRIBED LDL 23 <100 EXTERNAL LAB SCRIBED Triglycerides 153 <150 EXTERNAL LAB Blood 06/13/2023 us Otto Peng MD LAB BLOOD ORDERABLES Janina headley Result EXTERNAL LAB * eGFR (03/11/2021 1:20 PM CDT) Pathologist [facility] eGFR 129 mL/min/1.7 3 m2 MARIO OLMEDO [...] LAB BLOOD ORDERABLES Janina headley Result MARIO [id number] Department of Laboratories [place] [phone] from Last 3 Months or Most Recently Relevant to Health Maintenance Insurance COMMERCIAL GENERIC [facility] WORKERS COMPENSATION GENERIC Care Teams Stem Threshing Machine Operator Relationship Specialty Start Date End Date Olivier Boyce DO [address] [place] [address] PCP - General Family Medicine 08/07/24
== END ==
LOC: ANHLAB 12:02
PROVIDERS: PCP Family Medicine; Visit Provider Plastic Surgery
DX: C44.622 Squamous cell carcinoma of skin of right upper limb, including shoulder (principal); D48.5 Neoplasm of uncertain behavior of skin; L30.8 Other specified dermatitis
CPT/HCPCS: 88305; 88342

== ENCOUNTER 2025-09-25 10:04 | Outpatient (CLI) | payer OTHER, SELFPAY ==
--- OUTSIDE RECORDS SUMMARY | 2025-09-25 10:36 | XMS_ITS | Clinical Summary ---
Author Organization [facility] Savannah Baxter Address [address] [place] [address] Care Team Providers Care Chief Orthoptist Name Role Phone Unavailable Primary Care Provider Unavailabl e Allergies Active Allergy Reactions Criticality Noted Date Comments Parmelia Perlata Itching Low 07/10/2024 Gjfhpxp-Eit-Fgk Reductase Inhibitors Nausea and Vomiting High 05/04/2021 [...] Active Active Problems No known active problems Family History Medical History Relation Name Comments [...] (3 - Td or Tdap) 06/28/2024, 06/28/2014 DIABETES HBA1C Q 6 MONTHS 08/24/2024 02/22/2024 INFLUENZA VACCINE (#1) 2025 COVID-19 Vaccine ( season) 07/27/202512/2020, 12/29/2020 Insurance PLANNED ADMINISTRATORS [facility]
--- OUTSIDE RECORDS SUMMARY | 2025-09-25 10:36 | XMS_ITS ---
Author Organization [facility] Address [address] [place] [address] Phone Care Team Providers Care Sliver Chopper Name Role Phone Сергей Vázquez MD Primary Care Provider [phone] Kenny Deng MD Unavailable [phone] Issac Laboy MD Unavailable [phone] Active Problems Problem Noted Date Diagnosed Date History of therapeutic radiation 09/16/2025 Overview (09/16/2025): Right index finger nailfold electron radiotherapy 50 Chan in 20 fractions from 08/20/2025 thru 09/16/2025. 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 While the deep margin was negative the inked lateral margins were involved. Additional surgery was not recommended. He began radiotherapy 08/20/2025 and completed 09/16/2025 receiving 50 Chan in 20 fractions to the nailfold of his right index finger. Current Treatment and Therapy Plans No current plan information found. Past Treatment and Therapy Plans No past plan information found. 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
--- OUTSIDE RECORDS SUMMARY | 2025-09-25 10:36 | XMS_ITS | Encounter Summary ---
Author Organization [facility] Address [address] [facility] [place] [address] Phone Care Team Providers Care Teaching Aide Name Role Phone Сергей Vázquez MD Primary Care Provider [phone] Kenny Deng MD Unavailable [phone] Issac Laboy MD Unavailable Encounter Details Date Type Department Care Team (Late st Contact Info) Description 09/23/2025 Documentation Only [facility] On[facility] [address] [place] [id number] Issac Laboy MD [address] [place] [address] Social History Tobacco Use Types Packs/Day Years Used Date Smoking Tobacco: Every Day Cigarettes Alcohol Use Standard Drinks/Week Comments No 0 (1 standard drink = 0.6 oz pur e alcohol) Socially Sex and Gender Information Value Date Recorded Sex Assigned at Not on file 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 Gender Identity Not on file Sexual Orientation Not on file documented as of this encounter Miscellaneous Notes * Interdisciplinary - Farida Curtis RD - 09/23/2025 10:40 AM CDT 09/14/2025-DC pe=[id number] documented in this encounter Plan of Treatment Upcoming Encounters Date Type Department Care Team (Late st Contact Info) Description 10/13/2025 3:30 PM 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 MAINFRAME DEVELOPER Office Visit [facility] [address] [place] [address] Issac Laboy MD [address] [place] [address] Discharge Disposition: Discharged to home or Selfcare documented as of this encounter Visit Diagnoses Not on filedocumented in this encounter Care Teams Teaching Aide Relationship Specialty Start Date End Date Сергей Vázquez MD [address] [place] [address] PCP - General Family Medicine 10/26/16 Kenny Deng MD [address] [address] Consulting Physician Plastic Surgery 09/07/25 Issac Laboy MD [address] [place] [address] Consulting Physician Radiation Oncology 09/07/25 documented as of this encounter
--- OUTSIDE RECORDS SUMMARY | 2025-09-25 10:36 | XMS_ITS | Clinical Summary ---
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 Gender Identity Not on file Sexual Orientation [...] (3 - Td or Tdap) 06/28/202401/2014, 06/28/2014 Hemoglobin A1C 08/24/2024 02/22/2024, 07, 03/26/2022 Covid-19 Vaccine ( season) 07/27/202512/2020, 12/29/2020 Influenza Vaccine (#1) 2025 Medical Devices Implanted Type Area [employer] Airspace Officer Device Identifier Shelf Expiration Date Model / Serial / Lot [employer] Fiberloop 3.2mm Drill Pin Needle Shoehorn Cannula Kit Suture Ar-2290 - [id number] Implanted:Qty : 1 on 09/01/2024 by Carlos Hart MD at [facility] Left: Shoulder [employer] [id number] 04/25/2029 AR-2290 / / [id number] Procedures Procedure Name Priority Date/Time Associated Diagnosis Comments LIPID PANEL Routine 06/13/2023 Hyperlipidemia associated with type 2 diabetes mellitus (HCC) EGFR Routine 03/11/2021 1:20 PM CDT Hyperlipidemia associated with type 2 diabetes mellitus (HCC) Atypical chest pain from Last 3 Months or Most Recently Relevant to Health Maintenance Results * Lipid panel (06/13/2023) Pathologist [facility] SCRIBED Cholesterol, Total 97 <200 EXTERNAL LAB [...] LAB BLOOD ORDERABLES Janina headley Result MARIO [id number] [address] Department of Laboratories [place] [phone] from Last 3 Months or Most Recently Relevant to Health Maintenance Insurance COMMERCIAL GENERIC [facility] WORKERS COMPENSATION GENERIC Care Teams Electric Sign Assembler Relationship Specialty Start Date End Date Olivier Boyce DO [address] [place] [address] PCP - General Family Medicine 08/07/24
--- OUTSIDE RECORDS SUMMARY | 2025-09-25 10:36 | XMS_ITS | Clinical Summary ---
Author Organization [facility] Address [address] [place] [address] Care Team Providers Care Blender Operator Name Role Phone Unavailable Primary Care Provider Unavailabl e Source Comments [facility],non-owned Affiliates and Associated Physician Practices is amultiple site organization consisting of ambulatory clinics and hospital sitesin [place], [place], [place] and [place]. This disclosure is being madepursuant to the Care Everywhere program and may not contain all information available regarding this patient. Last updated 18.[facility] Allergies Active Allergy Reactions Criticality Noted Date Comments Oxycodone-Acetaminophen Itching Low 07/02/2017 Aysebt-Jhfrg-Wnbjgm-Fa-Fishoil Vomiting Medium 02/20 Hmg-Coa-R Inhibitors Vomiting 02/21/2024 [...] vitamin D, ergocalciferol , (Drisdol) 1.25 MG (90294 UT) capsuleIndicat ions:Vitamin D Deficiency Take 1 [...] medical care, and heating? Somewhat hard 02/21/2024 [facility] [place] of Occupat ional Health - Occupational Stress [...] place to sleep or slept in a [place] health care facility (including now)? No 02/21/2024 Sex and Gender [...] 3:19 PM CDT Height 185.4 cm (6' 0.99) 02/21/2024 3:19 PM CD T Body Mass [...] - Td or Tdap) 06/28/2024 06/28/2014, 06/28/2014 DIABETES-HGB A1C 08/24/2024 02/22/2024, 08/2022, 03/26/2022 DEPRESSION SCREENING 11/26/2024 DIABETES - URINE PROTEIN SCREENING 11/26/2024 DIABETES-SERUM CREATININE 02/24/20252023, 02/24/2024, 02/23/2024, Additional history exists COVID-19 VACCINE ( season) 2025 01/25/2021, 12/29/2020 INFLUENZA VACCINE (#1) 2025 ZOSTER VACCINE (1 of 2) 2027 [...] PANEL (CALCIUM TOTAL) (02/25/2024 6:15 AM CDT) [facility] Glucose 209(H) 70 - 125 mg/dL 02/25/2024 6:37 AM CDT [facility] Sodium 139 136 - 145 mmol/L 02/25/2024 6:37 AM CDT [facility] Potassium 3.7 3.4 - 5.1 mmol/L 02/25/2024 6:37 AM CDT [facility] Chloride 106 98 - 107 mmol/L 02/25/2024 6:37 AM CDT [facility] CO2 27 22 - 29 mmol/L 02/25/2024 6:37 AM CDT [facility] Calcium 8.83 8.4 - 10.2 mg/dL 02/25/2024 6:37 AM CDT [facility] Anion Gap 6 6 - 16 mmol/L 02/25/2024 6:37 AM CDT [facility] BUN 11.6 8.4 - 25.7 mg/dL 02/25/2024 6:37 AM CDT [facility] Creatinine 0.58(L) 0.72 - 1.25 mg/dL 02/25/2024 6:37 AM CDT [facility] eGFR >90 >90 mL/min/1.7 3m2 02/25/2024 6:37 AM CDT [facility] Comment:The GFR result was c alculated using the updated CKD-EPI Creatinine Equation (2020). Blood BLOOD SPECIMEN / Unknown Lab Venipuncture / Unknown 02/25/2024 6:15 AM CDT 02/25/2024 6:15 AM CDT [facility] - CHEMISTRY OR DERABLES Final Result Performing Organization Address City/State/[facility] Co de Phone Number [facility] [address] * (ABNORMAL) HEMOGLOBIN A1C (02/22/2024 6:10 AM CDT) [facility] Hemoglobin A1c 7.0(H) 4.2 - 5.6 % 02/22/2024 7:19 AM CDT [facility] Estimated Average Glucose 154 mg/dL 02/22/2024 7:19 AM CDT [facility] Blood BLOOD SPECIMEN / Unknown Lab Venipuncture / Unknown 02/22/2024 6:10 AM CDT 02/22/2024 6:17 AM CDT Narrative [facility] - 02/22/2024 7:19 AM CDT HbA1c [...] Standardization Program (NGSP) certified method. [facility] - CHEMISTRY OR DERABLES Final Result [facility] [address] from Last 3 Months or Most Recently Relevant to Health Maintenance Insurance MEDICAID - [place] [facility] SELF PAY NO INSURANCE Member Subscriber Plan / Payer (Ef fective for All Dates) Name:Nuzhat Aaron Member ID:Not on file Relation to Subscriber:Not on file Name:NUZHAT AARON Subscriber ID:Not on file (Home) Address: [address] [place] [phone] Payer ID:Not on file Group ID:Not on file Type:Self Pay Address: [place], [place] [employer] MD [id number] * Guarantor: NUZHAT AARON Account Type Relation to Patient Date of Phone Billing Address Personal/Family Spouse Advance Directives * Full Code (Latest Code [...]
--- OUTSIDE RECORDS SUMMARY | 2025-09-25 10:37 | XMS_ITS | Clinical Summary ---
Author Organization 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 Active GLIPIZIDE PO Take by mouth daily. Active METOPROLOL TARTRATE PO Take by mouth. Act bismark AMLODIPINE BESYLATE PO Take by mouth. Act bismrak traMADol (ULTRAM) 50 MG Tablet Take 1-2 Tabs by mouth every 6 hours as needed for Pain. 20 Tab 0 6 Active Additional Information Patient not taking.Reported on 08/31/2025 cyclobenzaprine (FLEXERIL) 10 MG Tablet Take 1 Tab by mouth 3 times daily as needed for Muscle spasms for up to 15 doses. 15 Tab 0 6 Active Additional Information Patient not taking.Reason: Other, Reported on 08/31/2025 HYDROcodone-gregorio taminophen (NORCO) 5-325 MG Tablet Take 1 Tab by mouth every 6 hours as needed for Pain. 20 Tab 0 6 Active Additional Information Patient not taking.Reported on 08/31/2025 carvedilol (COREG) 25 MG Tablet Take 25 mg by mouth 2 times daily. Active hydrALAZINE 50 MG Tablet Take 50 mg by mouth 2 times daily. Active Insulin Glargine (SEMGLEE SC) 28 Units by Subcutaneous route nightly. Active Etrasimod Arginine (VELSIPITY PO) Take 5 mg by mouth daily. Active isosorbide mononitrate (IMDUR) 60 MG TABLET SR 24 HR Take 60 mg by mouth every morning. Active INSULIN LISPRO PROT & LISPRO SC by Subcutaneous route. Active Insulin Glargine (SEMGLEE SC) by Subcutaneous route. Active Active Problems Problem Noted Date Diagnosed [...] the nailfold of his right index finger. Resolved Problems Problem Noted Date Diagnosed Date Resolved Date Left hip pain 10/26/2016 09/16/2025 Encounters Date Type Department Care Team Description 09/23/2025 Documentation Only [facility] [address] [place] [address] Issac Laboy MD 09/22/2025 Telephone [facility] [address] [place] [address] Issac Laboy MD Care Management (Please see dictated note.) 09/20/2025 Telephone [facility] [address] [place] [address] Issac Laboy MD Care Management (Please see dictated note.) 09/16/2025 8:30 AM CDT Clinical Support [facility] [address] [place] [phone] Issac Laboy MD Encounter for radiotherapy (Primary Dx); 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; History of therapeutic radiation Discharge Disposition: Discharged to home or Selfcare 09/16/2025 Travel 09/15/2025 8:30 AM CDT Clinical Support [facility] [address] [place] [phone] Issac Laboy MD Discharge Disposition: Discharged to home or Selfcare 09/15/2025 Travel 09/14/2025 8:45 AM CDT Office Visit [facility] [address] [place] [phone] Issac Laboy MD Encounter for radiotherapy (Primary Dx); 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 Discharge Disposition: Discharged to home or Selfcare 09/14/2025 8:30 AM CDT Clinical Support [facility] [address] [place] [phone] Issac Laboy MD Discharge Disposition: Discharged to home or Selfcare 09/14/2025 Travel 09/11/2025 8:30 AM CDT Clinical Support [facility] [address] [place] [phone] Issac Laboy MD Discharge Disposition: Discharged to home or Selfcare 09/11/2025 Travel 09/10/2025 8:30 AM CDT Clinical Support [facility] [address] [place] [phone] Issac Laboy MD Discharge Disposition: Discharged to home or Selfcare 09/10/2025 Travel 09/09/2025 8:30 AM CDT Clinical Support [facility] [address] [place] [phone] Issac Laboy MD Discharge Disposition: Discharged to home or Selfcare 09/09/2025 Travel 09/08/2025 8:30 AM CDT Clinical Support [facility] [address] [place] [phone] Issac Laboy MD Discharge Disposition: Discharged to home or Selfcare 09/08/2025 Travel 09/07/2025 8:45 AM CDT Office Visit [facility] [address] [place] [phone] Сергей Navas MD Piephoff, James Vernon, MD Encounter for radiotherapy (Primary Dx); 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 Discharge Disposition: Discharged to home or Selfcare 09/07/2025 8:30 AM CDT Clinical Support [facility] [address] [place] [phone] Сергей Navas MD Discharge Disposition: Discharged to home or Selfcare 09/07/2025 Travel 09/04/2025 8:30 AM CDT Clinical Support [facility] [address] [place] [phone] Сергей Navas MD Discharge Disposition: Discharged to home or Selfcare 09/04/2025 Travel 09/03/2025 8:30 AM CDT Clinical Support [facility] [address] [place] [phone] Сергей Navas MD Discharge Disposition: Discharged to home or Selfcare 09/03/2025 Documentation Only [facility] [address] [place] [phone] Сергей Navas MD 09/03/2025 Travel 09/02/2025 8:45 AM CDT Clinical Support [facility] [address] [place] [phone] Сергей Navas MD Discharge Disposition: Discharged to home or Selfcare 09/02/2025 Travel 09/01/2025 8:45 AM CDT Clinical Support [facility] [address] [place] [phone] Сергей Navas MD Discharge Disposition: Discharged to home or Selfcare 09/01/2025 Travel 08/31/2025 9:00 AM CDT Office Visit [facility] [address] [place] [phone] Сергей Navas MD 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) Discharge Disposition: Discharged to home or Selfcare 08/31/2025 8:45 AM CDT Clinical Support [facility] [address] [place] [phone] Сергей Navas MD Discharge Disposition: Discharged to home or Selfcare 08/31/2025 Travel 08/28/2025 8:45 AM CDT Clinical Support [facility] [address] [place] [phone] Сергей Navas MD Discharge Disposition: Discharged to home or Selfcare 08/28/2025 Travel 08/27/2025 8:45 AM CDT Clinical Support [facility] [address] [place] [phone] Сергей Navas MD Discharge Disposition: Discharged to home or Selfcare 08/27/2025 Travel 08/26/2025 3:00 PM CDT Clinical Support [facility] [address] [place] [address] Сергей Navas MD Discharge Disposition: Discharged to home or Selfcare 08/26/2025 Travel 08/25/2025 9:00 AM CDT Clinical Support [facility] [address] [place] [phone] Сергей Navas MD Discharge Disposition: Discharged to home or Selfcare 08/25/2025 Travel 08/24/2025 9:15 AM CDT Office Visit [facility] [address] [place] [phone] Сергей Navas MD 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) Discharge Disposition: Discharged to home or Selfcare 08/24/2025 9:00 AM CDT Clinical Support [facility] [address] [place] [phone] Сергей Navas MD Discharge Disposition: Discharged to home or Selfcare 08/24/2025 Travel 08/21/2025 2:45 PM CDT Clinical Support [facility] [address] [place] [phone] Сергей Navas MD Discharge Disposition: Discharged to home or Selfcare 08/21/2025 Travel 08/20/2025 2:30 PM CDT Clinical Support [facility] [address] [place] [phone] Сергей Navas MD 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) Discharge Disposition: Discharged to home or Selfcare 08/20/2025 Travel 08/19/2025 Non-Scheduled Office Visit [facility] [address] [place] [phone] Сергей Navas MD 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) 08/13/2025 10:15 AM CDT Ancillary Procedure [facility] [place] [facility] [address] [place] [phone] Сергей Navas MD 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) Discharge Disposition: Discharged to home or Selfcare 08/13/2025 Travel 08/04/2025 9:00 AM CDT Initial Consult [facility] [address] [place] [phone] Сергей Navas MD 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) Discharge Disposition: Discharged to home or Selfcare 08/04/2025 Travel from Last 3 Months Family History Medical History Relation Name Comments Cancer Father Cancer Maternal Grandfather Diabetes Mother Cancer Paternal Grandfather Relation Name Status Comments Father Maternal Grandfather Alive Mother Alive Paternal Grandfather Alive Sister Alive Social History Tobacco Use Types Packs/Day Years Used Date Smoking Tobacco: Every Day Cigarettes Alcohol Use Standard Drinks/Week Comments No 0 (1 standard drink = 0.6 oz pur e alcohol) Socially Sex and Gender Information Value Date Recorded Sex Assigned at Not on file Legal 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 Gender Identity Not on file Sexual Orientation Not on file Last Filed Vital Signs Vital Sign Reading Time Taken Comments Blood Pressure 154/83 09/14/2025 9:03 AM CDT Pulse 62 09/14/2025 9:03 AM CDT Temperature 36.8 C (98.3 F) 09/14/2025 9:03 AM CDT Respiratory Rate 16 09/14/2025 9:03 AM CDT Oxygen Saturation 99% 09/14/2025 9:03 AM CDT Inhaled Oxygen Concentration - - Weight 124.7 kg (275 lb) 09/14/2025 9:03 AM CDT Height 185.4 cm (6' 1) 08/31/2025 8:46 AM CDT Body Mass Index 36.28 08/31/2025 8:46 AM CDT Plan of Treatment Upcoming Encounters Date Type Department Care Team (Late st Contact Info) Description 10/13/2025 3:30 PM 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 Office Visit [facility] [address] [place] [phone] Issac Laboy MD [address] [place] [address] Discharge Disposition: Discharged to home or Selfcare Health Maintenance Due Date Last Done Comments Hepatitis C Virus (HCV) Screening 1977 Hepatitis B Immunization (1 of 3 - 19+ 3-dose series) 1996 Pneumococcal Immunization Combined (2 of 2 - PCV) 12/17/2020 12/17/2019 Cologuard 2022 Colonoscopy 2022 Colorectal Cancer Screening 2022 Immunochemical Fecal Occult Blood 2022 Influenza Immunization (#1) 2025 SARS-COV-2 Immunization ( season) 2025 10/23/2022, 08/16/2022, 04/14/2022, Additional history exists Respiratory Syncytial Virus (RSV) Immunization (Adult) (1 - 1-dose 75+ series) 2052 DTaP/Tdap/Td Immunization Discontinued 06/28/2014, 01/2014 TdaP Immunization Completed 06/28/2014 Human Papillomavirus (HPV) Immunization Aged Out No longer eligible based on patient's age to complete this topic Meningococcal Immunization (ACWY) Aged Out No longer eligible based on patient's age to complete this topic Rotavirus Immunization Aged Out No lo nger eligible based on patient's age to complete this topic Procedures Procedure Name Priority Date/Time Associated Diagnosis Comments RAD ONC ARIA COURSE SUMMARY Routine 09/18/2025 9:42 AM CDT RAD ONC ARIA SESSION SUMMARY Routine 09/16/2025 8:41 AM CDT Encounter for radiotherapy 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 History of therapeutic radiation RAD ONC ARIA SESSION SUMMARY Routine 09/15/2025 8:34 AM CDT RAD ONC ARIA SESSION SUMMARY Routine 09/14/2025 8:37 AM CDT RAD ONC ARIA SESSION SUMMARY Routine 09/11/2025 8:29 AM CDT RAD ONC ARIA SESSION SUMMARY Routine 09/10/2025 8:29 AM CDT RAD ONC ARIA SESSION SUMMARY Routine 09/09/2025 8:36 AM CDT RAD ONC ARIA SESSION SUMMARY Routine 09/08/2025 8:31 AM CDT RAD ONC ARIA SESSION SUMMARY Routine 09/07/2025 8:33 AM CDT RAD ONC ARIA SESSION SUMMARY Routine 09/04/2025 8:27 AM CDT RAD ONC ARIA SESSION SUMMARY Routine 09/03/2025 8:25 AM CDT RAD ONC ARIA SESSION SUMMARY Routine 09/02/2025 8:33 AM CDT RAD ONC ARIA SESSION SUMMARY Routine 09/01/2025 8:55 AM CDT RAD ONC ARIA SESSION SUMMARY Routine 08/31/2025 8:40 AM CDT RAD ONC ARIA SESSION SUMMARY Routine 08/28/2025 8:44 AM CDT RAD ONC ARIA SESSION SUMMARY Routine 08/27/2025 8:44 AM CDT RAD ONC ARIA SESSION SUMMARY Routine 08/26/2025 3:08 PM CDT RAD ONC ARIA SESSION SUMMARY Routine 08/25/2025 8:59 AM CDT RAD ONC ARIA SESSION SUMMARY Routine 08/24/2025 9:19 AM CDT RAD ONC ARIA SESSION SUMMARY Routine 08/21/2025 2:44 PM CDT RAD ONC ARIA SESSION SUMMARY Routine 08/20/2025 2:47 PM CDT 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 PLASTIC SURGERY CONSULT 07/21/2025 12:00 AM CDT PATHOLOGY SURGICAL 07/07/2025 12 :00 AM CDT from Last 3 Months Results * RAD ONC ARIA COURSE SUMMARY (09/18/2025 9:42 AM CDT) Course ID C1 ARIA RO MODEL Course Intent Curative ARIA RO MODEL Course Start Date 08/04/2025 10:44 AM ARIA RO MODEL Course End Date 09/18/2025 9:42 AM 08/20/2025 2:43 PM ARIA RO MODEL Course Last Treatment Date 09/16/2025 8:46 AM ARIA RO MODEL Course Elapsed Days 27 ARIA RO MODEL Reference Point ID R [id number] ARIA RO MODEL Reference Point Dosage Given to Date 50 Gy ARIA RO MODEL Plan ID R [id number] ARIA RO MODEL Plan Name R Finger_5000 ARIA RO MODEL Energy 6E ARIA RO MODEL Plan Fractions Treated to Date 20 ARIA RO MODEL Plan Total Fractions Prescribed 20 ARIA RO MODEL Plan Prescribed Dose Per Fraction 2.5 Gy ARIA RO MODEL Plan Total Prescribed Dose 5,000 cGy ARIA RO MODEL Plan Primary Reference Point R Finger_5000 ARIA RO MODEL 09/18/2025 9:42 AM CDT us Unknown Provider RADIATION ONCOLOGY ORDERABLES F inal Result ARIA RO MODEL [address] [place] [address] * RAD ONC ARIA SESSION SUMMARY (09/16/2025 8:41 AM CDT) Course ID C1 ARIA RO MODEL Course Intent Curative ARIA RO MODEL Course Start Date 08/04/2025 10:44 AM ARIA RO MODEL Session Number 20 ARIA RO MODEL Course End Date 08/20/2025 2:43 PM ARIA RO MODEL Course Last Treatment Date 09/16/2025 8:46 AM ARIA RO MODEL Course Elapsed Days 27 ARIA RO MODEL Reference Point ID R [id number] ARIA RO MODEL Reference Point Dosage Given to Date 50 Gy ARIA RO MODEL Reference Point Session Dosage Given 2.5 Gy ARIA RO MODEL Plan ID R [id number] ARIA RO MODEL Plan Name Rt. Index Finger_PTV_5 0Gy ARIA RO MODEL Energy 6E ARIA RO MODEL Plan Fractions Treated to Date 20 ARIA RO MODEL Plan Total Fractions Prescribed 20 ARIA RO MODEL Plan Prescribed Dose Per Fraction 2.5 Gy ARIA RO MODEL Plan Total Prescribed Dose 5,000 cGy ARIA RO MODEL Plan Primary Reference Point R Finger_5000 ARIA RO MODEL 09/16/2025 8:41 AM CDT us Unknown Provider RADIATION ONCOLOGY ORDERABLES F inal Result Performing Organization Address City/State/[facility] Co de Phone Number ARIA RO MODEL [address] [place] [address] * RAD ONC ARIA SESSION SUMMARY (09/15/2025 8:34 AM CDT) Course ID C1 ARIA RO MODEL Course Intent Curative ARIA RO MODEL Course Start Date 08/04/2025 10:44 AM ARIA RO MODEL Session Number 19 ARIA RO MODEL Course End Date 08/20/2025 2:43 PM ARIA RO MODEL Course Last Treatment Date 09/15/2025 8:39 AM ARIA RO MODEL Course Elapsed Days 26 ARIA RO MODEL Reference Point ID R [id number] ARIA RO MODEL Reference Point Dosage Given to Date 47.5 Gy ARIA RO MODEL Reference Point Session Dosage Given 2.5 Gy ARIA RO MODEL Plan ID R [id number] ARIA RO MODEL Plan Name Rt. Index Finger_PTV_5 0Gy ARIA RO MODEL Energy 6E ARIA RO MODEL Plan Fractions Treated to Date 19 ARIA RO MODEL Plan Total Fractions Prescribed 20 ARIA RO MODEL Plan Prescribed Dose Per Fraction 2.5 Gy ARIA RO MODEL Plan Total Prescribed Dose 5,000 cGy ARIA RO MODEL Plan Primary Reference Point R Finger_5000 ARIA RO MODEL 09/15/2025 8:34 AM CDT us Unknown Provider RADIATION ONCOLOGY ORDERABLES F inal Result Performing Organization Address [facility] de Phone Number ARIA RO MODEL [address] [place] [address] * RAD ONC ARIA SESSION SUMMARY (09/14/2025 8:37 AM CDT) Course ID C1 ARIA RO MODEL Course Intent Curative ARIA RO MODEL Course Start Date 08/04/2025 10:44 AM ARIA RO MODEL Session Number 18 ARIA RO MODEL Course End Date 08/20/2025 2:43 PM ARIA RO MODEL Course Last Treatment Date 09/14/2025 8:42 AM ARIA RO MODEL Course Elapsed Days 25 ARIA RO MODEL Reference Point ID R [id number] ARIA RO MODEL Reference Point Dosage Given to Date 45 Gy ARIA RO MODEL Reference Point Session Dosage Given 2.5 Gy ARIA RO MODEL Plan ID R [id number] ARIA RO MODEL Plan Name Rt. Index Finger_PTV_5 0Gy ARIA RO MODEL Energy 6E ARIA RO MODEL Plan Fractions Treated to Date 18 ARIA RO MODEL Plan Total Fractions Prescribed 20 ARIA RO MODEL Plan Prescribed Dose Per Fraction 2.5 Gy ARIA RO MODEL Plan Total Prescribed Dose 5,000 cGy ARIA RO MODEL Plan Primary Reference Point R Finger_5000 ARIA RO MODEL 09/14/2025 8:37 AM CDT us Unknown Provider RADIATION ONCOLOGY ORDERABLES F inal Result Performing Organization Address [facility] Co de Phone Number ARIA RO MODEL [address] [place] [address] * RAD ONC ARIA SESSION SUMMARY (09/11/2025 8:29 AM CDT) Course ID C1 ARIA RO MODEL Course Intent Curative ARIA RO MODEL Course Start Date 08/04/2025 10:44 AM ARIA RO MODEL Session Number 17 ARIA RO MODEL Course End Date 08/20/2025 2:43 PM ARIA RO MODEL Course Last Treatment Date 09/11/2025 8:33 AM ARIA RO MODEL Course Elapsed Days 22 ARIA RO MODEL Reference Point ID R [id number] ARIA RO MODEL Reference Point Dosage Given to Date 42.5 Gy ARIA RO MODEL Reference Point Session Dosage Given 2.5 Gy ARIA RO MODEL Plan ID R Finger_5000 ARIA RO MODEL Plan Name Rt. Index Finger_PTV_5 0Gy ARIA RO MODEL Energy 6E ARIA RO MODEL Plan Fractions Treated to Date 17 ARIA RO MODEL Plan Total Fractions Prescribed 20 ARIA RO MODEL Plan Prescribed Dose Per Fraction 2.5 Gy ARIA RO MODEL Plan Total Prescribed Dose 5,000 cGy ARIA RO MODEL Plan Primary Reference Point R Finger_5000 ARIA RO MODEL 09/11/2025 8:29 AM CDT us Unknown Provider RADIATION ONCOLOGY ORDERABLES F inal Result Performing Organization Address [facility] Co de Phone Number ARIA RO MODEL [address] [place] [address] * RAD ONC ARIA SESSION SUMMARY (09/10/2025 8:29 AM CDT) Course ID C1 ARIA RO MODEL Course Intent Curative ARIA RO MODEL Course Start Date 08/04/2025 10:44 AM ARIA RO MODEL Session Number 16 ARIA RO MODEL Course End Date 08/20/2025 2:43 PM ARIA RO MODEL Course Last Treatment Date 09/10/2025 8:34 AM ARIA RO MODEL Course Elapsed Days 21 ARIA RO MODEL Reference Point ID R Finger_5000 ARIA RO MODEL Reference Point Dosage Given to Date 40 Gy ARIA RO MODEL Reference Point Session Dosage Given 2.5 Gy ARIA RO MODEL Plan ID R Finger_5000 ARIA RO MODEL Plan Name Rt. Index Finger_PTV_5 0Gy ARIA RO MODEL Energy 6E ARIA RO MODEL Plan Fractions Treated to Date 16 ARIA RO MODEL Plan Total Fractions Prescribed 20 ARIA RO MODEL Plan Prescribed Dose Per Fraction 2.5 Gy ARIA RO MODEL Plan Total Prescribed Dose 5,000 cGy ARIA RO MODEL Plan Primary Reference Point R Finger_5000 ARIA RO MODEL 09/10/2025 8:29 AM CDT us Unknown Provider RADIATION ONCOLOGY ORDERABLES F inal Result Performing Organization Address [facility] Co de Phone Number ARIA RO MODEL [address] [place] [address] * RAD ONC ARIA SESSION SUMMARY (09/09/2025 8:36 AM CDT) Course ID C1 ARIA RO MODEL Course Intent Curative ARIA RO MODEL Course Start Date 08/04/2025 10:44 AM ARIA RO MODEL Session Number 15 ARIA RO MODEL Course End Date 08/20/2025 2:43 PM ARIA RO MODEL Course Last Treatment Date 09/09/2025 8:40 AM ARIA RO MODEL Course Elapsed Days 20 ARIA RO MODEL Reference Point ID R Finger_5000 ARIA RO MODEL Reference Point Dosage Given to Date 37.5 Gy ARIA RO MODEL Reference Point Session Dosage Given 2.5 Gy ARIA RO MODEL Plan ID R Finger_5000 ARIA RO MODEL Plan Name Rt. Index Finger_PTV_5 0Gy ARIA RO MODEL Energy 6E ARIA RO MODEL Plan Fractions Treated to Date 15 ARIA RO MODEL Plan Total Fractions Prescribed 20 ARIA RO MODEL Plan Prescribed Dose Per Fraction 2.5 Gy ARIA RO MODEL Plan Total Prescribed Dose 5,000 cGy ARIA RO MODEL Plan Primary Reference Point R Finger_5000 ARIA RO MODEL 09/09/2025 8:36 AM CDT us Unknown Provider RADIATION ONCOLOGY ORDERABLES F inal Result Performing Organization Address City/State/[facility] Co de Phone Number ARIA RO MODEL [address] [place] [address] * RAD ONC ARIA SESSION SUMMARY (09/08/2025 8:31 AM CDT) Course ID C1 ARIA RO MODEL Course Intent Curative ARIA RO MODEL Course Start Date 08/04/2025 10:44 AM ARIA RO MODEL Session Number 14 ARIA RO MODEL Course End Date 08/20/2025 2:43 PM ARIA RO MODEL Course Last Treatment Date 09/08/2025 8:35 AM ARIA RO MODEL Course Elapsed Days 19 ARIA RO MODEL Reference Point ID R Finger_5000 ARIA RO MODEL Reference Point Dosage Given to Date 35 Gy ARIA RO MODEL Reference Point Session Dosage Given 2.5 Gy ARIA RO MODEL Plan ID R Finger_5000 ARIA RO MODEL Plan Name Rt. Index Finger_PTV_5 0Gy ARIA RO MODEL Energy 6E ARIA RO MODEL Plan Fractions Treated to Date 14 ARIA RO MODEL Plan Total Fractions Prescribed 20 ARIA RO MODEL Plan Prescribed Dose Per Fraction 2.5 Gy ARIA RO MODEL Plan Total Prescribed Dose 5,000 cGy ARIA RO MODEL Plan Primary Reference Point R Finger_5000 ARIA RO MODEL 09/08/2025 8:31 AM CDT us Unknown Provider RADIATION ONCOLOGY ORDERABLES F inal Result Performing Organization Address City/[facility] Co de Phone Number ARIA RO MODEL [address] [place] [address] * RAD ONC ARIA SESSION SUMMARY (09/07/2025 8:33 AM CDT) Course ID C1 ARIA RO MODEL Course Intent Curative ARIA RO MODEL Course Start Date 08/04/2025 10:44 AM ARIA RO MODEL Session Number 13 ARIA RO MODEL Course End Date 08/20/2025 2:43 PM ARIA RO MODEL Course Last Treatment Date 09/07/2025 8:38 AM ARIA RO MODEL Course Elapsed Days 18 ARIA RO MODEL Reference Point ID R [id number] ARIA RO MODEL Reference Point Dosage Given to Date 32.5 Gy ARIA RO MODEL Reference Point Session Dosage Given 2.5 Gy ARIA RO MODEL Plan ID R Finger_5000 ARIA RO MODEL Plan Name Rt. Index Finger_PTV_5 0Gy ARIA RO MODEL Energy 6E ARIA RO MODEL Plan Fractions Treated to Date 13 ARIA RO MODEL Plan Total Fractions Prescribed 20 ARIA RO MODEL Plan Prescribed Dose Per Fraction 2.5 Gy ARIA RO MODEL Plan Total Prescribed Dose 5,000 cGy ARIA RO MODEL Plan Primary Reference Point R Finger_5000 ARIA RO MODEL 09/07/2025 8:33 AM CDT us Unknown Provider RADIATION ONCOLOGY ORDERABLES F inal Result Performing Organization Address City/[facility] Co de Phone Number ARIA RO MODEL [address] [place] [address] * RAD ONC ARIA SESSION SUMMARY (09/04/2025 8:27 AM CDT) Course ID C1 ARIA RO MODEL Course Intent Curative ARIA RO MODEL Course Start Date 08/04/2025 10:44 AM ARIA RO MODEL Session Number 12 ARIA RO MODEL Course End Date 08/20/2025 2:43 PM ARIA RO MODEL Course Last Treatment Date 09/04/2025 8:32 AM ARIA RO MODEL Course Elapsed Days 15 ARIA RO MODEL Reference Point ID R Finger_5000 ARIA RO MODEL Reference Point Dosage Given to Date 30 Gy ARIA RO MODEL Reference Point Session Dosage Given 2.5 Gy ARIA RO MODEL Plan ID R Finger_5000 ARIA RO MODEL Plan Name Rt. Index Finger_PTV_5 0Gy ARIA RO MODEL Energy 6E ARIA RO MODEL Plan Fractions Treated to Date 12 ARIA RO MODEL Plan Total Fractions Prescribed 20 ARIA RO MODEL Plan Prescribed Dose Per Fraction 2.5 Gy ARIA RO MODEL Plan Total Prescribed Dose 5,000 cGy ARIA RO MODEL Plan Primary Reference Point R Finger_5000 ARIA RO MODEL 09/04/2025 8:27 AM CDT us Unknown Provider RADIATION ONCOLOGY ORDERABLES F inal Result ARIA RO MODEL [address] [place] [address] * RAD ONC ARIA SESSION SUMMARY (09/03/2025 8:25 AM CDT) Course ID C1 ARIA RO MODEL Course Intent Curative ARIA RO MODEL Course Start Date 08/04/2025 10:44 AM ARIA RO MODEL Session Number 11 ARIA RO MODEL Course End Date 08/20/2025 2:43 PM ARIA RO MODEL Course Last Treatment Date 09/03/2025 8:30 AM ARIA RO MODEL Course Elapsed Days 14 ARIA RO MODEL Reference Point ID R Finger_5000 ARIA RO MODEL Reference Point Dosage Given to Date 27.5 Gy ARIA RO MODEL Reference Point Session Dosage Given 2.5 Gy ARIA RO MODEL Plan ID R Finger_5000 ARIA RO MODEL Plan Name Rt. Index Finger_PTV_5 0Gy ARIA RO MODEL Energy 6E ARIA RO MODEL Plan Fractions Treated to Date 11 ARIA RO MODEL Plan Total Fractions Prescribed 20 ARIA RO MODEL Plan Prescribed Dose Per Fraction 2.5 Gy ARIA RO MODEL Plan Total Prescribed Dose 5,000 cGy ARIA RO MODEL Plan Primary Reference Point R Finger_5000 ARIA RO MODEL 09/03/2025 8:25 AM CDT us Unknown Provider RADIATION ONCOLOGY ORDERABLES F inal Result Performing Organization Address [facility] Co de Phone Number ARIA RO MODEL [address] [place] [address] * RAD ONC ARIA SESSION SUMMARY (09/02/2025 8:33 AM CDT) Course ID C1 ARIA RO MODEL Course Intent Curative ARIA RO MODEL Course Start Date 08/04/2025 10:44 AM ARIA RO MODEL Session Number 10 ARIA RO MODEL Course End Date 08/20/2025 2:43 PM ARIA RO MODEL Course Last Treatment Date 09/02/2025 8:38 AM ARIA RO MODEL Course Elapsed Days 13 ARIA RO MODEL Reference Point ID R Finger_5000 ARIA RO MODEL Reference Point Dosage Given to Date 25 Gy ARIA RO MODEL Reference Point Session Dosage Given 2.5 Gy ARIA RO MODEL Plan ID R Finger_5000 ARIA RO MODEL Plan Name Rt. Index Finger_PTV_5 0Gy ARIA RO MODEL Energy 6E ARIA RO MODEL Plan Fractions Treated to Date 10 ARIA RO MODEL Plan Total Fractions Prescribed 20 ARIA RO MODEL Plan Prescribed Dose Per Fraction 2.5 Gy ARIA RO MODEL Plan Total Prescribed Dose 5,000 cGy ARIA RO MODEL Plan Primary Reference Point R Finger_5000 ARIA RO MODEL 09/02/2025 8:33 AM CDT us Unknown Provider RADIATION ONCOLOGY ORDERABLES F inal Result Performing Organization Address City/[facility] Co de Phone Number ARIA RO MODEL [address] [place] [address] * RAD ONC ARIA SESSION SUMMARY (09/01/2025 8:55 AM CDT) Course ID C1 ARIA RO MODEL Course Intent Curative ARIA RO MODEL Course Start Date 08/04/2025 10:44 AM ARIA RO MODEL Session Number 9 ARIA RO MODEL Course End Date 08/20/2025 2:43 PM ARIA RO MODEL Course Last Treatment Date 09/01/2025 8:59 AM ARIA RO MODEL Course Elapsed Days 12 ARIA RO MODEL Reference Point ID R Finger_5000 ARIA RO MODEL Reference Point Dosage Given to Date 22.5 Gy ARIA RO MODEL Reference Point Session Dosage Given 2.5 Gy ARIA RO MODEL Plan ID R Finger_5000 ARIA RO MODEL Plan Name Rt. Index Finger_PTV_5 0Gy ARIA RO MODEL Energy 6E ARIA RO MODEL Plan Fractions Treated to Date 9 ARIA RO MODEL Plan Total Fractions Prescribed 20 ARIA RO MODEL Plan Prescribed Dose Per Fraction 2.5 Gy ARIA RO MODEL Plan Total Prescribed Dose 5,000 cGy ARIA RO MODEL Plan Primary Reference Point R Finger_5000 ARIA RO MODEL 09/01/2025 8:55 AM CDT us Unknown Provider RADIATION ONCOLOGY ORDERABLES F inal Result Performing Organization Address City/State/[facility] de Phone Number ARIA RO MODEL [address] [place] [address] * RAD ONC ARIA SESSION SUMMARY (08/31/2025 8:40 AM CDT) Course ID C1 ARIA RO MODEL Course Intent Curative ARIA RO MODEL Course Start Date 08/04/2025 10:44 AM ARIA RO MODEL Session Number 8 ARIA RO MODEL Course End Date 08/20/2025 2:43 PM ARIA RO MODEL Course Last Treatment Date 08/31/2025 8:45 AM ARIA RO MODEL Course Elapsed Days 11 ARIA RO MODEL Reference Point ID R Finger_5000 ARIA RO MODEL Reference Point Dosage Given to Date 20 Gy ARIA RO MODEL Reference Point Session Dosage Given 2.5 Gy ARIA RO MODEL Plan ID R Finger_5000 ARIA RO MODEL Plan Name Rt. Index Finger_PTV_5 0Gy ARIA RO MODEL Energy 6E ARIA RO MODEL Plan Fractions Treated to Date 8 ARIA RO MODEL Plan Total Fractions Prescribed 20 ARIA RO MODEL Plan Prescribed Dose Per Fraction 2.5 Gy ARIA RO MODEL Plan Total Prescribed Dose 5,000 cGy ARIA RO MODEL Plan Primary Reference Point R Finger_5000 ARIA RO MODEL 08/31/2025 8:40 AM CDT us Unknown Provider RADIATION ONCOLOGY ORDERABLES F inal Result Performing Organization Address [facility] Co de Phone Number ARIA RO MODEL [address] [place] [address] * RAD ONC ARIA SESSION SUMMARY (08/28/2025 8:44 AM CDT) Course ID C1 ARIA RO MODEL Course Intent Curative ARIA RO MODEL Course Start Date 08/04/2025 10:44 AM ARIA RO MODEL Session Number 7 ARIA RO MODEL Course End Date 08/20/2025 2:43 PM ARIA RO MODEL Course Last Treatment Date 08/28/2025 8:48 AM ARIA RO MODEL Course Elapsed Days 8 ARIA RO MODEL Reference Point ID R Finger_5000 ARIA RO MODEL Reference Point Dosage Given to Date 17.5 Gy ARIA RO MODEL Reference Point Session Dosage Given 2.5 Gy ARIA RO MODEL Plan ID R Finger_5000 ARIA RO MODEL Plan Name Rt. Index Finger_PTV_5 0Gy ARIA RO MODEL Energy 6E ARIA RO MODEL Plan Fractions Treated to Date 7 ARIA RO MODEL Plan Total Fractions Prescribed 20 ARIA RO MODEL Plan Prescribed Dose Per Fraction 2.5 Gy ARIA RO MODEL Plan Total Prescribed Dose 5,000 cGy ARIA RO MODEL Plan Primary Reference Point R Finger_5000 ARIA RO MODEL 08/28/2025 8:44 AM CDT us Unknown Provider RADIATION ONCOLOGY ORDERABLES F inal Result Performing Organization Address [facility] Co de Phone Number ARIA RO MODEL [address] [place] [address] * RAD ONC ARIA SESSION SUMMARY (08/27/2025 8:44 AM CDT) Course ID C1 ARIA RO MODEL Course Intent Curative ARIA RO MODEL Course Start Date 08/04/2025 10:44 AM ARIA RO MODEL Session Number 6 ARIA RO MODEL Course End Date 08/20/2025 2:43 PM ARIA RO MODEL Course Last Treatment Date 08/27/2025 8:48 AM ARIA RO MODEL Course Elapsed Days 7 ARIA RO MODEL Reference Point ID R Finger_5000 ARIA RO MODEL Reference Point Dosage Given to Date 15 Gy ARIA RO MODEL Reference Point Session Dosage Given 2.5 Gy ARIA RO MODEL Plan ID R Finger_5000 ARIA RO MODEL Plan Name Rt. Index Finger_PTV_5 0Gy ARIA RO MODEL Energy 6E ARIA RO MODEL Plan Fractions Treated to Date 6 ARIA RO MODEL Plan Total Fractions Prescribed 20 ARIA RO MODEL Plan Prescribed Dose Per Fraction 2.5 Gy ARIA RO MODEL Plan Total Prescribed Dose 5,000 cGy ARIA RO MODEL Plan Primary Reference Point R Finger_5000 ARIA RO MODEL 08/27/2025 8:44 AM CDT us Unknown Provider RADIATION ONCOLOGY ORDERABLES F inal Result Performing Organization Address [facility] Co de Phone Number ARIA RO MODEL [address] [place] [address] * RAD ONC ARIA SESSION SUMMARY (08/26/2025 3:08 PM CDT) Course ID C1 ARIA RO MODEL Course Intent Curative ARIA RO MODEL Course Start Date 08/04/2025 10:44 AM ARIA RO MODEL Session Number 5 ARIA RO MODEL Course End Date 08/20/2025 2:43 PM ARIA RO MODEL Course Last Treatment Date 08/26/2025 3:13 PM ARIA RO MODEL Course Elapsed Days 6 ARIA RO MODEL Reference Point ID R Finger_5000 ARIA RO MODEL Reference Point Dosage Given to Date 12.5 Gy ARIA RO MODEL Reference Point Session Dosage Given 2.5 Gy ARIA RO MODEL Plan ID R Finger_5000 ARIA RO MODEL Plan Name Rt. Index Finger_PTV_5 0Gy ARIA RO MODEL Energy 6E ARIA RO MODEL Plan Fractions Treated to Date 5 ARIA RO MODEL Plan Total Fractions Prescribed 20 ARIA RO MODEL Plan Prescribed Dose Per Fraction 2.5 Gy ARIA RO MODEL Plan Total Prescribed Dose 5,000 cGy ARIA RO MODEL Plan Primary Reference Point R Finger_5000 ARIA RO MODEL 08/26/2025 3:08 PM CDT us Unknown Provider RADIATION ONCOLOGY ORDERABLES F inal Result Performing Organization Address [facility] Co de Phone Number ARIA RO MODEL [address] [place] [address] * RAD ONC ARIA SESSION SUMMARY (08/25/2025 8:59 AM CDT) Course ID C1 ARIA RO MODEL Course Intent Curative ARIA RO MODEL Course Start Date 08/04/2025 10:44 AM ARIA RO MODEL Session Number 4 ARIA RO MODEL Course End Date 08/20/2025 2:43 PM ARIA RO MODEL Course Last Treatment Date 08/25/2025 9:04 AM ARIA RO MODEL Course Elapsed Days 5 ARIA RO MODEL Reference Point ID R Finger_5000 ARIA RO MODEL Reference Point Dosage Given to Date 10 Gy ARIA RO MODEL Reference Point Session Dosage Given 2.5 Gy ARIA RO MODEL Plan ID R Finger_5000 ARIA RO MODEL Plan Name Rt. Index Finger_PTV_5 0Gy ARIA RO MODEL Energy 6E ARIA RO MODEL Plan Fractions Treated to Date 4 ARIA RO MODEL Plan Total Fractions Prescribed 20 ARIA RO MODEL Plan Prescribed Dose Per Fraction 2.5 Gy ARIA RO MODEL Plan Total Prescribed Dose 5,000 cGy ARIA RO MODEL Plan Primary Reference Point R Finger_5000 ARIA RO MODEL 08/25/2025 8:59 AM CDT us Unknown Provider RADIATION ONCOLOGY ORDERABLES F inal Result Performing Organization Address City/State/[facility] Co de Phone Number ARIA RO MODEL [address] [place] [phone] * RAD ONC ARIA SESSION SUMMARY (08/24/2025 9:19 AM CDT) Course ID C1 ARIA RO MODEL Course Intent Curative ARIA RO MODEL Course Start Date 08/04/2025 10:44 AM ARIA RO MODEL Session Number 3 ARIA RO MODEL Course End Date 08/20/2025 2:43 PM ARIA RO MODEL Course Last Treatment Date 08/24/2025 9:23 AM ARIA RO MODEL Course Elapsed Days 4 ARIA RO MODEL Reference Point ID R Finger_5000 ARIA RO MODEL Reference Point Dosage Given to Date 7.5 Gy ARIA RO MODEL Reference Point Session Dosage Given 2.5 Gy ARIA RO MODEL Plan ID R Finger_5000 ARIA RO MODEL Plan Name Rt. Index Finger_PTV_5 0Gy ARIA RO MODEL Energy 6E ARIA RO MODEL Plan Fractions Treated to Date 3 ARIA RO MODEL Plan Total Fractions Prescribed 20 ARIA RO MODEL Plan Prescribed Dose Per Fraction 2.5 Gy ARIA RO MODEL Plan Total Prescribed Dose 5,000 cGy ARIA RO MODEL Plan Primary Reference Point R Finger_5000 ARIA RO MODEL 08/24/2025 9:19 AM CDT us Unknown Provider RADIATION ONCOLOGY ORDERABLES F inal Result Performing Organization Address City/[facility] Co de Phone Number ARIA RO MODEL [address] [place] [address] * RAD ONC ARIA SESSION SUMMARY (08/21/2025 2:44 PM CDT) Course ID C1 ARIA RO MODEL Course Intent Curative ARIA RO MODEL Course Start Date 08/04/2025 10:44 AM ARIA RO MODEL Session Number 2 ARIA RO MODEL Course End Date 08/20/2025 2:43 PM ARIA RO MODEL Course Last Treatment Date 08/21/2025 2:48 PM ARIA RO MODEL Course Elapsed Days 1 ARIA RO MODEL Reference Point ID R Finger_5000 ARIA RO MODEL Reference Point Dosage Given to Date 5 Gy ARIA RO MODEL Reference Point Session Dosage Given 2.5 Gy ARIA RO MODEL Plan ID R Finger_5000 ARIA RO MODEL Plan Name Rt. Index Finger_PTV_5 0Gy ARIA RO MODEL Energy 6E ARIA RO MODEL Plan Fractions Treated to Date 2 ARIA RO MODEL Plan Total Fractions Prescribed 20 ARIA RO MODEL Plan Prescribed Dose Per Fraction 2.5 Gy ARIA RO MODEL Plan Total Prescribed Dose 5,000 cGy ARIA RO MODEL Plan Primary Reference Point R Finger_5000 ARIA RO MODEL 08/21/2025 2:44 PM CDT us Unknown Provider RADIATION ONCOLOGY ORDERABLES F inal Result Performing Organization Address City/[facility] Co de Phone Number ARIA RO MODEL [address] [place] [address] * RAD ONC ARIA SESSION SUMMARY (08/20/2025 2:47 PM CDT) Course ID C1 ARIA RO MODEL Course Intent Curative ARIA RO MODEL Course Start Date 08/04/2025 10:44 AM ARIA RO MODEL Session Number 1 ARIA RO MODEL Course End Date 08/20/2025 2:43 PM ARIA RO MODEL Course Last Treatment Date 08/20/2025 2:43 PM ARIA RO MODEL Course Elapsed Days 0 ARIA RO MODEL Reference Point ID R Finger_5000 ARIA RO MODEL Reference Point Dosage Given to Date 2.5 Gy ARIA RO MODEL Reference Point Session Dosage Given 2.5 Gy ARIA RO MODEL Plan ID R Finger_5000 ARIA RO MODEL Plan Name Rt. Index Finger_PTV_5 0Gy ARIA RO MODEL Energy 6E ARIA RO MODEL Plan Fractions Treated to Date 1 ARIA RO MODEL Plan Total Fractions Prescribed 20 ARIA RO MODEL Plan Prescribed Dose Per Fraction 2.5 Gy ARIA RO MODEL Plan Total Prescribed Dose 5,000 cGy ARIA RO MODEL Plan Primary Reference Point R Finger_5000 ARIA RO MODEL 08/20/2025 2:47 PM CDT Unknown Provider RADIATION ONCOLOGY ORDERABLES F inal Result ARIA RO MODEL [address] [place] [address] * PLASTIC SURGERY CONSULT (07/21/2025 12:00 AM CDT) 07/21/2025 Provider Scan GENERIC SCAN ORDERS CONSULT Janina l Result SCAN * PATHOLOGY SURGICAL (07/07/2025 12:00 AM CDT) 07/07/2025 us Provider Scan PATHOLOGY/CYTOLOGY ORDERABLES Fi nal Result SCAN from Last 3 Months Insurance MEDICAID [employer] Care Teams Steel Unloader Relationship Specialty Start Date End Date Сергей Vázquez MD [address] [place] [address] PCP - General Family Medicine 10/26/16 Kenny Deng MD [address] [address] Consulting Physician Plastic Surgery 09/07/25 Issac Laboy MD [address] [place] [address] Consulting Physician Radiation Oncology 09/07/25
[2025-09-25 10:49] LABS: CRP < 0.5 mg/dL (<1.0)
[2025-09-29 15:09] LABS: Calprotectin, Fecal 752 ug/g (0-120)
== END 2025-09-25 10:05 | disposition home or self-care (01) ==
LOC: CHSLAB 10:05
PROVIDERS: PCP Family Medicine; Visit Provider Internal Medicine Gastroenterology
DX: K51.90 Ulcerative colitis, unspecified, without complications (principal)
CPT/HCPCS: 36415; 83993; 85652; 86140

== ENCOUNTER 2025-10-09 12:20 | Outpatient (CLI) | payer OTHER, SELFPAY ==
[2025-10-09 13:12] LABS: Toxigenic C. Diff NEGATIVE (NEGATIVE)
--- OUTSIDE RECORDS SUMMARY | 2025-10-09 16:53 | XMS_ITS | Clinical Summary ---
Author Organization [facility] Address [address] [place] [address] [place] [address] Care Team Providers Care Lead Database Administrator Name Role Phone Unavailable Primary Care Provider Unavailabl e Allergies Active Allergy Reactions Criticality Noted Date Comments Parmelia Perlata Itching Low 07/10/2024 Xctafya-Mmg-Gwe Reductase Inhibitors Nausea and Vomiting High 05/04/2021 [...] ( season) 07/27/202512/2020, 12/29/2020 Insurance [employer]
--- OUTSIDE RECORDS SUMMARY | 2025-10-09 16:54 | XMS_ITS | Clinical Summary ---
Author Organization [facility] Address [address] [place] [address] Care Team Providers Care Retail Center Receptionist Name Role Phone Unavailable Primary Care Provider Unavailabl e Source Comments [facility],non-owned Affiliates and Associated Physician Practices is amultiple site organization consisting of ambulatory clinics and hospital sitesin [place], [place]. This disclosure is being madepursuant to the Care Everywhere program and may not contain all information available regarding this patient. Last updated 18.[facility] Allergies Active Allergy Reactions Criticality Noted Date Comments Oxycodone-Acetaminophen Itching Low 07/02/2017 Pujxng-Wphaj-Mgvmyy-Fa-Fishoil Vomiting Medium 02/20 Hmg-Coa-R Inhibitors Vomiting 02/21/2024 [...] vitamin D, ergocalciferol , (Drisdol) 1.25 MG (71363 UT) capsuleIndicat ions:Vitamin D Deficiency Take 1 [...] medical care, and heating? Somewhat hard 02/21/2024 [facility] [place] [facility] - Occupational Stress [...] place to sleep or slept in a m[facility]p (including now)? No 02/21/2024 Sex and Gender [...] of 3 - 19+ 3-dose series) 1996 PNEUMOCOCCAL VACCINE (2 of 2 - PCV) 12/17/2020 12/17/2019 DIABETES RETINOPATHY SCREENING 03/25/2022 DIABETES-FOOT EXAM WITH MONOFILAMENT 03/25/2022 DTAP/TDAP/TD VACCINES (3 - Td or Tdap) 06/28/2024 06/28/2014, 06/28/2014 DIABETES-HGB A1C 08/24/2024 02/22/2024, 08/2022, 03/26/2022 DEPRESSION SCREENING 11/26/2024 DIABETES - URINE PROTEIN SCREENING 11/26/2024 DIABETES-SERUM CREATININE 02/24/20252023, 02/24/2024, 02/23/2024, Additional history exists COVID-19 VACCINE (3 - season) 2025 01/25/2021, 12/29/2020 INFLUENZA VACCINE (#1) [...] PANEL (CALCIUM TOTAL) (02/25/2024 6:15 AM CDT) [facility] Glucose 209(H) 70 - 125 mg/dL 02/25/2024 6:[address] [facility] Sodium 139 136 - 145 mmol/L 02/25/2024 6:[address] [facility] Potassium 3.7 3.4 - 5.1 mmol/L 02/25/2024 6:[address] [facility] Chloride 106 98 - 107 mmol/L 02/25/2024 6:[address] [facility] CO2 27 22 - 29 mmol/L 02/25/2024 6:[address] [facility] Calcium 8.83 8.4 - 10.2 mg/dL 02/25/2024 6:[address] [facility] Anion Gap 6 6 - 16 mmol/L 02/25/2024 6:[address] [facility] BUN 11.6 8.4 - 25.7 mg/dL 02/25/2024 6:[address] [facility] Creatinine 0.58(L) 0.72 - 1.25 mg/dL 02/25/2024 6:[address] [facility] eGFR >90 >90 mL/min/1.7 3m2 02/25/2024 6:[address] [facility] Comment:The GFR result was c alculated using the updated CKD-EPI Creatinine Equation (2020). Blood BLOOD SPECIMEN / Unknown Lab Venipuncture / Unknown 02/25/2024 6:15 AM CDT 02/25/2024 6:15 AM CDT Chi Le LEGAL COUNSEL-[facility] LAB - CHEMISTRY OR DERABLES Final Result Performing Organization Address [facility] de Phone Number [facility] [address] * (ABNORMAL) HEMOGLOBIN A1C (02/22/2024 6:10 AM CDT) [facility] Hemoglobin A1c 7.0(H) 4.2 - 5.6 % 02/22/2024 7:[address] [facility] Estimated Average Glucose 154 mg/dL 02/22/2024 7:[address] [facility] Blood BLOOD SPECIMEN / Unknown Lab Venipuncture / Unknown 02/22/2024 6:10 AM CDT 02/22/2024 6:[address] [facility] - 02/22/2024 7:19 AM [...] Standardization Program (NGSP) certified method. Chi Le LEGAL COUNSEL-[facility] LAB - CHEMISTRY OR DERABLES Final Result Performing Organization Address City/State/[facility] Co de Phone Number [facility] [address] [place], [place] [id number] [place] [address] from Last 3 Months or Most Recently Relevant to Health Maintenance Insurance MEDICAID - [facility] SELF PAY NO INSURANCE Member Subscriber Plan / Payer (Ef fective for All Dates) Name:Nuzhat Aaron Member ID:Not on file Relation to Subscriber:Not on file Name:NUZHAT AARON Subscriber ID:Not on file (Home) Address: [address] [place] [id number] Payer ID:Not on file Group ID:Not on file Type:Self Pay Address: [place], [place] [email or web address] [place] [id number] * Guarantor: NUZHAT AARON Account Type Relation [...]
--- OUTSIDE RECORDS SUMMARY | 2025-10-09 16:54 | XMS_ITS | Clinical Summary ---
[facility] Organization 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 Gender Identity Not on file Sexual Orientation [...] Tdap) 06/28/202401/2014, 06/28/2014 Hemoglobin A1C 08/24/2024 02/22/2024, 05/26, 03/26/2022 Covid-19 Vaccine ( season) 07/27/202512/2020, 12/29/2020 Influenza Vaccine (#1) 2025 Medical Devices Implanted Type Area Packing Machine Inspector Device Identifier Shelf Expiration Date Model / Serial / Lot [employer] Fiberloop 3.2mm Drill Pin Needle Shoehorn Cannula Kit Suture [id number]-2290 - [id number] Implanted:Qty : 1 on 09/01/2024 by Carlos Hart MD at [facility] Left: Shoulder [employer] [id number] 04/25/2029 AR-2290 / / [id number] Procedures Procedure Name Priority Date/Time Associated Diagnosis Comments LIPID PANEL Routine 06/13/2023 Hyperlipidemia associated with type 2 diabetes mellitus (HCC) EGFR Routine 03/11/2021 1:20 PM CDT Hyperlipidemia associated with type 2 diabetes mellitus (HCC) Atypical chest pain from Last 3 Months or Most Recently Relevant to Health Maintenance Results * Lipid panel (06/13/2023) Pathologist [facility] SCRIBED Cholesterol, Total 97 <200 EXTERNAL LAB [...] LAB BLOOD ORDERABLES Janina headley Result [place] [address] [address] Department of Laboratories [place] [phone] from Last 3 Months or Most Recently Relevant to Health Maintenance Insurance [employer] [facility] [employer] COMPENSATION GENERIC Care Teams Limehouse Worker Relationship Specialty Start Date End Date Olivier Boyce DO [address] [place] [address] PCP - General Family Medicine 08/07/24
== END 2025-10-09 12:21 | disposition home or self-care (01) ==
PROVIDERS: PCP Family Medicine; Visit Provider Nurse Practitioner
DX: K51.90 Ulcerative colitis, unspecified, without complications (principal)
CPT/HCPCS: 87493

== ENCOUNTER 2025-11-13 10:46 | Outpatient (CLI) | payer OTHER, SELFPAY ==
--- OUTSIDE RECORDS SUMMARY | 2025-07-03 09:56 | XMS_ITS | Continuity of Care Document ---
Author Organization [facility] Address [address] [place] [phone] Phone Care Team Providers Care Salesperson Wigs Name Role Phone Margarette MATTHEW, FACGeorges, Etienne ALVAREZ Unavailable Unava ilable Allergies, Adverse Reactions, Alerts Substance Reaction Status Criticality acetaminophen ItchingItching Active No Informati on OXYCODONE HCL ItchingItching Active No Informati on Bwrxzov-GHU-RlC Reductase Inhibitors Nausea Acti ve No Information Medications Medication Instructions Dosage Effective Dates (start - stop) Status Comments HYDRALAZINE HYDROCHLORIDE 50MG TABLET TAKE ONE TABLET BY MOUTH THREE TIMES A DAY - Active isosorbide mononitrate ER 60 mg tablet,extended release 24 hr take 1 tablet by oral route every day in the morning 60 MG - Active nitroglycerin 0.[address] 1 tablet by sublingual route at 1st sign of attack; may repeat every 5 minutes up to 3 tabs; if norelief seek medical help 0.4 MG - Active carvedilol 25 mg tablet take 1 tablet by oral route 2 times every day - Active amlodipine 10 mg tablet take 1 tablet by oral route every day 10 MG - Active metformin 500 mg tablet take 1 tablet by oral route 2 times every day with morning and evening meals 500 MG - Active Novolog FlexPen U-100 Insulin aspart 100 unit/mL (3 mL) subcutaneous inject by subcutaneous route per prescriber's instructions. Insulin dosing requires individualization. 0.00 - Active hydralazine 50 mg tablet take 1 tablet by oral route 3 times every day - No Longer Active Procedures Procedure Date HT MUSCLE IMAGE SPECT, MULT CARDIOVASCULAR STRESS TEST Technetium TC 99m sestamibi OFFICE/OUTPATIENT VISIT, EST ELECTROCARDIOGRAM, COMPLETE Advance Directives Directive Yes / No Effective Date File Name No Information Encounters Encounter Description Practice Location Reason(s) For Visit Diagnoses Date Provider Providers Copied on Encounter [facility], [address] [place] [address], [id number] , tel: [phone] [facility] No Information Margarette Mena [address] Barnhart , [address] [place] [address], [id number] , [place]. tel: [phone] [facility], [address] [place] [address], [id number] , tel: [phone] [facility] No Information Margarette Barnhart , [address] [place] [address], [id number] , [place]. tel: [phone] Referring Provider: Olivier Boyce, [facility] [place], [address]. tel:[phone] OFFICE/OUTPA TIENT VISIT, EST [facility], [address] [place] [address], [id number] , [place] tel: [phone] [facility] Hospital follow up (chief complaint) Essential (primary) hypertensionHyperlipi demia, unspecifiedChest painAngina pectoris 5 Margarette Barnhart , [address] [place] [address], [id number] , [place]. tel: [phone] Referring Provider: Olivier Boyce [address] [place], [address]. tel:[phone] [facility], [address] [place] [address], [id number] , tel: [phone] [facility] Type 1 diabetes mellitus without complicationsMarfan syndrome with aortic dilationPersonal history of other diseases of the circulatory systemHyperlipidemia, unspecifiedEssential (primary) hypertensionObesity, unspecifiedSnoring 5 Margarette Cl[address]. [address], [address], [place], [place], [id number] , [place]. tel: [phone] Family History Family Member Type Diagnosis Age At Onset No Information Payers Payer name Insurance type Covered constitution party ID Authoriza tion(s) [employer] CI [id number] Social History Type Description Quantity Date Captured Comments Sex Male Smoking Status No Information Chief Complaint And Reason For Visit No Information Reason For Referral Reason For Referral No Information Plan Of Treatment Date Type Action Status Future Order: Radiology Order Ec ho ([id number]), Ordered on: Ordered Future Order: Radiology Order St ress Imaging Camera ([id number]), Ordered on: Ordered History Of Present Illness Encounter Date Complaint History Of Prese nt Illness Hospital follow up Functional Status Date Functional Assessmen t No Information Instructions Date Instruction Additional Infor mation No Information Assessments Type Assessment Date No Information Patient Care Teams Name Effective Dates (start - stop) Status Members No Information
--- NOTE | ~2025-11-13 | XR_ITS ---
EXAMINATION: XR abdomen/kub 1V, 11/13/2025 11:15 SALES APPLICATIONS ENGINEER HISTORY: abdominal pain/ blood in stool. UC diagnosed in 2019 COMPARISON: No comparisons available. Technique: 3 view. Findings: Moderate fecal content, no dilated bowel loops. No free air. No abnormal calcifications No acute osseous abnormality. Impression: 1. No acute abnormality. Reviewed, dictated and finalized at location P. S APPLICATIONS ENGINEER Impression: 1. No acute abnormality.
--- OUTSIDE RECORDS SUMMARY | 2025-11-13 11:19 | XMS_ITS ---
Author Organization [facility] Address [address] [place] [address] Phone Care Team Providers Care Cs Associate Name Role Phone Сергей Vázquez MD Primary Care Provider [phone] Kenny Deng MD Unavailable [phone] Issac Laboy MD Unavailable [phone] Active Problems Problem Noted Date Diagnosed Date [...] * Electron Beam: Right FingersOverview* First Treatment Date:08/20/2025 Latest Treatment Date:09/16/2025 Intent:Curative Episode Provider: Intended Treatment Radiotherapy to Right Finger s * Linked Problems Squamous cell carcinoma in [...]
--- OUTSIDE RECORDS SUMMARY | 2025-11-13 11:19 | XMS_ITS | Clinical Summary ---
Author Organization [facility] Address [address] [place] [address] [place] [address] Care Team Providers Care Fountain Operator Name Role Phone Unavailable Primary Care Provider Unavailabl e Allergies Active Allergy Reactions Criticality Noted Date Comments Parmelia Perlata Itching Low 07/10/2024 Vonqpzq-Hru-Fpt Reductase Inhibitors Nausea and Vomiting High 05/04/2021 [...]
--- OUTSIDE RECORDS SUMMARY | 2025-11-13 11:19 | XMS_ITS | Clinical Summary ---
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 Gender Identity Not on file Sexual Orientation [...] (#1) 2025 Medical Devices Implanted Type Area Energy Advisor Device Identifier Shelf Expiration Date Model / Serial / Lot [employer] Fiberloop 3.2mm Drill Pin Needle Shoehorn Cannula Kit Suture [id number]-2290 - [id number] Implanted:Qty : 1 on 09/01/2024 by Carlos Hart MD at [facility] Left: Shoulder [employer] [id number] 04/25/2029 AR-2290 / / [id number] Procedures Procedure Name Priority Date/Time Associated Diagnosis Comments LIPID PANEL Routine 06/13/2023 Hyperlipidemia associated with type 2 diabetes mellitus (HCC) EGFR Routine 03/11/2021 1:20 PM CDT Hyperlipidemia associated with type 2 diabetes mellitus (HCC) Atypical chest pain from Last 3 Months or Most Recently Relevant to Health Maintenance Results * Lipid panel (06/13/2023) Pathologist [facility] SCRIBED Cholesterol, Total 97 <200 EXTERNAL LAB [...] LAB BLOOD ORDERABLES Janina headley Result MARIO [address] [address] [place] Department of Laboratories [place] [phone] from Last 3 Months or Most Recently Relevant to Health Maintenance Insurance COMMERCIAL GENERIC [facility] WORKERS COMPENSATION GENERIC Care Teams File Conversion Operator Relationship Specialty Start Date End Date Olivier Boyce DO [address] [place] [address] PCP - General Family Medicine 08/07/24
--- OUTSIDE RECORDS SUMMARY | 2025-11-13 11:19 | XMS_ITS | Clinical Summary ---
Author Organization [facility] [employer] Address [address] [place] [address] Care Team Providers Care Soil Science Technical Officer Name Role Phone Unavailable Primary Care Provider Unavailabl e Source Comments [facility] [employer],non-owned Affiliates and Associated Physician Practices is amultiple site organization consisting of ambulatory clinics and hospital sitesin [place], [place], [place] and [place]. This disclosure is being madepursuant to the Care Everywhere program and may not contain all information available regarding this patient. Last updated 18.[facility] [employer] Allergies Active Allergy Reactions Criticality Noted Date Comments Oxycodone-Acetaminophen Itching Low 07/02/2017 Yhwfms-Rkqer-Mdbskk-Fa-Fishoil Vomiting Medium 02/20 Hmg-Coa-R Inhibitors Vomiting 02/21/2024 [...] (ECOTRIN) 81 MG tabletIndicati ons:Thromboemb olic Disease (Inactive) Take 81 mg by mouth once daily [...] vitamin D, ergocalciferol , (Drisdol) 1.25 MG (53369 UT) capsuleIndicat ions:Vitamin D Deficiency Take 1 [...] 03/25/2022 Immunizations Immunization Administration Dates Next Due Shanel Choudhury primary monovalent 12+ yr 0.5mL ,12/29/2020 DTaP [...] medical care, and heating? Somewhat hard 02/21/2024 [facility] - Occupational Stress [...] place to sleep or slept in a senior living (including now)? No 02/21/2024 Sex and Gender [...] Additional history exists COVID-19 VACCINE (3 - 2024- season) 2025 01/25/2021, 12/29/2020 INFLUENZA VACCINE (#1) [...] TOTAL) (02/25/2024 6:15 AM CDT) [facility] Glucose 209(H) 70 - 125 mg/dL 02/25/2024 6:37 AM CDT [facility] Sodium 139 136 - 145 mmol/L 02/25/2024 6:37 AM CDT [facility] Potassium 3.7 3.4 - 5.1 mmol/L 02/25/2024 6:37 AM CDT [facility] Chloride 106 98 - 107 mmol/L 02/25/2024 6:37 AM CDT [facility] CO2 27 22 - 29 mmol/L 02/25/2024 6:37 AM CDT [facility] Calcium 8.83 8.4 - 10.2 mg/dL 02/25/2024 6:37 AM T [facility] Anion Gap 6 6 - 16 mmol/L 02/25/2024 6:37 AM CDT [facility] BUN 11.6 8.4 - 25.7 mg/dL 02/25/2024 6:37 AM T [facility] Creatinine 0.58(L) 0.72 - 1.25 mg/dL 02/25/2024 6:37 AM T [facility] eGFR >90 >90 mL/min/1.7 3m2 02/25/2024 6:37 AM T [facility] Comment:The GFR result was c alculated using the updated CKD-EPI Creatinine Equation (2020). Blood BLOOD SPECIMEN / Unknown Lab Venipuncture / Unknown 02/25/2024 6:15 AM CDT 02/25/2024 6:15 AM CDT Chi Le ASSISTANT [facility] - CHEMISTRY OR DERABLES Final Result Performing Organization Address [facility] [address]/[facility] Co de Phone Number [facility] [address] * (ABNORMAL) HEMOGLOBIN A1C (02/22/2024 6:10 AM CDT) [facility] Hemoglobin A1c 7.0(H) 4.2 - 5.6 % 02/22/2024 7:19 AM CDT [facility] Estimated Average Glucose 154 mg/dL 02/22/2024 7:19 AM CDT [facility] Blood BLOOD SPECIMEN / Unknown Lab Venipuncture / Unknown 02/22/2024 6:10 AM CDT 02/22/2024 6:17 AM CDT Narrative [facility] - 02/22/2024 7:19 AM [...] Standardization Program (NGSP) certified method. Chi Le ASSISTANT [facility] - CHEMISTRY OR DERABLES Final Result Performing Organization Address City/State/[facility] Co de Phone Number [facility] [address] from Last 3 Months or Most Recently Relevant to Health Maintenance Insurance MEDICAID - [place] [facility] [place] [id number] SELF PAY NO INSURANCE Member Subscriber Plan / Payer (Ef fective for All Dates) Name:Nuzhat Aaron Member ID:Not on file Relation to Subscriber:Not on file Name:NUZHAT AARON Subscriber ID:Not on file (Home) Address: [address] [place] [id number] Payer ID:Not on file Group ID:Not on file Type:Self Pay Address: [place], [place] [facility] [employer] [place] [id number] * Guarantor: NUZHAT AARON Account Type Relation [...]
--- OUTSIDE RECORDS SUMMARY | 2025-11-13 11:19 | XMS_ITS | Clinical Summary ---
Author Organization [facility] Address [address] [place] [address] Phone Care Team Providers Care Applications Instructor Name Role Phone Сергей Vázquez MD Primary Care Provider [phone] Kenny Deng MD Unavailable Issac Laboy MD Unavailable [phone] Allergies Active Allergy Reactions Criticality Noted Date Comments Fish Oil Nausea 08/04/2025 Oxycodone-Acetaminophen Itching 10/26/2016 Statins Nausea 08/04/2025 Medications METFORMIN HCL PO Take by mouth 2 times daily. Active AMLODIPINE BESYLATE PO Take by mouth. Act bismark cyclobenzaprine (FLEXERIL) 10 MG Tablet Take 1 Tab by mouth 3 times daily as needed for Muscle spasms for up to 15 doses. 15 Tab 0 6 Active Additional Information Patient not taking.Reason: Other, Reported on 10/13/2025 carvedilol (COREG) 25 MG Tablet Take 25 mg by mouth 2 times daily. Active hydrALAZINE 50 MG Tablet Take 50 mg by mouth 2 times daily. Active Insulin Glargine (SEMGLEE SC) 28 Units by Subcutaneous route nightly. Active Etrasimod Arginine (VELSIPITY PO) Take 5 mg by mouth daily. Active INSULIN LISPRO PROT & LISPRO SC by Subcutaneous route. Active Insulin Glargine (SEMGLEE SC) by Subcutaneous route. Active HYDROcodone-gregorio taminophen (NORCO) 5-325 MG TabletIndicatio ns:Pain,Pain of right distal index finger from resolving acute radiation treatment changes. Take 1 Tablet by mouth every 4 hours as needed for Moderate or more severe pain (Take 1 tablet as needed every 4-6 hours for right finger pain). Indications: Pain, Pain of right distal index finger from resolving acute radiation treatment changes. 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); History of therapeutic radiation Discharge Disposition: Discharged to home or Selfcare 10/13/2025 Travel 09/28/2025 10:30 AM TEMPLATE WORKER Office Visit [facility] [address] [place] [address] Issac Laboy MD 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); History of therapeutic radiation Discharge Disposition: Discharged to home or Selfcare 09/28/2025 Non-Scheduled Office Visit [facility] [address] [place] [phone] Issac Laboy MD Pain of finger of right hand (Primary Dx); 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; History of therapeutic radiation 09/28/2025 [facility] [address] [place] [phone] Issac Laboy MD 09/28/2025 Travel 09/23/2025 Documentation Only [facility] [address] [place] [phone] Issac Laboy MD 09/22/2025 Telephone [facility] [address] [place] [phone] Issac Laboy MD Care Management (Please see dictated note.) 09/20/2025 Telephone [facility] [address] [place] [phone] Issac Laboy MD Care Management (Please see dictated note.) 09/16/2025 8:30 AM CDT Clinical Support [facility] [address] [place] [phone] Issac Laboy MD Encounter for radiotherapy (Primary Dx); 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; History of therapeutic radiation Discharge Disposition: Discharged to home or Selfcare 09/16/2025 Travel 09/15/2025 8:30 AM CDT Clinical Support [facility] [address] [place] [phone] Issac Laboy MD Discharge Disposition: Discharged to home or Selfcare 09/15/2025 Travel 09/14/2025 8:45 AM CDT Office Visit [facility] [address] [place] [address] Issac Laboy MD Encounter for radiotherapy (Primary Dx); 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 Discharge Disposition: Discharged to home or Selfcare 09/14/2025 8:30 AM CDT Clinical Support [facility] [address] [place] [phone] Issac Laboy MD Discharge Disposition: Discharged to home or Selfcare 09/14/2025 Travel 09/11/2025 8:30 AM CDT Clinical Support [facility] [address] [place] [phone] Issac Laboy MD Discharge Disposition: Discharged to home or Selfcare 09/11/2025 Travel 09/10/2025 8:30 AM CDT Clinical Support [facility] [address] [place] [phone] Issac Laboy MD Discharge Disposition: Discharged to home or Selfcare 09/10/2025 Travel 09/09/2025 8:30 AM CDT Clinical Support [facility] [address] [place] [phone] Issac Laboy MD Discharge Disposition: Discharged to home or Selfcare 09/09/2025 Travel 09/08/2025 8:30 AM CDT Clinical Support [facility] [address] [place] [phone] Issac Laboy MD Discharge Disposition: Discharged to home or Selfcare 09/08/2025 Travel 09/07/2025 8:45 AM CDT [facility] [address] [place] [phone] Сергей Navas MD Piephoff, James Vernon, MD Encounter for radiotherapy (Primary Dx); 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 Discharge Disposition: Discharged to home or Selfcare 09/07/2025 8:30 AM CDT Clinical Support [facility] [address] [place] [phone] Сергей Navas MD Discharge Disposition: Discharged to home or Selfcare 09/07/2025 Travel 09/04/2025 8:30 AM CDT Clinical Support [facility] [address] [place] [phone] Сергей Navas MD Discharge Disposition: Discharged to home or Selfcare 09/04/2025 Travel 09/03/2025 8:30 AM CDT Clinical Support [facility] [address] [place] [phone] Сергей Navas MD Discharge Disposition: Discharged to home or Selfcare 09/03/2025 Documentation Only [facility] [address] [place] [phone] Сергей Navas MD 09/03/2025 Travel 09/02/2025 8:45 AM CDT Clinical Support [facility] [address] [place] [phone] Сергей Navas MD Discharge Disposition: Discharged to home or Selfcare 09/02/2025 Travel 09/01/2025 8:45 AM CDT Clinical Support [facility] [address] [place] [phone] Сергей Navas MD Discharge Disposition: Discharged to home or Selfcare 09/01/2025 Travel 08/31/2025 9:00 AM CDT Office Visit [facility] [address] [place] [phone] Сергей Navas MD 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) Discharge Disposition: Discharged to home or Selfcare 08/31/2025 8:45 AM CDT Clinical Support [facility] [address] [place] [phone] Сергей Navas MD Discharge Disposition: Discharged to home or Selfcare 08/31/2025 Travel 08/28/2025 8:45 AM CDT Clinical Support [facility] [address] [place] [phone] Сергей Navas MD Discharge Disposition: Discharged to home or Selfcare 08/28/2025 Travel 08/27/2025 8:45 AM CDT Clinical Support [facility] [address] [place] [phone] Сергей Navas MD Discharge Disposition: Discharged to home or Selfcare 08/27/2025 Travel 08/26/2025 3:00 PM CDT Clinical Support [facility] [address] [place] [phone] Сергей Navas MD Discharge Disposition: Discharged to home or Selfcare 08/26/2025 Travel 08/25/2025 9:00 AM CDT Clinical Support [facility] [address] [place] [phone] Сергей Navas MD Discharge Disposition: Discharged to home or Selfcare 08/25/2025 Travel 08/24/2025 9:15 AM CDT Office Visit [facility] [address] [place] [phone] Сергей Navas MD 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) Discharge Disposition: Discharged to home or Selfcare 08/24/2025 9:00 AM CDT Clinical Support [facility] [address] [place] [phone] Сергей Navas MD Discharge Disposition: Discharged to home or Selfcare 08/24/2025 Travel 08/21/2025 2:45 PM CDT Clinical Support [facility] [address] [place] [phone] Сергей Navas MD Discharge Disposition: Discharged to home or Selfcare 08/21/2025 Travel 08/20/2025 2:30 PM CDT Clinical Support [facility] [address] [place] [phone] Сергей Navas MD 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) Discharge Disposition: Discharged to home or Selfcare 08/20/2025 Travel 08/19/2025 Non-Scheduled Office Visit [facility] [address] [place] [phone] Сергей Navas MD 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) from Last 3 Months Family History Medical History Relation Name Comments Cancer Father Cancer Maternal Grandfather Diabetes Mother Cancer Paternal Grandfather Relation Name Status Comments Father Maternal Grandfather Alive Mother Alive Paternal Grandfather Alive Sister Alive Social History Tobacco Use Types Packs/Day Years Used Date Smoking Tobacco: Every Day Cigarettes Tobacco Cessation:Ready to Q uit: Not Asked; Counseling Given: Not Answered Alcohol Use Standard Drinks/Week Comments No 0 (1 standard drink = 0.6 oz pur e alcohol) Socially Sex and Gender Information Value Date Recorded Sex Assigned at Not on file Legal Sex Male 6:31 AM TEMPLATE WORKER Gender Identity Not on file Sexual Orientation Not on file Last Filed Vital Signs Vital Sign Reading Time Taken Comments Blood Pressure 167/84 10/13/2025 3:22 PM TEMPLATE WORKER Pulse 76 10/13/2025 3:22 PM TEMPLATE WORKER Temperature 36.8 C (98.3 F) 10/13/2025 3:22 PM TEMPLATE WORKER Respiratory Rate 18 10/13/2025 3:22 PM TEMPLATE WORKER Oxygen Saturation 97% 10/13/2025 3:22 PM TEMPLATE WORKER Inhaled Oxygen Concentration - - Weight 125.5 kg (276 lb 9.6 oz) 10/13/2025 3:22 PM TEMPLATE WORKER Height 185.4 cm (6' 1) 10/13/2025 3:22 PM TEMPLATE WORKER Body Mass Index 36.49 10/13/2025 3:22 PM TEMPLATE WORKER Plan of Treatment Upcoming Encounters Date Type Department Care Team (Late st Contact Info) Description 12/15/2025 3:30 PM TEMPLATE WORKER [facility] [address] [place] [phone] Issac Laboy MD [address] [place] [address] Discharge Disposition: Discharged to home or Selfcare [...] Immunization Completed 06/28/2014 Human Papillomavirus (HPV) Immunization (No Doses Required) Completed Meningococcal Immunization (ACWY) Aged Out No longer [...] of skin of finger of right hand from Last 3 Months Results * RAD [...] F inal Result ARIA RO MODEL [address] [place] [address] * RAD ONC ARIA SESSION SUMMARY (09/16/2025 [...] ORDERABLES F inal Result Performing Organization Address [facility] de Phone Number ARIA [facility] MODEL [address] [place] [address] * RAD ONC ARIA SESSION SUMMARY (09/15/2025 [...] ORDERABLES F inal Result Performing Organization Address [facility] Co de Phone Number ARIA RO MODEL [address] [place] [address] * RAD ONC ARIA SESSION SUMMARY (09/14/2025 [...] ORDERABLES F inal Result Performing Organization Address [facility] Co de Phone Number ARIA RO MODEL [address] [place] [address] * RAD ONC ARIA SESSION SUMMARY (09/11/2025 [...] ORDERABLES F inal Result Performing Organization Address City/State/[facility] Co de Phone Number ARIA [facility] MODEL [address] [place] [address] * RAD ONC ARIA SESSION SUMMARY (09/10/2025 [...] ORDERABLES F inal Result Performing Organization Address [facility] Co de Phone Number ARIA RO MODEL [address] [place] [address] * RAD ONC ARIA SESSION SUMMARY (09/09/2025 [...] ORDERABLES F inal Result Performing Organization Address [facility] Co de Phone Number ARIA RO MODEL [address] [place] [address] * RAD ONC ARIA SESSION SUMMARY (09/08/2025 [...] F inal Result ARIA RO MODEL [address] [place] [address] * RAD ONC ARIA SESSION SUMMARY (09/07/2025 [...] ORDERABLES F inal Result Performing Organization Address [facility] Co de Phone Number ARIA RO MODEL [address] [place] [address] * RAD ONC ARIA SESSION SUMMARY (09/04/2025 [...] ORDERABLES F inal Result Performing Organization Address [facility] Co de Phone Number ARIA RO MODEL [address] [place] [address] * RAD ONC ARIA SESSION SUMMARY (09/03/2025 [...] ORDERABLES F inal Result Performing Organization Address [facility] de Phone Number ARIA RO MODEL [address] [place] [address] * RAD ONC ARIA SESSION SUMMARY (09/02/2025 [...] ORDERABLES F inal Result Performing Organization Address City/[facility] Co de Phone Number ARIA [facility] MODEL [address] [place] [address] * RAD ONC ARIA SESSION SUMMARY (09/01/2025 [...] F inal Result ARIA [address] MODEL [address] [place] [address] * RAD ONC ARIA SESSION SUMMARY (08/31/2025 [...] ORDERABLES F inal Result Performing Organization Address [facility] Co de Phone Number ARIA RO MODEL [address] [place] [address] * RAD ONC ARIA SESSION SUMMARY (08/28/2025 [...] ORDERABLES F inal Result Performing Organization Address City/[facility] Co de Phone Number ARIA [facility] MODEL [address] [place] [address] * RAD ONC ARIA SESSION SUMMARY (08/27/2025 [...] ORDERABLES F inal Result Performing Organization Address City/State/[facility] Co de Phone Number ARIA RO MODEL [address] [place] [address] * RAD ONC ARIA SESSION SUMMARY (08/26/2025 [...] ORDERABLES F inal Result Performing Organization Address [facility] Co de Phone Number ARIA RO MODEL [address] [place] [address] * RAD ONC ARIA SESSION SUMMARY (08/25/2025 [...] ORDERABLES F inal Result Performing Organization Address [facility] Co de Phone Number ARIA RO MODEL [address] [place] [address] * RAD ONC ARIA SESSION SUMMARY (08/24/2025 [...] ORDERABLES F inal Result Performing Organization Address [facility] Co de Phone Number ARIA [facility] MODEL [address] [place] [address] * RAD ONC ARIA SESSION SUMMARY (08/21/2025 [...] ORDERABLES F inal Result Performing Organization Address City/State/[facility] de Phone Number ARIA RO MODEL [address] [place] [address] * RAD ONC ARIA SESSION SUMMARY (08/20/2025 [...] ARIA RO MODEL 08/20/2025 2:47 PM CDT us Unknown Provider RADIATION ONCOLOGY ORDERABLES F inal Result Performing Organization Address [facility] de Phone Number ARIA RO MODEL [address] [place] [address] from Last 3 Months Insurance MEDICAID [facility] [employer] Care Teams Applications Instructor Relationship Specialty Start Date End Date Сергей Vázquez MD [address] [place] [address] PCP - General Family Medicine 10/26/16 Kenny Deng MD [address] [phone] Consulting Physician Plastic Surgery 09/07/25 Issac Laboy MD [address] [place] [address] Consulting Physician Radiation Oncology 09/07/25
[2025-11-13 11:21] LABS: Hematocrit 46.5 % (40.0-54.0); Hemoglobin 16.1 g/dL (14.0-18.0); Immature Platelet Fraction Pct 5.7 % (1.0-7.0); Mean Corpuscular HGB Conc 34.6 g/dL (32-36); Mean Corpuscular Hemoglobin 28.7 pg (27.0-31.0); Mean Corpuscular Volume 82.9 fL (78.0-102.0); Platelet Count Result 116 K/mm3 (150-420); Red Blood Count 5.61 M/mm3 (4.70-6.10); White Blood Count 4.6 K/mm3 (4.8-10.8)
[2025-11-13 11:36] LABS: Iron 71 ug/dL (49-181)
[2025-11-13 11:41] LABS: Alanine Aminotransferase 23 U/L (6-50); Albumin Level 4.3 g/dL (3.5-5.1); Alkaline Phosphatase 79 U/L (38-126); Anion Gap 8 mmol/L (4-12); Aspartate Amino Transferase 21 U/L (17-59); Bilirubin,Total 0.4 mg/dL (0.2-1.3); Blood Urea Nitrogen 11 mg/dL (9-20); CRP < 0.5 mg/dL (<1.0); Calcium 8.9 mg/dL (8.4-10.2); Carbon Dioxide 25 mmol/L (22-30); Chloride 108 mmol/L (98-107); Estimated Glomerular Filt Rate > 60; Glucose 253 mg/dL (65-110); Osmolality Calculated 300 mOsm/kg (285-295); Potassium 4.4 mmol/L (3.4-5.0); Sodium 141 mmol/L (137-145); Total Protein 6.6 g/dL (6.3-8.2)
[2025-11-13 11:45] LABS: Percent Iron Saturation 23 % (20-50)
[2025-11-13 12:12] LABS: Ferritin 52.70 ng/mL (17.9-464)
[2025-11-13 14:35] LABS: Toxigenic C. Diff NEGATIVE (NEGATIVE)
[2025-11-14 06:08] LABS: Hep B Core Ab, Total Negative (Negative)
[2025-11-14 09:53] LABS: Hepatitis B Surface Antigen Negative; Hepatitis B Surface Antigen Negative (Negative)
[2025-11-14 10:10] LABS: Hepatitis B Surface Anti Res Negative
[2025-11-18 06:08] LABS: Calprotectin, Fecal 1670 ug/g (0-120)
== END 2025-11-13 10:47 | disposition home or self-care (01) ==
PROVIDERS: PCP Nurse Practitioner; Visit Provider Nurse Practitioner
DX: K51.90 Ulcerative colitis, unspecified, without complications (principal); R19.7 Diarrhea, unspecified; K92.1 Melena; R10.9 Unspecified abdominal pain
CPT/HCPCS: 36415; 74018; 80053; 82728; 83540; 83550; 83993; 85027; 85055; 85652; 86140; 86480; 86704; 86706; 87340; 87493; 87507

== ENCOUNTER 2025-11-18 10:14 | Outpatient (CLI) | payer OTHER, SELFPAY ==
--- OUTSIDE RECORDS SUMMARY | 2025-11-18 10:17 | XMS_ITS | Clinical Summary ---
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 Gender Identity Not on file Sexual Orientation [...] (#1) 2025 Medical Devices Implanted Type Area Early Childhood Teacher Device Identifier Shelf Expiration Date Model / Serial / Lot [employer] Fiberloop 3.2mm Drill Pin Needle Shoehorn Cannula Kit Suture Ar-2290 - [id number] Implanted:Qty : 1 on 09/01/2024 by Carlos Hart MD at [facility] Left: Shoulder [employer] [id number] 04/25/2029 AR-2290 / / [id number] Procedures Procedure Name Priority Date/Time Associated Diagnosis Comments LIPID PANEL Routine 06/13/2023 Hyperlipidemia associated with type 2 diabetes mellitus (HCC) EGFR Routine 03/11/2021 1:20 PM CDT Hyperlipidemia associated with type 2 diabetes mellitus (HCC) Atypical chest pain from Last 3 Months or Most Recently Relevant to Health Maintenance Results * Lipid panel (06/13/2023) Pathologist [facility] SCRIBED Cholesterol, Total 97 <200 EXTERNAL LAB [...] LAB BLOOD ORDERABLES Janina headley Result MARIO [id number] Department of Laboratories [place] [phone] from Last 3 Months or Most Recently Relevant to Health Maintenance Insurance [employer] [facility] COMPENSATION GENERIC Care Teams Tripe Washer Relationship Specialty Start Date End Date Olivier Boyce DO [address] [place] [address] PCP - General Family Medicine 08/07/24
--- OUTSIDE RECORDS SUMMARY | 2025-11-18 10:17 | XMS_ITS | Clinical Summary ---
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); History of therapeutic radiation Discharge Disposition: Discharged to home or Selfcare 10/13/2025 Travel 09/28/2025 10:30 AM CATTLE PRODUCERS Office Visit [facility] [address] [place] [address] Issac Laboy MD 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); History of therapeutic radiation Discharge Disposition: Discharged to home or Selfcare 09/28/2025 Non-Scheduled Office Visit [facility] [address] [place] [phone] Issac Laboy MD Pain of finger of right hand (Primary Dx); 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; History of therapeutic radiation 09/28/2025 Telephone [facility] [address] [place] [phone] Issac Laboy MD 09/28/2025 Travel 09/23/2025 Documentation Only [facility] [address] [place] [phone] Issac Laboy MD 09/22/2025 Telephone [facility] [address] [phone] Issac Laboy MD Care Management (Please see dictated note.) 09/20/2025 Telephone [facility] [address] [place] [phone] Issac Laboy MD Care Management (Please see dictated note.) 09/16/2025 8:30 AM CDT Clinical Support [facility] [address] [place] [phone] Issac Laboy MD Encounter for radiotherapy (Primary Dx); 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; History of therapeutic radiation Discharge Disposition: Discharged to home or Selfcare 09/16/2025 Travel 09/15/2025 8:30 AM CDT Clinical Support [facility] [address] [place] [phone] Issac Laboy MD Discharge Disposition: Discharged to home or Selfcare 09/15/2025 Travel 09/14/2025 8:45 AM CDT Office Visit [facility] [address] [place] [address] Issac Laboy MD Encounter for radiotherapy (Primary Dx); 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 Discharge Disposition: Discharged to home or Selfcare 09/14/2025 8:30 AM CDT Clinical Support [facility] [address] [place] [phone] Issac Laboy MD Discharge Disposition: Discharged to home or Selfcare 09/14/2025 Travel 09/11/2025 8:30 AM CDT Clinical Support [facility] [address] [place] [phone] Issac Laboy MD Discharge Disposition: Discharged to home or Selfcare 09/11/2025 Travel 09/10/2025 8:30 AM CDT Clinical Support [facility] [address] [place] [phone] Issac Laboy MD Discharge Disposition: Discharged to home or Selfcare 09/10/2025 Travel 09/09/2025 8:30 AM CDT Clinical Support [facility] [address] [phone] Issac Laboy MD Discharge Disposition: Discharged to home or Selfcare 09/09/2025 Travel 09/08/2025 8:30 AM CDT Clinical Support [facility] [address] [place] [phone] Issac Laboy MD Discharge Disposition: Discharged to home or Selfcare 09/08/2025 Travel 09/07/2025 8:45 AM CDT [facility] [address] [place] [phone] Сергей Navas MD Piephoff, James Vernon, MD Encounter for radiotherapy (Primary Dx); 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 Discharge Disposition: Discharged to home or Selfcare 09/07/2025 8:30 AM CDT Clinical Support [facility] [address] [phone] Сергей Navas MD Discharge Disposition: Discharged to home or Selfcare 09/07/2025 Travel 09/04/2025 8:30 AM CDT Clinical Support [facility] [address] [place] [phone] Сергей Navas MD Discharge Disposition: Discharged to home or Selfcare 09/04/2025 Travel 09/03/2025 8:30 AM CDT Clinical Support [facility] [address] [phone] Сергей Navas MD Discharge Disposition: Discharged to home or Selfcare 09/03/2025 Documentation Only [facility] [address] [place] [phone] Серегй Navas MD 09/03/2025 Travel 09/02/2025 8:45 AM CDT Clinical Support [facility] [address] [place] [phone] Сергей Navas MD Discharge Disposition: Discharged to home or Selfcare 09/02/2025 Travel 09/01/2025 8:45 AM CDT Clinical Support [facility] [address] [place] [phone] Сергей Navas MD Discharge Disposition: Discharged to home or Selfcare 09/01/2025 Travel 08/31/2025 9:00 AM CDT Office Visit [facility] [address] [place] [phone] Сергей Navas MD 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) Discharge Disposition: Discharged to home or Selfcare 08/31/2025 8:45 AM CDT Clinical Support [facility] [address] [place] [phone] Сергей Navas MD Discharge Disposition: Discharged to home or Selfcare 08/31/2025 Travel 08/28/2025 8:45 AM CDT Clinical Support [facility] [address] [place] [phone] Сергей Navas MD Discharge Disposition: Discharged to home or Selfcare 08/28/2025 Travel 08/27/2025 8:45 AM CDT Clinical Support [facility] [address] [place] [phone] Сергей Navas MD Discharge Disposition: Discharged to home or Selfcare 08/27/2025 Travel 08/26/2025 3:00 PM CDT Clinical Support [facility] [address] [place] [phone] Сергей Navas MD Discharge Disposition: Discharged to home or Selfcare 08/26/2025 Travel 08/25/2025 9:00 AM CDT Clinical Support [facility] [address] [phone] Сергей Navas MD Discharge Disposition: Discharged to home or Selfcare 08/25/2025 Travel 08/24/2025 9:15 AM CDT Office Visit [facility] [address] [place] [phone] Сергей Navas MD 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) Discharge Disposition: Discharged to home or Selfcare 08/24/2025 9:00 AM CDT Clinical Support [facility] [address] [place] [phone] Сергей Navas MD Discharge Disposition: Discharged to home or Selfcare 08/24/2025 Travel 08/21/2025 2:45 PM CDT Clinical Support [facility] [address] [place] [phone] Сергей Navas MD Discharge Disposition: Discharged to home or Selfcare 08/21/2025 Travel 08/20/2025 2:30 PM CDT Clinical Support [facility] [address] [place] [phone] Сергей Navas MD 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) Discharge Disposition: Discharged to home or Selfcare 08/20/2025 Travel 08/19/2025 Non-Scheduled Office Visit [facility] [address] [place] [phone] Сергей Navas MD Squamous cell carcinoma in [...] on file Legal Sex Male 6:31 AM CATTLE PRODUCERS Gender Identity Not on file Sexual Orientation Not on file Last Filed Vital Signs Vital Sign Reading Time Taken Comments Blood Pressure 167/84 10/13/2025 3:22 PM CATTLE PRODUCERS Pulse 76 10/13/2025 3:22 PM CATTLE PRODUCERS Temperature 36.8 C (98.3 F) 10/13/2025 3:22 PM CATTLE PRODUCERS Respiratory Rate 18 10/13/2025 3:22 PM CATTLE PRODUCERS Oxygen Saturation 97% 10/13/2025 3:22 PM CATTLE PRODUCERS Inhaled Oxygen Concentration - - Weight 125.5 kg (276 lb 9.6 oz) 10/13/2025 3:22 PM CATTLE PRODUCERS Height 185.4 cm (6' 1) 10/13/2025 3:22 PM CATTLE PRODUCERS Body Mass Index 36.49 10/13/2025 3:22 PM CATTLE PRODUCERS Plan of Treatment Upcoming Encounters Date Type Department Care Team (Late st Contact Info) Description 12/15/2025 3:30 PM CATTLE PRODUCERS [facility] [address] [place] [phone] Issac Laboy MD [address] [place] [address] Discharge Disposition: Discharged to home or Selfcare [...] F inal Result ARIA RO MODEL [address] [place] [address] * RAD ONC ARIA SESSION SUMMARY (09/16/2025 [...] ORDERABLES F inal Result Performing Organization Address [facility] de Phone Number ARIA RO MODEL [address] [place] [address] * RAD ONC ARIA SESSION SUMMARY (09/15/2025 [...] ORDERABLES F inal Result Performing Organization Address [facility] Co de Phone Number ARIA RO MODEL [address] [place] [address] * RAD ONC ARIA SESSION SUMMARY (09/14/2025 [...] ORDERABLES F inal Result Performing Organization Address [facility] Co de Phone Number ARIA RO MODEL [address] [place] [address] * RAD ONC ARIA SESSION SUMMARY (09/11/2025 [...] ORDERABLES F inal Result Performing Organization Address City/State/[facility] Co de Phone Number ARIA RO MODEL [address] [place] [address] * RAD ONC ARIA SESSION SUMMARY (09/10/2025 [...] ORDERABLES F inal Result Performing Organization Address [facility] Co de Phone Number ARIA RO MODEL [address] [place] [address] * RAD ONC ARIA SESSION SUMMARY (09/09/2025 [...] ORDERABLES F inal Result Performing Organization Address [facility] Co de Phone Number ARIA RO MODEL [address] [place] [address] * RAD ONC ARIA SESSION SUMMARY (09/08/2025 [...] F inal Result ARIA RO MODEL [address] [place] [address] * RAD ONC ARIA SESSION SUMMARY (09/07/2025 [...] ORDERABLES F inal Result Performing Organization Address [facility] Co de Phone Number ARIA RO MODEL [address] [place] [address] * RAD ONC ARIA SESSION SUMMARY (09/04/2025 [...] ORDERABLES F inal Result Performing Organization Address [facility] Co de Phone Number ARIA RO MODEL [address] [place] [address] * RAD ONC ARIA SESSION SUMMARY (09/03/2025 [...] ORDERABLES F inal Result Performing Organization Address [facility] de Phone Number ARIA RO MODEL [address] [place] [address] * RAD ONC ARIA SESSION SUMMARY (09/02/2025 [...] ORDERABLES F inal Result Performing Organization Address City/[facility] Co de Phone Number ARIA RO MODEL [address] [place] [address] * RAD ONC ARIA SESSION SUMMARY (09/01/2025 [...] F inal Result ARIA RO MODEL [address] [place] [address] * RAD ONC ARIA SESSION SUMMARY (08/31/2025 [...] ORDERABLES F inal Result Performing Organization Address [facility] Co de Phone Number ARIA RO MODEL [address] [place] [address] * RAD ONC ARIA SESSION SUMMARY (08/28/2025 [...] ORDERABLES F inal Result Performing Organization Address City/[facility] Co de Phone Number ARIA RO MODEL [address] [place] [address] * RAD ONC ARIA SESSION SUMMARY (08/27/2025 [...] ORDERABLES F inal Result Performing Organization Address City/State/[facility] Co de Phone Number ARIA RO MODEL [address] [place] [address] * RAD ONC ARIA SESSION SUMMARY (08/26/2025 [...] ORDERABLES F inal Result Performing Organization Address [facility] Co de Phone Number ARIA RO MODEL [address] [place] [address] * RAD ONC ARIA SESSION SUMMARY (08/25/2025 [...] ORDERABLES F inal Result Performing Organization Address [facility] Co de Phone Number ARIA RO MODEL [address] [place] [address] * RAD ONC ARIA SESSION SUMMARY (08/24/2025 [...] ORDERABLES F inal Result Performing Organization Address [facility] Co de Phone Number ARIA RO MODEL [address] [place] [address] * RAD ONC ARIA SESSION SUMMARY (08/21/2025 [...] ORDERABLES F inal Result Performing Organization Address City/State/[facility] de Phone Number ARIA RO MODEL [address] [place] [address] * RAD ONC ARIA SESSION SUMMARY (08/20/2025 [...] ORDERABLES F inal Result Performing Organization Address [facility] de Phone Number ARIA RO MODEL [address] [place] [address] from Last 3 Months Insurance MEDICAID [employer] Care Teams Research Consultant Relationship Specialty Start Date End Date Сергей Vázquez MD [address] [place] [address] PCP - General Family Medicine 10/26/16 Kenny Deng MD [address] [phone] Consulting Physician Plastic Surgery 09/07/25 Issac Laboy MD [address] [place] [address] Consulting Physician Radiation Oncology 09/07/25
--- OUTSIDE RECORDS SUMMARY | 2025-11-18 10:17 | XMS_ITS | Clinical Summary ---
Author Organization [facility] Address [address] [place] [address] Care Team Providers Care Internal Control Consultant Name Role Phone Unavailable Primary Care Provider Unavailabl e Source Comments [facility],non-owned Affiliates and Associated Physician Practices is amultiple site organization consisting of ambulatory clinics and hospital sitesin [place], [place], [place] and [place]. This disclosure is being madepursuant to the Care Everywhere program and may not contain all information available regarding this patient. Last updated 18.[facility] Allergies Active Allergy Reactions Criticality Noted Date Comments Oxycodone-Acetaminophen Itching Low 07/02/2017 Quoyxu-Veibh-Ulvpqr-Fa-Fishoil Vomiting Medium 02/20 Hmg-Coa-R Inhibitors Vomiting 02/21/2024 [...] vitamin D, ergocalciferol , (Drisdol) 1.25 MG (77588 UT) capsuleIndicat ions:Vitamin D Deficiency Take 1 [...] medical care, and heating? Somewhat hard 02/21/2024 [facility] [place] of Occupat ional Health - Occupational Stress [...] place to sleep or slept in a halfway (including now)? No 02/21/2024 Sex and Gender [...] PANEL (CALCIUM TOTAL) (02/25/2024 6:15 AM CDT) [facility] Glucose 209(H) 70 - 125 mg/dL 02/25/2024 6:37 AM CDT [facility] Sodium 139 136 - 145 mmol/L 02/25/2024 6:37 AM CDT [facility] Potassium 3.7 3.4 - 5.1 mmol/L 02/25/2024 6:37 AM CDT [facility] Chloride 106 98 - 107 mmol/L 02/25/2024 6:37 AM CDT [facility] CO2 27 22 - 29 mmol/L 02/25/2024 6:37 AM CDT [facility] Calcium 8.83 8.4 - 10.2 mg/dL 02/25/2024 6:37 AM T [facility] Anion Gap 6 6 - 16 mmol/L 02/25/2024 6:37 AM CDT [facility] BUN 11.6 8.4 - 25.7 mg/dL 02/25/2024 6:37 AM T [facility] Creatinine 0.58(L) 0.72 - 1.25 mg/dL 02/25/2024 6:37 AM T [facility] eGFR >90 >90 mL/min/1.7 3m2 02/25/2024 6:37 AM T [facility] Comment:The GFR result was c alculated using the updated CKD-EPI Creatinine Equation (2020). Blood BLOOD SPECIMEN / Unknown Lab Venipuncture / Unknown 02/25/2024 6:15 AM CDT 02/25/2024 6:15 AM CDT Chi Le TOBACCO PRIMER MACHINE OPERATOR-[facility] LAB - CHEMISTRY OR DERABLES Final Result Performing Organization Address [facility] Co de Phone Number [facility] [address] * (ABNORMAL) HEMOGLOBIN A1C (02/22/2024 6:10 AM CDT) [facility] Hemoglobin A1c 7.0(H) 4.2 - 5.6 % 02/22/2024 7:19 AM CDT [facility] Estimated Average Glucose 154 mg/dL 02/22/2024 7:19 AM CDT [facility] Blood BLOOD SPECIMEN / Unknown Lab Venipuncture / Unknown 02/22/2024 6:10 AM CDT 02/22/2024 6:17 AM CDT Narrative [facility] - 02/22/2024 7:19 AM [...] Standardization Program (NGSP) certified method. Chi Le TOBACCO PRIMER MACHINE OPERATOR-CHEMICAL ANALYST LAB - CHEMISTRY OR DERABLES Final Result Performing Organization Address City/State/[facility] Co de Phone Number [facility] [address] from Last 3 Months or Most Recently Relevant to Health Maintenance Insurance MEDICAID - [place] [facility] [place] [id number] SELF PAY NO INSURANCE Member Subscriber Plan / Payer (Ef fective for All Dates) Name:Nuzhat Aaron Member ID:Not on file Relation to Subscriber:Not on file Name:NUZHAT AARON Subscriber ID:Not on file (Home) Address: [address] [place] [phone] Payer ID:Not on file Group ID:Not on file Type:Self Pay Address: [place], [place] [facility] [employer] [place] [id number] * Guarantor: NUZHAT AARON Account Type Relation [...]
--- OUTSIDE RECORDS SUMMARY | 2025-11-18 10:17 | XMS_ITS | Clinical Summary ---
Author Organization [facility] Address [address] [place] [address] [place] [address] Care Team Providers Care Wafer Machine Operator Name Role Phone Unavailable Primary Care Provider Unavailabl e Allergies Active Allergy Reactions Criticality Noted Date Comments Parmelia Perlata Itching Low 07/10/2024 Rfkjyyx-Nmm-Eae Reductase Inhibitors Nausea and Vomiting High 05/04/2021 [...]
--- OUTSIDE RECORDS SUMMARY | 2025-11-18 10:17 | XMS_ITS ---
Author Organization [facility] Address [address] [place] [address] Phone Care Team Providers Care Circulating Nurse Name Role Phone Сергей Vázquez MD Primary Care Provider [phone] Kenny Deng MD Unavailable [phone] Issac Laboy MD Unavailable [phone] Active Problems Problem Noted Date Diagnosed Date [...]
== END 2025-11-18 10:15 | disposition home or self-care (01) ==
PROVIDERS: PCP Family Medicine; Visit Provider Nurse Practitioner
DX: K51.90 Ulcerative colitis, unspecified, without complications (principal)
CPT/HCPCS: 86480